=== PATIENT | female | born 1960 | race Hispanic/Latino ===

== ENCOUNTER 2017-01-14 05:55 | Inpatient (IN) | payer OTHER ==
[2017-01-14 06:51] LABS: Hematocrit 51.7 % (30.3-42.9); Hemoglobin 17.5 gm/dl (10.1-14.3); Mean Corpuscular HGB Conc 34 % (30-34); Mean Corpuscular Hemoglobin 32 pg (28-32); Mean Corpuscular Volume 96 fl (79-97); Platelet Count 172 K/mm3 (140-440); Red Blood Count 5.41 M/mm3 (3.65-5.03); White Blood Count 13.8 K/mm3 (4.5-11.0)
[2017-01-14] MEDS ORDERED: ZOFRAN IV ONE ×2 (06:54→08:40)
[2017-01-14] MEDS ORDERED: MORPHINE IV ONE ×2 (06:54→08:40)
[2017-01-14] MEDS ORDERED: PROTONIX IV ONE (06:54)
[2017-01-14] MEDS ORDERED: ZOSYN/NS 4.5GM/100ML 4.5 GM/100 ML VIAL IV ONE (06:55)
[2017-01-14] MEDS ORDERED: NACL 0.9% 1000 ML 1,000 ML IV ONE ×2 (06:57→07:46)
[2017-01-14 07:06] LABS: Alanine Aminotransferase 31 units/L (7-56); Albumin 3.8 g/dL (3.9-5); Albumin/Globulin Ratio 1.4 %; Alkaline Phosphatase 94 units/L (35-129); Anion Gap 28 mmol/L; Bilirubin,Direct 0.4 mg/dL (0-0.2); Blood Urea Nitrogen 6 mg/dL (7-17); Calcium 8.2 mg/dL (8.4-10.2); Carbon Dioxide 19 mmol/L (22-30); Chloride 91.2 mmol/L (98-107); Glucose 204 mg/dL (65-100); Sodium 136 mmol/L (137-145); Total Protein 6.6 g/dL (6.3-8.2)
--- NOTE | 2017-01-14 07:14 | XRay Report ---
AP CHEST: HISTORY: Hypertension AP view of the chest demonstrates a normal mediastinal and cardiac contour with clear lungs and normal bony and soft tissue structures. IMPRESSION: No acute cardiopulmonary process.
[2017-01-14 07:18] LABS: Lipase 1340 units/L (13-60)
[2017-01-14 07:24] LABS: Potassium 2.5 mmol/L (3.6-5.0)
[2017-01-14 07:30] LABS: Partial Thromboplastin Time 24.4 Sec. (24.2-36.6)
--- NOTE | 2017-01-14 07:45 | Cat Scan Report ---
CT OF THE ABDOMEN AND PELVIS WITHOUT CONTRAST HISTORY: Diffuse abdominal pain. TECHNIQUE: Helical CT without contrast. Sagittal and coronal reformatted images. FINDINGS: Correlation is made with a right upper quadrant ultrasound dated 12/20/15. Moderate inflammatory changes and fluid have developed surrounding the pancreas highly suggestive of acute pancreatitis. There is no obvious pancreatic mass or pseudocyst. Mild diffuse fatty infiltration of the liver is noted. No liver mass or surface nodularity is appreciated. The biliary system is unremarkable on noncontrast CT but recent right upper quadrant ultrasound demonstrated tiny gallstones. There is no evidence for biliary dilatation. The kidneys, adrenal glands, spleen and aorta are unremarkable. There are scattered diverticula in the sigmoid colon. Otherwise, the GI system is within normal limits. Normal appendix. The uterus, adnexa and bladder are unremarkable. Heart size is normal. The lung bases are clear. No pleural effusion. Normal bony structures. IMPRESSION: Acute pancreatitis. Fatty infiltration of the liver. Mild diverticulosis of the sigmoid colon.
[2017-01-14] MEDS ORDERED: K-DUR PO ONE (08:01)
--- NOTE | 2017-01-14 08:03 | Emergency Department Report ---
ED General Adult HPI - General Chief complaint: Abdominal Pain Stated complaint: ABD PAIN, ABRAM Source: EMS Mode of arrival: Stretcher Limitations: No Limitations - History of Present Illness Initial comments: Patient refers diffuse abdominal pain which seems to be worse in the upper quadrants but bilateral since at least 2 days. She states that she has not been able to tolerate oral feeding. Complains of nausea but not much denise emesis. Despite having an ultrasound that demonstrated gallstones in 2016, the patient has no knowledge of her history of gallstones. She is a poor historian in general. She does not report any fever or chills. She states that she's had no prior abdominal surgery and no pain like this before. -: days(s) Location: abdomen Radiation: non-radiation Severity scale (0 -10): 8 Quality: aching Consistency: constant Improves with: none Worsens with: none Associated Symptoms: nausea/vomiting. denies: shortness of breath, syncope - Related Data Allergies Allergy/AdvReac Type Severity Reaction Status Date / Time No Known Allergies Allergy Verified 01/14/17 07:50 ED Review of Systems ROS: Stated complaint: ABD PAIN, ABRAM Other details as noted in HPI Constitutional: denies: chills, fever Eyes: denies: eye pain, eye discharge, vision change ENT: denies: ear pain, throat pain Respiratory: shortness of breath. denies: cough, wheezing Cardiovascular: denies: chest pain, palpitations Endocrine: no symptoms reported Gastrointestinal: abdominal pain, nausea. denies: diarrhea Genitourinary: denies: urgency, dysuria, discharge Musculoskeletal: denies: back pain, joint swelling, arthralgia Skin: denies: rash, lesions Neurological: denies: headache, weakness, paresthesias Psychiatric: denies: anxiety, depression Hematological/Lymphatic: denies: easy bleeding, easy bruising ED Past Medical Hx - Past Medical History Previous Medical History?: Yes Hx Hypertension: Yes Hx COPD: Yes - Surgical History Past Surgical History?: Yes - Social History Smoking Status: Current Every Day Smoker Substance Use Type: None ED Physical Exam - General Limitations: No Limitations General appearance: alert, in no apparent distress - Head Head exam: Present: atraumatic, normocephalic - Eye Eye exam: Present: normal appearance. Absent: scleral icterus - ENT ENT exam: Present: mucous membranes moist - Neck Neck exam: Present: normal inspection. Absent: tenderness, meningismus - Respiratory Respiratory exam: Present: normal lung sounds bilaterally. Absent: respiratory distress - Cardiovascular Cardiovascular Exam: Present: regular rate, normal rhythm. Absent: systolic murmur, diastolic murmur, rubs, gallop - GI/Abdominal GI/Abdominal exam: Present: soft, distended (mildly distended), tenderness ( diffuse tenderness upper quadrants greater than lower), guarding (some voluntary guarding), normal bowel sounds. Absent: rebound (no denise rebound), rigid - Extremities Exam Extremities exam: Present: normal inspection - Back Exam Back exam: Present: normal inspection - Neurological Exam Neurological exam: Present: alert, oriented X3, CN II-XII intact. Absent: motor sensory deficit - Psychiatric Psychiatric exam: Present: normal affect, normal mood - Skin Skin exam: Present: warm, dry, intact, normal color. Absent: rash ED Course Vital Signs 01/14/17 01/14/17 01/14/17 06:05 06:09 06:30 Temperature 97.9 F Pulse Rate 118 H 111 H Respiratory 18 29 H 43 H Rate Blood Pressure 154/107 145/97 O2 Sat by Pulse 100 98 Oximetry 01/14/17 01/14/17 01/14/17 07:00 07:31 08:00 Temperature Pulse Rate 108 H 102 H 94 H Respiratory 33 H 22 21 Rate Blood Pressure 167/110 143/100 161/108 O2 Sat by Pulse 98 96 95 Oximetry 01/14/17 08:31 Temperature Pulse Rate 86 Respiratory 34 H Rate Blood Pressure 143/100 O2 Sat by Pulse 99 Oximetry - Reevaluation(s) Reevaluation #1: The patient was treated empirically with Zosyn. She was given IV fluids and Protonix and supplemental potassium both by mouth and K rider. She has a significant lactic acidosis. Her total body potassium deficit is quite large. She remains hemodynamically stable. However the nurse's note periodic tachypnea which I'm sure is respiratory compensation for lactic acidosis. Her common bile duct on CT was not found to be enlarged by the radiologist. I'm going to order a bedside ultrasound however to delineate the gallbladder anatomy further. She was not found to have cholecystitis by the radiologist. However I do see quite a bit of inflammation on the CT in general and associated with obvious pancreatitis. I discussed the lactic acidosis as an indicator of severe pancreatitis in this patient with Dr. Friend. He agreed it would be appropriate to place her in the ICU today. Dr. Giraldo will be admitting her further care and evaluation. 01/14/17 08:31 ED Medical Decision Making - Lab Data Result diagrams: 01/14/17 06:33 01/14/17 06:33 Laboratory Results - last 24 hr 01/14/17 01/14/17 01/14/17 06:33 06:33 06:33 WBC 13.8 H RBC 5.41 H Hgb 17.5 H Hct 51.7 H MCV 96 MCH 32 MCHC 34 RDW 16.0 H Plt Count 172 Seg Neutrophils % Manufacturing Team Member PT INR APTT Sodium 136 L Potassium 2.5 L* Chloride 91.2 L Carbon Dioxide 19 L Anion Gap 28 BUN 6 L Creatinine 0.5 L Estimated GFR > 60 BUN/Creatinine Ratio 12.00 Glucose 204 H Lactic Acid Calcium 8.2 L Total Bilirubin 1.40 H Direct Bilirubin 0.4 H Indirect Bilirubin 1.0 AST 56 H ALT 31 Alkaline Phosphatase 94 NT-Pro-B Natriuret Pep Total Protein 6.6 Albumin 3.8 L Albumin/Globulin Ratio 1.4 Amylase 1202 H Lipase 1340 H Blood Type Antibody Screen 01/14/17 01/14/17 01/14/17 07:02 07:02 07:02 WBC RBC Hgb Hct MCV MCH MCHC RDW Plt Count Seg Neutrophils % PT 13.1 INR 1.00 APTT 24.4 Sodium Potassium Chloride Carbon Dioxide Anion Gap BUN Creatinine Estimated GFR BUN/Creatinine Ratio Glucose Lactic Acid Calcium Total Bilirubin Direct Bilirubin Indirect Bilirubin AST ALT Alkaline Phosphatase NT-Pro-B Natriuret Pep 78.95 Total Protein Albumin Albumin/Globulin Ratio Amylase Lipase Blood Type O POSITIVE Antibody Screen TNR 01/14/17 07:02 WBC RBC Hgb Hct MCV MCH MCHC RDW Plt Count Seg Neutrophils % PT INR APTT Sodium Potassium Chloride Carbon Dioxide Anion Gap BUN Creatinine Estimated GFR BUN/Creatinine Ratio Glucose Lactic Acid 7.70 H* Calcium Total Bilirubin Direct Bilirubin Indirect Bilirubin AST ALT Alkaline Phosphatase NT-Pro-B Natriuret Pep Total Protein Albumin Albumin/Globulin Ratio Amylase Lipase Blood Type Antibody Screen - EKG Data -: EKG Interpreted by Mi EKG shows normal: sinus rhythm, axis, intervals, QRS complexes - EKG Data Interpretation: other (somewhat of a low voltage EKG with prolonged QT) - Radiology Data Radiology results: report reviewed interpreted by me: Chest x-ray no acute process. CT shows diffuse pancreatitis. Critical Care Time: Yes Critical care time in (mins) excluding proc time.: 60 Critical care attestation.: If time is entered above; I have spent that time in minutes in the direct care of this critically ill patient, excluding procedure time. ED Disposition Clinical Impression: Lactic acidosis Acute pancreatitis Qualifiers: Pancreatitis type: biliary Acute pancreatitis complication: unspecified Qualified Code(s): K85.10 - Biliary acute pancreatitis without necrosis or infection Cholelithiasis Qualifiers: Cholelithiasis location: bile duct Cholecystitis presence: without cholecystitis Biliary obstruction: with biliary obstruction Qualified Code(s): K80.51 - Calculus of bile duct without cholangitis or cholecystitis with obstruction Disposition: OP ADMITTED IP TO THIS HOSP Is pt being admited?: Yes Condition: Critical Instructions: Abdominal Pain (ED) Referrals: PRIMARY CARE, [Primary Care Provider] - 3-5 Days Time of Disposition: 09:14
[2017-01-14] MEDS: KCL 10MEQ/100ML 10 MEQ/100 ML BAG IV SCH ×4 (08:22→11:51)
[2017-01-14 08:24] LABS: Blastocytes % (Manual) 0 %
[2017-01-14 08:25] LABS: Basophils % (Manual) 0 % (0.0-1.8); Diff Status Complete; Eosinophils % (Manual) 0 % (0.0-4.3); RBC Morphology Normal
[2017-01-14 08:37] LABS: Urine Drugs of Abuse Note Disclamer
[2017-01-14 08:51] LABS: Bacteria,Urine 1+ /HPF (Negative); Bilirubin,Urine NEG (Negative); Blood,Urine SM (Negative); Ketones,Urine 20 mg/dL (Negative); Leukocyte Esterase,Urine NEG (Negative); Mucus,Urine 1+ /HPF; Nitrite,Urine NEG (Negative); Urobilinogen,Urine < 2.0 mg/dL (<2.0)
[2017-01-14] MEDS ORDERED: TYLENOL PO PRN ×2 (08:57→09:14)
[2017-01-14] MEDS ORDERED: MILK OF MAGNESIA PO PRN ×2 (08:57→09:14)
[2017-01-14] MEDS ORDERED: DULCOLAX PR PRN ×2 (08:57→09:14)
[2017-01-14] MEDS ORDERED: VANCOMYCIN VIAL 1,750 MG in NACL 0.9% 500 ML 500 ML IV ONE (08:57)
[2017-01-14] MEDS ORDERED: VANCOMYCIN PHARMACY TO DOSE IV SCH (09:00)
[2017-01-14] MEDS ORDERED: ZOFRAN IV PRN (09:14)
--- NOTE | 2017-01-14 09:23 | History and Physical Report ---
History of Present Illness Date of examination: 01/14/17 Date of admission: 01/14/2017 Chief complaint: Abdominal pain History of present illness: Patient is 56 years old female with 2 day of worsening abdominal pain. The patient states that for the past two days she has felt bloated and has a decrease in appetite. yesterday she began having intermittent abdominal pain, but it has now progressed to being constant. since yesterday (01/13/2017) she has had sever nausea and has multiple times of bilious vomiting despite not having taken anything by mouth in over 24 hours. Currently, the pain described as a constant dull. diffuse pain that intermittently becomes sharp and radiates to her back. The sharp pain tends to occur in different times. the intensity of the pain has been increasing since yesterday and pain scale she now rates the pain at 10/10. She does not identify exacerbating and relieving factor. She denies a recent history of fever, jaundice,pruritis,diarrhea,hemoptysis,melena. Also patient reported that she went to her primary care office yesterday and was told she has abnormal Pap smears and yeast infection. She was recommended to take Antifungal but did not take it because of the abdominal pain. Patient is a poor historian. Past History Past Medical History: hypertension, hyperlipidemia, liver disease Past Surgical History: No surgical history Social history: , smoking Family history: CAD Medications and Allergies Allergies Allergy/AdvReac Type Severity Reaction Status Date / Time No Known Allergies Allergy Verified 01/14/17 07:50 Home Medications Medication Instructions Recorded Confirmed Last Taken Type Hydrochlorothiazide [HCTZ] 25 mg PO QDAY 01/14/17 01/14/17 Unknown History Sertraline [Zoloft] 50 mg PO QDAY 01/14/17 01/14/17 Unknown History amLODIPine [Norvasc] 10 mg PO DAILY 01/14/17 01/14/17 Unknown History traZODone [Desyrel] 50 mg PO QHS 01/14/17 01/14/17 Unknown History Active Meds: Active Medications Acetaminophen (Tylenol) 650 mg PO Q4H PRN PRN Reason: Pain MILD(1-3)/Fever >100.5/ALEXANDER Aspirin (Baby Aspirin) 81 mg PO QDAY GRZEGORZ Bisacodyl (Dulcolax) 10 mg LA QDAY PRN PRN Reason: Constipation unrelieved by MOM Hydromorphone HCl (Dilaudid) 1 mg IV Q3H PRN PRN Reason: Pain , Severe (7-10) Sodium Chloride (Nacl 0.9% 1000 Ml) 1,000 mls @ 125 mls/hr IV ONCE ONE Stop: 01/14/17 14:56 Last Admin: 01/14/17 07:09 Dose: 125 mls/hr Potassium Chloride (Kcl 10meq/100ml) 10 meq in 100 mls @ 100 mls/hr IV Q1H GRZEGORZ Stop: 01/14/17 11:59 Last Admin: 01/14/17 09:15 Dose: 100 mls/hr Dextrose/Sodium Chloride (D5ns) 1,000 mls @ 75 mls/hr IV DIRECT GRZEGORZ Vancomycin HCl 1,750 mg/ (Sodium Chloride) 500 mls @ 334 mls/hr IV ONCE ONE PRN Reason: Protocol Stop: 01/14/17 10:26 Piperacillin Sod/Tazobactam Sod (Zosyn/Ns 4.5gm/100ml) 4.5 gm in 100 mls @ 200 mls/hr IV Q6HR GRZEGORZ PRN Reason: Protocol Magnesium Hydroxide (Milk Of Magnesia) 30 ml PO Q4H PRN PRN Reason: Constipation Ondansetron HCl (Zofran) 4 mg IV Q4H PRN PRN Reason: N/V unrelieved by Reglan Vancomycin HCl (Vancomycin Pharmacy To Dose) 1 each IV PKCONSULT GRZEGORZ PRN Reason: Protocol Exam - Constitutional Vitals: Temp Pulse Resp BP Pulse Ox 97.9 F 86 34 H 143/100 99 01/14/17 06:05 01/14/17 08:31 01/14/17 08:31 01/14/17 08:31 01/14/17 08:31 General appearance: Present: no acute distress - EENT Eyes: Present: PERRL, EOM intact ENT: hearing intact, clear oral mucosa, dentition normal - Neck Neck: Present: supple, normal ROM - Respiratory Respiratory effort: normal Respiratory: right: diminished Results - Labs CBC & Chem 7: 01/14/17 06:33 01/14/17 06:33 Labs: Laboratory Last Values WBC 13.8 K/mm3 (4.5-11.0) H 01/14/17 06:33 RBC 5.41 M/mm3 (3.65-5.03) H 01/14/17 06:33 Hgb 17.5 gm/dl (10.1-14.3) H 01/14/17 06:33 Hct 51.7 % (30.3-42.9) H 01/14/17 06:33 MCV 96 fl (79-97) 01/14/17 06:33 MCH 32 pg (28-32) 01/14/17 06:33 MCHC 34 % (30-34) 01/14/17 06:33 RDW 16.0 % (13.2-15.2) H 01/14/17 06:33 Plt Count 172 K/mm3 (140-440) 01/14/17 06:33 Add Manual Diff Complete 01/14/17 06:33 Total Counted 100 01/14/17 06:33 Seg Neutrophils % Process Helper 01/14/17 06:33 Band Neutrophils % 2.0 % 01/14/17 06:33 Reactive Lymphs % (Man) 0 % 01/14/17 06:33 Monocytes % (Manual) 2.0 % (0.0-7.3) 01/14/17 06:33 Eosinophils % (Manual) 0 % (0.0-4.3) 01/14/17 06:33 Basophils % (Manual) 0 % (0.0-1.8) 01/14/17 06:33 Metamyelocytes % 0 % 01/14/17 06:33 Myelocytes % 0 % 01/14/17 06:33 Promyelocytes % 0 % 01/14/17 06:33 Blast Cells % 0 % 01/14/17 06:33 Nucleated RBC % Not Reportable 01/14/17 06:33 Seg Neutrophils # Man 13.2 K/mm3 (1.8-7.7) H 01/14/17 06:33 Band Neutrophils # 0.3 K/mm3 01/14/17 06:33 Lymphocytes # (Manual) 0.0 K/mm3 (1.2-5.4) L 01/14/17 06:33 Abs React Lymphs (Man) 0.0 K/mm3 01/14/17 06:33 Monocytes # (Manual) 0.3 K/mm3 (0.0-0.8) 01/14/17 06:33 Eosinophils # (Manual) 0.0 K/mm3 (0.0-0.4) 01/14/17 06:33 Basophils # (Manual) 0.0 K/mm3 (0.0-0.1) 01/14/17 06:33 Metamyelocytes # 0.0 K/mm3 01/14/17 06:33 Myelocytes # 0.0 K/mm3 01/14/17 06:33 Promyelocytes # 0.0 K/mm3 01/14/17 06:33 Blast Cells # 0.0 K/mm3 01/14/17 06:33 WBC Morphology Not Reportable 01/14/17 06:33 Hypersegmented Neuts Not Reportable 01/14/17 06:33 Hyposegmented Neuts Not Reportable 01/14/17 06:33 Hypogranular Neuts Not Reportable 01/14/17 06:33 Smudge Cells Not Reportable 01/14/17 06:33 Toxic Granulation Not Reportable 01/14/17 06:33 Toxic Vacuolation Not Reportable 01/14/17 06:33 Dohle Bodies Not Reportable 01/14/17 06:33 Pelger-Huet Anomaly Not Reportable 01/14/17 06:33 Cesar Rods Not Reportable 01/14/17 06:33 Platelet Estimate Appears normal 01/14/17 06:33 Clumped Platelets Not Reportable 01/14/17 06:33 Plt Clumps, EDTA Not Reportable 01/14/17 06:33 Large Platelets Not Reportable 01/14/17 06:33 Giant Platelets Not Reportable 01/14/17 06:33 Platelet Satelliting Not Reportable 01/14/17 06:33 Plt Morphology Comment Not Reportable 01/14/17 06:33 RBC Morphology Normal 01/14/17 06:33 Dimorphic RBCs Not Reportable 01/14/17 06:33 Polychromasia Not Reportable 01/14/17 06:33 Hypochromasia Not Reportable 01/14/17 06:33 Poikilocytosis Not Reportable 01/14/17 06:33 Anisocytosis Not Reportable 01/14/17 06:33 Microcytosis Not Reportable 01/14/17 06:33 Macrocytosis Not Reportable 01/14/17 06:33 Spherocytes Not Reportable 01/14/17 06:33 Pappenheimer Bodies Not Reportable 01/14/17 06:33 Sickle Cells Not Reportable 01/14/17 06:33 Target Cells Not Reportable 01/14/17 06:33 Tear Drop Cells Not Reportable 01/14/17 06:33 Ovalocytes Not Reportable 01/14/17 06:33 Helmet Cells Not Reportable 01/14/17 06:33 [place] Bodies Not Reportable 01/14/17 06:33 [place] Rings Not Reportable 01/14/17 06:33 Danielle Cells Not Reportable 01/14/17 06:33 Bite Cells Not Reportable 01/14/17 06:33 Crenated Cell Not Reportable 01/14/17 06:33 Elliptocytes Not Reportable 01/14/17 06:33 Acanthocytes (Spur) Not Reportable 01/14/17 06:33 Rouleaux Not Reportable 01/14/17 06:33 Hemoglobin C Crystals Not Reportable 01/14/17 06:33 Schistocytes Not Reportable 01/14/17 06:33 Malaria parasites Not Reportable 01/14/17 06:33 Swapnil Bodies Not Reportable 01/14/17 06:33 Hem Pathologist Commnt No 01/14/17 06:33 PT 13.1 Sec. (12.2-14.9) 01/14/17 07:02 INR 1.00 (0.87-1.13) 01/14/17 07:02 APTT 24.4 Sec. (24.2-36.6) 01/14/17 07:02 Sodium 136 mmol/L (137-145) L 01/14/17 06:33 Potassium 2.5 mmol/L (3.6-5.0) L* 01/14/17 06:33 Chloride 91.2 mmol/L (98-107) L 01/14/17 06:33 Carbon Dioxide 19 mmol/L (22-30) L 01/14/17 06:33 Anion Gap 28 mmol/L 01/14/17 06:33 BUN 6 mg/dL (7-17) L 01/14/17 06:33 Creatinine 0.5 mg/dL (0.7-1.2) L 01/14/17 06:33 Estimated GFR > 60 ml/min 01/14/17 06:33 BUN/Creatinine Ratio 12.00 % 01/14/17 06:33 Glucose 204 mg/dL (65-100) H 01/14/17 06:33 Lactic Acid 7.70 mmol/L (0.7-2.0) H* 01/14/17 07:02 Calcium 8.2 mg/dL (8.4-10.2) L 01/14/17 06:33 Total Bilirubin 1.40 mg/dL (0.1-1.2) H 01/14/17 06:33 Direct Bilirubin 0.4 mg/dL (0-0.2) H 01/14/17 06:33 Indirect Bilirubin 1.0 mg/dL 01/14/17 06:33 AST 56 units/L (5-40) H 01/14/17 06:33 ALT 31 units/L (7-56) 01/14/17 06:33 Alkaline Phosphatase 94 units/L (35-129) 01/14/17 06:33 NT-Pro-B Natriuret Pep 78.95 pg/mL (0-900) 01/14/17 07:02 Total Protein 6.6 g/dL (6.3-8.2) 01/14/17 06:33 Albumin 3.8 g/dL (3.9-5) L 01/14/17 06:33 Albumin/Globulin Ratio 1.4 % 01/14/17 06:33 Amylase 1202 units/L (27-131) H 01/14/17 06:33 Lipase 1340 units/L (13-60) H 01/14/17 06:33 Urine Color Sarah (Yellow) 01/14/17 07:55 Urine Turbidity Clear (Clear) 01/14/17 07:55 Urine pH 6.0 (5.0-7.0) 01/14/17 07:55 Ur Specific [place] 1.028 (1.003-1.030) 01/14/17 07:55 Urine Protein 100 mg/dl mg/dL (Negative) 01/14/17 07:55 Urine Glucose (UA) 50 mg/dL (Negative) 01/14/17 07:55 Urine Ketones 20 mg/dL (Negative) 01/14/17 07:55 Urine Blood Sm (Negative) 01/14/17 07:55 Urine Nitrite Neg (Negative) 01/14/17 07:55 Urine Bilirubin Neg (Negative) 01/14/17 07:55 Urine Urobilinogen < 2.0 mg/dL (<2.0) 01/14/17 07:55 Ur Leukocyte Esterase Neg (Negative) 01/14/17 07:55 Urine WBC (Auto) 3.0 /HPF (0.0-6.0) 01/14/17 07:55 Urine RBC (Auto) 3.0 /HPF (0.0-6.0) 01/14/17 07:55 U Epithel Cells (Auto) 4.0 /HPF (0-13.0) 01/14/17 07:55 Urine Bacteria (Auto) 1+ /HPF (Negative) 01/14/17 07:55 Urine Mucus 1+ /HPF 01/14/17 07:55 Urine Opiates Screen Presumptive positive 01/14/17 07:55 Urine Methadone Screen Presumptive negative 01/14/17 07:55 Ur Barbiturates Screen Presumptive negative 01/14/17 07:55 Ur Phencyclidine Scrn Presumptive negative 01/14/17 07:55 Ur Amphetamines Screen Presumptive negative 01/14/17 07:55 U Benzodiazepines Scrn Presumptive negative 01/14/17 07:55 Urine Cocaine Screen Presumptive negative 01/14/17 07:55 U Marijuana (THC) Screen Presumptive negative 01/14/17 07:55 Drugs of Abuse Note Disclamer 01/14/17 07:55 Blood Type O POSITIVE 01/14/17 07:02 Antibody Screen TNR 01/14/17 07:02 OSCAR Antibody Screen Negative 01/14/17 07:02 - Imaging and Cardiology Chest x-ray: pending (No acute cardiopulmonary) CT scan - abdomen: pending (Acute Pancreatitis, Fatty infilitation of the liver , mild diverticulosis) CT scan - pelvis: pending (Acute Pancreatitis, Fatty infilitation of the liver, mild diverticulosis) Assessment and Plan Assessment and plan: ASSESSMENT/PLAN 1. Sepsis Serial of blood cultures and PT/INR done waiting for result. Lactic Acid 7.7 WBC 13.8 H&H 17.5 and 51.7 Appropriate antibiotics ordered ID consulted for further evaluation. on continues IVF EKG Normal X-ray unremarkable 2. Acute Pancreatitis CT Abdomen/Pelvis demonstrated that, Acute Pancreatitis, Fatty infiltration of the liver and mild diverticulosis. Pain controlled with Morphine and Dilaudid on continues IVF NPO GI and surgery consulted for further evaluation. 3. Hypokalemia Replete in the ED will recheck VTE Prophylaxis Lovenox and Protonix Patient Full Code - Patient Problems (1) Sepsis Current Visit: Yes Status: Acute Qualifiers: Sepsis type: S (2) Acute pancreatitis Current Visit: Yes Status: Acute Qualifiers: Pancreatitis type: P Acute pancreatitis complication: A (3) Hypokalemia Current Visit: Yes Status: Acute
[2017-01-14] MEDS: BABY ASPIRIN PO SCH ×2 (09:27→10:01)
[2017-01-14] MEDS: ZOSYN/NS 4.5GM/100ML 4.5 GM/100 ML VIAL IV SCH ×2 (09:27→12:41)
[2017-01-14] MEDS: DILAUDID IV PRN ×4 (09:28→23:23)
--- NOTE | 2017-01-14 09:39 | Admit Criteria Form ---
Admission Criteria Documentation: PANCREATITIS Clinical Indications for Admission to Inpatient Care (Place 'X' for any and all applicable criteria): Admission is indicated for 1 or more of the following (1)(2)(3)(4): [X]I. Acute pancreatitis[A] as indicated by 2 or MORE of the following: [ ]a) Abdominal pain (eg, epigastric, left upper quadrant) [X]b) Serum amylase or serum lipase greater than 3 times the upper limit of normal [X]c) Characteristic findings from abdominal imaging (eg, pancreatic inflammation, pancreatic necrosis, peripancreatic fluid collection)[B] [X]II. Pancreatitis (acute or chronic ) requiring inpatient care as indicated by 1 or more of the following [ ]a) Inability to maintain oral hydration Hypoxemia [ ]b) Evidence of infection (eg, fever, peripancreatic abscess) [ ]c) Severe pain requiring acute inpatient management [ ]d) Hemodynamic instability [ ]e) Hypoxemia [ ]f) Acute renal failure [X]g) Severe electrolyte abnormalities Extended stay beyond goal length of stay may be needed for (1)(11) [ ]a) Severe acute pancreatitis (10)(19) [ ]b) Persistent symptoms, ascites, or pleural effusion [ ]c) Abdominal compartment syndrome (10) [ ]d) Late complications [ ]e) Gallstones in gallbladder [ ]f) Acute renal failure (27) The original [employer] content created by [employer] has been revised. The portions of the content which have been revised are identified through the use of italic text or in bold,and [facility] has neither reviewed nor approved the modified material.All other unmodified content is copyright [employer]. Please see references footnoted in the original [employer] edition 2016 Admission Criteria Met: Yes
[2017-01-14] MEDS ORDERED: LOVENOX SUB-Q SCH (10:00)
[2017-01-14 10:37] LABS: INR 1.12 (0.87-1.13); Partial Thromboplastin Time 24.7 Sec. (24.2-36.6)
[2017-01-14] MEDS ORDERED: VANCOMYCIN 1,750 MG in NACL 0.9% 500 ML 500 ML IV SCH (12:00)
[2017-01-14] MEDS ORDERED: VANCOMYCIN 1,750 MG in NACL 0.9% 500 ML 500 ML IV ONE (13:00)
--- NOTE | 2017-01-14 14:22 | Gastroenterology Consultation ---
History of Present Illness - Reason for Consult Consult date: 01/14/17 Pancreatitis Requesting physician: CA GIRALDO - History of Present Illness We are consulted by Dr Giraldo for acute pancreatitis. The patient was admitted for a first flare of acute pancreatitis over the last 24 hours. She does admit that she has had lower-grade symptoms (epigastric pain, nausea) over the past several months. She has gallstones on US, but her CBD is normal, and her LFTs are not markedly elevated. She has a long hx of EtOH abuse, up to 1 pint of EtOH daily, but says she went in to [facility] in September and has not had any EtOH since. However, records from [facility] were obtained, and as recently as 11/27/2016 she was in the ER for N/V and blood EtOH level was 175. She has no fevers or chills and wants to try ice chips despite the nausea. She has no blood in the emesis or stools. She has had no abdominal surgery. She has no CP or SOB, just difficulty breathing deep due to the abdominal discomfort. Past History Past Medical History: hypertension, hyperlipidemia, liver disease Past Surgical History: No surgical history Social history: , smoking, alcohol abuse. denies: prescription drug abuse Family history: CAD Medications and Allergies Allergies Allergy/AdvReac Type Severity Reaction Status Date / Time No Known Allergies Allergy Verified 01/14/17 07:50 Home Medications Medication Instructions Recorded Confirmed Last Taken Type Hydrochlorothiazide [HCTZ] 25 mg PO QDAY 01/14/17 01/14/17 Unknown History Sertraline [Zoloft] 50 mg PO QDAY 01/14/17 01/14/17 Unknown History amLODIPine [Norvasc] 10 mg PO DAILY 01/14/17 01/14/17 Unknown History traZODone [Desyrel] 50 mg PO QHS 01/14/17 01/14/17 Unknown History Active Meds: Active Medications Acetaminophen (Tylenol) 650 mg PO Q4H PRN PRN Reason: Pain MILD(1-3)/Fever >100.5/ALEXANDER Aspirin (Baby Aspirin) 81 mg PO QDAY [facility] Last Admin: 01/14/17 10:01 Dose: Not Given Bisacodyl (Dulcolax) 10 mg TN QDAY PRN PRN Reason: Constipation unrelieved by MOM Enoxaparin Sodium (Lovenox) 40 mg SUB-Q QDAY GRZEGORZ Hydromorphone HCl (Dilaudid) 1 mg IV Q3H PRN PRN Reason: Pain , Severe (7-10) Last Admin: 01/14/17 09:28 Dose: 1 mg Sodium Chloride (Nacl 0.9% 1000 Ml) 1,000 mls @ 125 mls/hr IV ONCE ONE Stop: 01/14/17 14:56 Last Admin: 01/14/17 07:09 Dose: 125 mls/hr Dextrose/Sodium Chloride (D5ns) 1,000 mls @ 75 mls/hr IV DIRECT GRZEGORZ Piperacillin Sod/Tazobactam Sod (Zosyn/Ns 4.5gm/100ml) 4.5 gm in 100 mls @ 200 mls/hr IV Q6HR GRZEGORZ PRN Reason: Protocol Last Admin: 01/14/17 12:41 Dose: 200 mls/hr Vancomycin HCl 1,750 mg/ (Sodium Chloride) 535 mls @ 333.333 mls/hr IV ONCE ONE Stop: 01/14/17 14:36 Last Admin: 01/14/17 13:17 Dose: 333.333 mls/hr Vancomycin HCl 1,250 mg/ (Sodium Chloride) 275 mls @ 166.667 mls/hr IV Q12H GRZEGORZ Magnesium Hydroxide (Milk Of Magnesia) 30 ml PO Q4H PRN PRN Reason: Constipation Ondansetron HCl (Zofran) 4 mg IV Q4H PRN PRN Reason: N/V unrelieved by Reglan Vancomycin HCl (Vancomycin Pharmacy To Dose) 1 each IV PKCONSULT GRZEGORZ PRN Reason: Protocol Review of Systems - Review of Systems All systems: negative (as noted in the HPI.) Exam - Constitutional Vital Signs: Temp Pulse Resp BP Pulse Ox 97.9 F 82 17 150/98 97 01/14/17 06:05 01/14/17 13:31 01/14/17 13:31 01/14/17 13:31 01/14/17 13:31 General appearance: mild distress - EENT Eyes: PERRL, EOM intact ENT: hearing intact, clear oral mucosa, no thrush - Neck Neck: supple, normal ROM - Respiratory Respiratory effort: normal Respiratory: bilateral: CTA - Cardiovascular Rhythm: regular Heart Sounds: Present: S1 & S2 Extremities: no ischemia, No edema - Gastrointestinal General gastrointestinal: Present: soft, tender (Mild in epigastric area; no guarding), non-distended - Integumentary Integumentary: Present: clear, warm, dry - Neurologic Neurological: alert and oriented x3 - Labs CBC & Chem 7: 01/14/17 06:33 01/14/17 06:33 Lab Results: Laboratory Results - last 24 hr 01/14/17 01/14/17 01/14/17 09:52 09:52 09:52 PT 14.3 INR 1.12 APTT 24.7 Lactic Acid 5.80 H* Magnesium 1.00 L Assessment and Plan - Patient Problems (1) Acute pancreatitis Current Visit: Yes Status: Acute Qualifiers: Pancreatitis type: biliary Acute pancreatitis complication: unspecified Qualified Code(s): K85.10 - Biliary acute pancreatitis without necrosis or infection Plan to address problem: - Unclear if gallstones or severe EtOH abuse, but I suspect EtOH. - OK to get MRCP but with nml CBD and LFTs, I doubt will be (+). - Continue NPO except ice chips, and aggressive fluid resuscitation. - Since WBC <16K, afebrile, and no necrosis/abscess on CT scan, will d/c abx, and observe clinically. - CIWA for EtOH. - MVI daily therapy for malnutrition. (2) Alcohol abuse Current Visit: Yes Status: Acute Plan to address problem: - CIWA and MVI therapy.
[2017-01-14] MEDS: ZOFRAN IV PRN ×3 (15:29→23:15)
[2017-01-14] MEDS ORDERED: ATIVAN IV PRN ×3 (16:15)
--- NOTE | 2017-01-14 16:52 | Ultrasound Report ---
Ultrasound of the right upper quadrant. History: Abdominal pain. Findings: Abdominal aorta, liver, and gallbladder are normal. The wall of the gallbladder is not thickened. Common bile duct is normal in caliber at 4.6 mm. The right kidney is normal. The pancreas is not well identified. Please correlate with CT abdomen performed on the same date. Impression: No significant findings. Please refer to CT of the abdomen for better evaluation of the pancreas.
[2017-01-14] MEDS: ANCEF/NS 1 GM/50 ML 1 GM/50 ML BAG IV SCH (19:54)
[2017-01-14] MEDS: D5NS 1,000 ML IV SCH (19:56)
[2017-01-14] MEDS ORDERED: ANCEF 500 MG in NACL 0.9% 50 ML IV SCH (22:00)
[2017-01-15] MEDS ORDERED: VANCOMYCIN 1,250 MG in NACL 0.9% 250ML 250 ML IV SCH (01:00)
[2017-01-15] MEDS: ANCEF/NS 1 GM/50 ML 1 GM/50 ML BAG IV SCH ×3 (01:10→18:01)
[2017-01-15] MEDS: ZOFRAN IV PRN ×4 (04:01→20:45)
[2017-01-15] MEDS: DILAUDID IV PRN ×4 (04:01→20:45)
[2017-01-15 04:36] LABS: Alanine Aminotransferase 22 units/L (7-56); Albumin 3.3 g/dL (3.9-5); Albumin/Globulin Ratio 1.4 %; Alkaline Phosphatase 65 units/L (35-129); Anion Gap 20 mmol/L; Blood Urea Nitrogen 11 mg/dL (7-17); Carbon Dioxide 21 mmol/L (22-30); Chloride 100.1 mmol/L (98-107); Glucose 132 mg/dL (65-100); Hematocrit 48.7 % (30.3-42.9); Hemoglobin 16.3 gm/dl (10.1-14.3); INR 1.19 (0.87-1.13); Mean Corpuscular HGB Conc 33 % (30-34); Mean Corpuscular Hemoglobin 33 pg (28-32); Mean Corpuscular Volume 97 fl (79-97); Partial Thromboplastin Time 28.1 Sec. (24.2-36.6); Platelet Count 127 K/mm3 (140-440); Red Blood Count 5.02 M/mm3 (3.65-5.03); Red Cell Distribution Width 16.7 % (13.2-15.2); Sodium 138 mmol/L (137-145); Total Protein 5.6 g/dL (6.3-8.2); White Blood Count 14.2 K/mm3 (4.5-11.0)
[2017-01-15 04:53] LABS: Calcium 5.8 mg/dL (8.4-10.2)
[2017-01-15 04:56] LABS: Lipase 625 units/L (13-60)
[2017-01-15 05:03] LABS: Basophils % (Manual) 0 % (0.0-1.8); Blastocytes % (Manual) 0 %; Diff Status Complete; Eosinophils % (Manual) 0 % (0.0-4.3); Platelet Estimate Appears Decreased; RBC Morphology Normal
[2017-01-15] MEDS ORDERED: CALCIUM GLUCONATE 2,000 MG in NACL 0.9% 100 ML IV ONE (06:21)
--- NOTE | 2017-01-15 07:39 | Progress Note ---
Assessment and Plan - Patient Problems (1) Acute pancreatitis Current Visit: Yes Status: Acute Qualifiers: Pancreatitis type: biliary Acute pancreatitis complication: unspecified Qualified Code(s): K85.10 - Biliary acute pancreatitis without necrosis or infection Plan to address problem: Continue bowel rest continue IV fluid hydration and pain meds (2) Sepsis Current Visit: Yes Status: Acute Qualifiers: Sepsis type: S Plan to address problem: Continue IV antibiotics follow cultures (3) Cholelithiasis Current Visit: Yes Status: Acute Qualifiers: Cholelithiasis location: bile duct Cholecystitis presence: without cholecystitis Cholangitis presence: C Cholecystitis acuity: C Cholangitis acuity: C Biliary obstruction: with biliary obstruction Qualified Code(s): K80.51 - Calculus of bile duct without cholangitis or cholecystitis with obstruction Plan to address problem: Patient scheduled to have cholecystectomy per surgery History Interval history: Patient Awake alert Hospitalist Physical - Constitutional Vitals: Temp Pulse Resp BP Pulse Ox 98.3 F 80 20 141/93 100 01/15/17 02:25 01/15/17 02:25 01/15/17 02:25 01/15/17 02:25 01/15/17 02:25 General appearance: Present: no acute distress - EENT Eyes: Present: PERRL, EOM intact ENT: hearing intact, clear oral mucosa - Neck Neck: Present: supple, normal ROM - Respiratory Respiratory effort: normal Respiratory: bilateral: CTA - Cardiovascular Rhythm: regular Heart Sounds: Present: S1 & S2 - Abdominal General gastrointestinal: soft, tender, non-distended, normal bowel sounds Localized gastrointestinal: tender: epigastric periumbilical - Psychiatric Psychiatric: appropriate mood/affect - Neurologic Neurologic: CNII-XII intact Results - Labs CBC & Chem 7: 01/15/17 03:28 01/15/17 03:28 Labs: Laboratory Last Values WBC 14.2 K/mm3 (4.5-11.0) H 01/15/17 03:28 RBC 5.02 M/mm3 (3.65-5.03) 01/15/17 03:28 Hgb 16.3 gm/dl (10.1-14.3) H 01/15/17 03:28 Hct 48.7 % (30.3-42.9) H 01/15/17 03:28 MCV 97 fl (79-97) 01/15/17 03:28 MCH 33 pg (28-32) H 01/15/17 03:28 MCHC 33 % (30-34) 01/15/17 03:28 RDW 16.7 % (13.2-15.2) H 01/15/17 03:28 Plt Count 127 K/mm3 (140-440) L 01/15/17 03:28 Add Manual Diff Complete 01/15/17 03:28 Total Counted 100 01/15/17 03:28 Seg Neutrophils % User Experience Architect 01/14/17 06:33 Seg Neuts % (Manual) 97.0 % (40.0-70.0) H 01/15/17 03:28 Band Neutrophils % 1.0 % 01/15/17 03:28 Lymphocytes % (Manual) 1.0 % (13.4-35.0) L 01/15/17 03:28 Reactive Lymphs % (Man) 0 % 01/15/17 03:28 Monocytes % (Manual) 1.0 % (0.0-7.3) 01/15/17 03:28 Eosinophils % (Manual) 0 % (0.0-4.3) 01/15/17 03:28 Basophils % (Manual) 0 % (0.0-1.8) 01/15/17 03:28 Metamyelocytes % 0 % 01/15/17 03:28 Myelocytes % 0 % 01/15/17 03:28 Promyelocytes % 0 % 01/15/17 03:28 Blast Cells % 0 % 01/15/17 03:28 Nucleated RBC % Not Reportable 01/15/17 03:28 Seg Neutrophils # Man 13.8 K/mm3 (1.8-7.7) H 01/15/17 03:28 Band Neutrophils # 0.1 K/mm3 01/15/17 03:28 Lymphocytes # (Manual) 0.1 K/mm3 (1.2-5.4) L 01/15/17 03:28 Abs React Lymphs (Man) 0.0 K/mm3 01/15/17 03:28 Monocytes # (Manual) 0.1 K/mm3 (0.0-0.8) 01/15/17 03:28 Eosinophils # (Manual) 0.0 K/mm3 (0.0-0.4) 01/15/17 03:28 Basophils # (Manual) 0.0 K/mm3 (0.0-0.1) 01/15/17 03:28 Metamyelocytes # 0.0 K/mm3 01/15/17 03:28 Myelocytes # 0.0 K/mm3 01/15/17 03:28 Promyelocytes # 0.0 K/mm3 01/15/17 03:28 Blast Cells # 0.0 K/mm3 01/15/17 03:28 WBC Morphology Not Reportable 01/15/17 03:28 Hypersegmented Neuts Not Reportable 01/15/17 03:28 Hyposegmented Neuts Not Reportable 01/15/17 03:28 Hypogranular Neuts Not Reportable 01/15/17 03:28 Smudge Cells Not Reportable 01/15/17 03:28 Toxic Granulation Not Reportable 01/15/17 03:28 Toxic Vacuolation Not Reportable 01/15/17 03:28 Dohle Bodies Not Reportable 01/15/17 03:28 Pelger-Huet Anomaly Not Reportable 01/15/17 03:28 Cesar Rods Not Reportable 01/15/17 03:28 Platelet Estimate Appears decreased 01/15/17 03:28 Clumped Platelets Not Reportable 01/15/17 03:28 Plt Clumps, EDTA Not Reportable 01/15/17 03:28 Large Platelets Not Reportable 01/15/17 03:28 Giant Platelets Not Reportable 01/15/17 03:28 Platelet Satelliting Not Reportable 01/15/17 03:28 Plt Morphology Comment Not Reportable 01/15/17 03:28 RBC Morphology Normal 01/15/17 03:28 Dimorphic RBCs Not Reportable 01/15/17 03:28 Polychromasia Not Reportable 01/15/17 03:28 Hypochromasia Not Reportable 01/15/17 03:28 Poikilocytosis Not Reportable 01/15/17 03:28 Anisocytosis Not Reportable 01/15/17 03:28 Microcytosis Not Reportable 01/15/17 03:28 Macrocytosis Not Reportable 01/15/17 03:28 Spherocytes Not Reportable 01/15/17 03:28 Pappenheimer Bodies Not Reportable 01/15/17 03:28 Sickle Cells Not Reportable 01/15/17 03:28 Target Cells Not Reportable 01/15/17 03:28 Tear Drop Cells Not Reportable 01/15/17 03:28 Ovalocytes Not Reportable 01/15/17 03:28 Helmet Cells Not Reportable 01/15/17 03:28 [place] Bodies Not Reportable 01/15/17 03:28 [place] Rings Not Reportable 01/15/17 03:28 Guffey Cells Not Reportable 01/15/17 03:28 Bite Cells Not Reportable 01/15/17 03:28 Crenated Cell Not Reportable 01/15/17 03:28 Elliptocytes Not Reportable 01/15/17 03:28 Acanthocytes (Spur) Not Reportable 01/15/17 03:28 Rouleaux Not Reportable 01/15/17 03:28 Hemoglobin C Crystals Not Reportable 01/15/17 03:28 Schistocytes Not Reportable 01/15/17 03:28 Malaria parasites Not Reportable 01/15/17 03:28 Swapnil Bodies Not Reportable 01/15/17 03:28 Hem Pathologist Commnt No 01/15/17 03:28 PT 15.0 Sec. (12.2-14.9) H 01/15/17 03:28 INR 1.19 (0.87-1.13) H 01/15/17 03:28 APTT 28.1 Sec. (24.2-36.6) 01/15/17 03:28 Sodium 138 mmol/L (137-145) 01/15/17 03:28 Potassium 3.0 mmol/L (3.6-5.0) L 01/15/17 03:28 Chloride 100.1 mmol/L (98-107) 01/15/17 03:28 Carbon Dioxide 21 mmol/L (22-30) L 01/15/17 03:28 Anion Gap 20 mmol/L 01/15/17 03:28 BUN 11 mg/dL (7-17) 01/15/17 03:28 Creatinine 0.5 mg/dL (0.7-1.2) L 01/15/17 03:28 Estimated GFR > 60 ml/min 01/15/17 03:28 BUN/Creatinine Ratio 22.00 % 01/15/17 03:28 Glucose 132 mg/dL (65-100) H 01/15/17 03:28 Lactic Acid 4.40 mmol/L (0.7-2.0) H* 01/14/17 15:50 Calcium 5.8 mg/dL (8.4-10.2) L* D 01/15/17 03:28 Magnesium 1.00 mg/dL (1.7-2.3) L 01/14/17 09:52 Total Bilirubin 1.00 mg/dL (0.1-1.2) 01/15/17 03:28 Direct Bilirubin 0.4 mg/dL (0-0.2) H 01/14/17 06:33 Indirect Bilirubin 1.0 mg/dL 01/14/17 06:33 AST 40 units/L (5-40) 01/15/17 03:28 ALT 22 units/L (7-56) 01/15/17 03:28 Alkaline Phosphatase 65 units/L (35-129) 01/15/17 03:28 NT-Pro-B Natriuret Pep 78.95 pg/mL (0-900) 01/14/17 07:02 Total Protein 5.6 g/dL (6.3-8.2) L 01/15/17 03:28 Albumin 3.3 g/dL (3.9-5) L 01/15/17 03:28 Albumin/Globulin Ratio 1.4 % 01/15/17 03:28 Amylase 1202 units/L (27-131) H 01/14/17 06:33 Lipase 625 units/L (13-60) H 01/15/17 03:28 Urine Color Sarah (Yellow) 01/14/17 07:55 Urine Turbidity Clear (Clear) 01/14/17 07:55 Urine pH 6.0 (5.0-7.0) 01/14/17 07:55 Ur Specific [place] 1.028 (1.003-1.030) 01/14/17 07:55 Urine Protein 100 mg/dl mg/dL (Negative) 01/14/17 07:55 Urine Glucose (UA) 50 mg/dL (Negative) 01/14/17 07:55 Urine Ketones 20 mg/dL (Negative) 01/14/17 07:55 Urine Blood Sm (Negative) 01/14/17 07:55 Urine Nitrite Neg (Negative) 01/14/17 07:55 Urine Bilirubin Neg (Negative) 01/14/17 07:55 Urine Urobilinogen < 2.0 mg/dL (<2.0) 01/14/17 07:55 Ur Leukocyte Esterase Neg (Negative) 01/14/17 07:55 Urine WBC (Auto) 3.0 /HPF (0.0-6.0) 01/14/17 07:55 Urine RBC (Auto) 3.0 /HPF (0.0-6.0) 01/14/17 07:55 U Epithel Cells (Auto) 4.0 /HPF (0-13.0) 01/14/17 07:55 Urine Bacteria (Auto) 1+ /HPF (Negative) 01/14/17 07:55 Urine Mucus 1+ /HPF 01/14/17 07:55 Urine Opiates Screen Presumptive positive 01/14/17 07:55 Urine Methadone Screen Presumptive negative 01/14/17 07:55 Ur Barbiturates Screen Presumptive negative 01/14/17 07:55 Ur Phencyclidine Scrn Presumptive negative 01/14/17 07:55 Ur Amphetamines Screen Presumptive negative 01/14/17 07:55 U Benzodiazepines Scrn Presumptive negative 01/14/17 07:55 Urine Cocaine Screen Presumptive negative 01/14/17 07:55 U Marijuana (THC) Screen Presumptive negative 01/14/17 07:55 Drugs of Abuse Note Disclamer 01/14/17 07:55 Plasma/Serum Alcohol < 0.01 gm% (0-0.07) 01/14/17 16:28 Blood Type O POSITIVE 01/14/17 07:02 Antibody Screen TNR 01/14/17 07:02 OSCAR Antibody Screen Negative 01/14/17 07:02
[2017-01-15 08:05] LABS: Albumin 2.9 g/dL (3.9-5); Albumin/Globulin Ratio 1.1 %; Bilirubin,Direct 0.3 mg/dL (0-0.2); Bilirubin,Indirect 0.6 mg/dL; Bilirubin,Total 0.9 mg/dL (0.1-1.2); Total Protein 5.5 g/dL (6.3-8.2)
--- NOTE | 2017-01-15 08:10 | Consultation ---
History of Present Illness - Reason for Consult Consult date: 01/15/17 Sepsis - History of Present Illness Ms. Mendoza is a 56-year-old woman with a history of hypertension, admitted with abdominal pain due to acute pancreatitis. Abdominal ultrasound shows cholelithiasis without evidence of cholecystitis. She has been afebrile and hemodynamically stable. ID is consulted for management of possible sepsis. Past History Past Medical History: hypertension, hyperlipidemia, liver disease Past Surgical History: No surgical history Social history: , smoking, alcohol abuse. denies: prescription drug abuse Family history: CAD Medications and Allergies Allergies Allergy/AdvReac Type Severity Reaction Status Date / Time No Known Allergies Allergy Verified 01/14/17 07:50 Home Medications Medication Instructions Recorded Confirmed Last Taken Type Hydrochlorothiazide [HCTZ] 25 mg PO QDAY 01/14/17 01/14/17 Unknown History Sertraline [Zoloft] 50 mg PO QDAY 01/14/17 01/14/17 Unknown History amLODIPine [Norvasc] 10 mg PO DAILY 01/14/17 01/14/17 Unknown History traZODone [Desyrel] 50 mg PO QHS 01/14/17 01/14/17 Unknown History Active Meds: Active Medications Acetaminophen (Tylenol) 650 mg PO Q4H PRN PRN Reason: Pain MILD(1-3)/Fever >100.5/ALEXANDER Hydromorphone HCl (Dilaudid) 1 mg IV Q3H PRN PRN Reason: Pain , Severe (7-10) Last Admin: 01/15/17 04:01 Dose: 1 mg Dextrose/Sodium Chloride (D5ns) 1,000 mls @ 150 mls/hr IV DIRECT GRZEGORZ Last Admin: 01/14/17 19:56 Dose: 150 mls/hr Cefazolin Sodium (Ancef/Ns 1 Gm/50 Ml) 1 gm in 50 mls @ 100 mls/hr IV Q8H GRZEGORZ Last Admin: 01/15/17 01:10 Dose: 100 mls/hr Potassium Chloride (Kcl 10meq/100ml) 10 meq in 100 mls @ 100 mls/hr IV Q1H GRZEGORZ Stop: 01/15/17 11:59 Magnesium Hydroxide (Milk Of Magnesia) 30 ml PO Q4H PRN PRN Reason: Constipation Multivitamins (Theragran Tab) 1 each PO QDAY [facility] Ondansetron HCl (Zofran) 4 mg IV Q4H PRN PRN Reason: N/V unrelieved by Kriss Last Admin: 01/15/17 04:01 Dose: 4 mg Review of Systems All systems: negative Constitutional: no fever, no chills, no sweats Cardiovascular: no chest pain, no palpitations Respiratory: no cough, no shortness of breath Gastrointestinal: abdominal pain, nausea, no vomiting, no diarrhea, no jaundice Integumentary: no rash, no pruritis Physical Examination - Physical Exam Narrative exam: non-toxic appearance - Constitutional Vitals: Vital Signs Temp Pulse Resp BP Pulse Ox 98.3 F 80 20 141/93 100 01/15/17 02:25 01/15/17 02:25 01/15/17 02:25 01/15/17 02:25 01/15/17 02:25 Temperature -Last 24 Hours Temperature 98.3 F Temperature 97.6 F General appearance: Present: no acute distress - EENT Eyes: Absent: scleral icterus - Neck Neck: Present: supple - Respiratory Respiratory: bilateral: CTA - Cardiovascular Rhythm: regular Heart Sounds: Present: S1 & S2 - Extremities Extremities: No edema - Abdominal General gastrointestinal: Present: soft, tender (diffusely, but pronounced in epigstric area), normal bowel sounds - Integumentary Integumentary: Absent: jaundice, rash - Psychiatric Psychiatric: appropriate mood/affect Results - Labs CBC & Chem 7: 01/15/17 03:28 01/15/17 03:28 Labs: Abnormal lab results 01/14/17 01/14/17 01/14/17 Range/Units 09:52 09:52 13:38 WBC (4.5-11.0) K/mm3 Hgb (10.1-14.3) gm/dl Hct (30.3-42.9) % MCH (28-32) pg RDW (13.2-15.2) % Plt Count (140-440) K/mm3 Seg Neuts % (Manual) (40.0-70.0) % Lymphocytes % (Manual) (13.4-35.0) % Seg Neutrophils # Man (1.8-7.7) K/mm3 Lymphocytes # (Manual) (1.2-5.4) K/mm3 PT (12.2-14.9) Sec. INR (0.87-1.13) Potassium (3.6-5.0) mmol/L Carbon Dioxide (22-30) mmol/L Creatinine (0.7-1.2) mg/dL Glucose (65-100) mg/dL Lactic Acid 5.80 H* 5.60 H* (0.7-2.0) mmol/L Calcium (8.4-10.2) mg/dL Magnesium 1.00 L (1.7-2.3) mg/dL Direct Bilirubin (0-0.2) mg/dL AST (5-40) units/L Total Protein (6.3-8.2) g/dL Albumin (3.9-5) g/dL Lipase (13-60) units/L 01/14/17 01/15/17 01/15/17 Range/Units 15:50 03:28 03:28 WBC 14.2 H (4.5-11.0) K/mm3 Hgb 16.3 H (10.1-14.3) gm/dl Hct 48.7 H (30.3-42.9) % MCH 33 H (28-32) pg RDW 16.7 H (13.2-15.2) % Plt Count 127 L (140-440) K/mm3 Seg Neuts % (Manual) 97.0 H (40.0-70.0) % Lymphocytes % (Manual) 1.0 L (13.4-35.0) % Seg Neutrophils # Man 13.8 H (1.8-7.7) K/mm3 Lymphocytes # (Manual) 0.1 L (1.2-5.4) K/mm3 PT 15.0 H (12.2-14.9) Sec. INR 1.19 H (0.87-1.13) Potassium (3.6-5.0) mmol/L Carbon Dioxide (22-30) mmol/L Creatinine (0.7-1.2) mg/dL Glucose (65-100) mg/dL Lactic Acid 4.40 H* (0.7-2.0) mmol/L Calcium (8.4-10.2) mg/dL Magnesium (1.7-2.3) mg/dL Direct Bilirubin (0-0.2) mg/dL AST (5-40) units/L Total Protein (6.3-8.2) g/dL Albumin (3.9-5) g/dL Lipase (13-60) units/L 01/15/17 01/15/17 Range/Units 03:28 06:59 WBC (4.5-11.0) K/mm3 Hgb (10.1-14.3) gm/dl Hct (30.3-42.9) % MCH (28-32) pg RDW (13.2-15.2) % Plt Count (140-440) K/mm3 Seg Neuts % (Manual) (40.0-70.0) % Lymphocytes % (Manual) (13.4-35.0) % Seg Neutrophils # Man (1.8-7.7) K/mm3 Lymphocytes # (Manual) (1.2-5.4) K/mm3 PT (12.2-14.9) Sec. INR (0.87-1.13) Potassium 3.0 L (3.6-5.0) mmol/L Carbon Dioxide 21 L (22-30) mmol/L Creatinine 0.5 L (0.7-1.2) mg/dL Glucose 132 H (65-100) mg/dL Lactic Acid (0.7-2.0) mmol/L Calcium 5.8 L* D (8.4-10.2) mg/dL Magnesium (1.7-2.3) mg/dL Direct Bilirubin 0.3 H (0-0.2) mg/dL AST 42 H (5-40) units/L Total Protein 5.6 L 5.5 L (6.3-8.2) g/dL Albumin 3.3 L 2.9 L (3.9-5) g/dL Lipase 625 H (13-60) units/L - Imaging and Cardiology Chest x-ray: report reviewed (no acute process) CT scan - abdomen: report reviewed (acute pancreatitis) US - abdomen: report reviewed (no gallbladder wall thickening) Assessment and Plan - Patient Problems (1) Acute pancreatitis Current Visit: Yes Status: Acute Qualifiers: Pancreatitis type: P Acute pancreatitis complication: A Plan to address problem: Planned cholecystectomy today as well as supportive management. No indication for antibiotics at the present time. (2) Sepsis Current Visit: Yes Status: Acute Qualifiers: Sepsis type: S Plan to address problem: There are no infectious concerns at the present time. I will see the patient on an as-needed basis.
[2017-01-15] MEDS: KCL 10MEQ/100ML 10 MEQ/100 ML BAG IV SCH ×5 (09:04→23:15)
[2017-01-15] MEDS: THERAGRAN Tab PO SCH (09:07)
--- NOTE | 2017-01-15 09:25 | Consultation ---
HISTORY OF PRESENT ILLNESS: This patient was seen in the Emergency Room this morning. She is a 56-year-old white female. She ____ diabetes mellitus and severe chronic obstructive pulmonary disease. She was here about a year ago because of pain to the abdomen superior aspect with nausea and vomiting. She was found to have gallstones and she refused surgery at that point. She was brought today via an ambulance because of severe pain to the right upper quadrant in the mid epigastrium with nausea and vomiting. I talked to her daughter about her situation. The patient is a smoker. She smokes about 1 pack a day for many, many years now. She had evidence with symptoms of chronic obstructive pulmonary disease. She was tachypneic. She had tachycardia, but this went down. she has an IV given by our Emergency Room physician. The patient's CAT scan showed evidence of stones in the gallbladder with edema. There is no pericholecystic fluid. The bilirubin is 1.3 and the amylase was little bit elevated to 1200. The patient never had any abdominal operations. She had a tubal ligation in the past. PHYSICAL EXAMINATION: GENERAL: Showed obese, short statured white female. She has evidence of dyspnea. HEAD AND NECK: Essentially negative, some congestive neck veins. BREASTS: Symmetric. No evidence of specific masses. CHEST: Showed depressed sounds bilaterally, more on the left side with ? wheezing. HEART: Sounds normal to me. ABDOMEN: Protuberant, severe tenderness, however, in the mid right upper abdomen. EXTREMITIES: Showed minimal edema. IMPRESSION AND PLAN: Right upper quadrant pain, severe nausea and vomiting, recurrent twice in the last year with evidence of gallstones and cholecystitis seen on CAT scan. I believe this needs to be addressed surgically and I had a lengthy talk with the patient and her daughter as to the need for the above. She is to be admitted, going to have see her in an attempt to do a laparoscopic cholecystectomy on her tomorrow. I did discuss the case with her and her daughter that we will try to do with a scope, if not, we will need to do an open technique. JOB# [id number] NEYMAR/MAURI MARTINEZ
--- NOTE | 2017-01-15 11:49 | Magnetic Resonance Report ---
MRI ABDOMEN WITHOUT CONTRAST MRCP INDICATION: Pancreatitis. COMPARISON: Prior abdominal imaging from yesterday. FINDINGS: Noncontrast multiplanar and multisequence MRI of the abdomen again demonstrates diffuse fatty hepatic infiltration without definite focal suspicious hepatic or splenic lesions. No biliary dilatation. Small perihepatic and perisplenic ascites has since developed as also mild increased retroperitoneal edema/fluid stranding in this patient with known pancreatitis. Grossly preserved pancreatic contours. Pancreatic duct caliber 1-2 mm. Small, approximately 5 mm known gallstone may be noted dependently, axial image 24, series 4. Approximately 4.5 cm complex fluid/edema signal noted left suprarenal, axial image 22, possibly organized fluid collection/pseudocyst formation versus conceivably surrounding a gastric diverticulum. Mild bilateral perinephric stranding. Adrenals, kidneys, aorta, IVC, bowel, marrow and muscle signal otherwise appear within normal limits. Lung bases demonstrate new small bibasilar pleural effusions. Small hiatal hernia. MRCP images confirm the above findings. CBD caliber approximately 2-3 mm without suspicious intrinsic filling defect. CONCLUSION: 1. Mild interval worsening with development of small abdominal ascites and bibasilar pleural effusions in this patient with known pancreatitis, as described. 2. Small organized fluid collection/pseudocyst formation also not excluded left suprarenal, as detailed above. 3. Other findings, including fatty liver. I phoned the above results to Dr. Lombardi, 11 AM, 01/15/2017. Thank you for the opportunity to participate in this patient's care.
--- NOTE | 2017-01-15 12:24 | Gastroenterology Progress Note ---
Assessment and Plan - Patient Problems (1) Acute pancreatitis Current Visit: Yes Status: Acute Qualifiers: Pancreatitis type: biliary Acute pancreatitis complication: unspecified Qualified Code(s): K85.10 - Biliary acute pancreatitis without necrosis or infection Plan to address problem: Acute pancreatitis. Moderately severe. The etiology may be ETOH as the GB appeared normal on u/s with no thickening of the GB wall nor any stones. She appears to be evolving to a phlegmon. I believe surgery should be postponed in this setting. Will discuss with Dr. Lombardi. Needs IVF, NPO status. F/u labs, pain control. (2) Alcohol abuse Current Visit: Yes Status: Acute Subjective Date of service: 01/15/17 Principal diagnosis: acute pancreatitis Interval history: The patient reports fairly severe pain today which radiates to the back. No nausea or vomiting. Objective - Constitutional Vitals: Temp Pulse Resp BP Pulse Ox 98.4 F 89 20 126/86 94 01/15/17 08:00 01/15/17 08:00 01/15/17 08:00 01/15/17 08:00 01/15/17 10:00 General appearance: other (Moderate distress) - EENT ENT: hearing intact, clear oral mucosa - Respiratory Respiratory effort: normal Respiratory: bilateral: CTA - Cardiovascular Rhythm: regular - Gastrointestinal General gastrointestinal: Present: soft, tender (diffusely tender), distended, normal bowel sounds, other - Integumentary Integumentary: Present: clear, warm, dry - Neurologic Neurological: alert and oriented x3 - Labs CBC & Chem 7: 01/15/17 03:28 01/15/17 03:28 Labs: Laboratory Results - last 24 hr 01/14/17 01/14/17 01/14/17 13:38 15:50 16:28 WBC RBC Hgb Hct MCV MCH MCHC RDW Plt Count Add Manual Diff Total Counted Seg Neuts % (Manual) Band Neutrophils % Lymphocytes % (Manual) Reactive Lymphs % (Man) Monocytes % (Manual) Eosinophils % (Manual) Basophils % (Manual) Metamyelocytes % Myelocytes % Promyelocytes % Blast Cells % Nucleated RBC % Seg Neutrophils # Man Band Neutrophils # Lymphocytes # (Manual) Abs React Lymphs (Man) Monocytes # (Manual) Eosinophils # (Manual) Basophils # (Manual) Metamyelocytes # Myelocytes # Promyelocytes # Blast Cells # WBC Morphology Hypersegmented Neuts Hyposegmented Neuts Hypogranular Neuts Smudge Cells Toxic Granulation Toxic Vacuolation Dohle Bodies Pelger-Huet Anomaly Cesar Rods Platelet Estimate Clumped Platelets Plt Clumps, EDTA Large Platelets Giant Platelets Platelet Satelliting Plt Morphology Comment RBC Morphology Dimorphic RBCs Polychromasia Hypochromasia Poikilocytosis Anisocytosis Microcytosis Macrocytosis Spherocytes Pappenheimer Bodies Sickle Cells Target Cells Tear Drop Cells Ovalocytes Helmet Cells Watson-Greenock Bodies [place] Rings Danielle Cells Bite Cells Crenated Cell Elliptocytes Acanthocytes (Spur) Rouleaux Hemoglobin C Crystals Schistocytes Malaria parasites Swapnil Bodies Hem Pathologist Commnt PT INR APTT Sodium Potassium Chloride Carbon Dioxide Anion Gap BUN Creatinine Estimated GFR BUN/Creatinine Ratio Glucose Lactic Acid 5.60 H* 4.40 H* Calcium Total Bilirubin Direct Bilirubin Indirect Bilirubin AST ALT Alkaline Phosphatase Total Protein Albumin Albumin/Globulin Ratio Amylase Lipase Plasma/Serum Alcohol < 0.01 01/15/17 01/15/17 01/15/17 03:28 03:28 03:28 WBC 14.2 H RBC 5.02 Hgb 16.3 H Hct 48.7 H MCV 97 MCH 33 H MCHC 33 RDW 16.7 H Plt Count 127 L Add Manual Diff Complete Total Counted 100 Seg Neuts % (Manual) 97.0 H Band Neutrophils % 1.0 Lymphocytes % (Manual) 1.0 L Reactive Lymphs % (Man) 0 Monocytes % (Manual) 1.0 Eosinophils % (Manual) 0 Basophils % (Manual) 0 Metamyelocytes % 0 Myelocytes % 0 Promyelocytes % 0 Blast Cells % 0 Nucleated RBC % Not Reportable Seg Neutrophils # Man 13.8 H Band Neutrophils # 0.1 Lymphocytes # (Manual) 0.1 L Abs React Lymphs (Man) 0.0 Monocytes # (Manual) 0.1 Eosinophils # (Manual) 0.0 Basophils # (Manual) 0.0 Metamyelocytes # 0.0 Myelocytes # 0.0 Promyelocytes # 0.0 Blast Cells # 0.0 WBC Morphology Not Reportable Hypersegmented Neuts Not Reportable Hyposegmented Neuts Not Reportable Hypogranular Neuts Not Reportable Smudge Cells Not Reportable Toxic Granulation Not Reportable Toxic Vacuolation Not Reportable Dohle Bodies Not Reportable Pelger-Huet Anomaly Not Reportable Cesar Rods Not Reportable Platelet Estimate Appears decreased Clumped Platelets Not Reportable Plt Clumps, EDTA Not Reportable Large Platelets Not Reportable Giant Platelets Not Reportable Platelet Satelliting Not Reportable Plt Morphology Comment Not Reportable RBC Morphology Normal Dimorphic RBCs Not Reportable Polychromasia Not Reportable Hypochromasia Not Reportable Poikilocytosis Not Reportable Anisocytosis Not Reportable Microcytosis Not Reportable Macrocytosis Not Reportable Spherocytes Not Reportable Pappenheimer Bodies Not Reportable Sickle Cells Not Reportable Target Cells Not Reportable Tear Drop Cells Not Reportable Ovalocytes Not Reportable Helmet Cells Not Reportable Watson-Greenock Bodies Not Reportable [place] Rings Not Reportable [place] Cells Not Reportable Bite Cells Not Reportable Crenated Cell Not Reportable Elliptocytes Not Reportable Acanthocytes (Spur) Not Reportable Rouleaux Not Reportable Hemoglobin C Crystals Not Reportable Schistocytes Not Reportable Malaria parasites Not Reportable Swapnil Bodies Not Reportable Hem Pathologist Commnt No PT 15.0 H INR 1.19 H APTT 28.1 Sodium 138 Potassium 3.0 L Chloride 100.1 Carbon Dioxide 21 L Anion Gap 20 BUN 11 Creatinine 0.5 L Estimated GFR > 60 BUN/Creatinine Ratio 22.00 Glucose 132 H Lactic Acid Calcium 5.8 L* D Total Bilirubin 1.00 Direct Bilirubin Indirect Bilirubin AST 40 ALT 22 Alkaline Phosphatase 65 Total Protein 5.6 L Albumin 3.3 L Albumin/Globulin Ratio 1.4 Amylase Lipase 625 H Plasma/Serum Alcohol 01/15/17 01/15/17 06:59 06:59 WBC RBC Hgb Hct MCV MCH MCHC RDW Plt Count Add Manual Diff Total Counted Seg Neuts % (Manual) Band Neutrophils % Lymphocytes % (Manual) Reactive Lymphs % (Man) Monocytes % (Manual) Eosinophils % (Manual) Basophils % (Manual) Metamyelocytes % Myelocytes % Promyelocytes % Blast Cells % Nucleated RBC % Seg Neutrophils # Man Band Neutrophils # Lymphocytes # (Manual) Abs React Lymphs (Man) Monocytes # (Manual) Eosinophils # (Manual) Basophils # (Manual) Metamyelocytes # Myelocytes # Promyelocytes # Blast Cells # WBC Morphology Hypersegmented Neuts Hyposegmented Neuts Hypogranular Neuts Smudge Cells Toxic Granulation Toxic Vacuolation Dohle Bodies Pelger-Huet Anomaly Cesar Rods Platelet Estimate Clumped Platelets Plt Clumps, EDTA Large Platelets Giant Platelets Platelet Satelliting Plt Morphology Comment RBC Morphology Dimorphic RBCs Polychromasia Hypochromasia Poikilocytosis Anisocytosis Microcytosis Macrocytosis Spherocytes Pappenheimer Bodies Sickle Cells Target Cells Tear Drop Cells Ovalocytes Helmet Cells Watson-Greenock Bodies [place] Rings Danielle Cells Bite Cells Crenated Cell Elliptocytes Acanthocytes (Spur) Rouleaux Hemoglobin C Crystals Schistocytes Malaria parasites Swapnil Bodies Hem Pathologist Commnt PT INR APTT Sodium Potassium Chloride Carbon Dioxide Anion Gap BUN Creatinine Estimated GFR BUN/Creatinine Ratio Glucose Lactic Acid Calcium Total Bilirubin 0.90 Direct Bilirubin 0.3 H Indirect Bilirubin 0.6 AST 42 H ALT 22 Alkaline Phosphatase 61 Total Protein 5.5 L Albumin 2.9 L Albumin/Globulin Ratio 1.1 Amylase 865 H Lipase Plasma/Serum Alcohol
[2017-01-15] MEDS ORDERED: KINEVAC IV ONE ×2 (13:06→13:10)
[2017-01-15] MEDS ORDERED: WATER FOR INJ (PF) 10 ML ONE (13:10)
[2017-01-15] MEDS ORDERED: WATER FOR INJ (PF) IV ONE (14:00)
--- NOTE | 2017-01-15 14:40 | Progress Note ---
Subjective Narrative: agree with Dr Harvey . MRCP ? small stone? in the GB hida scan not out yet . will start PO Objective Vital Signs - 12hr 01/15/17 01/15/17 08:00 10:00 Temperature 98.4 F Pulse Rate [ 89 Right] Respiratory 20 Rate Blood Pressure 126/86 [Left Arm] O2 Sat by Pulse 95 94 Oximetry - Labs 01/15/17 03:28 01/15/17 03:28 Diabetes panel 01/15/17 01/15/17 Range/Units 03:28 06:59 Sodium 138 (137-145) mmol/L Potassium 3.0 L (3.6-5.0) mmol/L Chloride 100.1 (98-107) mmol/L Carbon Dioxide 21 L (22-30) mmol/L BUN 11 (7-17) mg/dL Creatinine 0.5 L (0.7-1.2) mg/dL Glucose 132 H (65-100) mg/dL Calcium 5.8 L* D (8.4-10.2) mg/dL AST 40 42 H (5-40) units/L ALT 22 22 (7-56) units/L Alkaline Phosphatase 65 61 (35-129) units/L Total Protein 5.6 L 5.5 L (6.3-8.2) g/dL Albumin 3.3 L 2.9 L (3.9-5) g/dL Calcium panel 01/15/17 01/15/17 Range/Units 03:28 06:59 Calcium 5.8 L* D (8.4-10.2) mg/dL Albumin 3.3 L 2.9 L (3.9-5) g/dL Pituitary panel 01/15/17 Range/Units 03:28 Sodium 138 (137-145) mmol/L Potassium 3.0 L (3.6-5.0) mmol/L Chloride 100.1 (98-107) mmol/L Carbon Dioxide 21 L (22-30) mmol/L BUN 11 (7-17) mg/dL Creatinine 0.5 L (0.7-1.2) mg/dL Glucose 132 H (65-100) mg/dL Calcium 5.8 L* D (8.4-10.2) mg/dL Adrenal panel 01/15/17 01/15/17 Range/Units 03:28 06:59 Sodium 138 (137-145) mmol/L Potassium 3.0 L (3.6-5.0) mmol/L Chloride 100.1 (98-107) mmol/L Carbon Dioxide 21 L (22-30) mmol/L BUN 11 (7-17) mg/dL Creatinine 0.5 L (0.7-1.2) mg/dL Glucose 132 H (65-100) mg/dL Calcium 5.8 L* D (8.4-10.2) mg/dL Total Bilirubin 1.00 0.90 (0.1-1.2) mg/dL AST 40 42 H (5-40) units/L ALT 22 22 (7-56) units/L Alkaline Phosphatase 65 61 (35-129) units/L Total Protein 5.6 L 5.5 L (6.3-8.2) g/dL Albumin 3.3 L 2.9 L (3.9-5) g/dL
[2017-01-15 15:17] LABS: Anion Gap 21 mmol/L; BUN/Creatinine Ratio 17.14; Blood Urea Nitrogen 12 mg/dL (7-17); Calcium 6.1 mg/dL (8.4-10.2); Carbon Dioxide 20 mmol/L (22-30); Chloride 96.1 mmol/L (98-107); Glucose 143 mg/dL (65-100); Potassium 3.7 mmol/L (3.6-5.0); Sodium 133 mmol/L (137-145)
--- NOTE | 2017-01-15 15:46 | Nuclear Medicine Report ---
Hepatobiliary imaging with CCK: Following injection of radionuclide imaging of the liver anteriorly is unremarkable. There is nonvisualization of the biliary ducts and gallbladder. Following injection of Kinevac according to protocol the patient experienced her usual nausea and cramping. A peak ejection fraction of 18% occurred at 26 minutes. Impressions: Normal biliary imaging with 18% gallbladder contraction.
[2017-01-16] MEDS: DILAUDID IV PRN ×6 (02:14→22:28)
[2017-01-16] MEDS: ANCEF/NS 1 GM/50 ML 1 GM/50 ML BAG IV SCH ×2 (02:14→10:48)
[2017-01-16 07:55] LABS: Basophils % (Auto) 0.3 % (0.0-1.8); Eosinophils % (Auto) 0.1 % (0.0-4.3); Hematocrit 46.3 % (30.3-42.9); Hemoglobin 15.3 gm/dl (10.1-14.3); Mean Corpuscular HGB Conc 33 % (30-34); Mean Corpuscular Hemoglobin 32 pg (28-32); Mean Corpuscular Volume 98 fl (79-97); Platelet Count 133 K/mm3 (140-440); Red Blood Count 4.73 M/mm3 (3.65-5.03); Red Cell Distribution Width 16.2 % (13.2-15.2); White Blood Count 15.4 K/mm3 (4.5-11.0)
[2017-01-16 08:02] LABS: INR 1.27 (0.87-1.13); Partial Thromboplastin Time 31.2 Sec. (24.2-36.6)
[2017-01-16 08:08] LABS: Alanine Aminotransferase 16 units/L (7-56); Albumin 2.7 g/dL (3.9-5); Alkaline Phosphatase 55 units/L (35-129); Anion Gap 20 mmol/L; BUN/Creatinine Ratio 17.14; Blood Urea Nitrogen 12 mg/dL (7-17); Carbon Dioxide 19 mmol/L (22-30); Chloride 98.3 mmol/L (98-107); Glucose 141 mg/dL (65-100); Lipase 147 units/L (13-60); Potassium 3.1 mmol/L (3.6-5.0); Sodium 134 mmol/L (137-145); Total Protein 5.5 g/dL (6.3-8.2)
--- NOTE | 2017-01-16 08:58 | Progress Note ---
Assessment and Plan - Patient Problems (1) Acute pancreatitis Current Visit: Yes Status: Acute Qualifiers: Pancreatitis type: biliary Acute pancreatitis complication: unspecified Qualified Code(s): K85.10 - Biliary acute pancreatitis without necrosis or infection Plan to address problem: Improving .Phlegmon is a possibility.May have to repeat CT abdomen .Clear liquids to continue. (2) Alcohol abuse Current Visit: Yes Status: Chronic Plan to address problem: Says her last drink was Sep 23. (3) Cholelithiasis Current Visit: Yes Status: Resolved Qualifiers: Cholelithiasis location: bile duct Cholecystitis presence: without cholecystitis Cholangitis presence: C Cholecystitis acuity: C Cholangitis acuity: C Biliary obstruction: with biliary obstruction Qualified Code(s): K80.51 - Calculus of bile duct without cholangitis or cholecystitis with obstruction Plan to address problem: Cholecystectomy after discharge as outpatient (4) Hypokalemia Current Visit: Yes Status: Acute Plan to address problem: supplemented (5) HTN (hypertension) Current Visit: Yes Status: Chronic Qualifiers: Hypertension type: essential hypertension Qualified Code(s): I10 - Essential (primary) hypertension Plan to address problem: Restart Amlodipine and Hctz (6) Depression Current Visit: Yes Status: Chronic Qualifiers: Depression Type: dysthymia Major depression recurrence: M Active/ Remission status: A Major depression episode severity: M Psychotic features : P Trimester: T Qualified Code(s): F34.1 - Dysthymic disorder Plan to address problem: Cont Setraline and Trazodone (7) DVT prophylaxis Current Visit: Yes Status: Acute Plan to address problem: Start Lovenox 40 mg sq qd Subjective Date of service: 01/16/17 Principal diagnosis: acute pancreatitis Interval history: Sx Better.Pain 5 on scale of 10.Able to tolerate clear liquids. Objective - Exam Narrative Exam: lying in bed comfortably.In no acute pain.Eating clear liquids - Constitutional Vitals: Vital Signs - 12hr 01/15/17 01/15/17 01/16/17 21:04 22:00 02:00 Temperature 98.8 F Pulse Rate [ 78 98 H Right] Respiratory 18 Rate Blood Pressure 125/83 [Left Arm] O2 Sat by Pulse 94 93 Oximetry 01/16/17 01/16/17 05:28 07:35 Temperature 98.8 F 98.4 F Pulse Rate [ 92 H 121 H Right] Respiratory 18 20 Rate Blood Pressure 107/71 116/83 [Left Arm] O2 Sat by Pulse 94 91 Oximetry General appearance: Present: no acute distress, well-nourished - EENT Eyes: PERRL, EOM intact ENT: hearing intact, clear oral mucosa Ears: bilateral: normal - Neck Neck: supple, normal ROM - Respiratory Respiratory effort: normal Respiratory: bilateral: CTA - Breasts Breasts: normal - Cardiovascular Rhythm: regular Heart Sounds: Present: S1 & S2. Absent: gallop, rub Extremities: pulses intact, No edema, normal color, Full ROM - Gastrointestinal General gastrointestinal: Present: soft, non-tender, non-distended, normal bowel sounds - Genitourinary Female genitourinary: normal - Integumentary Integumentary: clear, warm, dry - Musculoskeletal Musculoskeletal: 1, strength equal bilaterally - Neurologic Neurologic: moves all extremities - Psychiatric Psychiatric: memory intact, appropriate mood/affect, intact judgment & insight - Labs CBC & Chem 7: 01/17/17 04:25 01/16/17 07:22 Labs: Abnormal lab results 01/15/17 01/15/17 01/16/17 Range/Units 06:59 14:20 07:22 WBC 15.4 H (4.5-11.0) K/mm3 Hgb 15.3 H (10.1-14.3) gm/dl Hct 46.3 H (30.3-42.9) % MCV 98 H (79-97) fl RDW 16.2 H (13.2-15.2) % Plt Count 133 L (140-440) K/mm3 Lymph % (Auto) 6.5 L (13.4-35.0) % Lymph # 1.0 L (1.2-5.4) K/mm3 Seg Neutrophils % 89.1 H (40.0-70.0) % Seg Neutrophils # 13.7 H (1.8-7.7) K/mm3 PT (12.2-14.9) Sec. INR (0.87-1.13) Sodium 133 L (137-145) mmol/L Potassium (3.6-5.0) mmol/L Chloride 96.1 L (98-107) mmol/L Carbon Dioxide 20 L (22-30) mmol/L Glucose 143 H (65-100) mg/dL Calcium 6.1 L (8.4-10.2) mg/dL Total Protein (6.3-8.2) g/dL Albumin (3.9-5) g/dL Amylase 865 H (27-131) units/L Lipase (13-60) units/L 01/16/17 01/16/17 Range/Units 07:22 07:22 WBC (4.5-11.0) K/mm3 Hgb (10.1-14.3) gm/dl Hct (30.3-42.9) % MCV (79-97) fl RDW (13.2-15.2) % Plt Count (140-440) K/mm3 Lymph % (Auto) (13.4-35.0) % Lymph # (1.2-5.4) K/mm3 Seg Neutrophils % (40.0-70.0) % Seg Neutrophils # (1.8-7.7) K/mm3 PT 15.8 H (12.2-14.9) Sec. INR 1.27 H (0.87-1.13) Sodium 134 L (137-145) mmol/L Potassium 3.1 L (3.6-5.0) mmol/L Chloride (98-107) mmol/L Carbon Dioxide 19 L (22-30) mmol/L Glucose 141 H (65-100) mg/dL Calcium (8.4-10.2) mg/dL Total Protein 5.5 L (6.3-8.2) g/dL Albumin 2.7 L (3.9-5) g/dL Amylase (27-131) units/L Lipase 147 H (13-60) units/L
[2017-01-16 09:04] LABS: Calcium 5.6 mg/dL (8.4-10.2)
--- NOTE | 2017-01-16 09:42 | Gastroenterology Progress Note ---
Assessment and Plan 1. severe acute pancreatitis - likely 2/2 alcohol. labs suggestive of hemoconcentration (hct improved today however) - cont IVF's, consider increasing rate depending on repeat labs (goal of decreased BUN and hct levels) . -okay for clear liquid diet, advance slowly as tolerated -r/o c diff if she continues to have diarrhea -consider higher level of care if any change/worsening clinical status will cont to follow Subjective Date of service: 01/16/17 Principal diagnosis: acute pancreatitis Interval history: pt reports some improvement in abdominal pain/bloating symptoms. Tolerated clear this morning. multiple bm's this morning as well. denies fevers/chills, vomitting, sob. Objective - Exam Narrative Exam: Gen: NAD, obese female CV: tachycardic, s1 and s2 Lungs: decreased lower lobe bs, non labored Abd: soft, + mod dist, + diffuse ttp, no rebound/guarding neuro: oriented x 3 - Constitutional Vitals: Temp Pulse Resp BP Pulse Ox 98.4 F 121 H 20 116/83 91 01/16/17 07:35 01/16/17 07:35 01/16/17 07:35 01/16/17 07:35 01/16/17 07:35 - Labs CBC & Chem 7: 01/16/17 07:22 01/16/17 07:22 Labs: Laboratory Results - last 24 hr 01/15/17 01/15/17 01/16/17 06:59 14:20 07:22 WBC 15.4 H RBC 4.73 Hgb 15.3 H Hct 46.3 H MCV 98 H MCH 32 MCHC 33 RDW 16.2 H Plt Count 133 L Lymph % (Auto) 6.5 L [place] % (Auto) 4.0 Eos % (Auto) 0.1 Baso % (Auto) 0.3 Lymph # 1.0 L [place] # 0.6 Eos # 0.0 Baso # 0.1 Seg Neutrophils % 89.1 H Seg Neutrophils # 13.7 H PT INR APTT Sodium 133 L Potassium 3.7 D Chloride 96.1 L Carbon Dioxide 20 L Anion Gap 21 BUN 12 Creatinine 0.7 Estimated GFR > 60 BUN/Creatinine Ratio 17.14 Glucose 143 H Calcium 6.1 L Total Bilirubin AST ALT Alkaline Phosphatase Total Protein Albumin Albumin/Globulin Ratio Amylase 865 H Lipase 01/16/17 01/16/17 07:22 07:22 WBC RBC Hgb Hct MCV MCH MCHC RDW Plt Count Lymph % (Auto) [place] % (Auto) Eos % (Auto) Baso % (Auto) Lymph # [place] # Eos # Baso # Seg Neutrophils % Seg Neutrophils # PT 15.8 H INR 1.27 H APTT 31.2 Sodium 134 L Potassium 3.1 L Chloride 98.3 Carbon Dioxide 19 L Anion Gap 20 BUN 12 Creatinine 0.7 Estimated GFR > 60 BUN/Creatinine Ratio 17.14 Glucose 141 H Calcium 5.6 L* Total Bilirubin 0.90 AST 32 ALT 16 Alkaline Phosphatase 55 Total Protein 5.5 L Albumin 2.7 L Albumin/Globulin Ratio 1.0 Amylase Lipase 147 H - Imaging CT scan: report reviewed Ultrasound: report reviewed MRI: report reviewed HIDA Scan: report reviewed
[2017-01-16] MEDS: D5NS 1,000 ML IV SCH ×2 (09:44→18:59)
[2017-01-16] MEDS: THERAGRAN Tab PO SCH (09:45)
--- NOTE | 2017-01-16 12:15 | Progress Note ---
Assessment and Plan - Patient Problems (1) Acute pancreatitis Current Visit: Yes Status: Acute Qualifiers: Pancreatitis type: P Acute pancreatitis complication: A Plan to address problem: 1. Continue supportive management. 2. No active infection. No planned surgery. Will discontinue Ancef, especially with onset of new diarrhea. (2) Diarrhea Current Visit: Yes Status: Acute Qualifiers: Diarrhea type: D Plan to address problem: 1. Check for presence of Cdiff toxin. 2. Stop Ancef. 3. Start empiric Flagyl. Subjective Date of service: 01/16/17 Principal diagnosis: acute pancreatitis Interval history: Patient did not have cholecystectomy. Having multiple episodes of diarrhea today. Objective - Constitutional Vitals: Vital Signs Temp Pulse Resp BP Pulse Ox 98.4 F 121 H 20 116/83 94 01/16/17 07:35 01/16/17 07:35 01/16/17 07:35 01/16/17 07:35 01/16/17 10:00 Temperature -Last 24 Hours Temperature 98.4 F Temperature 98.8 F Temperature 98.8 F Temperature 99 F General appearance: Present: no acute distress, obese - EENT Eyes: no scleral icterus - Respiratory Respiratory effort: normal Respiratory: bilateral: CTA - Cardiovascular Rhythm: regular Heart Sounds: Present: S1 & S2 - Gastrointestinal General gastrointestinal: Present: soft, tender (tenderness in epigastric area) , distended, normal bowel sounds - Integumentary Integumentary: no rash - Labs CBC & Chem 7: 01/16/17 07:22 01/16/17 07:22 Labs: Abnormal lab results 01/15/17 01/16/17 01/16/17 Range/Units 14:20 07:22 07:22 WBC 15.4 H (4.5-11.0) K/mm3 Hgb 15.3 H (10.1-14.3) gm/dl Hct 46.3 H (30.3-42.9) % MCV 98 H (79-97) fl RDW 16.2 H (13.2-15.2) % Plt Count 133 L (140-440) K/mm3 Lymph % (Auto) 6.5 L (13.4-35.0) % Lymph # 1.0 L (1.2-5.4) K/mm3 Seg Neutrophils % 89.1 H (40.0-70.0) % Seg Neutrophils # 13.7 H (1.8-7.7) K/mm3 PT 15.8 H (12.2-14.9) Sec. INR 1.27 H (0.87-1.13) Sodium 133 L (137-145) mmol/L Potassium (3.6-5.0) mmol/L Chloride 96.1 L (98-107) mmol/L Carbon Dioxide 20 L (22-30) mmol/L Glucose 143 H (65-100) mg/dL Calcium 6.1 L (8.4-10.2) mg/dL Total Protein (6.3-8.2) g/dL Albumin (3.9-5) g/dL Lipase (13-60) units/L 01/16/17 Range/Units 07:22 WBC (4.5-11.0) K/mm3 Hgb (10.1-14.3) gm/dl Hct (30.3-42.9) % MCV (79-97) fl RDW (13.2-15.2) % Plt Count (140-440) K/mm3 Lymph % (Auto) (13.4-35.0) % Lymph # (1.2-5.4) K/mm3 Seg Neutrophils % (40.0-70.0) % Seg Neutrophils # (1.8-7.7) K/mm3 PT (12.2-14.9) Sec. INR (0.87-1.13) Sodium 134 L (137-145) mmol/L Potassium 3.1 L (3.6-5.0) mmol/L Chloride (98-107) mmol/L Carbon Dioxide 19 L (22-30) mmol/L Glucose 141 H (65-100) mg/dL Calcium 5.6 L* (8.4-10.2) mg/dL Total Protein 5.5 L (6.3-8.2) g/dL Albumin 2.7 L (3.9-5) g/dL Lipase 147 H (13-60) units/L Microbiology 01/14/17 09:52 Peripheral/Venous Blood Culture - Preliminary NO GROWTH AFTER 48 HOURS 01/14/17 10:41 Peripheral/Venous Blood Culture - Preliminary NO GROWTH AFTER 48 HOURS 01/14/17 07:53 Urine,Clean Catch Urine Culture - Preliminary Active Medications Acetaminophen (Tylenol) 650 mg PO Q4H PRN PRN Reason: Pain MILD(1-3)/Fever >100.5/ALEXANDER Hydromorphone HCl (Dilaudid) 1 mg IV Q3H PRN PRN Reason: Pain , Severe (7-10) Last Admin: 01/16/17 08:27 Dose: 1 mg Dextrose/Sodium Chloride (D5ns) 1,000 mls @ 150 mls/hr IV DIRECT [facility] Last Admin: 01/16/17 09:44 Dose: 150 mls/hr Cefazolin Sodium (Ancef/Ns 1 Gm/50 Ml) 1 gm in 50 mls @ 100 mls/hr IV Q8H [facility] Last Admin: 01/16/17 10:48 Dose: 100 mls/hr Magnesium Hydroxide (Milk Of Magnesia) 30 ml PO Q4H PRN PRN Reason: Constipation Multivitamins (Theragran Tab) 1 each PO QDAY [facility] Last Admin: 01/16/17 09:45 Dose: 1 each Ondansetron HCl (Zofran) 4 mg IV Q4H PRN PRN Reason: N/V unrelieved by Kriss Last Admin: 01/15/17 20:45 Dose: 4 mg - Imaging and cardiology Other: report reviewed (MRCP - no common bile duct filling defect; unable to rule out pseudocyst)
--- NOTE | 2017-01-16 13:22 | Progress Note ---
Subjective Narrative: much improved Lipase decreasing indicated to Pt need fo chlecystectomy eventaully , when abd Sx improve , will see PRN , told to Pt to see me in 2 wks ,agree with F/U ct .on full liquids Objective Vital Signs - 12hr 01/16/17 01/16/17 01/16/17 02:00 05:28 07:35 Temperature 98.8 F 98.8 F 98.4 F Pulse Rate [ 98 H 92 H 121 H Right] Respiratory 18 18 20 Rate Blood Pressure 125/83 107/71 116/83 [Left Arm] O2 Sat by Pulse 93 94 91 Oximetry 01/16/17 10:00 Temperature Pulse Rate [ Right] Respiratory Rate Blood Pressure [Left Arm] O2 Sat by Pulse 94 Oximetry - Labs 01/16/17 07:22 01/16/17 07:22 Diabetes panel 01/15/17 01/16/17 Range/Units 14:20 07:22 Sodium 133 L 134 L (137-145) mmol/L Potassium 3.7 D 3.1 L (3.6-5.0) mmol/L Chloride 96.1 L 98.3 (98-107) mmol/L Carbon Dioxide 20 L 19 L (22-30) mmol/L BUN 12 12 (7-17) mg/dL Creatinine 0.7 0.7 (0.7-1.2) mg/dL Glucose 143 H 141 H (65-100) mg/dL Calcium 6.1 L 5.6 L* (8.4-10.2) mg/dL AST 32 (5-40) units/L ALT 16 (7-56) units/L Alkaline Phosphatase 55 (35-129) units/L Total Protein 5.5 L (6.3-8.2) g/dL Albumin 2.7 L (3.9-5) g/dL Calcium panel 01/15/17 01/16/17 Range/Units 14:20 07:22 Calcium 6.1 L 5.6 L* (8.4-10.2) mg/dL Albumin 2.7 L (3.9-5) g/dL Pituitary panel 01/15/17 01/16/17 Range/Units 14:20 07:22 Sodium 133 L 134 L (137-145) mmol/L Potassium 3.7 D 3.1 L (3.6-5.0) mmol/L Chloride 96.1 L 98.3 (98-107) mmol/L Carbon Dioxide 20 L 19 L (22-30) mmol/L BUN 12 12 (7-17) mg/dL Creatinine 0.7 0.7 (0.7-1.2) mg/dL Glucose 143 H 141 H (65-100) mg/dL Calcium 6.1 L 5.6 L* (8.4-10.2) mg/dL Adrenal panel 01/15/17 01/16/17 Range/Units 14:20 07:22 Sodium 133 L 134 L (137-145) mmol/L Potassium 3.7 D 3.1 L (3.6-5.0) mmol/L Chloride 96.1 L 98.3 (98-107) mmol/L Carbon Dioxide 20 L 19 L (22-30) mmol/L BUN 12 12 (7-17) mg/dL Creatinine 0.7 0.7 (0.7-1.2) mg/dL Glucose 143 H 141 H (65-100) mg/dL Calcium 6.1 L 5.6 L* (8.4-10.2) mg/dL Total Bilirubin 0.90 (0.1-1.2) mg/dL AST 32 (5-40) units/L ALT 16 (7-56) units/L Alkaline Phosphatase 55 (35-129) units/L Total Protein 5.5 L (6.3-8.2) g/dL Albumin 2.7 L (3.9-5) g/dL
[2017-01-16] MEDS: FLAGYL PO SCH ×2 (15:08→21:22)
[2017-01-16] MEDS ORDERED: HABITROL TD SCH (18:00)
[2017-01-16] MEDS: ZOFRAN IV PRN ×2 (19:08→22:31)
[2017-01-17] MEDS: DILAUDID IV PRN ×7 (01:57→22:39)
[2017-01-17 05:01] LABS: Hematocrit 38.1 % (30.3-42.9); Hemoglobin 13.2 gm/dl (10.1-14.3); Mean Corpuscular HGB Conc 35 % (30-34); Mean Corpuscular Hemoglobin 33 pg (28-32); Mean Corpuscular Volume 97 fl (79-97); Platelet Count 123 K/mm3 (140-440); Red Blood Count 3.94 M/mm3 (3.65-5.03); White Blood Count 10.4 K/mm3 (4.5-11.0)
[2017-01-17] MEDS: FLAGYL PO SCH ×3 (06:23→21:32)
[2017-01-17] MEDS: ZOFRAN IV PRN ×4 (07:31→22:39)
[2017-01-17 09:01] LABS: Basophils % (Manual) 0 % (0.0-1.8); Blastocytes % (Manual) 0 %; Eosinophils % (Manual) 0 % (0.0-4.3)
[2017-01-17 09:02] LABS: Anisocytosis Few; Diff Status Complete
[2017-01-17] MEDS ORDERED: K-DUR PO ONE (10:14)
--- NOTE | 2017-01-17 10:14 | Progress Note ---
Assessment and Plan - Patient Problems (1) Acute pancreatitis Current Visit: Yes Status: Acute Qualifiers: Pancreatitis type: biliary Acute pancreatitis complication: unspecified Qualified Code(s): K85.10 - Biliary acute pancreatitis without necrosis or infection Plan to address problem: Improving .Phlegmon is a possibility.May have to repeat CT abdomen .Advance to regular diet.. (2) Alcohol abuse Current Visit: Yes Status: Chronic Plan to address problem: Says her last drink was Sep 23. (3) Cholelithiasis Current Visit: Yes Status: Resolved Qualifiers: Cholelithiasis location: bile duct Cholecystitis presence: without cholecystitis Cholangitis presence: C Cholecystitis acuity: C Cholangitis acuity: C Biliary obstruction: with biliary obstruction Qualified Code(s): K80.51 - Calculus of bile duct without cholangitis or cholecystitis with obstruction Plan to address problem: Cholecystectomy after discharge as outpatient (4) Hypokalemia Current Visit: Yes Status: Acute Plan to address problem: supplemented (5) HTN (hypertension) Current Visit: Yes Status: Chronic Qualifiers: Hypertension type: essential hypertension Qualified Code(s): I10 - Essential (primary) hypertension Plan to address problem: Restart Amlodipine and Hctz (6) Depression Current Visit: Yes Status: Chronic Qualifiers: Depression Type: dysthymia Major depression recurrence: M Active/ Remission status: A Major depression episode severity: M Psychotic features : P Trimester: T Qualified Code(s): F34.1 - Dysthymic disorder Plan to address problem: Cont Setraline and Trazodone (7) DVT prophylaxis Current Visit: Yes Status: Acute Plan to address problem: Start Lovenox 40 mg sq qd (8) Discharge planning issues Current Visit: Yes Status: Acute Plan to address problem: Patient stable.Not ready for discharge today.Had volume overload last night.IV fluids were stopped.Lasix IV 20 mg given.Maybe discharged tomorrow if labs are within normal range. Subjective Date of service: 01/17/17 Principal diagnosis: acute pancreatitis Interval history: Sx Better.Pain 5 on scale of 10.Able to tolerate clear liquids. Wants to eat solids.No diarrhea today. Objective - Exam Narrative Exam: lying in bed comfortably.In no acute pain.Eating clear liquids - Constitutional Vitals: Vital Signs - 12hr 01/17/17 01/17/17 00:00 08:15 Temperature 98.6 F 99.3 F Pulse Rate [ 92 H 119 H Right Radial] Respiratory 20 21 Rate Blood Pressure 130/88 [Left Arm] Blood Pressure 126/79 [Right Arm] O2 Sat by Pulse 97 96 Oximetry General appearance: Present: no acute distress, well-nourished - EENT Eyes: PERRL, EOM intact ENT: hearing intact, clear oral mucosa Ears: bilateral: normal - Neck Neck: supple, normal ROM - Respiratory Respiratory effort: normal Respiratory: bilateral: CTA - Breasts Breasts: normal - Cardiovascular Rhythm: regular Heart Sounds: Present: S1 & S2. Absent: gallop, rub Extremities: pulses intact, No edema, normal color, Full ROM - Gastrointestinal General gastrointestinal: Present: soft, non-tender, non-distended, normal bowel sounds - Genitourinary Female genitourinary: normal - Integumentary Integumentary: clear, warm, dry - Musculoskeletal Musculoskeletal: 1, strength equal bilaterally - Neurologic Neurologic: moves all extremities - Psychiatric Psychiatric: memory intact, appropriate mood/affect, intact judgment & insight - Labs CBC & Chem 7: 01/17/17 04:25 01/16/17 07:22 Labs: Abnormal lab results 01/17/17 01/17/17 Range/Units 04:25 04:25 MCH 33 H (28-32) pg MCHC 35 H (30-34) % RDW 16.0 H (13.2-15.2) % Plt Count 123 L (140-440) K/mm3 Seg Neuts % (Manual) 80.0 H (40.0-70.0) % Lymphocytes % (Manual) 3.0 L (13.4-35.0) % Seg Neutrophils # Man 8.3 H (1.8-7.7) K/mm3 Lymphocytes # (Manual) 0.3 L (1.2-5.4) K/mm3 Lipase 69 H (13-60) units/L
--- NOTE | 2017-01-17 10:20 | Gastroenterology Progress Note ---
Assessment and Plan acute pancreatitis - pt with symptoms/signs of volume overload overnight, which improved with lasix. She is tolerating po, and reports improvement in symptoms. Advance diet as tolerated (off IVF's due to above). Subjective Date of service: 01/17/17 Principal diagnosis: acute pancreatitis Interval history: pt reports having symptoms of sob and abdominal swelling last night. IVF's stopped, feeling better this morning. Diarrhea has improved. Denies n/v. Objective - Exam Narrative Exam: Gen: NAD, ambulating, overweight female CV: tachycardic, s1 and s2 Lungs: CTAB, non labored Abd: mod dist, + upper abdominal ttp, no r/g, +bs - Constitutional Vitals: Temp Pulse Resp BP Pulse Ox 99.3 F 119 H 21 130/88 96 01/17/17 08:15 01/17/17 08:15 01/17/17 08:15 01/17/17 08:15 01/17/17 08:15 - Labs CBC & Chem 7: 01/17/17 04:25 01/16/17 07:22 Labs: Laboratory Results - last 24 hr 01/17/17 01/17/17 04:25 04:25 WBC 10.4 RBC 3.94 Hgb 13.2 Hct 38.1 D MCV 97 MCH 33 H MCHC 35 H RDW 16.0 H Plt Count 123 L Add Manual Diff Complete Total Counted 100 Seg Neuts % (Manual) 80.0 H Band Neutrophils % 16.0 Lymphocytes % (Manual) 3.0 L Reactive Lymphs % (Man) 0 Monocytes % (Manual) 1.0 Eosinophils % (Manual) 0 Basophils % (Manual) 0 Metamyelocytes % 0 Myelocytes % 0 Promyelocytes % 0 Blast Cells % 0 Nucleated RBC % Not Reportable Seg Neutrophils # Man 8.3 H Band Neutrophils # 1.7 Lymphocytes # (Manual) 0.3 L Abs React Lymphs (Man) 0.0 Monocytes # (Manual) 0.1 Eosinophils # (Manual) 0.0 Basophils # (Manual) 0.0 Metamyelocytes # 0.0 Myelocytes # 0.0 Promyelocytes # 0.0 Blast Cells # 0.0 WBC Morphology Not Reportable Hypersegmented Neuts Not Reportable Hyposegmented Neuts Not Reportable Hypogranular Neuts Not Reportable Smudge Cells Not Reportable Toxic Granulation Not Reportable Toxic Vacuolation Not Reportable Dohle Bodies Not Reportable Pelger-Huet Anomaly Not Reportable Cesar Rods Not Reportable Platelet Estimate Not Reportable Clumped Platelets Not Reportable Plt Clumps, EDTA Not Reportable Large Platelets Not Reportable Giant Platelets Not Reportable Platelet Satelliting Not Reportable Plt Morphology Comment Not Reportable RBC Morphology Not Reportable Dimorphic RBCs Not Reportable Polychromasia Not Reportable Hypochromasia Not Reportable Poikilocytosis Not Reportable Anisocytosis Few Microcytosis Not Reportable Macrocytosis Not Reportable Spherocytes Not Reportable Pappenheimer Bodies Not Reportable Sickle Cells Not Reportable Target Cells Not Reportable Tear Drop Cells Not Reportable Ovalocytes Not Reportable Helmet Cells Not Reportable [place] Bodies Not Reportable [place] Rings Not Reportable [place] Cells Not Reportable Bite Cells Not Reportable Crenated Cell Not Reportable Elliptocytes Not Reportable Acanthocytes (Spur) Not Reportable Rouleaux Not Reportable Hemoglobin C Crystals Not Reportable Schistocytes Not Reportable Malaria parasites Not Reportable Swapnil Bodies Not Reportable Hem Pathologist Commnt No Lipase 69 H
[2017-01-17] MEDS: THERAGRAN Tab PO SCH (11:50)
[2017-01-17] MEDS: NORVASC PO SCH (11:50)
[2017-01-17] MEDS: HCTZ PO SCH (11:50)
[2017-01-17] MEDS: ZOLOFT PO SCH (11:50)
[2017-01-17] MEDS: DESYREL PO SCH (21:32)
[2017-01-18] MEDS: DILAUDID IV PRN ×6 (02:49→21:55)
[2017-01-18] MEDS: ZOFRAN IV PRN ×6 (02:49→21:55)
[2017-01-18] MEDS: FLAGYL PO SCH ×3 (05:38→21:54)
--- NOTE | 2017-01-18 07:48 | Progress Note ---
Assessment and Plan - Patient Problems (1) Acute pancreatitis Current Visit: Yes Status: Acute Qualifiers: Pancreatitis type: biliary Acute pancreatitis complication: unspecified Qualified Code(s): K85.10 - Biliary acute pancreatitis without necrosis or infection Plan to address problem: Patient still has some nausea and vomiting after advancing diet to a full solid diet. We will continue antiemetics and downgrade diet to clear liquid. Continue to follow patient clinically to see if she improves. We'll follow along with GI (2) Sepsis Current Visit: Yes Status: Acute Qualifiers: Sepsis type: S Plan to address problem: Patient is afebrile. White blood cell count is normal. Continue follow cultures (3) Cholelithiasis Current Visit: Yes Status: Resolved Qualifiers: Cholelithiasis location: bile duct Cholecystitis presence: without cholecystitis Cholangitis presence: C Cholecystitis acuity: C Cholangitis acuity: C Biliary obstruction: with biliary obstruction Qualified Code(s): K80.51 - Calculus of bile duct without cholangitis or cholecystitis with obstruction Plan to address problem: Patient scheduled to have cholecystectomy per surgery. Deciding whether it has to be done outpatient or inpatient (4) Nausea & vomiting Current Visit: Yes Status: Acute Qualifiers: Vomiting type: V Vomiting Intractability: V Plan to address problem: We'll continue antiemetics and downgrade diet. Follow CT scan History Interval history: Patient sitting up side of the bed stated that she had some nausea and vomiting this morning Hospitalist Physical - Constitutional Vitals: Temp Pulse Resp BP Pulse Ox 98.4 F 98 H 22 120/66 96 01/18/17 00:00 01/18/17 00:00 01/18/17 00:00 01/18/17 00:00 01/18/17 04:45 General appearance: Present: mild distress - EENT Eyes: Present: PERRL, EOM intact ENT: hearing intact, clear oral mucosa, dentition normal - Neck Neck: Present: supple, normal ROM - Respiratory Respiratory effort: normal Respiratory: bilateral: CTA - Cardiovascular Rhythm: regular Heart Sounds: Present: S1 & S2 - Abdominal General gastrointestinal: soft, tender, non-distended, normal bowel sounds Localized gastrointestinal: tender: epigastric periumbilical - Psychiatric Psychiatric: appropriate mood/affect, intact judgment & insight - Neurologic Neurologic: CNII-XII intact, moves all extremities Results - Labs CBC & Chem 7: 01/17/17 04:25 01/16/17 07:22 Labs: Laboratory Last Values WBC 10.4 K/mm3 (4.5-11.0) 01/17/17 04:25 RBC 3.94 M/mm3 (3.65-5.03) 01/17/17 04:25 Hgb 13.2 gm/dl (10.1-14.3) 01/17/17 04:25 Hct 38.1 % (30.3-42.9) D 01/17/17 04:25 MCV 97 fl (79-97) 01/17/17 04:25 MCH 33 pg (28-32) H 01/17/17 04:25 MCHC 35 % (30-34) H 01/17/17 04:25 RDW 16.0 % (13.2-15.2) H 01/17/17 04:25 Plt Count 123 K/mm3 (140-440) L 01/17/17 04:25 Lymph % (Auto) 6.5 % (13.4-35.0) L 01/16/17 07:22 [place] % (Auto) 4.0 % (0.0-7.3) 01/16/17 07:22 Eos % (Auto) 0.1 % (0.0-4.3) 01/16/17 07:22 Baso % (Auto) 0.3 % (0.0-1.8) 01/16/17 07:22 Lymph # 1.0 K/mm3 (1.2-5.4) L 01/16/17 07:22 Archer # 0.6 K/mm3 (0.0-0.8) 01/16/17 07:22 Eos # 0.0 K/mm3 (0.0-0.4) 01/16/17 07:22 Baso # 0.1 K/mm3 (0.0-0.1) 01/16/17 07:22 Add Manual Diff Complete 01/17/17 04:25 Total Counted 100 01/17/17 04:25 Seg Neutrophils % 89.1 % (40.0-70.0) H 01/16/17 07:22 Seg Neuts % (Manual) 80.0 % (40.0-70.0) H 01/17/17 04:25 Band Neutrophils % 16.0 % 01/17/17 04:25 Lymphocytes % (Manual) 3.0 % (13.4-35.0) L 01/17/17 04:25 Reactive Lymphs % (Man) 0 % 01/17/17 04:25 Monocytes % (Manual) 1.0 % (0.0-7.3) 01/17/17 04:25 Eosinophils % (Manual) 0 % (0.0-4.3) 01/17/17 04:25 Basophils % (Manual) 0 % (0.0-1.8) 01/17/17 04:25 Metamyelocytes % 0 % 01/17/17 04:25 Myelocytes % 0 % 01/17/17 04:25 Promyelocytes % 0 % 01/17/17 04:25 Blast Cells % 0 % 01/17/17 04:25 Nucleated RBC % Not Reportable 01/17/17 04:25 Seg Neutrophils # 13.7 K/mm3 (1.8-7.7) H 01/16/17 07:22 Seg Neutrophils # Man 8.3 K/mm3 (1.8-7.7) H 01/17/17 04:25 Band Neutrophils # 1.7 K/mm3 01/17/17 04:25 Lymphocytes # (Manual) 0.3 K/mm3 (1.2-5.4) L 01/17/17 04:25 Abs React Lymphs (Man) 0.0 K/mm3 01/17/17 04:25 Monocytes # (Manual) 0.1 K/mm3 (0.0-0.8) 01/17/17 04:25 Eosinophils # (Manual) 0.0 K/mm3 (0.0-0.4) 01/17/17 04:25 Basophils # (Manual) 0.0 K/mm3 (0.0-0.1) 01/17/17 04:25 Metamyelocytes # 0.0 K/mm3 01/17/17 04:25 Myelocytes # 0.0 K/mm3 01/17/17 04:25 Promyelocytes # 0.0 K/mm3 01/17/17 04:25 Blast Cells # 0.0 K/mm3 01/17/17 04:25 WBC Morphology Not Reportable 01/17/17 04:25 Hypersegmented Neuts Not Reportable 01/17/17 04:25 Hyposegmented Neuts Not Reportable 01/17/17 04:25 Hypogranular Neuts Not Reportable 01/17/17 04:25 Smudge Cells Not Reportable 01/17/17 04:25 Toxic Granulation Not Reportable 01/17/17 04:25 Toxic Vacuolation Not Reportable 01/17/17 04:25 Dohle Bodies Not Reportable 01/17/17 04:25 Pelger-Huet Anomaly Not Reportable 01/17/17 04:25 Cesar Rods Not Reportable 01/17/17 04:25 Platelet Estimate Not Reportable 01/17/17 04:25 Clumped Platelets Not Reportable 01/17/17 04:25 Plt Clumps, EDTA Not Reportable 01/17/17 04:25 Large Platelets Not Reportable 01/17/17 04:25 Giant Platelets Not Reportable 01/17/17 04:25 Platelet Satelliting Not Reportable 01/17/17 04:25 Plt Morphology Comment Not Reportable 01/17/17 04:25 RBC Morphology Not Reportable 01/17/17 04:25 Dimorphic RBCs Not Reportable 01/17/17 04:25 Polychromasia Not Reportable 01/17/17 04:25 Hypochromasia Not Reportable 01/17/17 04:25 Poikilocytosis Not Reportable 01/17/17 04:25 Anisocytosis Few 01/17/17 04:25 Microcytosis Not Reportable 01/17/17 04:25 Macrocytosis Not Reportable 01/17/17 04:25 Spherocytes Not Reportable 01/17/17 04:25 Pappenheimer Bodies Not Reportable 01/17/17 04:25 Sickle Cells Not Reportable 01/17/17 04:25 Target Cells Not Reportable 01/17/17 04:25 Tear Drop Cells Not Reportable 01/17/17 04:25 Ovalocytes Not Reportable 01/17/17 04:25 Helmet Cells Not Reportable 01/17/17 04:25 [place] Bodies Not Reportable 01/17/17 04:25 [place] Rings Not Reportable 01/17/17 04:25 Danielle Cells Not Reportable 01/17/17 04:25 Bite Cells Not Reportable 01/17/17 04:25 Crenated Cell Not Reportable 01/17/17 04:25 Elliptocytes Not Reportable 01/17/17 04:25 Acanthocytes (Spur) Not Reportable 01/17/17 04:25 Rouleaux Not Reportable 01/17/17 04:25 Hemoglobin C Crystals Not Reportable 01/17/17 04:25 Schistocytes Not Reportable 01/17/17 04:25 Malaria parasites Not Reportable 01/17/17 04:25 Swapnil Bodies Not Reportable 01/17/17 04:25 Hem Pathologist Commnt No 01/17/17 04:25 PT 15.8 Sec. (12.2-14.9) H 01/16/17 07:22 INR 1.27 (0.87-1.13) H 01/16/17 07:22 APTT 31.2 Sec. (24.2-36.6) 01/16/17 07:22 Sodium 134 mmol/L (137-145) L 01/16/17 07:22 Potassium 3.1 mmol/L (3.6-5.0) L 01/16/17 07:22 Chloride 98.3 mmol/L (98-107) 01/16/17 07:22 Carbon Dioxide 19 mmol/L (22-30) L 01/16/17 07:22 Anion Gap 20 mmol/L 01/16/17 07:22 BUN 12 mg/dL (7-17) 01/16/17 07:22 Creatinine 0.7 mg/dL (0.7-1.2) 01/16/17 07:22 Estimated GFR > 60 ml/min 01/16/17 07:22 BUN/Creatinine Ratio 17.14 % 01/16/17 07:22 Glucose 141 mg/dL (65-100) H 01/16/17 07:22 Lactic Acid 4.40 mmol/L (0.7-2.0) H* 01/14/17 15:50 Calcium 5.6 mg/dL (8.4-10.2) L* 01/16/17 07:22 Magnesium 1.00 mg/dL (1.7-2.3) L 01/14/17 09:52 Total Bilirubin 0.90 mg/dL (0.1-1.2) 01/16/17 07:22 Direct Bilirubin 0.3 mg/dL (0-0.2) H 01/15/17 06:59 Indirect Bilirubin 0.6 mg/dL 01/15/17 06:59 AST 32 units/L (5-40) 01/16/17 07:22 ALT 16 units/L (7-56) 01/16/17 07:22 Alkaline Phosphatase 55 units/L (35-129) 01/16/17 07:22 NT-Pro-B Natriuret Pep 78.95 pg/mL (0-900) 01/14/17 07:02 Total Protein 5.5 g/dL (6.3-8.2) L 01/16/17 07:22 Albumin 2.7 g/dL (3.9-5) L 01/16/17 07:22 Albumin/Globulin Ratio 1.0 % 01/16/17 07:22 Amylase 865 units/L (27-131) H 01/15/17 06:59 Lipase 66 units/L (13-60) H 01/18/17 04:13 Urine Color Sarah (Yellow) 01/14/17 07:55 Urine Turbidity Clear (Clear) 01/14/17 07:55 Urine pH 6.0 (5.0-7.0) 01/14/17 07:55 Ur Specific [place] 1.028 (1.003-1.030) 01/14/17 07:55 Urine Protein 100 mg/dl mg/dL (Negative) 01/14/17 07:55 Urine Glucose (UA) 50 mg/dL (Negative) 01/14/17 07:55 Urine Ketones 20 mg/dL (Negative) 01/14/17 07:55 Urine Blood Sm (Negative) 01/14/17 07:55 Urine Nitrite Neg (Negative) 01/14/17 07:55 Urine Bilirubin Neg (Negative) 01/14/17 07:55 Urine Urobilinogen < 2.0 mg/dL (<2.0) 01/14/17 07:55 Ur Leukocyte Esterase Neg (Negative) 01/14/17 07:55 Urine WBC (Auto) 3.0 /HPF (0.0-6.0) 01/14/17 07:55 Urine RBC (Auto) 3.0 /HPF (0.0-6.0) 01/14/17 07:55 U Epithel Cells (Auto) 4.0 /HPF (0-13.0) 01/14/17 07:55 Urine Bacteria (Auto) 1+ /HPF (Negative) 01/14/17 07:55 Urine Mucus 1+ /HPF 01/14/17 07:55 Urine Opiates Screen Presumptive positive 01/14/17 07:55 Urine Methadone Screen Presumptive negative 01/14/17 07:55 Ur Barbiturates Screen Presumptive negative 01/14/17 07:55 Ur Phencyclidine Scrn Presumptive negative 01/14/17 07:55 Ur Amphetamines Screen Presumptive negative 01/14/17 07:55 U Benzodiazepines Scrn Presumptive negative 01/14/17 07:55 Urine Cocaine Screen Presumptive negative 01/14/17 07:55 U Marijuana (THC) Screen Presumptive negative 01/14/17 07:55 Drugs of Abuse Note Disclamer 01/14/17 07:55 Plasma/Serum Alcohol < 0.01 gm% (0-0.07) 01/14/17 16:28 Blood Type O POSITIVE 01/14/17 07:02 Antibody Screen TNR 01/14/17 07:02 OSCAR Antibody Screen Negative 01/14/17 07:02
[2017-01-18] MEDS: NORVASC PO SCH (10:25)
[2017-01-18] MEDS: HCTZ PO SCH (10:30)
[2017-01-18] MEDS: ZOLOFT PO SCH (10:35)
--- NOTE | 2017-01-18 11:04 | Progress Note ---
Assessment and Plan - Patient Problems (1) Acute pancreatitis Current Visit: Yes Status: Acute Qualifiers: Pancreatitis type: P Acute pancreatitis complication: A Plan to address problem: 1. Supportive therapy. Diet as tolerated. 2. Repeat CT scan ordered. (2) Diarrhea Current Visit: Yes Status: Acute Qualifiers: Diarrhea type: unspecified type Qualified Code(s): R19.7 - Diarrhea, unspecified Plan to address problem: 1. Cdiff toxin assay is negative. 2. Continue Flagyl. Hold unnecessary antibiotics for now. Subjective Date of service: 01/18/17 Principal diagnosis: acute pancreatitis Interval history: Continued loose BMs, though frequency is decreased. Objective - Constitutional Vitals: Vital Signs Temp Pulse Resp BP Pulse Ox 98.3 F 101 H 22 122/81 95 01/18/17 08:00 01/18/17 08:00 01/18/17 08:00 01/18/17 08:00 01/18/17 08:00 Temperature -Last 24 Hours Temperature 98.3 F Temperature 98.4 F Temperature 99.1 F General appearance: Present: no acute distress (eating lunch) - EENT Eyes: no scleral icterus - Respiratory Respiratory: bilateral: CTA - Cardiovascular Rhythm: regular Heart Sounds: Present: S1 & S2 - Gastrointestinal General gastrointestinal: Present: soft, tender, distended, normal bowel sounds - Integumentary Integumentary: no jaundice, no rash - Neurologic Neurologic: no focal deficits - Labs CBC & Chem 7: 01/17/17 04:25 01/16/17 07:22 Labs: Abnormal lab results 01/18/17 Range/Units 04:13 Lipase 66 H (13-60) units/L Microbiology 01/17/17 20:15 Stool - Stool Aspirate C. difficile DNA Amplification - Final (NEGATIVE) 01/14/17 09:52 Peripheral/Venous Blood Culture - Preliminary NO GROWTH AFTER 72 HOURS 01/14/17 10:41 Peripheral/Venous Blood Culture - Preliminary NO GROWTH AFTER 72 HOURS 01/14/17 07:53 Urine,Clean Catch Urine Culture - Final
[2017-01-18] MEDS: THERAGRAN Tab PO SCH (11:26)
[2017-01-18] MEDS ORDERED: NACL ONE (11:33)
--- NOTE | 2017-01-18 12:43 | Cat Scan Report ---
CT ABDOMEN PELVIS WITH AND WITHOUT CONTRAST HISTORY: Abdominal pain, worsening pancreatitis. FINDINGS: Small bilateral pleural effusions and linear atelectasis in the lower lobes have developed since 01/14/17. There is increased inflammatory change and fluid in the abdomen surrounding the pancreatic bed. There is no evidence for pancreatic necrosis, pseudocyst or defined abscess. Fatty infiltration of the liver is unchanged. No focal liver mass. The biliary system, spleen, adrenal glands, kidneys and bowel loops are unchanged and unremarkable. Sigmoid diverticulosis is again noted. The uterus, adnexa and bladder are within normal limits. IMPRESSION: Increased inflammatory changes associated with pancreatitis. New small bilateral pleural effusions and bibasilar atelectasis.
--- NOTE | 2017-01-18 13:29 | Gastroenterology Progress Note ---
Assessment and Plan severe acute pancreatitis - suspected 2/2 alcohol, liver enzymes unremarkable, no stones on imaging. repeat CT of abdomen done this morning shows increased inflammation of pancreas compared to previous CT scan, w/o necrosis. New bilateral pleural effusions also seen. -cont supportive care (CLD, pain control) -f/u labs, if suggestive of hemoconcentration (BUN or hct elevation), would restart IVF's (consider transferring to higher level of care if this is the case given respiratory status) Subjective Date of service: 01/18/17 Principal diagnosis: acute pancreatitis Interval history: pt unable to tolerate solid meals yesterday due to abd pain and nausea. She is back on liquids, and tolerating well. Cont to have abd distention/pain, but improved from yesterday. Objective - Exam Narrative Exam: Gen: NAD, lying in bed, awake/alert CV: tachycardic, s1 and s2, no murmurs Lungs: decreased bilateral bs, non labored Abd: mod dist, soft, + upper abdominal ttp, no r/g, +bs - Constitutional Vitals: Temp Pulse Resp BP Pulse Ox 98.3 F 101 H 22 122/81 95 01/18/17 08:00 01/18/17 10:25 01/18/17 08:00 01/18/17 10:25 01/18/17 08:00 - Labs CBC & Chem 7: 01/17/17 04:25 01/16/17 07:22 Labs: Laboratory Results - last 24 hr 01/18/17 04:13 Lipase 66 H
[2017-01-18] MEDS: DESYREL PO SCH (21:54)
[2017-01-19] MEDS: ZOFRAN IV PRN ×4 (03:22→21:47)
[2017-01-19] MEDS: DILAUDID IV PRN ×5 (03:22→21:28)
[2017-01-19 05:54] LABS: Hematocrit 35.2 % (30.3-42.9); Hemoglobin 12.4 gm/dl (10.1-14.3); Mean Corpuscular HGB Conc 35 % (30-34); Mean Corpuscular Hemoglobin 34 pg (28-32); Mean Corpuscular Volume 95 fl (79-97); Platelet Count 156 K/mm3 (140-440); Red Blood Count 3.71 M/mm3 (3.65-5.03); Red Cell Distribution Width 15.6 % (13.2-15.2); White Blood Count 6.6 K/mm3 (4.5-11.0)
[2017-01-19 06:20] LABS: Alanine Aminotransferase 11 units/L (7-56); Albumin 2.5 g/dL (3.9-5); Albumin/Globulin Ratio 1.3 %; Alkaline Phosphatase 48 units/L (35-129); Blood Urea Nitrogen 4 mg/dL (7-17); Carbon Dioxide 26 mmol/L (22-30); Chloride 89.3 mmol/L (98-107); Glucose 149 mg/dL (65-100); Lipase 71 units/L (13-60); Sodium 131 mmol/L (137-145); Total Protein 4.4 g/dL (6.3-8.2)
[2017-01-19 06:27] LABS: Anion Gap 18 mmol/L; Potassium 2.1 mmol/L (3.6-5.0)
[2017-01-19] MEDS: FLAGYL PO SCH ×2 (06:40→13:47)
[2017-01-19 06:42] LABS: Basophils % (Manual) 0 % (0.0-1.8); Blastocytes % (Manual) 0 %; Eosinophils % (Manual) 0 % (0.0-4.3)
[2017-01-19 06:45] LABS: Diff Status Complete; Platelet Estimate Consistent w Auto
[2017-01-19] MEDS ORDERED: K-DUR PO ONE (09:00)
[2017-01-19] MEDS: ZOLOFT PO SCH (09:37)
[2017-01-19] MEDS: THERAGRAN Tab PO SCH (09:37)
[2017-01-19] MEDS: NORVASC PO SCH (09:38)
[2017-01-19] MEDS: HCTZ PO SCH (09:39)
--- NOTE | 2017-01-19 11:05 | Progress Note ---
Assessment and Plan Assessment and plan: Severe Pancreatitis. Etiology thought to be secondary to alcohol. Liver enzymes remain normal. CT scan done yesterday revealed increased inflammation of pancreas compared to previous CT scan, w/o necrosis. New bilateral pleural effusions also seen. Continue Pain controll with Morphine and Dilaudid Continue IVF NPO GI and surgery following. Severe Hypokalemia. Replete potassium and follow up. Cholelithiasis. Patient scheduled for cholecystectomy per surgery. Surgery is still deciding whether it should be done inpatient or outpatient. - Patient Problems (1) Sepsis Current Visit: Yes Status: Acute Qualifiers: Sepsis type: S (2) Acute pancreatitis Current Visit: Yes Status: Acute Qualifiers: Pancreatitis type: P Acute pancreatitis complication: A (3) Hypokalemia Current Visit: Yes Status: Acute History Interval history: No issues overnight. Hospitalist Physical - Constitutional Vitals: Temp Pulse Resp BP Pulse Ox 97.3 F L 87 24 121/73 96 01/19/17 08:00 01/19/17 09:38 01/19/17 08:00 01/19/17 09:38 01/19/17 08:00 General appearance: Present: no acute distress (eating lunch) - EENT Eyes: Present: PERRL, EOM intact ENT: hearing intact - Neck Neck: Present: supple, normal ROM - Respiratory Respiratory effort: normal Respiratory: bilateral: CTA - Cardiovascular Rhythm: regular Heart Sounds: Present: S1 & S2. Absent: gallop, rub - Extremities Extremities: no ischemia, No edema, Full ROM - Abdominal General gastrointestinal: soft, non-tender, non-distended, normal bowel sounds - Integumentary Integumentary: Present: clear, warm, dry - Neurologic Neurologic: CNII-XII intact, moves all extremities Results - Labs CBC & Chem 7: 01/19/17 05:15 01/19/17 05:10 Labs: Laboratory Last Values WBC 6.6 K/mm3 (4.5-11.0) 01/19/17 05:15 RBC 3.71 M/mm3 (3.65-5.03) 01/19/17 05:15 Hgb 12.4 gm/dl (10.1-14.3) 01/19/17 05:15 Hct 35.2 % (30.3-42.9) 01/19/17 05:15 MCV 95 fl (79-97) 01/19/17 05:15 MCH 34 pg (28-32) H 01/19/17 05:15 MCHC 35 % (30-34) H 01/19/17 05:15 RDW 15.6 % (13.2-15.2) H 01/19/17 05:15 Plt Count 156 K/mm3 (140-440) 01/19/17 05:15 Lymph % (Auto) 6.5 % (13.4-35.0) L 01/16/17 07:22 Cooper % (Auto) Power Line Installer And Repairer 01/19/17 05:15 Eos % (Auto) 0.1 % (0.0-4.3) 01/16/17 07:22 Baso % (Auto) 0.3 % (0.0-1.8) 01/16/17 07:22 Lymph # 1.0 K/mm3 (1.2-5.4) L 01/16/17 07:22 Cooper # 0.6 K/mm3 (0.0-0.8) 01/16/17 07:22 Eos # 0.0 K/mm3 (0.0-0.4) 01/16/17 07:22 Baso # 0.1 K/mm3 (0.0-0.1) 01/16/17 07:22 Add Manual Diff Complete 01/19/17 05:15 Total Counted 100 01/19/17 05:15 Seg Neutrophils % 89.1 % (40.0-70.0) H 01/16/17 07:22 Seg Neuts % (Manual) 46.0 % (40.0-70.0) 01/19/17 05:15 Band Neutrophils % 35.0 % 01/19/17 05:15 Lymphocytes % (Manual) 1.0 % (13.4-35.0) L 01/19/17 05:15 Reactive Lymphs % (Man) 0 % 01/19/17 05:15 Monocytes % (Manual) 17.0 % (0.0-7.3) H 01/19/17 05:15 Eosinophils % (Manual) 0 % (0.0-4.3) 01/19/17 05:15 Basophils % (Manual) 0 % (0.0-1.8) 01/19/17 05:15 Metamyelocytes % 1.0 % 01/19/17 05:15 Myelocytes % 0 % 01/19/17 05:15 Promyelocytes % 0 % 01/19/17 05:15 Blast Cells % 0 % 01/19/17 05:15 Nucleated RBC % Not Reportable 01/19/17 05:15 Seg Neutrophils # 13.7 K/mm3 (1.8-7.7) H 01/16/17 07:22 Seg Neutrophils # Man 3.0 K/mm3 (1.8-7.7) 01/19/17 05:15 Band Neutrophils # 2.3 K/mm3 01/19/17 05:15 Lymphocytes # (Manual) 0.1 K/mm3 (1.2-5.4) L 01/19/17 05:15 Abs React Lymphs (Man) 0.0 K/mm3 01/19/17 05:15 Monocytes # (Manual) 1.1 K/mm3 (0.0-0.8) H 01/19/17 05:15 Eosinophils # (Manual) 0.0 K/mm3 (0.0-0.4) 01/19/17 05:15 Basophils # (Manual) 0.0 K/mm3 (0.0-0.1) 01/19/17 05:15 Metamyelocytes # 0.1 K/mm3 01/19/17 05:15 Myelocytes # 0.0 K/mm3 01/19/17 05:15 Promyelocytes # 0.0 K/mm3 01/19/17 05:15 Blast Cells # 0.0 K/mm3 01/19/17 05:15 WBC Morphology Not Reportable 01/19/17 05:15 Hypersegmented Neuts Not Reportable 01/19/17 05:15 Hyposegmented Neuts Not Reportable 01/19/17 05:15 Hypogranular Neuts Not Reportable 01/19/17 05:15 Smudge Cells Not Reportable 01/19/17 05:15 Toxic Granulation Not Reportable 01/19/17 05:15 Toxic Vacuolation Not Reportable 01/19/17 05:15 Dohle Bodies Not Reportable 01/19/17 05:15 Pelger-Huet Anomaly Not Reportable 01/19/17 05:15 Cesar Rods Not Reportable 01/19/17 05:15 Platelet Estimate Consistent w auto 01/19/17 05:15 Clumped Platelets Not Reportable 01/19/17 05:15 Plt Clumps, EDTA Not Reportable 01/19/17 05:15 Large Platelets Not Reportable 01/19/17 05:15 Giant Platelets Not Reportable 01/19/17 05:15 Platelet Satelliting Not Reportable 01/19/17 05:15 Plt Morphology Comment Not Reportable 01/19/17 05:15 RBC Morphology Not Reportable 01/19/17 05:15 Dimorphic RBCs Not Reportable 01/19/17 05:15 Polychromasia Not Reportable 01/19/17 05:15 Hypochromasia Not Reportable 01/19/17 05:15 Poikilocytosis Not Reportable 01/19/17 05:15 Anisocytosis Not Reportable 01/19/17 05:15 Microcytosis Not Reportable 01/19/17 05:15 Macrocytosis Not Reportable 01/19/17 05:15 Spherocytes Not Reportable 01/19/17 05:15 Pappenheimer Bodies Not Reportable 01/19/17 05:15 Sickle Cells Not Reportable 01/19/17 05:15 Target Cells Not Reportable 01/19/17 05:15 Tear Drop Cells Not Reportable 01/19/17 05:15 Ovalocytes Not Reportable 01/19/17 05:15 Helmet Cells Not Reportable 01/19/17 05:15 [place] Bodies Not Reportable 01/19/17 05:15 [place] Rings Not Reportable 01/19/17 05:15 [place] Cells Not Reportable 01/19/17 05:15 Bite Cells Not Reportable 01/19/17 05:15 Crenated Cell Not Reportable 01/19/17 05:15 Elliptocytes Not Reportable 01/19/17 05:15 Acanthocytes (Spur) Not Reportable 01/19/17 05:15 Rouleaux Not Reportable 01/19/17 05:15 Hemoglobin C Crystals Not Reportable 01/19/17 05:15 Schistocytes Not Reportable 01/19/17 05:15 Malaria parasites Not Reportable 01/19/17 05:15 Swapnil Bodies Not Reportable 01/19/17 05:15 Hem Pathologist Commnt No 01/19/17 05:15 PT 15.8 Sec. (12.2-14.9) H 01/16/17 07:22 INR 1.27 (0.87-1.13) H 01/16/17 07:22 APTT 31.2 Sec. (24.2-36.6) 01/16/17 07:22 Sodium 131 mmol/L (137-145) L 01/19/17 05:10 Potassium 2.1 mmol/L (3.6-5.0) L* D 01/19/17 05:10 Chloride 89.3 mmol/L (98-107) L 01/19/17 05:10 Carbon Dioxide 26 mmol/L (22-30) D 01/19/17 05:10 Anion Gap 18 mmol/L 01/19/17 05:10 BUN 4 mg/dL (7-17) L 01/19/17 05:10 Creatinine 0.5 mg/dL (0.7-1.2) L 01/19/17 05:10 Estimated GFR > 60 ml/min 01/19/17 05:10 BUN/Creatinine Ratio 8.00 % 01/19/17 05:10 Glucose 149 mg/dL (65-100) H 01/19/17 05:10 Lactic Acid 4.40 mmol/L (0.7-2.0) H* 01/14/17 15:50 Calcium 6.0 mg/dL (8.4-10.2) L 01/19/17 05:10 Magnesium 1.00 mg/dL (1.7-2.3) L 01/14/17 09:52 Total Bilirubin 0.60 mg/dL (0.1-1.2) 01/19/17 05:10 Direct Bilirubin 0.3 mg/dL (0-0.2) H 01/15/17 06:59 Indirect Bilirubin 0.6 mg/dL 01/15/17 06:59 AST 19 units/L (5-40) 01/19/17 05:10 ALT 11 units/L (7-56) 01/19/17 05:10 Alkaline Phosphatase 48 units/L (35-129) 01/19/17 05:10 NT-Pro-B Natriuret Pep 78.95 pg/mL (0-900) 01/14/17 07:02 Total Protein 4.4 g/dL (6.3-8.2) L 01/19/17 05:10 Albumin 2.5 g/dL (3.9-5) L 01/19/17 05:10 Albumin/Globulin Ratio 1.3 % 01/19/17 05:10 Amylase 865 units/L (27-131) H 01/15/17 06:59 Lipase 71 units/L (13-60) H 01/19/17 05:10 Urine Color Sarah (Yellow) 01/14/17 07:55 Urine Turbidity Clear (Clear) 01/14/17 07:55 Urine pH 6.0 (5.0-7.0) 01/14/17 07:55 Ur Specific Samson 1.028 (1.003-1.030) 01/14/17 07:55 Urine Protein 100 mg/dl mg/dL (Negative) 01/14/17 07:55 Urine Glucose (UA) 50 mg/dL (Negative) 01/14/17 07:55 Urine Ketones 20 mg/dL (Negative) 01/14/17 07:55 Urine Blood Sm (Negative) 01/14/17 07:55 Urine Nitrite Neg (Negative) 01/14/17 07:55 Urine Bilirubin Neg (Negative) 01/14/17 07:55 Urine Urobilinogen < 2.0 mg/dL (<2.0) 01/14/17 07:55 Ur Leukocyte Esterase Neg (Negative) 01/14/17 07:55 Urine WBC (Auto) 3.0 /HPF (0.0-6.0) 01/14/17 07:55 Urine RBC (Auto) 3.0 /HPF (0.0-6.0) 01/14/17 07:55 U Epithel Cells (Auto) 4.0 /HPF (0-13.0) 01/14/17 07:55 Urine Bacteria (Auto) 1+ /HPF (Negative) 01/14/17 07:55 Urine Mucus 1+ /HPF 01/14/17 07:55 Urine Opiates Screen Presumptive positive 01/14/17 07:55 Urine Methadone Screen Presumptive negative 01/14/17 07:55 Ur Barbiturates Screen Presumptive negative 01/14/17 07:55 Ur Phencyclidine Scrn Presumptive negative 01/14/17 07:55 Ur Amphetamines Screen Presumptive negative 01/14/17 07:55 U Benzodiazepines Scrn Presumptive negative 01/14/17 07:55 Urine Cocaine Screen Presumptive negative 01/14/17 07:55 U Marijuana (THC) Screen Presumptive negative 01/14/17 07:55 Drugs of Abuse Note Disclamer 01/14/17 07:55 Plasma/Serum Alcohol < 0.01 gm% (0-0.07) 01/14/17 16:28 Blood Type O POSITIVE 01/14/17 07:02 Antibody Screen TNR 01/14/17 07:02 OSCAR Antibody Screen Negative 01/14/17 07:02
[2017-01-19] MEDS ORDERED: KCL 10MEQ/100ML 10 MEQ/100 ML BAG IV ONE ×4 (13:30→18:30)
--- NOTE | 2017-01-19 13:37 | Progress Note ---
Assessment and Plan - Patient Problems (1) Acute pancreatitis Current Visit: Yes Status: Acute Qualifiers: Pancreatitis type: P Acute pancreatitis complication: A Plan to address problem: CT scan shows changes expected with acute, uncomplicated pancreatitis. Patient remains stable, afebrile. Follow off enteric coverage for now. (2) Diarrhea Current Visit: Yes Status: Acute Qualifiers: Diarrhea type: unspecified type Qualified Code(s): R19.7 - Diarrhea, unspecified Plan to address problem: Resolved. Will discontinue Flagyl. Cdiff negative. Subjective Date of service: 01/19/17 Principal diagnosis: acute pancreatitis Interval history: Episodes of emesis. No diarrhea. Remains hemodynamically stable. Objective - Constitutional Vitals: Vital Signs Temp Pulse Resp BP Pulse Ox 97.3 F L 87 24 121/73 96 01/19/17 08:00 01/19/17 09:38 01/19/17 08:00 01/19/17 09:38 01/19/17 08:00 Temperature -Last 24 Hours Temperature 97.3 F Temperature 98 F Temperature 98.9 F General appearance: Present: no acute distress - EENT Eyes: no scleral icterus - Respiratory Respiratory: bilateral: CTA, negative: diminished, rhonchi - Cardiovascular Rhythm: regular Heart Sounds: Present: S1 & S2 Extremities: No edema - Gastrointestinal General gastrointestinal: Present: soft, tender, distended, normal bowel sounds - Integumentary Integumentary: no jaundice, no rash - Psychiatric Psychiatric: appropriate mood/affect - Labs CBC & Chem 7: 01/19/17 05:15 01/19/17 05:10 Labs: Abnormal lab results 01/19/17 01/19/17 Range/Units 05:10 05:15 MCH 34 H (28-32) pg MCHC 35 H (30-34) % RDW 15.6 H (13.2-15.2) % Lymphocytes % (Manual) 1.0 L (13.4-35.0) % Monocytes % (Manual) 17.0 H (0.0-7.3) % Lymphocytes # (Manual) 0.1 L (1.2-5.4) K/mm3 Monocytes # (Manual) 1.1 H (0.0-0.8) K/mm3 Sodium 131 L (137-145) mmol/L Potassium 2.1 L* D (3.6-5.0) mmol/L Chloride 89.3 L (98-107) mmol/L BUN 4 L (7-17) mg/dL Creatinine 0.5 L (0.7-1.2) mg/dL Glucose 149 H (65-100) mg/dL Calcium 6.0 L (8.4-10.2) mg/dL Total Protein 4.4 L (6.3-8.2) g/dL Albumin 2.5 L (3.9-5) g/dL Lipase 71 H (13-60) units/L Microbiology 01/14/17 09:52 Peripheral/Venous Blood Culture - Final NO GROWTH AFTER 5 DAYS 01/14/17 10:41 Peripheral/Venous Blood Culture - Final NO GROWTH AFTER 5 DAYS 01/17/17 20:15 Stool - Stool Aspirate C. difficile DNA Amplification - Final 01/14/17 07:53 Urine,Clean Catch Urine Culture - Final Active Medications Acetaminophen (Tylenol) 650 mg PO Q4H PRN PRN Reason: Pain MILD(1-3)/Fever >100.5/ALEXANDER Last Admin: 01/18/17 18:26 Dose: 650 mg Amlodipine Besylate (Norvasc) 10 mg PO DAILY [facility] Last Admin: 01/19/17 09:38 Dose: 10 mg Hydrochlorothiazide (Hctz) 25 mg PO QDAY [facility] Last Admin: 01/19/17 09:39 Dose: 25 mg Hydromorphone HCl (Dilaudid) 1 mg IV Q3H PRN PRN Reason: Pain , Severe (7-10) Last Admin: 01/19/17 09:40 Dose: 1 mg Potassium Chloride (Kcl 10meq/100ml) 10 meq in 100 mls @ 100 mls/hr IV ONCE ONE Stop: 01/19/17 14:29 Potassium Chloride (Kcl 10meq/100ml) 10 meq in 100 mls @ 100 mls/hr IV ONCE ONE Stop: 01/19/17 15:59 Potassium Chloride (Kcl 10meq/100ml) 10 meq in 100 mls @ 100 mls/hr IV ONCE ONE Stop: 01/19/17 17:29 Potassium Chloride (Kcl 10meq/100ml) 10 meq in 100 mls @ 100 mls/hr IV ONCE ONE Stop: 01/19/17 19:29 Magnesium Hydroxide (Milk Of Magnesia) 30 ml PO Q4H PRN PRN Reason: Constipation Metronidazole (Flagyl) 500 mg PO Q8HR [facility] Last Admin: 01/19/17 06:40 Dose: 500 mg Multivitamins (Theragran Tab) 1 each PO QDAY [facility] Last Admin: 01/19/17 09:37 Dose: 1 each Ondansetron HCl (Zofran) 4 mg IV Q4H PRN PRN Reason: N/V unrelieved by Kriss Last Admin: 01/19/17 07:53 Dose: 4 mg Sertraline HCl (Zoloft) 50 mg PO QDAY [facility] Last Admin: 01/19/17 09:37 Dose: 50 mg Trazodone HCl (Desyrel) 50 mg PO QHS [facility] Last Admin: 01/18/17 21:54 Dose: 50 mg - Imaging and cardiology CT scan - abdomen: report reviewed (peripancreatic inflammation without discrete pseudocyst or abscess; bilateral pleural effusions)
--- NOTE | 2017-01-19 16:24 | Gastroenterology Progress Note ---
Assessment and Plan GI: pt with slow resolving pancreatitis - if labs stable am start clear liquids diet -follow labs including CRP - lap avi per surgery team - will follow Subjective Date of service: 01/19/17 Principal diagnosis: acute pancreatitis Interval history: - pt reports slightly improved today. Feels can tolerate liquids Objective - Constitutional Vitals: Temp Pulse Resp BP Pulse Ox 97.3 F L 87 24 121/73 96 01/19/17 08:00 01/19/17 09:38 01/19/17 08:00 01/19/17 09:38 01/19/17 08:00 General appearance: no acute distress - Respiratory Respiratory: bilateral: CTA - Cardiovascular Rhythm: regular Heart Sounds: Present: S1 & S2 - Gastrointestinal General gastrointestinal: Present: soft, non-tender, non-distended - Labs CBC & Chem 7: 01/19/17 05:15 01/19/17 05:10 Labs: Laboratory Results - last 24 hr 01/19/17 01/19/17 01/19/17 05:10 05:15 13:02 WBC 6.6 RBC 3.71 Hgb 12.4 Hct 35.2 MCV 95 MCH 34 H MCHC 35 H RDW 15.6 H Plt Count 156 Bonner % (Auto) Engineering Illustrator Add Manual Diff Complete Total Counted 100 Seg Neuts % (Manual) 46.0 Band Neutrophils % 35.0 Lymphocytes % (Manual) 1.0 L Reactive Lymphs % (Man) 0 Monocytes % (Manual) 17.0 H Eosinophils % (Manual) 0 Basophils % (Manual) 0 Metamyelocytes % 1.0 Myelocytes % 0 Promyelocytes % 0 Blast Cells % 0 Nucleated RBC % Not Reportable Seg Neutrophils # Man 3.0 Band Neutrophils # 2.3 Lymphocytes # (Manual) 0.1 L Abs React Lymphs (Man) 0.0 Monocytes # (Manual) 1.1 H Eosinophils # (Manual) 0.0 Basophils # (Manual) 0.0 Metamyelocytes # 0.1 Myelocytes # 0.0 Promyelocytes # 0.0 Blast Cells # 0.0 WBC Morphology Not Reportable Hypersegmented Neuts Not Reportable Hyposegmented Neuts Not Reportable Hypogranular Neuts Not Reportable Smudge Cells Not Reportable Toxic Granulation Not Reportable Toxic Vacuolation Not Reportable Dohle Bodies Not Reportable Pelger-Huet Anomaly Not Reportable Cesar Rods Not Reportable Platelet Estimate Consistent w auto Clumped Platelets Not Reportable Plt Clumps, EDTA Not Reportable Large Platelets Not Reportable Giant Platelets Not Reportable Platelet Satelliting Not Reportable Plt Morphology Comment Not Reportable RBC Morphology Not Reportable Dimorphic RBCs Not Reportable Polychromasia Not Reportable Hypochromasia Not Reportable Poikilocytosis Not Reportable Anisocytosis Not Reportable Microcytosis Not Reportable Macrocytosis Not Reportable Spherocytes Not Reportable Pappenheimer Bodies Not Reportable Sickle Cells Not Reportable Target Cells Not Reportable Tear Drop Cells Not Reportable Ovalocytes Not Reportable Helmet Cells Not Reportable [place] Bodies Not Reportable Procious Rings Not Reportable [place] Cells Not Reportable Bite Cells Not Reportable Crenated Cell Not Reportable Elliptocytes Not Reportable Acanthocytes (Spur) Not Reportable Rouleaux Not Reportable Hemoglobin C Crystals Not Reportable Schistocytes Not Reportable Malaria parasites Not Reportable Swapnil Bodies Not Reportable Hem Pathologist Commnt No Sodium 131 L Potassium 2.1 L* D Chloride 89.3 L Carbon Dioxide 26 D Anion Gap 18 BUN 4 L Creatinine 0.5 L Estimated GFR > 60 BUN/Creatinine Ratio 8.00 Glucose 149 H Calcium 6.0 L Magnesium 1.40 L Total Bilirubin 0.60 AST 19 ALT 11 Alkaline Phosphatase 48 Total Protein 4.4 L Albumin 2.5 L Albumin/Globulin Ratio 1.3 Lipase 71 H
[2017-01-19] MEDS: DESYREL PO SCH (21:29)
[2017-01-20 05:28] LABS: Hematocrit 39.1 % (30.3-42.9); Hemoglobin 13.6 gm/dl (10.1-14.3); Mean Corpuscular HGB Conc 35 % (30-34); Mean Corpuscular Hemoglobin 33 pg (28-32); Mean Corpuscular Volume 96 fl (79-97); Platelet Count 215 K/mm3 (140-440); Red Blood Count 4.09 M/mm3 (3.65-5.03); Red Cell Distribution Width 15.5 % (13.2-15.2); White Blood Count 10.8 K/mm3 (4.5-11.0)
[2017-01-20 05:49] LABS: Anion Gap 21 mmol/L; BUN/Creatinine Ratio 8.33; Blood Urea Nitrogen 5 mg/dL (7-17); Calcium 7.4 mg/dL (8.4-10.2); Carbon Dioxide 31 mmol/L (22-30); Chloride 83.9 mmol/L (98-107); Glucose 143 mg/dL (65-100); Sodium 133 mmol/L (137-145)
[2017-01-20 05:52] LABS: Potassium 2.7 mmol/L (3.6-5.0)
[2017-01-20] MEDS ORDERED: POTASSIUM CHLORIDE FEEDTUBE ONE ×3 (06:10→10:00)
[2017-01-20 07:20] LABS: Basophils % (Manual) 0 % (0.0-1.8); Blastocytes % (Manual) 0 %; Diff Status Complete; Eosinophils % (Manual) 0 % (0.0-4.3); Platelet Estimate Consistent w Auto
[2017-01-20] MEDS: ZOFRAN IV PRN ×3 (07:34→14:13)
[2017-01-20] MEDS: DILAUDID IV PRN ×4 (07:34→18:00)
--- NOTE | 2017-01-20 10:06 | Progress Note ---
Assessment and Plan - Patient Problems (1) Acute pancreatitis Current Visit: Yes Status: Acute Qualifiers: Pancreatitis type: P Acute pancreatitis complication: A Plan to address problem: Supportive therapy. Limited diet. Follow for now off antibiotics. (2) Diarrhea Current Visit: Yes Status: Acute Qualifiers: Diarrhea type: unspecified type Qualified Code(s): R19.7 - Diarrhea, unspecified Plan to address problem: Resolved. Subjective Date of service: 01/20/17 Principal diagnosis: acute pancreatitis Interval history: Remains afebrile. No new issues. Objective - Constitutional Vitals: Vital Signs Temp Pulse Resp BP Pulse Ox 98.7 F 76 20 120/76 94 01/20/17 08:00 01/20/17 08:00 01/20/17 08:00 01/20/17 08:00 01/20/17 08:00 Temperature -Last 24 Hours Temperature 98.7 F Temperature 98.6 F Temperature 99.2 F Temperature 97.9 F General appearance: Present: no acute distress - EENT Eyes: no scleral icterus - Respiratory Respiratory: bilateral: CTA, negative: rales, rhonchi - Cardiovascular Rhythm: regular Heart Sounds: Present: S1 & S2 Extremities: No edema - Gastrointestinal General gastrointestinal: Present: soft, tender, distended, hypoactive bowel sounds - Integumentary Integumentary: no jaundice, no rash - Psychiatric Psychiatric: appropriate mood/affect - Labs CBC & Chem 7: 01/20/17 05:01 01/20/17 05:01 Labs: Abnormal lab results 01/19/17 01/20/17 01/20/17 Range/Units 13:02 05:01 05:01 MCH 33 H (28-32) pg MCHC 35 H (30-34) % RDW 15.5 H (13.2-15.2) % Seg Neuts % (Manual) 78.0 H (40.0-70.0) % Lymphocytes % (Manual) 3.0 L (13.4-35.0) % Seg Neutrophils # Man 8.4 H (1.8-7.7) K/mm3 Lymphocytes # (Manual) 0.3 L (1.2-5.4) K/mm3 Sodium 133 L (137-145) mmol/L Potassium 2.7 L* D (3.6-5.0) mmol/L Chloride 83.9 L (98-107) mmol/L Carbon Dioxide 31 H (22-30) mmol/L BUN 5 L (7-17) mg/dL Creatinine 0.6 L (0.7-1.2) mg/dL Glucose 143 H (65-100) mg/dL Calcium 7.4 L D (8.4-10.2) mg/dL Magnesium 1.40 L (1.7-2.3) mg/dL C-Reactive Protein (0.00-1.30) mg/dL 01/20/17 Range/Units 05:01 MCH (28-32) pg MCHC (30-34) % RDW (13.2-15.2) % Seg Neuts % (Manual) (40.0-70.0) % Lymphocytes % (Manual) (13.4-35.0) % Seg Neutrophils # Man (1.8-7.7) K/mm3 Lymphocytes # (Manual) (1.2-5.4) K/mm3 Sodium (137-145) mmol/L Potassium (3.6-5.0) mmol/L Chloride (98-107) mmol/L Carbon Dioxide (22-30) mmol/L BUN (7-17) mg/dL Creatinine (0.7-1.2) mg/dL Glucose (65-100) mg/dL Calcium (8.4-10.2) mg/dL Magnesium (1.7-2.3) mg/dL C-Reactive Protein 24.90 H (0.00-1.30) mg/dL Microbiology 01/14/17 09:52 Peripheral/Venous Blood Culture - Final NO GROWTH AFTER 5 DAYS 01/14/17 10:41 Peripheral/Venous Blood Culture - Final NO GROWTH AFTER 5 DAYS 01/17/17 20:15 Stool - Stool Aspirate C. difficile DNA Amplification - Final 01/14/17 07:53 Urine,Clean Catch Urine Culture - Final Active Medications Acetaminophen (Tylenol) 650 mg PO Q4H PRN PRN Reason: Pain MILD(1-3)/Fever >100.5/ALEXANDER Last Admin: 01/18/17 18:26 Dose: 650 mg Amlodipine Besylate (Norvasc) 10 mg PO DAILY [facility] Last Admin: 01/19/17 09:38 Dose: 10 mg Hydrochlorothiazide (Hctz) 25 mg PO QDAY [facility] Last Admin: 01/19/17 09:39 Dose: 25 mg Hydromorphone HCl (Dilaudid) 1 mg IV Q3H PRN PRN Reason: Pain , Severe (7-10) Last Admin: 01/20/17 07:34 Dose: 1 mg Magnesium Hydroxide (Milk Of Magnesia) 30 ml PO Q4H PRN PRN Reason: Constipation Multivitamins (Theragran Tab) 1 each PO QDAY [facility] Last Admin: 01/19/17 09:37 Dose: 1 each Ondansetron HCl (Zofran) 4 mg IV Q4H PRN PRN Reason: N/V unrelieved by Kriss Last Admin: 01/20/17 07:34 Dose: 4 mg Sertraline HCl (Zoloft) 50 mg PO QDAY [facility] Last Admin: 01/19/17 09:37 Dose: 50 mg Trazodone HCl (Desyrel) 50 mg PO QHS [facility] Last Admin: 01/19/17 21:29 Dose: 50 mg
--- NOTE | 2017-01-20 10:35 | Progress Note ---
Assessment and Plan Assessment and plan: 1. Severe Pancreatitis. Etiology thought to be secondary to alcohol. Liver enzymes remain normal. Repeat CT scan revealed increased inflammation of pancreas compared to previous CT scan, w/o necrosis. New bilateral pleural effusions also seen. Continue Pain controll with Morphine and Dilaudid Continue IVF Advance diet as tolerated. GI and surgery following. Follow-up CRP. 2. Bilateral pleural effusions. Etiology most likely reactive from pancreatitis. If effusions persist, consider echocardiogram. Follow-up serial chest x-ray. 3. Severe Hypokalemia. Replete potassium and follow up. 4. Cholelithiasis. Patient potentially for laparoscopic cholecystectomy per surgery. Surgery is still deciding whether it should be done inpatient or outpatient. - Patient Problems (1) Sepsis Current Visit: Yes Status: Acute Qualifiers: Sepsis type: S (2) Acute pancreatitis Current Visit: Yes Status: Acute Qualifiers: Pancreatitis type: P Acute pancreatitis complication: A (3) Hypokalemia Current Visit: Yes Status: Acute History Interval history: No issues overnight. Hospitalist Physical - Constitutional Vitals: Temp Pulse Resp BP Pulse Ox 98.7 F 76 20 120/76 94 01/20/17 08:00 01/20/17 08:00 01/20/17 08:00 01/20/17 08:00 01/20/17 08:00 General appearance: Present: no acute distress - EENT Eyes: Present: PERRL, EOM intact ENT: hearing intact, clear oral mucosa, dentition normal - Neck Neck: Present: supple, normal ROM - Respiratory Respiratory effort: normal Respiratory: bilateral: CTA - Cardiovascular Rhythm: regular Heart Sounds: Present: S1 & S2. Absent: gallop, rub - Extremities Extremities: no ischemia, No edema, Full ROM - Abdominal General gastrointestinal: soft, non-tender, non-distended, normal bowel sounds - Integumentary Integumentary: Present: clear, warm, dry - Neurologic Neurologic: CNII-XII intact, moves all extremities Results - Labs CBC & Chem 7: 01/20/17 05:01 01/20/17 05:01 Labs: Laboratory Last Values WBC 10.8 K/mm3 (4.5-11.0) 01/20/17 05:01 RBC 4.09 M/mm3 (3.65-5.03) 01/20/17 05:01 Hgb 13.6 gm/dl (10.1-14.3) 01/20/17 05:01 Hct 39.1 % (30.3-42.9) 01/20/17 05:01 MCV 96 fl (79-97) 01/20/17 05:01 MCH 33 pg (28-32) H 01/20/17 05:01 MCHC 35 % (30-34) H 01/20/17 05:01 RDW 15.5 % (13.2-15.2) H 01/20/17 05:01 Plt Count 215 K/mm3 (140-440) 01/20/17 05:01 Lymph % (Auto) 6.5 % (13.4-35.0) L 01/16/17 07:22 [place] % (Auto) Butter Fat Tester 01/19/17 05:15 Eos % (Auto) 0.1 % (0.0-4.3) 01/16/17 07:22 Baso % (Auto) 0.3 % (0.0-1.8) 01/16/17 07:22 Lymph # 1.0 K/mm3 (1.2-5.4) L 01/16/17 07:22 [place] # 0.6 K/mm3 (0.0-0.8) 01/16/17 07:22 Eos # 0.0 K/mm3 (0.0-0.4) 01/16/17 07:22 Baso # 0.1 K/mm3 (0.0-0.1) 01/16/17 07:22 Add Manual Diff Complete 01/20/17 05:01 Total Counted 100 01/20/17 05:01 Seg Neutrophils % 89.1 % (40.0-70.0) H 01/16/17 07:22 Seg Neuts % (Manual) 78.0 % (40.0-70.0) H 01/20/17 05:01 Band Neutrophils % 12.0 % 01/20/17 05:01 Lymphocytes % (Manual) 3.0 % (13.4-35.0) L 01/20/17 05:01 Reactive Lymphs % (Man) 0 % 01/20/17 05:01 Monocytes % (Manual) 7.0 % (0.0-7.3) 01/20/17 05:01 Eosinophils % (Manual) 0 % (0.0-4.3) 01/20/17 05:01 Basophils % (Manual) 0 % (0.0-1.8) 01/20/17 05:01 Metamyelocytes % 0 % 01/20/17 05:01 Myelocytes % 0 % 01/20/17 05:01 Promyelocytes % 0 % 01/20/17 05:01 Blast Cells % 0 % 01/20/17 05:01 Nucleated RBC % Not Reportable 01/20/17 05:01 Seg Neutrophils # 13.7 K/mm3 (1.8-7.7) H 01/16/17 07:22 Seg Neutrophils # Man 8.4 K/mm3 (1.8-7.7) H 01/20/17 05:01 Band Neutrophils # 1.3 K/mm3 01/20/17 05:01 Lymphocytes # (Manual) 0.3 K/mm3 (1.2-5.4) L 01/20/17 05:01 Abs React Lymphs (Man) 0.0 K/mm3 01/20/17 05:01 Monocytes # (Manual) 0.8 K/mm3 (0.0-0.8) 01/20/17 05:01 Eosinophils # (Manual) 0.0 K/mm3 (0.0-0.4) 01/20/17 05:01 Basophils # (Manual) 0.0 K/mm3 (0.0-0.1) 01/20/17 05:01 Metamyelocytes # 0.0 K/mm3 01/20/17 05:01 Myelocytes # 0.0 K/mm3 01/20/17 05:01 Promyelocytes # 0.0 K/mm3 01/20/17 05:01 Blast Cells # 0.0 K/mm3 01/20/17 05:01 WBC Morphology Not Reportable 01/20/17 05:01 Hypersegmented Neuts Not Reportable 01/20/17 05:01 Hyposegmented Neuts Not Reportable 01/20/17 05:01 Hypogranular Neuts Not Reportable 01/20/17 05:01 Smudge Cells Not Reportable 01/20/17 05:01 Toxic Granulation Not Reportable 01/20/17 05:01 Toxic Vacuolation Not Reportable 01/20/17 05:01 Dohle Bodies Not Reportable 01/20/17 05:01 Pelger-Huet Anomaly Not Reportable 01/20/17 05:01 Cesar Rods Not Reportable 01/20/17 05:01 Platelet Estimate Consistent w auto 01/20/17 05:01 Clumped Platelets Not Reportable 01/20/17 05:01 Plt Clumps, EDTA Not Reportable 01/20/17 05:01 Large Platelets Not Reportable 01/20/17 05:01 Giant Platelets Not Reportable 01/20/17 05:01 Platelet Satelliting Not Reportable 01/20/17 05:01 Plt Morphology Comment Not Reportable 01/20/17 05:01 RBC Morphology Not Reportable 01/20/17 05:01 Dimorphic RBCs Not Reportable 01/20/17 05:01 Polychromasia Not Reportable 01/20/17 05:01 Hypochromasia Not Reportable 01/20/17 05:01 Poikilocytosis Not Reportable 01/20/17 05:01 Anisocytosis Not Reportable 01/20/17 05:01 Microcytosis Not Reportable 01/20/17 05:01 Macrocytosis Not Reportable 01/20/17 05:01 Spherocytes Not Reportable 01/20/17 05:01 Pappenheimer Bodies Not Reportable 01/20/17 05:01 Sickle Cells Not Reportable 01/20/17 05:01 Target Cells Not Reportable 01/20/17 05:01 Tear Drop Cells Not Reportable 01/20/17 05:01 Ovalocytes Not Reportable 01/20/17 05:01 Helmet Cells Not Reportable 01/20/17 05:01 Watson-[place] Bodies Not Reportable 01/20/17 05:01 [place] Rings Not Reportable 01/20/17 05:01 Danielle Cells Not Reportable 01/20/17 05:01 Bite Cells Not Reportable 01/20/17 05:01 Crenated Cell Not Reportable 01/20/17 05:01 Elliptocytes Not Reportable 01/20/17 05:01 Acanthocytes (Spur) Not Reportable 01/20/17 05:01 Rouleaux Not Reportable 01/20/17 05:01 Hemoglobin C Crystals Not Reportable 01/20/17 05:01 Schistocytes Not Reportable 01/20/17 05:01 Malaria parasites Not Reportable 01/20/17 05:01 Swapnil Bodies Not Reportable 01/20/17 05:01 Hem Pathologist Commnt No 01/20/17 05:01 PT 15.8 Sec. (12.2-14.9) H 01/16/17 07:22 INR 1.27 (0.87-1.13) H 01/16/17 07:22 APTT 31.2 Sec. (24.2-36.6) 01/16/17 07:22 Sodium 133 mmol/L (137-145) L 01/20/17 05:01 Potassium 2.7 mmol/L (3.6-5.0) L* D 01/20/17 05:01 Chloride 83.9 mmol/L (98-107) L 01/20/17 05:01 Carbon Dioxide 31 mmol/L (22-30) H 01/20/17 05:01 Anion Gap 21 mmol/L 01/20/17 05:01 BUN 5 mg/dL (7-17) L 01/20/17 05:01 Creatinine 0.6 mg/dL (0.7-1.2) L 01/20/17 05:01 Estimated GFR > 60 ml/min 01/20/17 05:01 BUN/Creatinine Ratio 8.33 % 01/20/17 05:01 Glucose 143 mg/dL (65-100) H 01/20/17 05:01 Lactic Acid 4.40 mmol/L (0.7-2.0) H* 01/14/17 15:50 Calcium 7.4 mg/dL (8.4-10.2) L D 01/20/17 05:01 Magnesium 1.40 mg/dL (1.7-2.3) L 01/19/17 13:02 Total Bilirubin 0.60 mg/dL (0.1-1.2) 01/19/17 05:10 Direct Bilirubin 0.3 mg/dL (0-0.2) H 01/15/17 06:59 Indirect Bilirubin 0.6 mg/dL 01/15/17 06:59 AST 19 units/L (5-40) 01/19/17 05:10 ALT 11 units/L (7-56) 01/19/17 05:10 Alkaline Phosphatase 48 units/L (35-129) 01/19/17 05:10 C-Reactive Protein 24.90 mg/dL (0.00-1.30) H 01/20/17 05:01 NT-Pro-B Natriuret Pep 78.95 pg/mL (0-900) 01/14/17 07:02 Total Protein 4.4 g/dL (6.3-8.2) L 01/19/17 05:10 Albumin 2.5 g/dL (3.9-5) L 01/19/17 05:10 Albumin/Globulin Ratio 1.3 % 01/19/17 05:10 Amylase 865 units/L (27-131) H 01/15/17 06:59 Lipase 71 units/L (13-60) H 01/19/17 05:10 Urine Color Sarah (Yellow) 01/14/17 07:55 Urine Turbidity Clear (Clear) 01/14/17 07:55 Urine pH 6.0 (5.0-7.0) 01/14/17 07:55 Ur Specific [place] 1.028 (1.003-1.030) 01/14/17 07:55 Urine Protein 100 mg/dl mg/dL (Negative) 01/14/17 07:55 Urine Glucose (UA) 50 mg/dL (Negative) 01/14/17 07:55 Urine Ketones 20 mg/dL (Negative) 01/14/17 07:55 Urine Blood Sm (Negative) 01/14/17 07:55 Urine Nitrite Neg (Negative) 01/14/17 07:55 Urine Bilirubin Neg (Negative) 01/14/17 07:55 Urine Urobilinogen < 2.0 mg/dL (<2.0) 01/14/17 07:55 Ur Leukocyte Esterase Neg (Negative) 01/14/17 07:55 Urine WBC (Auto) 3.0 /HPF (0.0-6.0) 01/14/17 07:55 Urine RBC (Auto) 3.0 /HPF (0.0-6.0) 01/14/17 07:55 U Epithel Cells (Auto) 4.0 /HPF (0-13.0) 01/14/17 07:55 Urine Bacteria (Auto) 1+ /HPF (Negative) 01/14/17 07:55 Urine Mucus 1+ /HPF 01/14/17 07:55 Urine Opiates Screen Presumptive positive 01/14/17 07:55 Urine Methadone Screen Presumptive negative 01/14/17 07:55 Ur Barbiturates Screen Presumptive negative 01/14/17 07:55 Ur Phencyclidine Scrn Presumptive negative 01/14/17 07:55 Ur Amphetamines Screen Presumptive negative 01/14/17 07:55 U Benzodiazepines Scrn Presumptive negative 01/14/17 07:55 Urine Cocaine Screen Presumptive negative 01/14/17 07:55 U Marijuana (THC) Screen Presumptive negative 01/14/17 07:55 Drugs of Abuse Note Disclamer 01/14/17 07:55 Plasma/Serum Alcohol < 0.01 gm% (0-0.07) 01/14/17 16:28 Blood Type O POSITIVE 01/14/17 07:02 Antibody Screen TNR 01/14/17 07:02 OSCAR Antibody Screen Negative 01/14/17 07:02
[2017-01-20] MEDS: THERAGRAN Tab PO SCH (11:16)
[2017-01-20] MEDS: HCTZ PO SCH (11:16)
[2017-01-20] MEDS: ZOLOFT PO SCH (11:17)
[2017-01-20] MEDS: NORVASC PO SCH (11:17)
--- NOTE | 2017-01-20 13:42 | Gastroenterology Progress Note ---
Assessment and Plan 1. acute pancreatitis -slow resolving - CRP elevated, WBC WNL -follow up Lipase and CRP in am - pt not tolerating clear liquids with nausea/dry heaves and pain 7/10 - will place back on ice chips - lap avi per surgery team - will follow Subjective Date of service: 01/20/17 Principal diagnosis: acute pancreatitis Interval history: Pt laying in bed. C/o abd pain rating a 7/10 and nausea with dry heaves. Objective - Constitutional Vitals: Temp Pulse Resp BP Pulse Ox 98.7 F 76 20 120/76 94 01/20/17 08:00 01/20/17 08:00 01/20/17 08:00 01/20/17 08:00 01/20/17 08:00 General appearance: no acute distress - EENT Eyes: EOM intact ENT: hearing intact - Respiratory Respiratory: bilateral: CTA - Cardiovascular Rhythm: regular Heart Sounds: Present: S1 & S2 - Extremities Extremities: No edema - Gastrointestinal General gastrointestinal: Present: soft, tender, non-distended - Integumentary Integumentary: Present: warm, dry - Neurologic Neurological: alert and oriented x3 - Psychiatric Psychiatric: appropriate mood/affect, cooperative - Labs CBC & Chem 7: 01/20/17 05:01 01/20/17 05:01 Labs: Laboratory Results - last 24 hr 01/19/17 01/20/17 01/20/17 13:02 05:01 05:01 WBC 10.8 RBC 4.09 Hgb 13.6 Hct 39.1 MCV 96 MCH 33 H MCHC 35 H RDW 15.5 H Plt Count 215 Add Manual Diff Complete Total Counted 100 Seg Neuts % (Manual) 78.0 H Band Neutrophils % 12.0 Lymphocytes % (Manual) 3.0 L Reactive Lymphs % (Man) 0 Monocytes % (Manual) 7.0 Eosinophils % (Manual) 0 Basophils % (Manual) 0 Metamyelocytes % 0 Myelocytes % 0 Promyelocytes % 0 Blast Cells % 0 Nucleated RBC % Not Reportable Seg Neutrophils # Man 8.4 H Band Neutrophils # 1.3 Lymphocytes # (Manual) 0.3 L Abs React Lymphs (Man) 0.0 Monocytes # (Manual) 0.8 Eosinophils # (Manual) 0.0 Basophils # (Manual) 0.0 Metamyelocytes # 0.0 Myelocytes # 0.0 Promyelocytes # 0.0 Blast Cells # 0.0 WBC Morphology Not Reportable Hypersegmented Neuts Not Reportable Hyposegmented Neuts Not Reportable Hypogranular Neuts Not Reportable Smudge Cells Not Reportable Toxic Granulation Not Reportable Toxic Vacuolation Not Reportable Dohle Bodies Not Reportable Pelger-Huet Anomaly Not Reportable Cesar Rods Not Reportable Platelet Estimate Consistent w auto Clumped Platelets Not Reportable Plt Clumps, EDTA Not Reportable Large Platelets Not Reportable Giant Platelets Not Reportable Platelet Satelliting Not Reportable Plt Morphology Comment Not Reportable RBC Morphology Not Reportable Dimorphic RBCs Not Reportable Polychromasia Not Reportable Hypochromasia Not Reportable Poikilocytosis Not Reportable Anisocytosis Not Reportable Microcytosis Not Reportable Macrocytosis Not Reportable Spherocytes Not Reportable Pappenheimer Bodies Not Reportable Sickle Cells Not Reportable Target Cells Not Reportable Tear Drop Cells Not Reportable Ovalocytes Not Reportable Helmet Cells Not Reportable [place] Bodies Not Reportable [place] Rings Not Reportable [place] Cells Not Reportable Bite Cells Not Reportable Crenated Cell Not Reportable Elliptocytes Not Reportable Acanthocytes (Spur) Not Reportable Rouleaux Not Reportable Hemoglobin C Crystals Not Reportable Schistocytes Not Reportable Malaria parasites Not Reportable Swapnil Bodies Not Reportable Hem Pathologist Commnt No Sodium 133 L Potassium 2.7 L* D Chloride 83.9 L Carbon Dioxide 31 H Anion Gap 21 BUN 5 L Creatinine 0.6 L Estimated GFR > 60 BUN/Creatinine Ratio 8.33 Glucose 143 H Calcium 7.4 L D Magnesium 1.40 L C-Reactive Protein 01/20/17 05:01 WBC RBC Hgb Hct MCV MCH MCHC RDW Plt Count Add Manual Diff Total Counted Seg Neuts % (Manual) Band Neutrophils % Lymphocytes % (Manual) Reactive Lymphs % (Man) Monocytes % (Manual) Eosinophils % (Manual) Basophils % (Manual) Metamyelocytes % Myelocytes % Promyelocytes % Blast Cells % Nucleated RBC % Seg Neutrophils # Man Band Neutrophils # Lymphocytes # (Manual) Abs React Lymphs (Man) Monocytes # (Manual) Eosinophils # (Manual) Basophils # (Manual) Metamyelocytes # Myelocytes # Promyelocytes # Blast Cells # WBC Morphology Hypersegmented Neuts Hyposegmented Neuts Hypogranular Neuts Smudge Cells Toxic Granulation Toxic Vacuolation Dohle Bodies Pelger-Huet Anomaly Cesar Rods Platelet Estimate Clumped Platelets Plt Clumps, EDTA Large Platelets Giant Platelets Platelet Satelliting Plt Morphology Comment RBC Morphology Dimorphic RBCs Polychromasia Hypochromasia Poikilocytosis Anisocytosis Microcytosis Macrocytosis Spherocytes Pappenheimer Bodies Sickle Cells Target Cells Tear Drop Cells Ovalocytes Helmet Cells [place] Bodies [place] Rings Danielle Cells Bite Cells Crenated Cell Elliptocytes Acanthocytes (Spur) Rouleaux Hemoglobin C Crystals Schistocytes Malaria parasites Swapnil Bodies Hem Pathologist Commnt Sodium Potassium Chloride Carbon Dioxide Anion Gap BUN Creatinine Estimated GFR BUN/Creatinine Ratio Glucose Calcium Magnesium C-Reactive Protein 24.90 H
[2017-01-20] MEDS ORDERED: K-DUR PO ONE ×4 (14:05→22:00)
[2017-01-20] MEDS: DESYREL PO SCH (22:09)
[2017-01-21] MEDS: DILAUDID IV PRN ×5 (00:19→21:35)
[2017-01-21 06:28] LABS: Basophils % (Auto) 0.1 % (0.0-1.8); Eosinophils % (Auto) 0.2 % (0.0-4.3); Hematocrit 37.3 % (30.3-42.9); Hemoglobin 12.8 gm/dl (10.1-14.3); Mean Corpuscular HGB Conc 34 % (30-34); Mean Corpuscular Hemoglobin 33 pg (28-32); Mean Corpuscular Volume 95 fl (79-97); Platelet Count 255 K/mm3 (140-440); Red Blood Count 3.92 M/mm3 (3.65-5.03); Red Cell Distribution Width 15.8 % (13.2-15.2); White Blood Count 13.4 K/mm3 (4.5-11.0)
[2017-01-21 06:37] LABS: Anion Gap 16 mmol/L; Blood Urea Nitrogen 5 mg/dL (7-17); Calcium 7.8 mg/dL (8.4-10.2); Carbon Dioxide 34 mmol/L (22-30); Chloride 84.4 mmol/L (98-107); Glucose 141 mg/dL (65-100); Sodium 132 mmol/L (137-145)
[2017-01-21 06:39] LABS: C-Reactive Protein 19.6 mg/dL (0.00-1.30)
[2017-01-21 06:42] LABS: Potassium 2.7 mmol/L (3.6-5.0)
[2017-01-21] MEDS: ZOFRAN IV PRN ×2 (08:17→16:12)
--- NOTE | 2017-01-21 09:01 | Gastroenterology Progress Note ---
Addendum entered and electronically signed by LORAINE WOODS NP 01/21/17 09: 23: - pt has been essentially NPO x 7 days, may need to consider alternate means of nutrition if continues to tolerate po intake Original Note: Assessment and Plan 1. acute pancreatitis -slow resolving -CRP and Lipase trending down -follow up Lipase and CRP in am -WBC elevated this am, will continue to monitor - Pt with continued N/V and pain- will keep on ice chips only -Will consider repeat CT scan if pt continues with no improvement clinically - rojas cárdenas per surgery team - will follow Subjective Date of service: 01/21/17 Principal diagnosis: acute pancreatitis Interval history: Pt sitting on side of bed. No acute distress. Still c/o nausea and voices she has vomiting x3 with clear emesis this am. Pain remaining the same as yesterday 01/30. Objective - Constitutional Vitals: Temp Pulse Resp BP Pulse Ox 99.5 F 86 20 119/77 92 01/21/17 07:30 01/21/17 07:30 01/21/17 07:30 01/21/17 07:30 01/20/17 23:45 General appearance: no acute distress - EENT Eyes: PERRL, EOM intact ENT: hearing intact - Neck Neck: supple, normal ROM - Respiratory Respiratory: bilateral: CTA - Cardiovascular Rhythm: regular Heart Sounds: Present: S1 & S2 - Extremities Extremities: No edema, Full ROM - Gastrointestinal General gastrointestinal: Present: soft, tender, non-distended, normal bowel sounds - Integumentary Integumentary: Present: warm, dry - Neurologic Neurological: alert and oriented x3 - Psychiatric Psychiatric: appropriate mood/affect, cooperative - Labs CBC & Chem 7: 01/21/17 05:23 01/21/17 05:27 Labs: Laboratory Results - last 24 hr 01/21/17 01/21/17 01/21/17 05:23 05:27 05:27 WBC 13.4 H RBC 3.92 Hgb 12.8 Hct 37.3 MCV 95 MCH 33 H MCHC 34 RDW 15.8 H Plt Count 255 Lymph % (Auto) 4.7 L [place] % (Auto) 9.7 H Eos % (Auto) 0.2 Baso % (Auto) 0.1 Lymph # 0.6 L [place] # 1.3 H Eos # 0.0 Baso # 0.0 Seg Neutrophils % 85.3 H Seg Neutrophils # 11.5 H Sodium 132 L Potassium 2.7 L* Chloride 84.4 L Carbon Dioxide 34 H Anion Gap 16 BUN 5 L Creatinine 0.5 L Estimated GFR > 60 BUN/Creatinine Ratio 10.00 Glucose 141 H Calcium 7.8 L C-Reactive Protein 19.60 H Lipase 65 H
--- NOTE | 2017-01-21 09:26 | Progress Note ---
Assessment and Plan - Patient Problems (1) Acute pancreatitis Current Visit: Yes Status: Acute Qualifiers: Pancreatitis type: P Acute pancreatitis complication: A Plan to address problem: 1. Remains symptomatic. WBC increased today over previous value. 2. Continue to monitor clinically. 3. Repeat abdominal imaging intervally or as clinically indicated to rule out abscess, infected pseudocyst or necrosis. 4. I discussed findings to date with the patient's daughter over the telephone per the patient's request. Subjective Date of service: 01/21/17 Principal diagnosis: acute pancreatitis Interval history: No new issues. Occasional episodes of emesis, but improving abdominal pain. Objective - Constitutional Vitals: Vital Signs Temp Pulse Resp BP Pulse Ox 99.5 F 86 20 119/77 92 01/21/17 07:30 01/21/17 07:30 01/21/17 07:30 01/21/17 07:30 01/20/17 23:45 Temperature -Last 24 Hours Temperature 99.5 F Temperature 99.6 F Temperature 98.4 F General appearance: Present: no acute distress - EENT Eyes: no scleral icterus - Respiratory Respiratory: bilateral: CTA - Cardiovascular Rhythm: regular Heart Sounds: Present: S1 & S2 - Gastrointestinal General gastrointestinal: Present: soft, tender (less so than previous exams), distended Localized gastrointestinal: tender: epigastric periumbilical - Integumentary Integumentary: no jaundice - Labs CBC & Chem 7: 01/21/17 05:23 01/21/17 05:27 Labs: Abnormal lab results 01/21/17 01/21/17 01/21/17 Range/Units 05:23 05:27 05:27 WBC 13.4 H (4.5-11.0) K/mm3 MCH 33 H (28-32) pg RDW 15.8 H (13.2-15.2) % Lymph % (Auto) 4.7 L (13.4-35.0) % [place] % (Auto) 9.7 H (0.0-7.3) % Lymph # 0.6 L (1.2-5.4) K/mm3 [place] # 1.3 H (0.0-0.8) K/mm3 Seg Neutrophils % 85.3 H (40.0-70.0) % Seg Neutrophils # 11.5 H (1.8-7.7) K/mm3 Sodium 132 L (137-145) mmol/L Potassium 2.7 L* (3.6-5.0) mmol/L Chloride 84.4 L (98-107) mmol/L Carbon Dioxide 34 H (22-30) mmol/L BUN 5 L (7-17) mg/dL Creatinine 0.5 L (0.7-1.2) mg/dL Glucose 141 H (65-100) mg/dL Calcium 7.8 L (8.4-10.2) mg/dL C-Reactive Protein 19.60 H (0.00-1.30) mg/dL Lipase 65 H (13-60) units/L Microbiology 01/14/17 09:52 Peripheral/Venous Blood Culture - Final NO GROWTH AFTER 5 DAYS 01/14/17 10:41 Peripheral/Venous Blood Culture - Final NO GROWTH AFTER 5 DAYS 01/17/17 20:15 Stool - Stool Aspirate C. difficile DNA Amplification - Final 01/14/17 07:53 Urine,Clean Catch Urine Culture - Final Active Medications Acetaminophen (Tylenol) 650 mg PO Q4H PRN PRN Reason: Pain MILD(1-3)/Fever >100.5/ALEXANDER Last Admin: 01/18/17 18:26 Dose: 650 mg Amlodipine Besylate (Norvasc) 10 mg PO DAILY [facility] Last Admin: 01/20/17 11:17 Dose: 10 mg Hydrochlorothiazide (Hctz) 25 mg PO QDAY [facility] Last Admin: 01/20/17 11:16 Dose: 25 mg Hydromorphone HCl (Dilaudid) 1 mg IV Q3H PRN PRN Reason: Pain , Severe (7-10) Last Admin: 01/21/17 08:17 Dose: 1 mg Magnesium Hydroxide (Milk Of Magnesia) 30 ml PO Q4H PRN PRN Reason: Constipation Multivitamins (Theragran Tab) 1 each PO QDAY [facility] Last Admin: 01/20/17 11:16 Dose: 1 each Ondansetron HCl (Zofran) 4 mg IV Q4H PRN PRN Reason: N/V unrelieved by Kriss Last Admin: 01/21/17 08:17 Dose: 4 mg Sertraline HCl (Zoloft) 50 mg PO QDAY [facility] Last Admin: 01/20/17 11:17 Dose: 50 mg Trazodone HCl (Desyrel) 50 mg PO QHS [id number] Last Admin: 01/20/17 22:09 Dose: 50 mg
[2017-01-21] MEDS: HCTZ PO SCH (13:25)
[2017-01-21] MEDS: NORVASC PO SCH (13:25)
[2017-01-21] MEDS: ZOLOFT PO SCH (13:25)
[2017-01-21] MEDS: THERAGRAN Tab PO SCH (13:26)
--- NOTE | 2017-01-21 17:34 | Progress Note ---
Assessment and Plan - Patient Problems (1) Acute pancreatitis Current Visit: Yes Status: Acute Qualifiers: Pancreatitis type: biliary Acute pancreatitis complication: unspecified Qualified Code(s): K85.10 - Biliary acute pancreatitis without necrosis or infection Plan to address problem: patient with acute pancreatitis seems to be responding somewhat to bowel rest. Aggressive hydration. Patient will need more hydration IV fluids. We'll see if we can advance diet to clear liquid diet today. And advance as tolerated. (2) Diarrhea Current Visit: Yes Status: Acute Qualifiers: Diarrhea type: unspecified type Qualified Code(s): R19.7 - Diarrhea, unspecified Plan to address problem: Diarrhea has resolved now C. difficile negative. Was secondary to pancreatitis. (3) Nausea & vomiting Current Visit: Yes Status: Acute Qualifiers: Vomiting type: V Vomiting Intractability: non-intractable Plan to address problem: Still has nausea vomiting secondary to acute pancreatitis. (4) Alcohol abuse Current Visit: Yes Status: Chronic Plan to address problem: Patient without any evidence of withdrawal at this particular time. Continue to observe closely. (5) HTN (hypertension) Current Visit: Yes Status: Chronic Qualifiers: Hypertension type: essential hypertension Qualified Code(s): I10 - Essential (primary) hypertension Plan to address problem: Patient has fair control blood pressure at this particular time. (6) Cholelithiasis Current Visit: Yes Status: Resolved Qualifiers: Cholelithiasis location: bile duct Cholecystitis presence: without cholecystitis Cholangitis presence: C Cholecystitis acuity: C Cholangitis acuity: C Biliary obstruction: with biliary obstruction Qualified Code(s): K80.51 - Calculus of bile duct without cholangitis or cholecystitis with obstruction Plan to address problem: Patient has cholelithiasis. No blockages no obstruction at this time. No right upper quadrant pain. Most of the pain is coming from left lower quadrant not think this is pancreatitis. Quite possibly have gallstone pancreatitis. History Interval history: patient seen and examined. Spoke with daughter Cecilia about patient's condition. Patient's abdominal pain is better still have several episodes of nausea and vomiting. Patient's potassium 2.7 today. Refused IV potassium because it st stings. We'll like by mouth potassium. Comprehensive that one is more effective than the other. C. difficile negative. Hospitalist Physical - Constitutional Vitals: Temp Pulse Resp BP Pulse Ox 98.2 F 79 20 117/82 91 01/21/17 15:40 01/21/17 15:40 01/21/17 15:40 01/21/17 15:40 01/21/17 15:40 General appearance: Present: no acute distress - EENT Eyes: Present: PERRL, EOM intact ENT: hearing intact, clear oral mucosa, dentition normal - Neck Neck: Present: supple, normal ROM - Respiratory Respiratory effort: normal Respiratory: bilateral: CTA - Cardiovascular Heart Sounds: Present: S1 & S2 - Extremities Extremities: no ischemia, pulses intact, pulses symmetrical, No edema, normal temperature, normal color, Full ROM Peripheral Pulses: within normal limits - Abdominal General gastrointestinal: soft, tender, non-distended, hypoactive bowel sounds ( he also) - Integumentary Integumentary: Present: clear ( all), warm, dry - Psychiatric Psychiatric: appropriate mood/affect - Neurologic Neurologic: CNII-XII intact (() Results - Labs CBC & Chem 7: 01/21/17 05:23 01/21/17 05:27 Labs: Laboratory Last Values WBC 13.4 K/mm3 (4.5-11.0) H 01/21/17 05:23 RBC 3.92 M/mm3 (3.65-5.03) 01/21/17 05:23 Hgb 12.8 gm/dl (10.1-14.3) 01/21/17 05:23 Hct 37.3 % (30.3-42.9) 01/21/17 05:23 MCV 95 fl (79-97) 01/21/17 05:23 MCH 33 pg (28-32) H 01/21/17 05:23 MCHC 34 % (30-34) 01/21/17 05:23 RDW 15.8 % (13.2-15.2) H 01/21/17 05:23 Plt Count 255 K/mm3 (140-440) 01/21/17 05:23 Lymph % (Auto) 4.7 % (13.4-35.0) L 01/21/17 05:23 Mcpherson % (Auto) 9.7 % (0.0-7.3) H 01/21/17 05:23 Eos % (Auto) 0.2 % (0.0-4.3) 01/21/17 05:23 Baso % (Auto) 0.1 % (0.0-1.8) 01/21/17 05:23 Lymph # 0.6 K/mm3 (1.2-5.4) L 01/21/17 05:23 Mcpherson # 1.3 K/mm3 (0.0-0.8) H 01/21/17 05:23 Eos # 0.0 K/mm3 (0.0-0.4) 01/21/17 05:23 Baso # 0.0 K/mm3 (0.0-0.1) 01/21/17 05:23 Add Manual Diff Complete 01/20/17 05:01 Total Counted 100 01/20/17 05:01 Seg Neutrophils % 85.3 % (40.0-70.0) H 01/21/17 05:23 Seg Neuts % (Manual) 78.0 % (40.0-70.0) H 01/20/17 05:01 Band Neutrophils % 12.0 % 01/20/17 05:01 Lymphocytes % (Manual) 3.0 % (13.4-35.0) L 01/20/17 05:01 Reactive Lymphs % (Man) 0 % 01/20/17 05:01 Monocytes % (Manual) 7.0 % (0.0-7.3) 01/20/17 05:01 Eosinophils % (Manual) 0 % (0.0-4.3) 01/20/17 05:01 Basophils % (Manual) 0 % (0.0-1.8) 01/20/17 05:01 Metamyelocytes % 0 % 01/20/17 05:01 Myelocytes % 0 % 01/20/17 05:01 Promyelocytes % 0 % 01/20/17 05:01 Blast Cells % 0 % 01/20/17 05:01 Nucleated RBC % Not Reportable 01/20/17 05:01 Seg Neutrophils # 11.5 K/mm3 (1.8-7.7) H 01/21/17 05:23 Seg Neutrophils # Man 8.4 K/mm3 (1.8-7.7) H 01/20/17 05:01 Band Neutrophils # 1.3 K/mm3 01/20/17 05:01 Lymphocytes # (Manual) 0.3 K/mm3 (1.2-5.4) L 01/20/17 05:01 Abs React Lymphs (Man) 0.0 K/mm3 01/20/17 05:01 Monocytes # (Manual) 0.8 K/mm3 (0.0-0.8) 01/20/17 05:01 Eosinophils # (Manual) 0.0 K/mm3 (0.0-0.4) 01/20/17 05:01 Basophils # (Manual) 0.0 K/mm3 (0.0-0.1) 01/20/17 05:01 Metamyelocytes # 0.0 K/mm3 01/20/17 05:01 Myelocytes # 0.0 K/mm3 01/20/17 05:01 Promyelocytes # 0.0 K/mm3 01/20/17 05:01 Blast Cells # 0.0 K/mm3 01/20/17 05:01 WBC Morphology Not Reportable 01/20/17 05:01 Hypersegmented Neuts Not Reportable 01/20/17 05:01 Hyposegmented Neuts Not Reportable 01/20/17 05:01 Hypogranular Neuts Not Reportable 01/20/17 05:01 Smudge Cells Not Reportable 01/20/17 05:01 Toxic Granulation Not Reportable 01/20/17 05:01 Toxic Vacuolation Not Reportable 01/20/17 05:01 Dohle Bodies Not Reportable 01/20/17 05:01 Pelger-Huet Anomaly Not Reportable 01/20/17 05:01 Cesar Rods Not Reportable 01/20/17 05:01 Platelet Estimate Consistent w auto 01/20/17 05:01 Clumped Platelets Not Reportable 01/20/17 05:01 Plt Clumps, EDTA Not Reportable 01/20/17 05:01 Large Platelets Not Reportable 01/20/17 05:01 Giant Platelets Not Reportable 01/20/17 05:01 Platelet Satelliting Not Reportable 01/20/17 05:01 Plt Morphology Comment Not Reportable 01/20/17 05:01 RBC Morphology Not Reportable 01/20/17 05:01 Dimorphic RBCs Not Reportable 01/20/17 05:01 Polychromasia Not Reportable 01/20/17 05:01 Hypochromasia Not Reportable 01/20/17 05:01 Poikilocytosis Not Reportable 01/20/17 05:01 Anisocytosis Not Reportable 01/20/17 05:01 Microcytosis Not Reportable 01/20/17 05:01 Macrocytosis Not Reportable 01/20/17 05:01 Spherocytes Not Reportable 01/20/17 05:01 Pappenheimer Bodies Not Reportable 01/20/17 05:01 Sickle Cells Not Reportable 01/20/17 05:01 Target Cells Not Reportable 01/20/17 05:01 Tear Drop Cells Not Reportable 01/20/17 05:01 Ovalocytes Not Reportable 01/20/17 05:01 Helmet Cells Not Reportable 01/20/17 05:01 [place] Bodies Not Reportable 01/20/17 05:01 Paton Rings Not Reportable 01/20/17 05:01 [place] Cells Not Reportable 01/20/17 05:01 Bite Cells Not Reportable 01/20/17 05:01 Crenated Cell Not Reportable 01/20/17 05:01 Elliptocytes Not Reportable 01/20/17 05:01 Acanthocytes (Spur) Not Reportable 01/20/17 05:01 Rouleaux Not Reportable 01/20/17 05:01 Hemoglobin C Crystals Not Reportable 01/20/17 05:01 Schistocytes Not Reportable 01/20/17 05:01 Malaria parasites Not Reportable 01/20/17 05:01 Swapnil Bodies Not Reportable 01/20/17 05:01 Hem Pathologist Commnt No 01/20/17 05:01 PT 15.8 Sec. (12.2-14.9) H 01/16/17 07:22 INR 1.27 (0.87-1.13) H 01/16/17 07:22 APTT 31.2 Sec. (24.2-36.6) 01/16/17 07:22 Sodium 132 mmol/L (137-145) L 01/21/17 05:27 Potassium 2.7 mmol/L (3.6-5.0) L* 01/21/17 05:27 Chloride 84.4 mmol/L (98-107) L 01/21/17 05:27 Carbon Dioxide 34 mmol/L (22-30) H 01/21/17 05:27 Anion Gap 16 mmol/L 01/21/17 05:27 BUN 5 mg/dL (7-17) L 01/21/17 05:27 Creatinine 0.5 mg/dL (0.7-1.2) L 01/21/17 05:27 Estimated GFR > 60 ml/min 01/21/17 05:27 BUN/Creatinine Ratio 10.00 % 01/21/17 05:27 Glucose 141 mg/dL (65-100) H 01/21/17 05:27 Lactic Acid 4.40 mmol/L (0.7-2.0) H* 01/14/17 15:50 Calcium 7.8 mg/dL (8.4-10.2) L 01/21/17 05:27 Magnesium 1.40 mg/dL (1.7-2.3) L 01/19/17 13:02 Total Bilirubin 0.60 mg/dL (0.1-1.2) 01/19/17 05:10 Direct Bilirubin 0.3 mg/dL (0-0.2) H 01/15/17 06:59 Indirect Bilirubin 0.6 mg/dL 01/15/17 06:59 AST 19 units/L (5-40) 01/19/17 05:10 ALT 11 units/L (7-56) 01/19/17 05:10 Alkaline Phosphatase 48 units/L (35-129) 01/19/17 05:10 C-Reactive Protein 19.60 mg/dL (0.00-1.30) H 01/21/17 05:27 NT-Pro-B Natriuret Pep 78.95 pg/mL (0-900) 01/14/17 07:02 Total Protein 4.4 g/dL (6.3-8.2) L 01/19/17 05:10 Albumin 2.5 g/dL (3.9-5) L 01/19/17 05:10 Albumin/Globulin Ratio 1.3 % 01/19/17 05:10 Amylase 865 units/L (27-131) H 01/15/17 06:59 Lipase 65 units/L (13-60) H 01/21/17 05:27 Urine Color Sarah (Yellow) 01/14/17 07:55 Urine Turbidity Clear (Clear) 01/14/17 07:55 Urine pH 6.0 (5.0-7.0) 01/14/17 07:55 Ur Specific [place] 1.028 (1.003-1.030) 01/14/17 07:55 Urine Protein 100 mg/dl mg/dL (Negative) 01/14/17 07:55 Urine Glucose (UA) 50 mg/dL (Negative) 01/14/17 07:55 Urine Ketones 20 mg/dL (Negative) 01/14/17 07:55 Urine Blood Sm (Negative) 01/14/17 07:55 Urine Nitrite Neg (Negative) 01/14/17 07:55 Urine Bilirubin Neg (Negative) 01/14/17 07:55 Urine Urobilinogen < 2.0 mg/dL (<2.0) 01/14/17 07:55 Ur Leukocyte Esterase Neg (Negative) 01/14/17 07:55 Urine WBC (Auto) 3.0 /HPF (0.0-6.0) 01/14/17 07:55 Urine RBC (Auto) 3.0 /HPF (0.0-6.0) 01/14/17 07:55 U Epithel Cells (Auto) 4.0 /HPF (0-13.0) 01/14/17 07:55 Urine Bacteria (Auto) 1+ /HPF (Negative) 01/14/17 07:55 Urine Mucus 1+ /HPF 01/14/17 07:55 Urine Opiates Screen Presumptive positive 01/14/17 07:55 Urine Methadone Screen Presumptive negative 01/14/17 07:55 Ur Barbiturates Screen Presumptive negative 01/14/17 07:55 Ur Phencyclidine Scrn Presumptive negative 01/14/17 07:55 Ur Amphetamines Screen Presumptive negative 01/14/17 07:55 U Benzodiazepines Scrn Presumptive negative 01/14/17 07:55 Urine Cocaine Screen Presumptive negative 01/14/17 07:55 U Marijuana (THC) Screen Presumptive negative 01/14/17 07:55 Drugs of Abuse Note Disclamer 01/14/17 07:55 Plasma/Serum Alcohol < 0.01 gm% (0-0.07) 01/14/17 16:28 Blood Type O POSITIVE 01/14/17 07:02 Antibody Screen TNR 01/14/17 07:02 OSCAR Antibody Screen Negative 01/14/17 07:02
[2017-01-21] MEDS ORDERED: POTASSIUM CHLORIDE FEEDTUBE ONE (19:40)
[2017-01-21] MEDS: KCL 10MEQ/100ML 10 MEQ/100 ML BAG IV SCH ×2 (21:05→22:27)
[2017-01-21] MEDS: DESYREL PO SCH (21:35)
[2017-01-22] MEDS: KCL 10MEQ/100ML 10 MEQ/100 ML BAG IV SCH ×2 (00:03→01:09)
[2017-01-22] MEDS: ZOFRAN IV PRN ×4 (01:09→18:57)
[2017-01-22] MEDS: DILAUDID IV PRN ×6 (02:33→21:13)
[2017-01-22 06:15] LABS: C-Reactive Protein 21.9 mg/dL (0.00-1.30)
--- NOTE | 2017-01-22 09:36 | Gastroenterology Progress Note ---
Assessment and Plan 1. acute pancreatitis -slow resolving -CRP and Lipase slightly elevated from yesterday -follow up Lipase and CRP in am -WBC- pending - Pt improved clinically this am with no N/V-tolerating clear liquids - lap avi per surgery team - will follow Subjective Date of service: 01/22/17 Principal diagnosis: acute pancreatitis Interval history: Pt laying in bed watching tv. States she is feeling better today. Denies N/V over night or this am. Pain has improved to 5/10. Objective - Constitutional Vitals: Temp Pulse Resp BP Pulse Ox 98.0 F 83 18 116/73 91 01/22/17 08:37 01/22/17 08:37 01/22/17 08:37 01/22/17 08:37 01/21/17 15:40 General appearance: no acute distress - EENT Eyes: PERRL, EOM intact ENT: hearing intact - Neck Neck: supple, normal ROM - Respiratory Respiratory: bilateral: CTA (anterior) - Cardiovascular Rhythm: regular Heart Sounds: Present: S1 & S2 - Extremities Extremities: No edema - Gastrointestinal General gastrointestinal: Present: soft, tender, non-distended, normal bowel sounds - Integumentary Integumentary: Present: warm, dry - Neurologic Neurological: alert and oriented x3 - Psychiatric Psychiatric: appropriate mood/affect, cooperative - Labs CBC & Chem 7: 01/21/17 05:23 01/21/17 05:27 Labs: Laboratory Results - last 24 hr 01/22/17 04:55 C-Reactive Protein 21.90 H Lipase 71 H
[2017-01-22 09:45] LABS: Alanine Aminotransferase 8 units/L (7-56); Albumin 2.4 g/dL (3.9-5); Albumin/Globulin Ratio 0.8 %; Alkaline Phosphatase 59 units/L (35-129); Anion Gap 13 mmol/L; Blood Urea Nitrogen 5 mg/dL (7-17); Calcium 8.3 mg/dL (8.4-10.2); Carbon Dioxide 37 mmol/L (22-30); Chloride 83.7 mmol/L (98-107); Glucose 145 mg/dL (65-100); Sodium 131 mmol/L (137-145); Total Protein 5.5 g/dL (6.3-8.2)
--- NOTE | 2017-01-22 09:47 | Progress Note ---
Assessment and Plan - Patient Problems (1) Acute pancreatitis Current Visit: Yes Status: Acute Qualifiers: Pancreatitis type: unspecified pancreatitis type Acute pancreatitis complication: no infection or necrosis Qualified Code(s): K85.90 - Acute pancreatitis without necrosis or infection, unspecified Plan to address problem: No new recommendations. I will sign off. Please call again if there are additional questions or concerns. Subjective Date of service: 01/22/17 Principal diagnosis: acute pancreatitis Interval history: No new complaints. Emesis resolved last 24 hours. Improved abdominal pain. Objective - Constitutional Vitals: Vital Signs Temp Pulse Resp BP Pulse Ox 98.0 F 83 18 116/73 91 01/22/17 08:37 01/22/17 08:37 01/22/17 08:37 01/22/17 08:37 01/21/17 15:40 Temperature -Last 24 Hours Temperature 98.0 F Temperature 98.0 F Temperature 98.4 F Temperature 98.2 F General appearance: Present: no acute distress - EENT Eyes: no scleral icterus - Respiratory Respiratory effort: normal Respiratory: bilateral: CTA - Cardiovascular Rhythm: regular Extremities: No edema - Gastrointestinal General gastrointestinal: Present: soft, tender, distended - Psychiatric Psychiatric: appropriate mood/affect - Labs CBC & Chem 7: 01/21/17 05:23 01/22/17 09:00 Labs: Abnormal lab results 01/22/17 01/22/17 Range/Units 04:55 09:00 Sodium 131 L (137-145) mmol/L Chloride 83.7 L (98-107) mmol/L Carbon Dioxide 37 H (22-30) mmol/L BUN 5 L (7-17) mg/dL Creatinine 0.5 L (0.7-1.2) mg/dL Glucose 145 H (65-100) mg/dL Calcium 8.3 L (8.4-10.2) mg/dL C-Reactive Protein 21.90 H (0.00-1.30) mg/dL Albumin 2.4 L (3.9-5) g/dL Lipase 71 H (13-60) units/L Microbiology 01/14/17 09:52 Peripheral/Venous Blood Culture - Final NO GROWTH AFTER 5 DAYS 01/14/17 10:41 Peripheral/Venous Blood Culture - Final NO GROWTH AFTER 5 DAYS 01/17/17 20:15 Stool - Stool Aspirate C. difficile DNA Amplification - Final 01/14/17 07:53 Urine,Clean Catch Urine Culture - Final Active Medications Acetaminophen (Tylenol) 650 mg PO Q4H PRN PRN Reason: Pain MILD(1-3)/Fever >100.5/ALEXANDER Last Admin: 01/18/17 18:26 Dose: 650 mg Amlodipine Besylate (Norvasc) 10 mg PO DAILY [facility] Last Admin: 01/21/17 13:25 Dose: 10 mg Hydrochlorothiazide (Hctz) 25 mg PO QDAY [facility] Last Admin: 01/21/17 13:25 Dose: 25 mg Hydromorphone HCl (Dilaudid) 1 mg IV Q3H PRN PRN Reason: Pain , Severe (7-10) Last Admin: 01/22/17 06:52 Dose: 1 mg Magnesium Hydroxide (Milk Of Magnesia) 30 ml PO Q4H PRN PRN Reason: Constipation Multivitamins (Theragran Tab) 1 each PO QDAY [facility] Last Admin: 01/21/17 13:26 Dose: 1 each Ondansetron HCl (Zofran) 4 mg IV Q4H PRN PRN Reason: N/V unrelieved by Kriss Last Admin: 01/22/17 01:09 Dose: 4 mg Sertraline HCl (Zoloft) 50 mg PO QDAY [facility] Last Admin: 01/21/17 13:25 Dose: 50 mg Trazodone HCl (Desyrel) 50 mg PO QHS [facility] Last Admin: 01/21/17 21:35 Dose: 50 mg
[2017-01-22] MEDS: THERAGRAN Tab PO SCH (11:04)
[2017-01-22] MEDS: ZOLOFT PO SCH (11:06)
[2017-01-22] MEDS: HCTZ PO SCH (11:06)
[2017-01-22] MEDS: NORVASC PO SCH (11:06)
--- NOTE | 2017-01-22 18:59 | Progress Note ---
Assessment and Plan - Patient Problems (1) Acute pancreatitis Current Visit: Yes Status: Acute Qualifiers: Pancreatitis type: biliary Acute pancreatitis complication: unspecified Qualified Code(s): K85.10 - Biliary acute pancreatitis without necrosis or infection Plan to address problem: To pancreatitis appears to be improving. We'll advance diet today. (2) Diarrhea Current Visit: Yes Status: Acute Qualifiers: Diarrhea type: unspecified type Qualified Code(s): R19.7 - Diarrhea, unspecified Plan to address problem: C. DIFFICILE negative. (3) Nausea & vomiting Current Visit: Yes Status: Acute Qualifiers: Vomiting type: V Vomiting Intractability: non-intractable Plan to address problem: Still has nausea vomiting secondary to acute pancreatitis. (4) Alcohol abuse Current Visit: Yes Status: Chronic Plan to address problem: Patient educated to stop alcohol and drinking or she will get (5) HTN (hypertension) Current Visit: Yes Status: Chronic Qualifiers: Hypertension type: essential hypertension Qualified Code(s): I10 - Essential (primary) hypertension Plan to address problem: Patient has fair control blood pressure at this particular time. (6) Cholelithiasis Current Visit: Yes Status: Resolved Qualifiers: Cholelithiasis location: bile duct Cholecystitis presence: without cholecystitis Cholangitis presence: C Cholecystitis acuity: C Cholangitis acuity: C Biliary obstruction: with biliary obstruction Qualified Code(s): K80.51 - Calculus of bile duct without cholangitis or cholecystitis with obstruction Plan to address problem: Patient has cholelithiasis. No blockages no obstruction at this time. No right upper quadrant pain. Most of the pain is coming from left lower quadrant not think this is pancreatitis. Quite possibly have gallstone pancreatitis. History Interval history: She feels better today. Tolerated pudding well. No abdominal pain. Would like to try and advance her diet. Hospitalist Physical - Constitutional Vitals: Temp Pulse Resp BP Pulse Ox 98.0 F 83 18 116/73 91 01/22/17 08:37 01/22/17 08:37 01/22/17 08:37 01/22/17 08:37 01/21/17 15:40 General appearance: Present: no acute distress - EENT Eyes: Present: PERRL, EOM intact ENT: hearing intact, clear oral mucosa, dentition normal - Neck Neck: Present: supple, normal ROM - Respiratory Respiratory effort: normal Respiratory: bilateral: CTA - Cardiovascular Rhythm: regular Heart Sounds: Present: S1 & S2 - Extremities Extremities: no ischemia, pulses intact, pulses symmetrical, No edema Extremity abnormal: edema Peripheral Pulses: within normal limits - Abdominal General gastrointestinal: soft, distended, normal bowel sounds, hypoactive bowel sounds, no absent bowel sounds, no hepatomegaly, no splenomegaly, no mass , no hernia - Integumentary Integumentary: Present: clear, warm, dry - Psychiatric Psychiatric: appropriate mood/affect, cooperative - Neurologic Neurologic: CNII-XII intact, moves all extremities Results - Labs CBC & Chem 7: 01/21/17 05:23 01/22/17 09:00 Labs: Laboratory Last Values WBC 13.4 K/mm3 (4.5-11.0) H 01/21/17 05:23 RBC 3.92 M/mm3 (3.65-5.03) 01/21/17 05:23 Hgb 12.8 gm/dl (10.1-14.3) 01/21/17 05:23 Hct 37.3 % (30.3-42.9) 01/21/17 05:23 MCV 95 fl (79-97) 01/21/17 05:23 MCH 33 pg (28-32) H 01/21/17 05:23 MCHC 34 % (30-34) 01/21/17 05:23 RDW 15.8 % (13.2-15.2) H 01/21/17 05:23 Plt Count 255 K/mm3 (140-440) 01/21/17 05:23 Lymph % (Auto) 4.7 % (13.4-35.0) L 01/21/17 05:23 [place] % (Auto) 9.7 % (0.0-7.3) H 01/21/17 05:23 Eos % (Auto) 0.2 % (0.0-4.3) 01/21/17 05:23 Baso % (Auto) 0.1 % (0.0-1.8) 01/21/17 05:23 Lymph # 0.6 K/mm3 (1.2-5.4) L 01/21/17 05:23 [place] # 1.3 K/mm3 (0.0-0.8) H 01/21/17 05:23 Eos # 0.0 K/mm3 (0.0-0.4) 01/21/17 05:23 Baso # 0.0 K/mm3 (0.0-0.1) 01/21/17 05:23 Add Manual Diff Complete 01/20/17 05:01 Total Counted 100 01/20/17 05:01 Seg Neutrophils % 85.3 % (40.0-70.0) H 01/21/17 05:23 Seg Neuts % (Manual) 78.0 % (40.0-70.0) H 01/20/17 05:01 Band Neutrophils % 12.0 % 01/20/17 05:01 Lymphocytes % (Manual) 3.0 % (13.4-35.0) L 01/20/17 05:01 Reactive Lymphs % (Man) 0 % 01/20/17 05:01 Monocytes % (Manual) 7.0 % (0.0-7.3) 01/20/17 05:01 Eosinophils % (Manual) 0 % (0.0-4.3) 01/20/17 05:01 Basophils % (Manual) 0 % (0.0-1.8) 01/20/17 05:01 Metamyelocytes % 0 % 01/20/17 05:01 Myelocytes % 0 % 01/20/17 05:01 Promyelocytes % 0 % 01/20/17 05:01 Blast Cells % 0 % 01/20/17 05:01 Nucleated RBC % Not Reportable 01/20/17 05:01 Seg Neutrophils # 11.5 K/mm3 (1.8-7.7) H 01/21/17 05:23 Seg Neutrophils # Man 8.4 K/mm3 (1.8-7.7) H 01/20/17 05:01 Band Neutrophils # 1.3 K/mm3 01/20/17 05:01 Lymphocytes # (Manual) 0.3 K/mm3 (1.2-5.4) L 01/20/17 05:01 Abs React Lymphs (Man) 0.0 K/mm3 01/20/17 05:01 Monocytes # (Manual) 0.8 K/mm3 (0.0-0.8) 01/20/17 05:01 Eosinophils # (Manual) 0.0 K/mm3 (0.0-0.4) 01/20/17 05:01 Basophils # (Manual) 0.0 K/mm3 (0.0-0.1) 01/20/17 05:01 Metamyelocytes # 0.0 K/mm3 01/20/17 05:01 Myelocytes # 0.0 K/mm3 01/20/17 05:01 Promyelocytes # 0.0 K/mm3 01/20/17 05:01 Blast Cells # 0.0 K/mm3 01/20/17 05:01 WBC Morphology Not Reportable 01/20/17 05:01 Hypersegmented Neuts Not Reportable 01/20/17 05:01 Hyposegmented Neuts Not Reportable 01/20/17 05:01 Hypogranular Neuts Not Reportable 01/20/17 05:01 Smudge Cells Not Reportable 01/20/17 05:01 Toxic Granulation Not Reportable 01/20/17 05:01 Toxic Vacuolation Not Reportable 01/20/17 05:01 Dohle Bodies Not Reportable 01/20/17 05:01 Pelger-Huet Anomaly Not Reportable 01/20/17 05:01 Cesar Rods Not Reportable 01/20/17 05:01 Platelet Estimate Consistent w auto 01/20/17 05:01 Clumped Platelets Not Reportable 01/20/17 05:01 Plt Clumps, EDTA Not Reportable 01/20/17 05:01 Large Platelets Not Reportable 01/20/17 05:01 Giant Platelets Not Reportable 01/20/17 05:01 Platelet Satelliting Not Reportable 01/20/17 05:01 Plt Morphology Comment Not Reportable 01/20/17 05:01 RBC Morphology Not Reportable 01/20/17 05:01 Dimorphic RBCs Not Reportable 01/20/17 05:01 Polychromasia Not Reportable 01/20/17 05:01 Hypochromasia Not Reportable 01/20/17 05:01 Poikilocytosis Not Reportable 01/20/17 05:01 Anisocytosis Not Reportable 01/20/17 05:01 Microcytosis Not Reportable 01/20/17 05:01 Macrocytosis Not Reportable 01/20/17 05:01 Spherocytes Not Reportable 01/20/17 05:01 Pappenheimer Bodies Not Reportable 01/20/17 05:01 Sickle Cells Not Reportable 01/20/17 05:01 Target Cells Not Reportable 01/20/17 05:01 Tear Drop Cells Not Reportable 01/20/17 05:01 Ovalocytes Not Reportable 01/20/17 05:01 Helmet Cells Not Reportable 01/20/17 05:01 [place] Bodies Not Reportable 01/20/17 05:01 [place] Rings Not Reportable 01/20/17 05:01 [place] Cells Not Reportable 01/20/17 05:01 Bite Cells Not Reportable 01/20/17 05:01 Crenated Cell Not Reportable 01/20/17 05:01 Elliptocytes Not Reportable 01/20/17 05:01 Acanthocytes (Spur) Not Reportable 01/20/17 05:01 Rouleaux Not Reportable 01/20/17 05:01 Hemoglobin C Crystals Not Reportable 01/20/17 05:01 Schistocytes Not Reportable 01/20/17 05:01 Malaria parasites Not Reportable 01/20/17 05:01 Swapnil Bodies Not Reportable 01/20/17 05:01 Hem Pathologist Commnt No 01/20/17 05:01 PT 15.8 Sec. (12.2-14.9) H 01/16/17 07:22 INR 1.27 (0.87-1.13) H 01/16/17 07:22 APTT 31.2 Sec. (24.2-36.6) 01/16/17 07:22 Sodium 131 mmol/L (137-145) L 01/22/17 09:00 Potassium 3.0 mmol/L (3.6-5.0) L 01/22/17 09:00 Chloride 83.7 mmol/L (98-107) L 01/22/17 09:00 Carbon Dioxide 37 mmol/L (22-30) H 01/22/17 09:00 Anion Gap 13 mmol/L 01/22/17 09:00 BUN 5 mg/dL (7-17) L 01/22/17 09:00 Creatinine 0.5 mg/dL (0.7-1.2) L 01/22/17 09:00 Estimated GFR > 60 ml/min 01/22/17 09:00 BUN/Creatinine Ratio 10.00 % 01/22/17 09:00 Glucose 145 mg/dL (65-100) H 01/22/17 09:00 Lactic Acid 4.40 mmol/L (0.7-2.0) H* 01/14/17 15:50 Calcium 8.3 mg/dL (8.4-10.2) L 01/22/17 09:00 Magnesium 1.40 mg/dL (1.7-2.3) L 01/19/17 13:02 Total Bilirubin 0.40 mg/dL (0.1-1.2) 01/22/17 09:00 Direct Bilirubin 0.3 mg/dL (0-0.2) H 01/15/17 06:59 Indirect Bilirubin 0.6 mg/dL 01/15/17 06:59 AST 18 units/L (5-40) 01/22/17 09:00 ALT 8 units/L (7-56) 01/22/17 09:00 Alkaline Phosphatase 59 units/L (35-129) 01/22/17 09:00 C-Reactive Protein 21.90 mg/dL (0.00-1.30) H 01/22/17 04:55 NT-Pro-B Natriuret Pep 78.95 pg/mL (0-900) 01/14/17 07:02 Total Protein 5.5 g/dL (6.3-8.2) L D 01/22/17 09:00 Albumin 2.4 g/dL (3.9-5) L 01/22/17 09:00 Albumin/Globulin Ratio 0.8 % 01/22/17 09:00 Amylase 865 units/L (27-131) H 01/15/17 06:59 Lipase 71 units/L (13-60) H 01/22/17 04:55 Urine Color Sarah (Yellow) 01/14/17 07:55 Urine Turbidity Clear (Clear) 01/14/17 07:55 Urine pH 6.0 (5.0-7.0) 01/14/17 07:55 Ur Specific [place] 1.028 (1.003-1.030) 01/14/17 07:55 Urine Protein 100 mg/dl mg/dL (Negative) 01/14/17 07:55 Urine Glucose (UA) 50 mg/dL (Negative) 01/14/17 07:55 Urine Ketones 20 mg/dL (Negative) 01/14/17 07:55 Urine Blood Sm (Negative) 01/14/17 07:55 Urine Nitrite Neg (Negative) 01/14/17 07:55 Urine Bilirubin Neg (Negative) 01/14/17 07:55 Urine Urobilinogen < 2.0 mg/dL (<2.0) 01/14/17 07:55 Ur Leukocyte Esterase Neg (Negative) 01/14/17 07:55 Urine WBC (Auto) 3.0 /HPF (0.0-6.0) 01/14/17 07:55 Urine RBC (Auto) 3.0 /HPF (0.0-6.0) 01/14/17 07:55 U Epithel Cells (Auto) 4.0 /HPF (0-13.0) 01/14/17 07:55 Urine Bacteria (Auto) 1+ /HPF (Negative) 01/14/17 07:55 Urine Mucus 1+ /HPF 01/14/17 07:55 Urine Opiates Screen Presumptive positive 01/14/17 07:55 Urine Methadone Screen Presumptive negative 01/14/17 07:55 Ur Barbiturates Screen Presumptive negative 01/14/17 07:55 Ur Phencyclidine Scrn Presumptive negative 01/14/17 07:55 Ur Amphetamines Screen Presumptive negative 01/14/17 07:55 U Benzodiazepines Scrn Presumptive negative 01/14/17 07:55 Urine Cocaine Screen Presumptive negative 01/14/17 07:55 U Marijuana (THC) Screen Presumptive negative 01/14/17 07:55 Drugs of Abuse Note Disclamer 01/14/17 07:55 Plasma/Serum Alcohol < 0.01 gm% (0-0.07) 01/14/17 16:28 Blood Type O POSITIVE 01/14/17 07:02 Antibody Screen TNR 01/14/17 07:02 OSCAR Antibody Screen Negative 01/14/17 07:02
[2017-01-22] MEDS: DESYREL PO SCH (21:13)
[2017-01-23] MEDS: DILAUDID IV PRN ×8 (00:33→23:11)
[2017-01-23] MEDS: ZOFRAN IV PRN ×3 (03:26→17:27)
[2017-01-23 07:58] LABS: C-Reactive Protein 23.2 mg/dL (0.00-1.30)
[2017-01-23] MEDS: THERAGRAN Tab PO SCH (10:08)
[2017-01-23] MEDS: ZOLOFT PO SCH (10:08)
[2017-01-23] MEDS: NORVASC PO SCH (10:08)
[2017-01-23] MEDS: HCTZ PO SCH (10:08)
--- NOTE | 2017-01-23 14:34 | Progress Note ---
Assessment and Plan - Patient Problems (1) Acute pancreatitis Current Visit: Yes Status: Acute Qualifiers: Pancreatitis type: biliary Acute pancreatitis complication: unspecified Qualified Code(s): K85.10 - Biliary acute pancreatitis without necrosis or infection Plan to address problem: Patient would acute pancreatitis have titrated from clear liquid diet to mechanical soft seen of tolerated it today without any nausea vomiting abdominal pain. Patient abdomen remains tender with palpation. We'll see how patient does over the next 24 hours. Not advance any further this particular time. (2) Diarrhea Current Visit: Yes Status: Resolved Qualifiers: Diarrhea type: unspecified type Qualified Code(s): R19.7 - Diarrhea, unspecified (3) Nausea & vomiting Current Visit: Yes Status: Acute Qualifiers: Vomiting type: V Vomiting Intractability: non-intractable Plan to address problem: Nausea vomiting has resolved today has not had any episode of vomiting for close to 24 hours. (4) Alcohol abuse Current Visit: Yes Status: Chronic Plan to address problem: Patient educated to stop alcohol and drinking or she will get (5) HTN (hypertension) Current Visit: Yes Status: Chronic Qualifiers: Hypertension type: essential hypertension Qualified Code(s): I10 - Essential (primary) hypertension Plan to address problem: Patient has fair control blood pressure at this particular time. (6) Cholelithiasis Current Visit: Yes Status: Resolved Qualifiers: Cholelithiasis location: bile duct Cholecystitis presence: without cholecystitis Cholangitis presence: C Cholecystitis acuity: C Cholangitis acuity: C Biliary obstruction: with biliary obstruction Qualified Code(s): K80.51 - Calculus of bile duct without cholangitis or cholecystitis with obstruction Plan to address problem: And not sure of this playing any role at all. Unlikely at this particular time I think mostly alcohol. Patient is been educated about cessation of alcohol brother was at the bedside and confirms the fact patient is drinking habits. History Interval history: A should today 8 mechanical soft diet did not have any abdominal pain no nausea vomiting. Has been that way for 24 hours now. He shouldn't lipase actually went down to 59. Patient rates pain 0-1 out of 10. Hospitalist Physical - Constitutional Vitals: Temp Pulse Resp BP Pulse Ox 99.1 F 83 18 103/73 93 01/23/17 07:55 01/23/17 10:08 01/23/17 07:55 01/23/17 10:08 01/23/17 13:36 General appearance: Present: no acute distress - EENT Eyes: Present: PERRL, EOM intact ENT: hearing intact, clear oral mucosa, dentition normal - Neck Neck: Present: supple, normal ROM. Absent: enlarged thyroid, masses or JVD, carotid bruits - Respiratory Respiratory effort: normal Respiratory: bilateral: CTA - Cardiovascular Rhythm: regular Heart Sounds: Present: S1 & S2 - Extremities Extremities: no ischemia, pulses intact, No edema, normal temperature, normal color Peripheral Pulses: within normal limits - Abdominal General gastrointestinal: soft, tender, hypoactive bowel sounds (slightly distended), other - Integumentary Integumentary: Present: clear, warm, dry - Psychiatric Psychiatric: appropriate mood/affect, cooperative - Neurologic Neurologic: CNII-XII intact, moves all extremities Results - Labs CBC & Chem 7: 01/21/17 05:23 01/22/17 09:00 Labs: Laboratory Last Values WBC 13.4 K/mm3 (4.5-11.0) H 01/21/17 05:23 RBC 3.92 M/mm3 (3.65-5.03) 01/21/17 05:23 Hgb 12.8 gm/dl (10.1-14.3) 01/21/17 05:23 Hct 37.3 % (30.3-42.9) 01/21/17 05:23 MCV 95 fl (79-97) 01/21/17 05:23 MCH 33 pg (28-32) H 01/21/17 05:23 MCHC 34 % (30-34) 01/21/17 05:23 RDW 15.8 % (13.2-15.2) H 01/21/17 05:23 Plt Count 255 K/mm3 (140-440) 01/21/17 05:23 Lymph % (Auto) 4.7 % (13.4-35.0) L 01/21/17 05:23 [place] % (Auto) 9.7 % (0.0-7.3) H 01/21/17 05:23 Eos % (Auto) 0.2 % (0.0-4.3) 01/21/17 05:23 Baso % (Auto) 0.1 % (0.0-1.8) 01/21/17 05:23 Lymph # 0.6 K/mm3 (1.2-5.4) L 01/21/17 05:23 [place] # 1.3 K/mm3 (0.0-0.8) H 01/21/17 05:23 Eos # 0.0 K/mm3 (0.0-0.4) 01/21/17 05:23 Baso # 0.0 K/mm3 (0.0-0.1) 01/21/17 05:23 Add Manual Diff Complete 01/20/17 05:01 Total Counted 100 01/20/17 05:01 Seg Neutrophils % 85.3 % (40.0-70.0) H 01/21/17 05:23 Seg Neuts % (Manual) 78.0 % (40.0-70.0) H 01/20/17 05:01 Band Neutrophils % 12.0 % 01/20/17 05:01 Lymphocytes % (Manual) 3.0 % (13.4-35.0) L 01/20/17 05:01 Reactive Lymphs % (Man) 0 % 01/20/17 05:01 Monocytes % (Manual) 7.0 % (0.0-7.3) 01/20/17 05:01 Eosinophils % (Manual) 0 % (0.0-4.3) 01/20/17 05:01 Basophils % (Manual) 0 % (0.0-1.8) 01/20/17 05:01 Metamyelocytes % 0 % 01/20/17 05:01 Myelocytes % 0 % 01/20/17 05:01 Promyelocytes % 0 % 01/20/17 05:01 Blast Cells % 0 % 01/20/17 05:01 Nucleated RBC % Not Reportable 01/20/17 05:01 Seg Neutrophils # 11.5 K/mm3 (1.8-7.7) H 01/21/17 05:23 Seg Neutrophils # Man 8.4 K/mm3 (1.8-7.7) H 01/20/17 05:01 Band Neutrophils # 1.3 K/mm3 01/20/17 05:01 Lymphocytes # (Manual) 0.3 K/mm3 (1.2-5.4) L 01/20/17 05:01 Abs React Lymphs (Man) 0.0 K/mm3 01/20/17 05:01 Monocytes # (Manual) 0.8 K/mm3 (0.0-0.8) 01/20/17 05:01 Eosinophils # (Manual) 0.0 K/mm3 (0.0-0.4) 01/20/17 05:01 Basophils # (Manual) 0.0 K/mm3 (0.0-0.1) 01/20/17 05:01 Metamyelocytes # 0.0 K/mm3 01/20/17 05:01 Myelocytes # 0.0 K/mm3 01/20/17 05:01 Promyelocytes # 0.0 K/mm3 01/20/17 05:01 Blast Cells # 0.0 K/mm3 01/20/17 05:01 WBC Morphology Not Reportable 01/20/17 05:01 Hypersegmented Neuts Not Reportable 01/20/17 05:01 Hyposegmented Neuts Not Reportable 01/20/17 05:01 Hypogranular Neuts Not Reportable 01/20/17 05:01 Smudge Cells Not Reportable 01/20/17 05:01 Toxic Granulation Not Reportable 01/20/17 05:01 Toxic Vacuolation Not Reportable 01/20/17 05:01 Dohle Bodies Not Reportable 01/20/17 05:01 Pelger-Huet Anomaly Not Reportable 01/20/17 05:01 Cesar Rods Not Reportable 01/20/17 05:01 Platelet Estimate Consistent w auto 01/20/17 05:01 Clumped Platelets Not Reportable 01/20/17 05:01 Plt Clumps, EDTA Not Reportable 01/20/17 05:01 Large Platelets Not Reportable 01/20/17 05:01 Giant Platelets Not Reportable 01/20/17 05:01 Platelet Satelliting Not Reportable 01/20/17 05:01 Plt Morphology Comment Not Reportable 01/20/17 05:01 RBC Morphology Not Reportable 01/20/17 05:01 Dimorphic RBCs Not Reportable 01/20/17 05:01 Polychromasia Not Reportable 01/20/17 05:01 Hypochromasia Not Reportable 01/20/17 05:01 Poikilocytosis Not Reportable 01/20/17 05:01 Anisocytosis Not Reportable 01/20/17 05:01 Microcytosis Not Reportable 01/20/17 05:01 Macrocytosis Not Reportable 01/20/17 05:01 Spherocytes Not Reportable 01/20/17 05:01 Pappenheimer Bodies Not Reportable 01/20/17 05:01 Sickle Cells Not Reportable 01/20/17 05:01 Target Cells Not Reportable 01/20/17 05:01 Tear Drop Cells Not Reportable 01/20/17 05:01 Ovalocytes Not Reportable 01/20/17 05:01 Helmet Cells Not Reportable 01/20/17 05:01 [place] Bodies Not Reportable 01/20/17 05:01 [place] Rings Not Reportable 01/20/17 05:01 [place] Cells Not Reportable 01/20/17 05:01 Bite Cells Not Reportable 01/20/17 05:01 Crenated Cell Not Reportable 01/20/17 05:01 Elliptocytes Not Reportable 01/20/17 05:01 Acanthocytes (Spur) Not Reportable 01/20/17 05:01 Rouleaux Not Reportable 01/20/17 05:01 Hemoglobin C Crystals Not Reportable 01/20/17 05:01 Schistocytes Not Reportable 01/20/17 05:01 Malaria parasites Not Reportable 01/20/17 05:01 Swapnil Bodies Not Reportable 01/20/17 05:01 Hem Pathologist Commnt No 01/20/17 05:01 PT 15.8 Sec. (12.2-14.9) H 01/16/17 07:22 INR 1.27 (0.87-1.13) H 01/16/17 07:22 APTT 31.2 Sec. (24.2-36.6) 01/16/17 07:22 Sodium 131 mmol/L (137-145) L 01/22/17 09:00 Potassium 3.0 mmol/L (3.6-5.0) L 01/22/17 09:00 Chloride 83.7 mmol/L (98-107) L 01/22/17 09:00 Carbon Dioxide 37 mmol/L (22-30) H 01/22/17 09:00 Anion Gap 13 mmol/L 01/22/17 09:00 BUN 5 mg/dL (7-17) L 01/22/17 09:00 Creatinine 0.5 mg/dL (0.7-1.2) L 01/22/17 09:00 Estimated GFR > 60 ml/min 01/22/17 09:00 BUN/Creatinine Ratio 10.00 % 01/22/17 09:00 Glucose 145 mg/dL (65-100) H 01/22/17 09:00 Lactic Acid 4.40 mmol/L (0.7-2.0) H* 01/14/17 15:50 Calcium 8.3 mg/dL (8.4-10.2) L 01/22/17 09:00 Magnesium 1.40 mg/dL (1.7-2.3) L 01/19/17 13:02 Total Bilirubin 0.40 mg/dL (0.1-1.2) 01/22/17 09:00 Direct Bilirubin 0.3 mg/dL (0-0.2) H 01/15/17 06:59 Indirect Bilirubin 0.6 mg/dL 01/15/17 06:59 AST 18 units/L (5-40) 01/22/17 09:00 ALT 8 units/L (7-56) 01/22/17 09:00 Alkaline Phosphatase 59 units/L (35-129) 01/22/17 09:00 C-Reactive Protein 23.20 mg/dL (0.00-1.30) H 01/23/17 06:30 NT-Pro-B Natriuret Pep 78.95 pg/mL (0-900) 01/14/17 07:02 Total Protein 5.5 g/dL (6.3-8.2) L D 01/22/17 09:00 Albumin 2.4 g/dL (3.9-5) L 01/22/17 09:00 Albumin/Globulin Ratio 0.8 % 01/22/17 09:00 Amylase 865 units/L (27-131) H 01/15/17 06:59 Lipase 59 units/L (13-60) 01/23/17 06:30 Urine Color [place] (Yellow) 01/14/17 07:55 Urine Turbidity Clear (Clear) 01/14/17 07:55 Urine pH 6.0 (5.0-7.0) 01/14/17 07:55 Ur Specific [place] 1.028 (1.003-1.030) 01/14/17 07:55 Urine Protein 100 mg/dl mg/dL (Negative) 01/14/17 07:55 Urine Glucose (UA) 50 mg/dL (Negative) 01/14/17 07:55 Urine Ketones 20 mg/dL (Negative) 01/14/17 07:55 Urine Blood Sm (Negative) 01/14/17 07:55 Urine Nitrite Neg (Negative) 01/14/17 07:55 Urine Bilirubin Neg (Negative) 01/14/17 07:55 Urine Urobilinogen < 2.0 mg/dL (<2.0) 01/14/17 07:55 Ur Leukocyte Esterase Neg (Negative) 01/14/17 07:55 Urine WBC (Auto) 3.0 /HPF (0.0-6.0) 01/14/17 07:55 Urine RBC (Auto) 3.0 /HPF (0.0-6.0) 01/14/17 07:55 U Epithel Cells (Auto) 4.0 /HPF (0-13.0) 01/14/17 07:55 Urine Bacteria (Auto) 1+ /HPF (Negative) 01/14/17 07:55 Urine Mucus 1+ /HPF 01/14/17 07:55 Urine Opiates Screen Presumptive positive 01/14/17 07:55 Urine Methadone Screen Presumptive negative 01/14/17 07:55 Ur Barbiturates Screen Presumptive negative 01/14/17 07:55 Ur Phencyclidine Scrn Presumptive negative 01/14/17 07:55 Ur Amphetamines Screen Presumptive negative 01/14/17 07:55 U Benzodiazepines Scrn Presumptive negative 01/14/17 07:55 Urine Cocaine Screen Presumptive negative 01/14/17 07:55 U Marijuana (THC) Screen Presumptive negative 01/14/17 07:55 Drugs of Abuse Note Disclamer 01/14/17 07:55 Plasma/Serum Alcohol < 0.01 gm% (0-0.07) 01/14/17 16:28 Blood Type O POSITIVE 01/14/17 07:02 Antibody Screen TNR 01/14/17 07:02 OSCAR Antibody Screen Negative 01/14/17 07:02
--- NOTE | 2017-01-23 18:01 | Gastroenterology Progress Note ---
Assessment and Plan - Patient Problems (1) Acute pancreatitis Current Visit: Yes Status: Acute Qualifiers: Pancreatitis type: biliary Acute pancreatitis complication: unspecified Qualified Code(s): K85.10 - Biliary acute pancreatitis without necrosis or infection Plan to address problem: - Heavy and chronic EtOH. 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 - Continue supportive care. - Repeat imaging on Wednesday or Wednesday depending on clinical course. (2) Alcohol abuse Current Visit: Yes Status: Chronic Plan to address problem: - Patient has completed CIWA protocol. - Continue MVI therapy and nutrition. - Patient needs long-term addiction treatment program. (3) Choledocholithiasis Current Visit: Yes Status: Acute Plan to address problem: - Possible small GS on MRCP but not clear. - Too high risk for ERCP at present given active and smoldering pancreatitis. Subjective Date of service: 01/23/17 Principal diagnosis: Pancreatitis Interval history: The patient tolerated a regular diet without vomiting, but feels nauseous. However her pain medication requirements are still stable. She has no fevers or chills, and no blood in the stools. Objective - Constitutional Vitals: Temp Pulse Resp BP Pulse Ox 98.6 F 87 20 113/72 93 01/23/17 15:05 01/23/17 15:05 01/23/17 15:05 01/23/17 15:05 01/23/17 13:36 General appearance: no acute distress - EENT Eyes: PERRL, EOM intact ENT: hearing intact, clear oral mucosa - Respiratory Respiratory effort: normal Respiratory: bilateral: CTA - Cardiovascular Rhythm: regular Heart Sounds: Present: S1 & S2 - Gastrointestinal General gastrointestinal: Present: soft, tender (Mild epigastric), distended ( Mild to moderate with good bowel sounds) - Labs CBC & Chem 7: 01/21/17 05:23 01/22/17 09:00 Labs: Laboratory Results - last 24 hr 01/23/17 06:30 C-Reactive Protein 23.20 H Lipase 59
[2017-01-23] MEDS: DESYREL PO SCH (22:17)
[2017-01-24] MEDS: DILAUDID IV PRN ×3 (02:12→08:24)
[2017-01-24 07:50] VITALS: BP 113/74
[2017-01-24 08:56] LABS: Hematocrit 37.5 % (30.3-42.9); Hemoglobin 12.7 gm/dl (10.1-14.3); Mean Corpuscular HGB Conc 34 % (30-34); Mean Corpuscular Hemoglobin 32 pg (28-32); Mean Corpuscular Volume 96 fl (79-97); Platelet Count 264 K/mm3 (140-440); Red Blood Count 3.93 M/mm3 (3.65-5.03); Red Cell Distribution Width 15.8 % (13.2-15.2); White Blood Count 11.8 K/mm3 (4.5-11.0)
[2017-01-24 09:06] LABS: Alanine Aminotransferase 9 units/L (7-56); Albumin 2.5 g/dL (3.9-5); Alkaline Phosphatase 65 units/L (35-129); Anion Gap 13 mmol/L; Blood Urea Nitrogen 7 mg/dL (7-17); Carbon Dioxide 38 mmol/L (22-30); Chloride 76.7 mmol/L (98-107); Glucose 133 mg/dL (65-100); Lipase 51 units/L (13-60); Sodium 125 mmol/L (137-145); Total Protein 5.1 g/dL (6.3-8.2)
--- NOTE | 2017-01-24 09:23 | Gastroenterology Progress Note ---
Assessment and Plan - Patient Problems (1) Acute pancreatitis Current Visit: Yes Status: Acute Qualifiers: Pancreatitis type: biliary Acute pancreatitis complication: unspecified Qualified Code(s): K85.10 - Biliary acute pancreatitis without necrosis or infection Plan to address problem: - Heavy and chronic EtOH. 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 - Continue supportive care. CRP remains elevated but WBC is improving. - Repeat imaging on Wednesday depending on clinical course. (2) Alcohol abuse Current Visit: Yes Status: Chronic Plan to address problem: - Patient has completed CIWA protocol. - Continue MVI therapy and nutrition. - Patient needs long-term addiction treatment program. (3) Choledocholithiasis Current Visit: Yes Status: Acute Plan to address problem: - Possible small GS on MRCP but not clear. - Too high risk for ERCP at present given active and smoldering pancreatitis. Subjective Date of service: 01/24/17 Principal diagnosis: Pancreatitis Interval history: The patient ate all of her breakfast without vomiting. She has no F/C and no CP /SOB. She is still requiring IV dilaudid for pain but only 2 or 3 times in last 24 hours. Objective - Constitutional Vitals: Temp Pulse Resp BP Pulse Ox 98.8 F 74 16 113/74 96 01/24/17 07:50 01/24/17 07:50 01/24/17 07:50 01/24/17 07:50 01/24/17 07:50 General appearance: no acute distress - EENT Eyes: PERRL, EOM intact ENT: hearing intact - Respiratory Respiratory effort: normal Respiratory: bilateral: CTA - Cardiovascular Rhythm: regular Heart Sounds: Present: S1 & S2 - Extremities Extremities: no ischemia, No edema - Gastrointestinal General gastrointestinal: Present: soft, tender (Minimal), distended (Mild with normal BS) - Labs CBC & Chem 7: 01/24/17 08:28 01/24/17 08:28 Labs: Laboratory Results - last 24 hr 01/24/17 01/24/17 08:28 08:28 WBC 11.8 H RBC 3.93 Hgb 12.7 Hct 37.5 MCV 96 MCH 32 MCHC 34 RDW 15.8 H Plt Count 264 Sodium 125 L Potassium 3.0 L Chloride 76.7 L Carbon Dioxide 38 H Anion Gap 13 BUN 7 Creatinine 0.5 L Estimated GFR > 60 BUN/Creatinine Ratio 14.00 Glucose 133 H Calcium 8.0 L Total Bilirubin 0.40 AST 23 ALT 9 Alkaline Phosphatase 65 C-Reactive Protein 23.60 H Total Protein 5.1 L Albumin 2.5 L Albumin/Globulin Ratio 1.0 Lipase 51
[2017-01-24] MEDS ORDERED: DILAUDID IV PRN (09:38)
[2017-01-24] MEDS: NORVASC PO SCH (09:51)
[2017-01-24] MEDS: THERAGRAN Tab PO SCH (09:51)
[2017-01-24] MEDS: HCTZ PO SCH (09:51)
[2017-01-24] MEDS: ZOLOFT PO SCH (09:52)
[2017-01-24] MEDS ORDERED: PERCOCET 5/325 PO SCH (10:00)
[2017-01-24 11:59] LABS: Blastocytes % (Manual) 0 %
[2017-01-24 12:00] LABS: Anisocytosis 1+; Basophils % (Manual) 0 % (0.0-1.8); Diff Status Complete; Eosinophils % (Manual) 0 % (0.0-4.3); Platelet Estimate Consistent w Auto; Stomatocytes Few
--- NOTE | 2017-01-24 12:38 | Discharge Summary ---
Providers - Providers Date of Admission: 01/14/17 08:23 Date of discharge: 01/24/17 Attending physician: JEIMY BAXTER 01/14/17 08:57 Consult to Physician [CONS] Routine Consulting Provider: LINDA HARDING Reason For Exam: Sepsis Place consult to:: ID Notified:: Y Was contact made?: No Time called:: 10:00 Comment:: LEFT MESSAGE ON OFFICE PHONE 01/14/17 09:14 Consult to Physician [CONS] Routine Consulting Provider: IVAN SALTER Reason For Exam: pancreatitis Place consult to:: GI Notified:: Y If yes, spoke with:: BARB AT 1330 Time called:: 10:05 Comment:: OFFICE PHONE MESSAGE DUE TO HEAVY CALLS Consult to Physician [CONS] Routine Consulting Provider: EBENEZER MARSHALL Reason For Exam: pancreatitis Place consult to:: Dr Marshall Notified:: yes Comment:: [address] Smith ORTHOTICS TECHNICIAN OFFICE DAVID GIVEN MS 01/14/17 17:00 Consult to Physician [CONS] Stat Consulting Provider: NINA CARNEY Reason For Exam: Surgery consult Place consult to:: Harjit Notified:: yes Primary care physician: [facility] TECHNICIAN Hospitalization Condition: Good Pertinent studies: ct scan of abdom show acute pancreatitis with fatty liver. Patient MRCP mild abdominal ascites and acute pancreatitis, bile duct no suspicious filling defect. Nuclear medicine scan normal biliary imaging with 18% gallbladder contraction. Abdominal ultrasound negative for gallstones. Hospital course: Patient with prolonged hospital course secondary to acute alcoholic pancreatitis. Patient was brought in placed on bowel rest. Received CT scan abdomen which showed acute pancreatitis. Patient also had MRCP which showed acute pancreatitis mild ascites, bowel duct no suspicious filling defect. Hospital course complicated by acute pain inability to tolerate by mouth. The past 3 days patient is been able to tolerate meals from clears to full meal without having episodes of nausea vomiting or diarrhea. Patient had minimal pain. Today she did not have any pain at all after eating. We discussed in detail about patient's use of alcohol. I spoke with the family brother and stated that they feel comfortable in keep patient from drinking. Patient also states she will not drink anymore she learned her lesson. We told about seeking Alcoholics Anonymous. I gave the option of going to [facility] for further alcoholic testing inpatient. Patient thought she did not need to this time. Clinically patient stable to go home to follow-up with GI as outpatient for possible ERCP if necessary patient continues to have pain. No clear evidence of stones at this particular time. Disposition: DISCHARGED TO HOME OR SELFCARE - Discharge Diagnoses (1) Acute pancreatitis Status: Acute Qualifiers: Pancreatitis type: biliary Acute pancreatitis complication: unspecified Qualified Code(s): K85.10 - Biliary acute pancreatitis without necrosis or infection Comment: Acute pancreatitis secondary to alcohol abuse. Patient should abstain from alcohol. She tolerated meals well without any fever without any nausea vomiting. Lipase also returned to normal. Patient's abdomen on discharge was benign. Patient would discharge and follow-up with her primary care physician in 3-5 days and with supervisor transferring and boxing in 5-7 days. (2) Diarrhea Status: Resolved Qualifiers: Diarrhea type: unspecified type Qualified Code(s): R19.7 - Diarrhea, unspecified Comment: Diarrhea resolved (3) Nausea & vomiting Status: Resolved Qualifiers: Vomiting type: V Vomiting Intractability: non-intractable (4) Alcohol abuse Status: Chronic Comment: A she has been educated on the importance of avoiding alcohol. Been advised to join AA. Family aware of patient's condition and will help to maintain alcohol free status. Patient has been informed if she continues to drink she will (5) HTN (hypertension) Status: Chronic Qualifiers: Hypertension type: essential hypertension Qualified Code(s): I10 - Essential (primary) hypertension Comment: Fairly well-controlled we'll continue present antihypertensives. (6) Cholelithiasis Status: Resolved Qualifiers: Cholelithiasis location: bile duct Cholecystitis presence: without cholecystitis Cholangitis presence: C Cholecystitis acuity: C Cholangitis acuity: C Biliary obstruction: with biliary obstruction Qualified Code(s): K80.51 - Calculus of bile duct without cholangitis or cholecystitis with obstruction Comment: Unlikely stones patient may require ERCP at some time. But risk high now in the setting of acute pancreatitis. We'll follow with GI in 7 days. Core Measure Documentation - Palliative Care Palliative Care/ Comfort Measures: Not Applicable - Core Measures Any of the following diagnoses?: none Exam - Constitutional Vitals: Temp Pulse Resp BP Pulse Ox 98.8 F 74 16 113/74 96 01/24/17 07:50 01/24/17 07:50 01/24/17 07:50 01/24/17 09:51 01/24/17 07:50 General appearance: Present: no acute distress, well-nourished - EENT Eyes: Present: PERRL ENT: hearing intact, clear oral mucosa - Neck Neck: Present: supple, normal ROM - Respiratory Respiratory effort: normal - Cardiovascular Heart Sounds: Present: S1 & S2. Absent: rub, click - Extremities Extremities: pulses symmetrical, No edema - Abdominal General gastrointestinal: Present: soft, non-tender, non-distended, normal bowel sounds - Musculoskeletal Musculoskeletal: gait normal, strength equal bilaterally - Psychiatric Psychiatric: appropriate mood/affect, intact judgment & insight - Neurologic Neurologic: CNII-XII intact, moves all extremities Plan Activity: no restrictions Weight Bearing Status: Full Weight Bearing Diet: low fat, low carbohydrate Special Instructions: other (no fatty meals no etoh) Follow up with: PRIMARY CARE,MD [Primary Care Provider] - 3-5 Days Prescriptions: amLODIPine [Norvasc] 10 mg PO DAILY #30 tablet Hydrochlorothiazide [HCTZ] 25 mg PO QDAY #30 tablet Multivitamin Tab [Multiple Vitamin TAB (Theragran)] 1 each PO QDAY #30 tablet Ondansetron [Zofran INJ] 4 mg PO Q4H PRN #30 vial PRN Reason: N/V Unrelieved By Kriss oxyCODONE /ACETAMINOPHEN [Percocet 5/325 mg] 1 tab PO Q6HR PRN #60 tablet PRN Reason: Pain Sertraline [Zoloft] 50 mg PO QDAY #30 tablet traZODone [Desyrel] 50 mg PO QHS #30 tablet
== END 2017-01-24 16:00 | disposition home or self-care (01) | DRG 871 ==
LOC: ED 05:55 → CC1 08:23 → 2B-SURG 17:14
PROVIDERS: ADMIT Hospitalist; ATTEND Internal Medicine
DX: A41.9 Sepsis, unspecified organism (principal); K85.90 Acute pancreatitis without necrosis or infection, unspecified; E87.6 Hypokalemia; E78.5 Hyperlipidemia, unspecified; F17.200 Nicotine dependence, unspecified, uncomplicated; I10 Essential (primary) hypertension; F10.10 Alcohol abuse, uncomplicated; K76.9 Liver disease, unspecified; F32.9 Major depressive disorder, single episode, unspecified; K80.70 Calculus of gallbladder and bile duct without cholecystitis without obstruction; Z82.49 Family history of ischemic heart disease and other diseases of the circulatory system; Z79.899 Other long term (current) drug therapy
CPT/HCPCS: 36415; 71010; 74176; 74178; 74181; 76705; 78227; 80048; 80053; 80074; 80307; 80320; 81001; 82140; 82150; 83690; 83735; 83880; 85007; 85025; 85610; 85730; 86140; 86850; 86900; 86901; 87040; 87086; 87493; 93005; 93010; 94760; 96372; 96374; 99291; A9537; C9113; G0480; J0610; J0690; J1170; J2270; J2405; J2543; J2805; J3370; J3480; J7030; J7040; J7042; J7050; Q9967

== ENCOUNTER 2017-02-17 08:14 | Inpatient (IN) | payer BC, OTHER ==
[2017-02-17 08:55] LABS: Basophils % (Auto) 0.4 % (0.0-1.8); Eosinophils % (Auto) 0.1 % (0.0-4.3); Hematocrit 41.3 % (30.3-42.9); Hemoglobin 14.2 gm/dl (10.1-14.3); Mean Corpuscular HGB Conc 34 % (30-34); Mean Corpuscular Hemoglobin 33 pg (28-32); Mean Corpuscular Volume 95 fl (79-97); Platelet Count 191 K/mm3 (140-440); Red Blood Count 4.36 M/mm3 (3.65-5.03); Red Cell Distribution Width 15.3 % (13.2-15.2); White Blood Count 10.1 K/mm3 (4.5-11.0)
[2017-02-17 09:07] LABS: Alanine Aminotransferase 21 units/L (7-56); Albumin 3.3 g/dL (3.9-5); Alkaline Phosphatase 118 units/L (35-129); Anion Gap 25 mmol/L; Blood Urea Nitrogen 4 mg/dL (7-17); Calcium 8.6 mg/dL (8.4-10.2); Carbon Dioxide 23 mmol/L (22-30); Chloride 87.3 mmol/L (98-107); Glucose 175 mg/dL (65-100); Potassium 3.6 mmol/L (3.6-5.0); Sodium 132 mmol/L (137-145); Total Protein 6.7 g/dL (6.3-8.2)
[2017-02-17] MEDS ORDERED: NACL 0.9% 1000 ML 1,000 ML IV ONE (09:14)
[2017-02-17] MEDS ORDERED: ZOFRAN IV ONE (09:14)
[2017-02-17] MEDS ORDERED: VALIUM IV ONE (09:15)
[2017-02-17] MEDS ORDERED: SUBLIMAZE IV ONE ×2 (09:15→11:00)
[2017-02-17 09:16] LABS: Lipase 582 units/L (13-60)
[2017-02-17 09:25] LABS: Bilirubin,Urine NEG (Negative); Blood,Urine NEG (Negative); Ketones,Urine 20 mg/dL (Negative); Leukocyte Esterase,Urine NEG (Negative); Mucus,Urine FEW /HPF; Nitrite,Urine NEG (Negative); Urobilinogen,Urine < 2.0 mg/dL (<2.0)
[2017-02-17] MEDS ORDERED: BABY ASPIRIN PO ONE (11:02)
--- NOTE | 2017-02-17 11:02 | Emergency Department Report ---
HPI - General Chief Complaint: Abdominal Pain Time Seen by Provider: 02/17/17 08:53 - HPI HPI: The patient is a 56-year-old female presents for evaluation of abdominal pain. The patient reports epigastric abdominal pain for the past 2 days, constant for the past one day, 10/10 in severity, sharp and burning in quality, and is exacerbated with eating. She also reports associated nausea and vomiting. The patient denies fever, chills, night sweats, diarrhea, blood in the stool, dark tarry stool, dysuria, hematuria, flank pain, genital discharge ED Past Medical Hx - Past Medical History Hx Hypertension: Yes Hx Liver Disease: Yes Hx Psychiatric Treatment: Yes (depression / insomnia) Hx COPD: Yes Additional medical history: pancreatitis. gallstones - Surgical History Additional Surgical History: tubal ligation - Social History Smoking Status: Current Every Day Smoker Substance Use Type: Alcohol - Medications Home Medications: Home Medications Medication Instructions Recorded Confirmed Last Taken Type Hydrochlorothiazide [HCTZ] 25 mg PO QDAY #30 tablet 01/24/17 02/17/17 Unknown Rx Multivitamin Tab [Multiple Vitamin 1 each PO QDAY #30 tablet 01/24/17 02/17/17 Unknown Rx TAB (Theragran)] Ondansetron [Zofran INJ] 4 mg PO Q4H PRN #30 vial 01/24/17 02/17/17 Unknown Rx Sertraline [Zoloft] 50 mg PO QDAY #30 tablet 01/24/17 02/17/17 Unknown Rx amLODIPine [Norvasc] 10 mg PO DAILY #30 tablet 01/24/17 02/17/17 Unknown Rx oxyCODONE /ACETAMINOPHEN [Percocet 1 tab PO Q6HR PRN #60 tablet 01/24/17 Unknown Rx 5/325 mg] traZODone [Desyrel] 50 mg PO QHS #30 tablet 01/24/17 02/17/17 Unknown Rx ED Review of Systems ROS: Stated complaint: ABD PAIN Other details as noted in HPI Constitutional: denies: fever ENT: denies: throat or neck pain Respiratory: denies: cough, shortness of breath Cardiovascular: denies: chest pain Endocrine: denies unexplained weight loss or gain Gastrointestinal: reports abdominal pain, nausea Genitourinary: denies: dysuria Musculoskeletal: denies: leg swelling Skin: denies: rash Neurological: denies: headache Hematological/Lymphatic: denies: easy bleeding or easy bruising Psych: denies sadness or hopelessness Physical Exam - Physical Exam Vital Signs: Vital Signs 02/17/17 02/17/17 02/17/17 08:18 08:52 09:35 Temperature 97.4 F L 98.1 F Pulse Rate 112 H 99 H Respiratory 25 H 24 26 H Rate Blood Pressure 148/107 Blood Pressure 140/96 [Right] O2 Sat by Pulse 99 98 Oximetry 02/17/17 10:05 Temperature Pulse Rate Respiratory 28 H Rate Blood Pressure Blood Pressure [Right] O2 Sat by Pulse Oximetry Physical Exam: General: well-nourished, well-developed, no acute distress Head: Normocephalic, atraumatic Eyes: normal sclera ENT: Mucous membranes are pale and dry Neck: No neck stiffness, no cervical adenopathy Respiratory: Breath sounds equal bilaterally, no wheezing, rales, or rhonchi Cardio: S1 and S2 present, no murmurs, rubs, gallops, capillary refill is delayed Abdomen: Normoactive bowel sounds, soft abdomen, epigastric tenderness, no rigidity, no guarding or rebound tenderness Musc: No pitting edema Skin: No rash Neuro: no facial drooping, normal speech Psych: Normal affect ED Course Vital Signs 02/17/17 02/17/17 02/17/17 08:18 08:52 09:35 Temperature 97.4 F L 98.1 F Pulse Rate 112 H 99 H Respiratory 25 H 24 26 H Rate Blood Pressure 148/107 Blood Pressure 140/96 [Right] O2 Sat by Pulse 99 98 Oximetry 02/17/17 10:05 Temperature Pulse Rate Respiratory 28 H Rate Blood Pressure Blood Pressure [Right] O2 Sat by Pulse Oximetry ED Medical Decision Making - Lab Data Result diagrams: 02/17/17 08:34 02/17/17 08:34 - Medical Decision Making The patient was seen and examined by myself. The patient is placed on a hall monitor and continuous pulse ox. On initial evaluation, the patient was found to be in no distress. Evaluation orders are placed. IV access is established and the patient is given 1 L normal saline fluid bolus for treatment of dehydration, Zofran for nausea, and IV fentanyl for pain. Lab results revealed elevated lipase of 580, significantly increased from most recent previous lipase level obtain during hospital stay here [address] scan abdomen and pelvis reveals gerald-pancreatic fluid collections consistent with likely developing pseudocyst. The patient is reevaluated and reports that pain persisted despite multiple doses of IV analgesia. The patient will be admitted for continued pain control. The on-call hospitalist service was contacted. They agreed to admit the patient for further treatment and close monitoring. The ED admit order was placed. The patient was admitted in guarded condition. Critical care attestation.: If time is entered above; I have spent that time in minutes in the direct care of this critically ill patient, excluding procedure time. ED Disposition Clinical Impression: Dehydration, Abdominal pain, acute, epigastric Acute pancreatitis Qualifiers: Pancreatitis type: biliary Acute pancreatitis complication: no infection or necrosis Qualified Code(s): K85.10 - Biliary acute pancreatitis without necrosis or infection Disposition: 09 OP ADMIT IP TO THIS HOSP Is pt being admited?: Yes Does the pt Need Aspirin: Yes Condition: Fair Time of Disposition: 11:01
--- NOTE | 2017-02-17 11:04 | Admit Criteria Form ---
Admission Criteria Documentation: PANCREATITIS Clinical Indications for Admission to Inpatient Care (Place 'X' for any and all applicable criteria): Admission is indicated for 1 or more of the following (1)(2)(3)(4): [X ]I. Acute pancreatitis[A] as indicated by 2 or MORE of the following: [X ]a) Abdominal pain (eg, epigastric, left upper quadrant) [X ]b) Serum amylase or serum lipase greater than 3 times the upper limit of normal [ ]c) Characteristic findings from abdominal imaging (eg, pancreatic inflammation, pancreatic necrosis, peripancreatic fluid collection)[B] [ ]II. Pancreatitis (acute or chronic ) requiring inpatient care as indicated by 1 or more of the following [ ]a) Inability to maintain oral hydration Hypoxemia [ ]b) Evidence of infection (eg, fever, peripancreatic abscess) [ ]c) Severe pain requiring acute inpatient management [ ]d) Hemodynamic instability [ ]e) Hypoxemia [ ]f) Acute renal failure [ ]g) Severe electrolyte abnormalities Extended stay beyond goal length of stay may be needed for (1)(11) [ ]a) Severe acute pancreatitis (10)(19) [ ]b) Persistent symptoms, ascites, or pleural effusion [ ]c) Abdominal compartment syndrome (10) [ ]d) Late complications [ ]e) Gallstones in gallbladder [ ]f) Acute renal failure (27) The original [employer] content created by [employer] has been revised. The portions of the content which have been revised are identified through the use of italic text or in bold,and [facility] has neither reviewed nor approved the modified material.All other unmodified content is copyright [employer]. Please see references footnoted in the original [employer] edition 2016 Admission Criteria Met: Yes
--- NOTE | 2017-02-17 12:03 | Cat Scan Report ---
CT of the abdomen and pelvis with IV contrast. History: Abdominal pain, followup pancreatitis. Findings: Comparison is made to previous study on January 18, 2017. There is mild bibasilar discoid atelectasis. Fatty infiltration of the liver is again noted. There are multiple new fluid collections consistent with developing pseudocyst formation, the largest of which is at the left lateral margin of the pancreatic tail. 2 additional pseudocysts or developing anterior to the body and in the right paracolic gutter a smaller pseudocyst is seen posteriorly on the left. The kidneys are unremarkable except for small left renal cyst. There no significant pelvic findings or other interval changes. Impression: 1. Increasing large peripancreatic fluid collections several of which appear to be more circumscribed consistent with developing pseudocysts. 2. Hepatic steatosis. 3. Small left renal cyst.
[2017-02-17] MEDS ORDERED: MILK OF MAGNESIA PO PRN (12:05)
[2017-02-17] MEDS ORDERED: DULCOLAX PR PRN (12:05)
[2017-02-17] MEDS ORDERED: TYLENOL PO PRN (12:05)
[2017-02-17] MEDS ORDERED: DILAUDID ONE (13:04)
[2017-02-17] MEDS: ZOFRAN IV PRN ×3 (13:05→21:15)
[2017-02-17] MEDS: DILAUDID IV PRN ×3 (13:05→21:15)
[2017-02-17] MEDS ORDERED: ZOFRAN ONE (13:06)
--- NOTE | 2017-02-17 14:00 | History and Physical Report ---
History of Present Illness Date of examination: 02/17/17 Date of admission: 02/17/17 12:05 Chief complaint: Abdominal pain for 2 days Nausea vomiting since last night History of present illness: 56-year-old female came presented to the ED from home with complaint of abdominal pain. Patient reported having similar symptoms and she was admitted back on January 14, 2017 for acute pancreatitis and apparently was told that she has gallstones. However no surgery was done at that time. She also reported having nausea and vomiting but no blood noted. Patient described her pain as sharp, stabbing, aching and stated only Dilaudid medication works for her to relieve her pain. Pt denies fever, chills, Diarrhea, constipation. Denies any melena. Denies taking NSAIDs Past History Past Medical History: COPD, hypertension, other (gallstones, pancreatitis, Depression) Past Surgical History: Other (tubal ligation) Social history: smoking, alcohol abuse, full code. denies: prescription drug abuse, IV drug use Family history: cancer (Breast) Medications and Allergies Allergies Allergy/AdvReac Type Severity Reaction Status Date / Time No Known Allergies Allergy Verified 02/17/17 08:18 Home Medications Medication Instructions Recorded Confirmed Last Taken Type Hydrochlorothiazide [HCTZ] 25 mg PO QDAY #30 tablet 01/24/17 02/17/17 Unknown Rx Multivitamin Tab [Multiple Vitamin 1 each PO QDAY #30 tablet 01/24/17 02/17/17 Unknown Rx TAB (Theragran)] Ondansetron [Zofran INJ] 4 mg PO Q4H PRN #30 vial 01/24/17 02/17/17 Unknown Rx Sertraline [Zoloft] 50 mg PO QDAY #30 tablet 01/24/17 02/17/17 Unknown Rx amLODIPine [Norvasc] 10 mg PO DAILY #30 tablet 01/24/17 02/17/17 Unknown Rx oxyCODONE /ACETAMINOPHEN [Percocet 1 tab PO Q6HR PRN #60 tablet 01/24/17 Unknown Rx 5/325 mg] traZODone [Desyrel] 50 mg PO QHS #30 tablet 01/24/17 02/17/17 Unknown Rx Active Meds: Active Medications Acetaminophen (Tylenol) 650 mg PO Q4H PRN PRN Reason: Pain MILD(1-3)/Fever >100.5/ALEXANDER Bisacodyl (Dulcolax) 10 mg OR QDAY PRN PRN Reason: Constipation unrelieved by MOM Heparin Sodium (Porcine) (Heparin) 5,000 unit SUB-Q Q12HR GRZEGORZ Hydromorphone HCl (Dilaudid) 1 mg IV Q4H PRN PRN Reason: Pain , Severe (7-10) Last Admin: 02/17/17 13:05 Dose: 1 mg Sodium Chloride (Nacl 0.9% 1000 Ml) 1,000 mls @ 50 mls/hr IV DIRECT GRZEGORZ Magnesium Hydroxide (Milk Of Magnesia) 30 ml PO Q4H PRN PRN Reason: Constipation Ondansetron HCl (Zofran) 4 mg IV Q4H PRN PRN Reason: Nausea And Vomiting Last Admin: 02/17/17 13:05 Dose: 4 mg Review of Systems Constitutional: no fever, no chills, no sweats Ears, nose, mouth and throat: no nasal congestion, no nasal discharge Cardiovascular: no chest pain, no shortness of breath Gastrointestinal: abdominal pain, nausea, vomiting, no diarrhea, no constipation , no hematemesis, no melena Rectal: no incontinence Musculoskeletal: no arm numbness/tingling, no low back pain Integumentary: no rash, no sores, no wounds Neurological: no head injury, no seizures, no syncope Psychiatric: anxiety, depression, no suicidal ideation Endocrine: no fatigue Exam - Constitutional Vitals: Temp Pulse Resp BP Pulse Ox 98.1 F 84 26 H 152/98 98 02/17/17 13:02 02/17/17 13:02 02/17/17 13:05 02/17/17 13:02 02/17/17 13:02 General appearance: Present: mild distress - EENT Eyes: Present: PERRL ENT: hearing intact, clear oral mucosa - Neck Neck: Present: supple, normal ROM - Respiratory Respiratory effort: labored Respiratory: bilateral: CTA - Cardiovascular Rhythm: regular Heart Sounds: Present: S1 & S2. Absent: rub, click - Extremities Extremities: pulses symmetrical, No edema Peripheral Pulses: within normal limits - Abdominal General gastrointestinal: Present: soft, tender (diffusely tender), non- distended, hypoactive bowel sounds. Absent: hepatomegaly, splenomegaly Female genitourinary: Present: normal - Integumentary Integumentary: Present: warm, dry - Musculoskeletal Musculoskeletal: gait normal, strength equal bilaterally - Psychiatric Psychiatric: appropriate mood/affect, intact judgment & insight - Neurologic Neurologic: CNII-XII intact, moves all extremities - Allied Health Allied health notes reviewed: nursing Results - Labs CBC & Chem 7: 02/17/17 08:34 02/17/17 08:34 - Imaging and Cardiology CT scan - abdomen: image reviewed (showed fatty infiltration of the liver, increasing large peripancreatic fluid collection and small left renal cysts) Assessment and Plan 56-year-old female came presented to the ED from home with complaint of abdominal pain. Patient reported having similar symptoms and she was admitted back on January 14, 2017 for acute pancreatitis. She also reported having nausea and vomiting but no blood noted. Patient described her pain as sharp, stabbing, aching and stated only Dilaudid medication it works for her to relieve her pain. Pt denies fever, chills, Diarrhea, constipation. -Acute pancreatitis-possibly developing and creatinine pseudocysts : CT Abdomen/ Pelvis obtained from the ED, NPO, Dilaudid for pain control, GI Consulted for futher evaluation, IV Fluids for hydration -Hyponatremia- normal saline IV fluids ordered and will follow up with repeat labs -DM 2-A1c ordered, monitor Accu-Cheks, insulin sliding scale ordered -Malnutrition-consulted dietitian -DVT prophylaxis-heparin SQ ordered Hypertension: Monitor blood pressure and will give when necessary medication COPD: Start the patient on DuoNeb solution via nebulizer as needed
[2017-02-17] MEDS: NACL 0.9% 1000 ML 1,000 ML IV SCH (15:18)
[2017-02-17] MEDS ORDERED: APRESOLINE IV PRN (20:13)
[2017-02-17] MEDS ORDERED: DUONEB 0.5 MG-3 MG/3 ML SOLN IH PRN (20:14)
[2017-02-17] MEDS ORDERED: PROVENTIL IH PRN (20:17)
[2017-02-17] MEDS: HEPARIN SUB-Q SCH (21:16)
[2017-02-18] MEDS: DILAUDID IV PRN ×5 (01:31→20:15)
[2017-02-18] MEDS: ZOFRAN IV PRN ×5 (01:31→20:15)
[2017-02-18 08:24] LABS: Basophils % (Auto) 0.2 % (0.0-1.8); Eosinophils % (Auto) 0.1 % (0.0-4.3); Hematocrit 36.4 % (30.3-42.9); Hemoglobin 12.7 gm/dl (10.1-14.3); Mean Corpuscular HGB Conc 35 % (30-34); Mean Corpuscular Hemoglobin 33 pg (28-32); Mean Corpuscular Volume 94 fl (79-97); Platelet Count 144 K/mm3 (140-440); Red Blood Count 3.86 M/mm3 (3.65-5.03); Red Cell Distribution Width 15.6 % (13.2-15.2); White Blood Count 10.3 K/mm3 (4.5-11.0)
[2017-02-18 08:35] LABS: Anion Gap 18 mmol/L; Blood Urea Nitrogen 5 mg/dL (7-17); Calcium 7.9 mg/dL (8.4-10.2); Carbon Dioxide 26 mmol/L (22-30); Chloride 93.1 mmol/L (98-107); Glucose 133 mg/dL (65-100); Potassium 3.3 mmol/L (3.6-5.0); Sodium 134 mmol/L (137-145)
[2017-02-18] MEDS ORDERED: KCL 10MEQ/100ML 10 MEQ/100 ML BAG IV ONE (09:22)
--- NOTE | 2017-02-18 09:24 | Progress Note ---
Assessment and Plan Assessment and plan: --Acute pancreatitis with possible pseudocyst Continue nothing by mouth status, IV fluids, pain medications, supportive care Follow GI evaluation --Hypokalemia; replace per protocol and monitor levels --Hyponatremia; mild improvement Continue current management --Type 2 diabetes mellitus; moderate control Accu-Chek sliding scale coverage and ADA diet and insulin --Obesity; counseling done patient advised that she modification exercise as tolerated and weight reduction when medically stable --Hypertension moderate control; continue current antihypertensives and when necessary medications --History of COPD; oxygen titrated O2 sats more than 90%, nebulizers as needed --DVT prophylaxis with subcutaneous heparin follow GI evaluation and recommendations Patient's condition treatment plan discussed in detail with the patient her nurse as well as a case management Possible discharge in 1-2 days if stable History Interval history: Patient seen and evaluated medical records reviewed No new events reported by nursing staff Patient feels better, admitted with acute pancreatitis, nothing by mouth status and supportive care Hospitalist Physical - Constitutional Vitals: Temp Pulse Resp BP Pulse Ox 98.3 F 91 H 18 119/86 99 02/18/17 00:12 02/18/17 00:12 02/18/17 00:12 02/18/17 00:12 02/18/17 00:12 General appearance: Present: no acute distress, obese - EENT Eyes: Present: PERRL, EOM intact - Neck Neck: Present: supple, normal ROM - Respiratory Respiratory effort: normal Respiratory: bilateral: diminished, negative: rhonchi, wheezing - Cardiovascular Rhythm: regular Heart Sounds: Present: S1 & S2 - Extremities Extremities: no ischemia, pulses intact, pulses symmetrical Peripheral Pulses: within normal limits - Abdominal General gastrointestinal: soft, tender (no guarding no rigidity), normal bowel sounds - Integumentary Integumentary: Present: clear, warm - Psychiatric Psychiatric: appropriate mood/affect, cooperative - Neurologic Neurologic: CNII-XII intact, moves all extremities Results - Labs CBC & Chem 7: 02/18/17 07:40 02/18/17 07:40 Labs: Laboratory Last Values WBC 10.3 K/mm3 (4.5-11.0) 02/18/17 07:40 RBC 3.86 M/mm3 (3.65-5.03) 02/18/17 07:40 Hgb 12.7 gm/dl (10.1-14.3) 02/18/17 07:40 Hct 36.4 % (30.3-42.9) 02/18/17 07:40 MCV 94 fl (79-97) 02/18/17 07:40 MCH 33 pg (28-32) H 02/18/17 07:40 MCHC 35 % (30-34) H 02/18/17 07:40 RDW 15.6 % (13.2-15.2) H 02/18/17 07:40 Plt Count 144 K/mm3 (140-440) 02/18/17 07:40 Lymph % (Auto) 6.3 % (13.4-35.0) L 02/18/17 07:40 [place] % (Auto) 8.5 % (0.0-7.3) H 02/18/17 07:40 Eos % (Auto) 0.1 % (0.0-4.3) 02/18/17 07:40 Baso % (Auto) 0.2 % (0.0-1.8) 02/18/17 07:40 Lymph # 0.7 K/mm3 (1.2-5.4) L 02/18/17 07:40 [place] # 0.9 K/mm3 (0.0-0.8) H 02/18/17 07:40 Eos # 0.0 K/mm3 (0.0-0.4) 02/18/17 07:40 Baso # 0.0 K/mm3 (0.0-0.1) 02/18/17 07:40 Seg Neutrophils % 84.9 % (40.0-70.0) H 02/18/17 07:40 Seg Neutrophils # 8.8 K/mm3 (1.8-7.7) H 02/18/17 07:40 Sodium 134 mmol/L (137-145) L 02/18/17 07:40 Potassium 3.3 mmol/L (3.6-5.0) L 02/18/17 07:40 Chloride 93.1 mmol/L (98-107) L 02/18/17 07:40 Carbon Dioxide 26 mmol/L (22-30) 02/18/17 07:40 Anion Gap 18 mmol/L 02/18/17 07:40 BUN 5 mg/dL (7-17) L 02/18/17 07:40 Creatinine 0.4 mg/dL (0.7-1.2) L 02/18/17 07:40 Estimated GFR > 60 ml/min 02/18/17 07:40 BUN/Creatinine Ratio 12.50 % 02/18/17 07:40 Glucose 133 mg/dL (65-100) H 02/18/17 07:40 Calcium 7.9 mg/dL (8.4-10.2) L 02/18/17 07:40 Total Bilirubin 0.90 mg/dL (0.1-1.2) 02/17/17 08:34 AST 31 units/L (5-40) 02/17/17 08:34 ALT 21 units/L (7-56) 02/17/17 08:34 Alkaline Phosphatase 118 units/L (35-129) 02/17/17 08:34 Total Protein 6.7 g/dL (6.3-8.2) 02/17/17 08:34 Albumin 3.3 g/dL (3.9-5) L 02/17/17 08:34 Albumin/Globulin Ratio 1.0 % 02/17/17 08:34 Lipase 582 units/L (13-60) H 02/17/17 08:34 Urine Color Yellow (Yellow) 02/17/17 09:07 Urine Turbidity Clear (Clear) 02/17/17 09:07 Urine pH 9.0 (5.0-7.0) H 02/17/17 09:07 Ur Specific [place] 1.014 (1.003-1.030) 02/17/17 09:07 Urine Protein 30 mg/dl mg/dL (Negative) 02/17/17 09:07 Urine Glucose (UA) Neg mg/dL (Negative) 02/17/17 09:07 Urine Ketones 20 mg/dL (Negative) 02/17/17 09:07 Urine Blood Neg (Negative) 02/17/17 09:07 Urine Nitrite Neg (Negative) 02/17/17 09:07 Urine Bilirubin Neg (Negative) 02/17/17 09:07 Urine Urobilinogen < 2.0 mg/dL (<2.0) 02/17/17 09:07 Ur Leukocyte Esterase Neg (Negative) 02/17/17 09:07 Urine WBC (Auto) 1.0 /HPF (0.0-6.0) 02/17/17 09:07 Urine RBC (Auto) 2.0 /HPF (0.0-6.0) 02/17/17 09:07 U Epithel Cells (Auto) 2.0 /HPF (0-13.0) 02/17/17 09:07 Hyaline Casts 1 /LPF 02/17/17 09:07 Urine Mucus Few /HPF 02/17/17 09:07
[2017-02-18] MEDS: HEPARIN SUB-Q SCH ×2 (09:54→22:36)
[2017-02-18] MEDS: NACL 0.9% 1000 ML 1,000 ML IV SCH (16:50)
[2017-02-19] MEDS: ZOFRAN IV PRN ×5 (00:12→22:04)
[2017-02-19] MEDS: DILAUDID IV PRN ×6 (00:12→21:43)
[2017-02-19 09:05] LABS: Alanine Aminotransferase 12 units/L (7-56); Albumin 2.4 g/dL (3.9-5); Albumin/Globulin Ratio 0.8 %; Alkaline Phosphatase 82 units/L (35-129); Anion Gap 16 mmol/L; Blood Urea Nitrogen 10 mg/dL (7-17); Calcium 7.8 mg/dL (8.4-10.2); Carbon Dioxide 25 mmol/L (22-30); Glucose 109 mg/dL (65-100); Lipase 41 units/L (13-60); Potassium 3.1 mmol/L (3.6-5.0); Sodium 134 mmol/L (137-145); Total Protein 5.4 g/dL (6.3-8.2)
[2017-02-19] MEDS: HEPARIN SUB-Q SCH ×2 (09:11→21:44)
--- NOTE | 2017-02-19 11:06 | Gastroenterology Consultation ---
<LORAINE WOODS - Last Filed: 02/19/17 11:17> History of Present Illness - Reason for Consult Consult date: 02/19/17 acute pancreatitis Requesting physician: SAVAGE RHODES - History of Present Illness Patient is a 56 y/o female admitted for abd pain with N/V due to pancreatitis. She is known to our group from last admission 12/2016 for pancreatitis. Patient has a long hx of ETOH abuse. This morning patient was sitting on the side of the bed, without acute distress. Reports her abd pain is improving rating it a 5 /10 and denies any N/V today. Patient states she had 1 shot of liquor 3 days ago and began having abd pain similar to the pain she felt last month due to pancreatitis, pain continued to progress until she came to ER for evaluation. Denies SOB,fever, wt loss, diarrhea, or signs of bleeding. PMH significant for HTN, COPD, hyperlipidemia, depression, and liver disease. Past History Past Medical History: COPD, hypertension, hyperlipidemia, other (gallstones, pancreatitis, Depression, liver disease) Past Surgical History: Other (tubal ligation) Social history: smoking, alcohol abuse, full code. denies: prescription drug abuse, IV drug use Family history: CAD, cancer (Breast) Medications and Allergies Allergies Allergy/AdvReac Type Severity Reaction Status Date / Time No Known Allergies Allergy Verified 02/17/17 08:18 Home Medications Medication Instructions Recorded Confirmed Last Taken Type Hydrochlorothiazide [HCTZ] 25 mg PO QDAY #30 tablet 01/24/17 02/17/17 Unknown Rx Multivitamin Tab [Multiple Vitamin 1 each PO QDAY #30 tablet 01/24/17 02/17/17 Unknown Rx TAB (Theragran)] Ondansetron [Zofran INJ] 4 mg PO Q4H PRN #30 vial 01/24/17 02/17/17 Unknown Rx Sertraline [Zoloft] 50 mg PO QDAY #30 tablet 01/24/17 02/17/17 Unknown Rx amLODIPine [Norvasc] 10 mg PO DAILY #30 tablet 01/24/17 02/17/17 Unknown Rx oxyCODONE /ACETAMINOPHEN [Percocet 1 tab PO Q6HR PRN #60 tablet 01/24/17 Unknown Rx 5/325 mg] traZODone [Desyrel] 50 mg PO QHS #30 tablet 01/24/17 02/17/17 Unknown Rx Active Meds: Active Medications Acetaminophen (Tylenol) 650 mg PO Q4H PRN PRN Reason: Pain MILD(1-3)/Fever >100.5/[place]AND[place] Albuterol (Proventil) 2.5 mg IH Q4HRT PRN PRN Reason: Shortness Of Breath Bisacodyl (Dulcolax) 10 mg GA QDAY PRN PRN Reason: Constipation unrelieved by MOM Heparin Sodium (Porcine) (Heparin) 5,000 unit SUB-Q Q12HR GRZEGORZ Last Admin: 02/19/17 09:11 Dose: 5,000 unit Hydralazine HCl (Apresoline) 10 mg IV Q4HR PRN PRN Reason: Hypertension Hydromorphone HCl (Dilaudid) 1 mg IV Q4H PRN PRN Reason: Pain , Severe (7-10) Last Admin: 02/19/17 09:08 Dose: 1 mg Sodium Chloride (Nacl 0.9% 1000 Ml) 1,000 mls @ 50 mls/hr IV DIRECT GRZEGORZ Last Admin: 02/18/17 16:50 Dose: 50 mls/hr Magnesium Hydroxide (Milk Of Magnesia) 30 ml PO Q4H PRN PRN Reason: Constipation Ondansetron HCl (Zofran) 4 mg IV Q4H PRN PRN Reason: Nausea And Vomiting Last Admin: 02/19/17 04:54 Dose: 4 mg Review of Systems - Review of Systems All systems: negative Gastrointestinal: abdominal pain, nausea, vomiting Exam - Constitutional Vital Signs: Temp Pulse Resp BP Pulse Ox 97.9 F 83 19 92/62 93 02/19/17 07:00 02/19/17 07:00 02/19/17 07:00 02/19/17 07:00 02/19/17 07:00 General appearance: no acute distress, well-nourished - EENT Eyes: PERRL, EOM intact ENT: hearing intact - Neck Neck: supple, normal ROM - Respiratory Respiratory: bilateral: CTA - Cardiovascular Rhythm: regular Heart Sounds: Present: S1 & S2 Extremities: No edema - Gastrointestinal General gastrointestinal: Present: tender, distended, normal bowel sounds - Integumentary Integumentary: Present: warm, dry - Neurologic Neurological: alert and oriented x3 - Psychiatric Psychiatric: appropriate mood/affect, cooperative - Labs CBC & Chem 7: 02/18/17 07:40 02/19/17 08:25 Lab Results: Laboratory Results - last 24 hr 02/19/17 08:25 Sodium 134 L Potassium 3.1 L Chloride 96.0 L Carbon Dioxide 25 Anion Gap 16 BUN 10 Creatinine 0.4 L Estimated GFR > 60 BUN/Creatinine Ratio 25.00 Glucose 109 H Calcium 7.8 L Total Bilirubin 0.50 AST 18 ALT 12 Alkaline Phosphatase 82 Total Protein 5.4 L Albumin 2.4 L Albumin/Globulin Ratio 0.8 Lipase 41 Assessment and Plan 1. acute pancreatitis -abd CT-revealed acute pancreatitis with possible pseudocyst and hepatic steatosis -acute pancreatitis-likely 2/2 alcohol -afebrile -WBC-WNL -Lipase-trending down -LFTs-WNL -will order CRP and lipase for am -patient reports abd pain improving and denies N/V today -continue supportive care with IVFs, pain control, and f/u labs -hx of ETOH, discussed with pt need for alcohol cessation -WA protocol -will follow <PETER PINZON - Last Filed: 02/19/17 16:58> Medications and Allergies Active Meds: Active Medications Acetaminophen (Tylenol) 650 mg PO Q4H PRN PRN Reason: Pain MILD(1-3)/Fever >100.5/[place] Albuterol (Proventil) 2.5 mg IH Q4HRT PRN PRN Reason: Shortness Of Breath Bisacodyl (Dulcolax) 10 mg GA QDAY PRN PRN Reason: Constipation unrelieved by MOM Heparin Sodium (Porcine) (Heparin) 5,000 unit SUB-Q Q12HR GRZEGORZ Last Admin: 02/19/17 09:11 Dose: 5,000 unit Hydralazine HCl (Apresoline) 10 mg IV Q4HR PRN PRN Reason: Hypertension Hydromorphone HCl (Dilaudid) 1 mg IV Q4H PRN PRN Reason: Pain , Severe (7-10) Last Admin: 02/19/17 13:24 Dose: 1 mg Sodium Chloride (Nacl 0.9% 1000 Ml) 1,000 mls @ 50 mls/hr IV DIRECT GRZEGORZ Last Admin: 02/19/17 11:18 Dose: 50 mls/hr Potassium Chloride (Kcl 10meq/100ml) 10 meq in 100 mls @ 100 mls/hr IV Q1H GRZEGORZ Stop: 02/19/17 18:59 Magnesium Hydroxide (Milk Of Magnesia) 30 ml PO Q4H PRN PRN Reason: Constipation Ondansetron HCl (Zofran) 4 mg IV Q4H PRN PRN Reason: Nausea And Vomiting Last Admin: 02/19/17 13:24 Dose: 4 mg Exam - Constitutional Vital Signs: Temp Pulse Resp BP Pulse Ox 97.4 F L 85 20 116/73 93 02/19/17 16:00 02/19/17 16:00 02/19/17 16:00 02/19/17 16:00 02/19/17 07:00 - Labs CBC & Chem 7: 02/18/17 07:40 02/19/17 08:25 Lab Results: Laboratory Results - last 24 hr 02/19/17 08:25 Sodium 134 L Potassium 3.1 L Chloride 96.0 L Carbon Dioxide 25 Anion Gap 16 BUN 10 Creatinine 0.4 L Estimated GFR > 60 BUN/Creatinine Ratio 25.00 Glucose 109 H Calcium 7.8 L Total Bilirubin 0.50 AST 18 ALT 12 Alkaline Phosphatase 82 Total Protein 5.4 L Albumin 2.4 L Albumin/Globulin Ratio 0.8 Lipase 41 Assessment and Plan Patient seen and examined. Agree with note above. Patient with recent admission for severe pancreatitis (likely 2/2 alcohol) presents with recurrent sx's of abd pain and n/v. Admits to alcohol use after discharge. Cont IVF's and supportive care. Start trial of CLD. Recommended AA to pt for h/o alcohol abuse.
[2017-02-19] MEDS: NACL 0.9% 1000 ML 1,000 ML IV SCH (11:18)
--- NOTE | 2017-02-19 14:48 | Progress Note ---
Assessment and Plan Assessment and plan: Acute on chronic pancreatitis with possible pseudocyst - Pain control, IV fluids, patient started on full liquid diet, if tolerated will advance -GI consult appreciated Hypokalemia - Repleted Type 2 diabetes mellitus - On sliding scale insulin - ADA date Hypertension - Continue her current medications COPD - Oxygen support -Nebulizers as needed DVT Prophylaxis -Heparin Disposition - We will follow GI recommendations - Once she tolerated diet and pain is controlled I will consider discharge. History Interval history: Patient was seen and evaluated this morning, she is complaining abdominal pain 5 out of 10. She denied nausea vomiting or diarrhea. She just started on full liquid diet. Hospitalist Physical - Physical exam Narrative exam: Not in cardiopulmonary distress. The patient appeared well nourished and normally developed. Vital signs as documented. Head exam is unremarkable. No scleral icterus . Neck is without jugular venous distension, thyromegaly, or carotid bruits. Lungs are clear to auscultation. Cardiac exam reveals regular rate and Rhythm. Abdominal exam reveals mild right upper quadrant tenderness. Extremities are nonedematous and both femoral and pedal pulses are normal. [employer]PER[employer]OR: Alert and oriented 3. No focal weakness. - Constitutional Vitals: Temp Pulse Resp BP Pulse Ox 97.9 F 83 19 92/62 93 02/19/17 07:00 02/19/17 07:00 02/19/17 07:00 02/19/17 07:00 02/19/17 07:00 General appearance: Present: no acute distress, obese Results - Labs CBC & Chem 7: 02/18/17 07:40 02/19/17 08:25 Labs: Laboratory Last Values WBC 10.3 K/mm3 (4.5-11.0) 02/18/17 07:40 RBC 3.86 M/mm3 (3.65-5.03) 02/18/17 07:40 Hgb 12.7 gm/dl (10.1-14.3) 02/18/17 07:40 Hct 36.4 % (30.3-42.9) 02/18/17 07:40 MCV 94 fl (79-97) 02/18/17 07:40 MCH 33 pg (28-32) H 02/18/17 07:40 MCHC 35 % (30-34) H 02/18/17 07:40 RDW 15.6 % (13.2-15.2) H 02/18/17 07:40 Plt Count 144 K/mm3 (140-440) 02/18/17 07:40 Lymph % (Auto) 6.3 % (13.4-35.0) L 02/18/17 07:40 [place] % (Auto) 8.5 % (0.0-7.3) H 02/18/17 07:40 Eos % (Auto) 0.1 % (0.0-4.3) 02/18/17 07:40 Baso % (Auto) 0.2 % (0.0-1.8) 02/18/17 07:40 Lymph # 0.7 K/mm3 (1.2-5.4) L 02/18/17 07:40 [place] # 0.9 K/mm3 (0.0-0.8) H 02/18/17 07:40 Eos # 0.0 K/mm3 (0.0-0.4) 02/18/17 07:40 Baso # 0.0 K/mm3 (0.0-0.1) 02/18/17 07:40 Seg Neutrophils % 84.9 % (40.0-70.0) H 02/18/17 07:40 Seg Neutrophils # 8.8 K/mm3 (1.8-7.7) H 02/18/17 07:40 Sodium 134 mmol/L (137-145) L 02/19/17 08:25 Potassium 3.1 mmol/L (3.6-5.0) L 02/19/17 08:25 Chloride 96.0 mmol/L (98-107) L 02/19/17 08:25 Carbon Dioxide 25 mmol/L (22-30) 02/19/17 08:25 Anion Gap 16 mmol/L 02/19/17 08:25 BUN 10 mg/dL (7-17) 02/19/17 08:25 Creatinine 0.4 mg/dL (0.7-1.2) L 02/19/17 08:25 Estimated GFR > 60 ml/min 02/19/17 08:25 BUN/Creatinine Ratio 25.00 % 02/19/17 08:25 Glucose 109 mg/dL (65-100) H 02/19/17 08:25 Calcium 7.8 mg/dL (8.4-10.2) L 02/19/17 08:25 Total Bilirubin 0.50 mg/dL (0.1-1.2) 02/19/17 08:25 AST 18 units/L (5-40) 02/19/17 08:25 ALT 12 units/L (7-56) 02/19/17 08:25 Alkaline Phosphatase 82 units/L (35-129) 02/19/17 08:25 Total Protein 5.4 g/dL (6.3-8.2) L 02/19/17 08:25 Albumin 2.4 g/dL (3.9-5) L 02/19/17 08:25 Albumin/Globulin Ratio 0.8 % 02/19/17 08:25 Lipase 41 units/L (13-60) 02/19/17 08:25 Urine Color Yellow (Yellow) 02/17/17 09:07 Urine Turbidity Clear (Clear) 02/17/17 09:07 Urine pH 9.0 (5.0-7.0) H 02/17/17 09:07 Ur Specific [place] 1.014 (1.003-1.030) 02/17/17 09:07 Urine Protein 30 mg/dl mg/dL (Negative) 02/17/17 09:07 Urine Glucose (UA) Neg mg/dL (Negative) 02/17/17 09:07 Urine Ketones 20 mg/dL (Negative) 02/17/17 09:07 Urine Blood Neg (Negative) 02/17/17 09:07 Urine Nitrite Neg (Negative) 02/17/17 09:07 Urine Bilirubin Neg (Negative) 02/17/17 09:07 Urine Urobilinogen < 2.0 mg/dL (<2.0) 02/17/17 09:07 Ur Leukocyte Esterase Neg (Negative) 02/17/17 09:07 Urine WBC (Auto) 1.0 /HPF (0.0-6.0) 02/17/17 09:07 Urine RBC (Auto) 2.0 /HPF (0.0-6.0) 02/17/17 09:07 U Epithel Cells (Auto) 2.0 /HPF (0-13.0) 02/17/17 09:07 Hyaline Casts 1 /LPF 02/17/17 09:07 Urine Mucus Few /HPF 02/17/17 09:07
[2017-02-19] MEDS: KCL 10MEQ/100ML 10 MEQ/100 ML BAG IV SCH ×4 (17:13→21:45)
[2017-02-20] MEDS: DILAUDID IV PRN ×5 (03:15→20:54)
[2017-02-20] MEDS: ZOFRAN IV PRN ×5 (03:16→20:55)
[2017-02-20 06:08] LABS: Basophils % (Auto) 0.3 % (0.0-1.8); Eosinophils % (Auto) 0.9 % (0.0-4.3); Hematocrit 33.3 % (30.3-42.9); Hemoglobin 11.2 gm/dl (10.1-14.3); Mean Corpuscular HGB Conc 34 % (30-34); Mean Corpuscular Hemoglobin 33 pg (28-32); Platelet Count 155 K/mm3 (140-440); Red Blood Count 3.43 M/mm3 (3.65-5.03); Red Cell Distribution Width 15.5 % (13.2-15.2); White Blood Count 5.4 K/mm3 (4.5-11.0)
[2017-02-20 06:21] LABS: Alanine Aminotransferase 12 units/L (7-56); Albumin 2.4 g/dL (3.9-5); Albumin/Globulin Ratio 0.8 %; Alkaline Phosphatase 86 units/L (35-129); Anion Gap 18 mmol/L; Blood Urea Nitrogen 9 mg/dL (7-17); Calcium 8.4 mg/dL (8.4-10.2); Carbon Dioxide 23 mmol/L (22-30); Chloride 102.8 mmol/L (98-107); Glucose 139 mg/dL (65-100); Lipase 36 units/L (13-60); Potassium 3.6 mmol/L (3.6-5.0); Sodium 140 mmol/L (137-145); Total Protein 5.4 g/dL (6.3-8.2)
[2017-02-20 06:25] LABS: Mean Corpuscular Volume 96 fl (79-97)
[2017-02-20] MEDS: NACL 0.9% 1000 ML 1,000 ML IV SCH (07:44)
[2017-02-20] MEDS: HEPARIN SUB-Q SCH ×2 (10:32→21:04)
--- NOTE | 2017-02-20 12:31 | Progress Note ---
Assessment and Plan Assessment and plan: Acute on chronic pancreatitis with possible pseudocyst - Pain control, IV fluids - Patient tolerated liquid diet and now i am going to advance her to cardiac diet -GI consult appreciated Hypokalemia - Repleted Type 2 diabetes mellitus - On sliding scale insulin - ADA date Hypertension - Controlled without medications COPD - Oxygen support -Nebulizers as needed DVT Prophylaxis -Heparin Disposition - Once she tolerated diet and pain is controlled I will consider discharge. History Interval history: Patient was seen and evaluated this morning, she is complaining abdominal pain 5 out of 10. She denied nausea vomiting or diarrhea. She tolerated liquid diet and now I'm going to advance her to cardiac diet. Hospitalist Physical - Physical exam Narrative exam: Not in cardiopulmonary distress. The patient appeared well nourished and normally developed. Vital signs as documented. Head exam is unremarkable. No scleral icterus . Neck is without jugular venous distension, thyromegaly, or carotid bruits. Lungs are clear to auscultation. Cardiac exam reveals regular rate and Rhythm. Abdominal exam reveals mild right upper quadrant tenderness. Extremities are nonedematous and both femoral and pedal pulses are normal. GRAIN SHOVELER: Alert and oriented 3. No focal weakness. - Constitutional Vitals: Temp Pulse Resp BP Pulse Ox 98.5 F 81 16 109/78 98 02/20/17 07:30 02/20/17 07:30 02/20/17 07:30 02/20/17 07:30 02/20/17 07:30 General appearance: Present: no acute distress, obese Results - Labs CBC & Chem 7: 02/20/17 05:42 02/20/17 05:42 Labs: Laboratory Last Values WBC 5.4 K/mm3 (4.5-11.0) 02/20/17 05:42 RBC 3.43 M/mm3 (3.65-5.03) L 02/20/17 05:42 Hgb 11.2 gm/dl (10.1-14.3) 02/20/17 05:42 Hct 33.3 % (30.3-42.9) 02/20/17 05:42 MCV 96 fl (79-97) 02/20/17 05:42 MCH 33 pg (28-32) H 02/20/17 05:42 MCHC 34 % (30-34) 02/20/17 05:42 RDW 15.5 % (13.2-15.2) H 02/20/17 05:42 Plt Count 155 K/mm3 (140-440) 02/20/17 05:42 Lymph % (Auto) 15.2 % (13.4-35.0) 02/20/17 05:42 [place] % (Auto) 9.4 % (0.0-7.3) H 02/20/17 05:42 Eos % (Auto) 0.9 % (0.0-4.3) 02/20/17 05:42 Baso % (Auto) 0.3 % (0.0-1.8) 02/20/17 05:42 Lymph # 0.8 K/mm3 (1.2-5.4) L 02/20/17 05:42 [place] # 0.5 K/mm3 (0.0-0.8) 02/20/17 05:42 Eos # 0.0 K/mm3 (0.0-0.4) 02/20/17 05:42 Baso # 0.0 K/mm3 (0.0-0.1) 02/20/17 05:42 Seg Neutrophils % 74.2 % (40.0-70.0) H 02/20/17 05:42 Seg Neutrophils # 4.0 K/mm3 (1.8-7.7) 02/20/17 05:42 Sodium 140 mmol/L (137-145) 02/20/17 05:42 Potassium 3.6 mmol/L (3.6-5.0) 02/20/17 05:42 Chloride 102.8 mmol/L (98-107) 02/20/17 05:42 Carbon Dioxide 23 mmol/L (22-30) 02/20/17 05:42 Anion Gap 18 mmol/L 02/20/17 05:42 BUN 9 mg/dL (7-17) 02/20/17 05:42 Creatinine 0.4 mg/dL (0.7-1.2) L 02/20/17 05:42 Estimated GFR > 60 ml/min 02/20/17 05:42 BUN/Creatinine Ratio 22.50 % 02/20/17 05:42 Glucose 139 mg/dL (65-100) H 02/20/17 05:42 Calcium 8.4 mg/dL (8.4-10.2) 02/20/17 05:42 Total Bilirubin 0.30 mg/dL (0.1-1.2) 02/20/17 05:42 AST 16 units/L (5-40) 02/20/17 05:42 ALT 12 units/L (7-56) 02/20/17 05:42 Alkaline Phosphatase 86 units/L (35-129) 02/20/17 05:42 C-Reactive Protein 18.40 mg/dL (0.00-1.30) H 02/20/17 05:42 Total Protein 5.4 g/dL (6.3-8.2) L 02/20/17 05:42 Albumin 2.4 g/dL (3.9-5) L 02/20/17 05:42 Albumin/Globulin Ratio 0.8 % 02/20/17 05:42 Lipase 36 units/L (13-60) 02/20/17 05:42 Urine Color Yellow (Yellow) 02/17/17 09:07 Urine Turbidity Clear (Clear) 02/17/17 09:07 Urine pH 9.0 (5.0-7.0) H 02/17/17 09:07 Ur Specific [place] 1.014 (1.003-1.030) 02/17/17 09:07 Urine Protein 30 mg/dl mg/dL (Negative) 02/17/17 09:07 Urine Glucose (UA) Neg mg/dL (Negative) 02/17/17 09:07 Urine Ketones 20 mg/dL (Negative) 02/17/17 09:07 Urine Blood Neg (Negative) 02/17/17 09:07 Urine Nitrite Neg (Negative) 02/17/17 09:07 Urine Bilirubin Neg (Negative) 02/17/17 09:07 Urine Urobilinogen < 2.0 mg/dL (<2.0) 02/17/17 09:07 Ur Leukocyte Esterase Neg (Negative) 02/17/17 09:07 Urine WBC (Auto) 1.0 /HPF (0.0-6.0) 02/17/17 09:07 Urine RBC (Auto) 2.0 /HPF (0.0-6.0) 02/17/17 09:07 U Epithel Cells (Auto) 2.0 /HPF (0-13.0) 02/17/17 09:07 Hyaline Casts 1 /LPF 02/17/17 09:07 Urine Mucus Few /HPF 02/17/17 09:07
--- NOTE | 2017-02-20 15:17 | Progress Note ---
Assessment and Plan 1. Pancreatitis - acute, and due to EtOH. Clinically improving. - continue to monitor and adv diet as tolerated. - will need f/u CT to ensure resolution of pancreatitis, jm in light of 97# weight loss over the last 2 yrs, though likely due to depression after of her . Subjective Date of service: 02/20/17 Interval history: Pt states she feels better. Tolerating clears. Objective - Constitutional Vitals: Vital Signs - 12hr 02/20/17 07:30 Temperature 98.5 F Pulse Rate [ 81 Right Radial] Respiratory 16 Rate Blood Pressure 109/78 [Left Arm] Blood Pressure 109/78 [Right Arm] O2 Sat by Pulse 98 Oximetry General appearance: Present: no acute distress - EENT Eyes: PERRL, EOM intact ENT: hearing intact - Respiratory Respiratory effort: normal - Gastrointestinal General gastrointestinal: Present: tender (Mild, jm in upper abdomen), distended (Mildly), normal bowel sounds - Labs CBC & Chem 7: 02/20/17 05:42 02/20/17 05:42 Labs: Abnormal lab results 02/20/17 02/20/17 Range/Units 05:42 05:42 RBC 3.43 L (3.65-5.03) M/mm3 MCH 33 H (28-32) pg RDW 15.5 H (13.2-15.2) % [place] % (Auto) 9.4 H (0.0-7.3) % Lymph # 0.8 L (1.2-5.4) K/mm3 Seg Neutrophils % 74.2 H (40.0-70.0) % Creatinine 0.4 L (0.7-1.2) mg/dL Glucose 139 H (65-100) mg/dL C-Reactive Protein 18.40 H (0.00-1.30) mg/dL Total Protein 5.4 L (6.3-8.2) g/dL Albumin 2.4 L (3.9-5) g/dL
[2017-02-21] MEDS: ZOFRAN IV PRN ×5 (02:35→20:37)
[2017-02-21] MEDS: DILAUDID IV PRN ×5 (02:36→20:36)
[2017-02-21] MEDS: NACL 0.9% 1000 ML 1,000 ML IV SCH (04:00)
--- NOTE | 2017-02-21 09:08 | Cat Scan Report ---
FINAL REPORT EXAM: CT ABDOMEN WO CON HISTORY: abdominal pain, pseudocyst TECHNIQUE: CT of the abdomen without IV contrast. Coronal and sagittal reconstructed imaging provided. PRIORS: CT abdomen pelvis February 18, 2016. FINDINGS: ABDOMEN: Scarring or discoid subsegmental atelectasis in both lung bases. Stable or slightly decreased compared to prior. Multiple irregular low-attenuation thin Garcia lesions around the pancreas and in the region of Morison's pouch probably represent pseudocysts. Largest fluid collection on the left on series 3:70 measures 14.1 by 5.7 cm. Largest collection in the right abdomen on series 3:80 measures 6.2 x 18.6 cm. Both appear relatively stable compared to the prior. Noncontrast images of the pancreas show irregular margins but overall general appearance is similar. Stranding and trace fluid around the pancreas and in both colonic gutters appear relatively similar or slightly decreased compared to the prior. Fatty liver again noted. A distinct lesions not evident. 13.4 cm spleen is stable in size. No distinct lesions. Gallbladder is unremarkable. Small hiatal hernia. Similar to prior. Stomach is otherwise unremarkable. Adrenal glands are stable. Series 31 demonstrates a hyperdense lesion in the mid to inferior left renal cortex measuring 7.7 mm which is stable in size compared to prior. Low-density lesions in the left kidney probably represent cysts which also appear similar in size. Right kidney remains unchanged and within normal limits. No hydronephrosis. No stones. Images of the IVC are intact. Moderate aortic atherosclerotic disease. No aneurysm. No periaortic or retroperitoneal mass. No significant adenopathy. Few notable periportal lymph nodes are unchanged compared to prior. Partially imaged large and small bowel loops are unremarkable. No obstructive pattern. No free air. Bones: No suspicious osseous lesions on this limited examination of the skeleton. Metastatic disease better evaluated with bone scan. Degenerative changes are in the spine. IMPRESSION: Comparison with prior will be made as an addendum once prior images and report are available. Stable or slightly decreased stranding and fluid around the pancreas and upper abdomen. 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 Fatty liver. No distinct lesions. Left renal cysts are stable in size. Stable splenomegaly. Stable small hiatal hernia.
[2017-02-21] MEDS: HEPARIN SUB-Q SCH ×2 (10:58→22:37)
--- NOTE | 2017-02-21 11:18 | Progress Note ---
Assessment and Plan Assessment and plan: Acute on chronic pancreatitis with pseudocyst - Pain control - Patient tolerated her diet but she feels still nauseated - GI consult appreciated - Repeat abdominal CAT scan shows mild improvement in the stranding, pseudocyst is the same as previous imaging Hypokalemia - Repleted Type 2 diabetes mellitus - On sliding scale insulin - ADA date Hypertension - Controlled without medications COPD - Oxygen support -Nebulizers as needed DVT Prophylaxis -Heparin Disposition - Patient states she is feeling nauseated and didn't feel well so we will discharge her tomorrow morning. History Interval history: Patient was seen and evaluated this morning, she is complaining abdominal pain is getting better, but she feels weak and tired. She denied vomiting or diarrhea but admitted for nausea. She tolerated her cardiac diet. Patient states she is not feeling well to go home. Hospitalist Physical - Physical exam Narrative exam: Not in cardiopulmonary distress. The patient appeared well nourished and normally developed. Vital signs as documented. Head exam is unremarkable. No scleral icterus . Neck is without jugular venous distension, thyromegaly, or carotid bruits. Lungs are clear to auscultation. Cardiac exam reveals regular rate and Rhythm. Abdominal exam reveals mild right upper quadrant tenderness. Extremities are nonedematous and both femoral and pedal pulses are normal. COAT CUTTER: Alert and oriented 3. No focal weakness. - Constitutional Vitals: Temp Pulse Resp BP Pulse Ox 82 F L 82 22 130/90 99 02/21/17 07:45 02/21/17 07:45 02/21/17 07:45 02/21/17 07:45 02/21/17 07:45 General appearance: Present: no acute distress Results - Labs CBC & Chem 7: 02/20/17 05:42 02/20/17 05:42 Labs: Laboratory Last Values WBC 5.4 K/mm3 (4.5-11.0) 02/20/17 05:42 RBC 3.43 M/mm3 (3.65-5.03) L 02/20/17 05:42 Hgb 11.2 gm/dl (10.1-14.3) 02/20/17 05:42 Hct 33.3 % (30.3-42.9) 02/20/17 05:42 MCV 96 fl (79-97) 02/20/17 05:42 MCH 33 pg (28-32) H 02/20/17 05:42 MCHC 34 % (30-34) 02/20/17 05:42 RDW 15.5 % (13.2-15.2) H 02/20/17 05:42 Plt Count 155 K/mm3 (140-440) 02/20/17 05:42 Lymph % (Auto) 15.2 % (13.4-35.0) 02/20/17 05:42 [place] % (Auto) 9.4 % (0.0-7.3) H 02/20/17 05:42 Eos % (Auto) 0.9 % (0.0-4.3) 02/20/17 05:42 Baso % (Auto) 0.3 % (0.0-1.8) 02/20/17 05:42 Lymph # 0.8 K/mm3 (1.2-5.4) L 02/20/17 05:42 [place] # 0.5 K/mm3 (0.0-0.8) 02/20/17 05:42 Eos # 0.0 K/mm3 (0.0-0.4) 02/20/17 05:42 Baso # 0.0 K/mm3 (0.0-0.1) 02/20/17 05:42 Seg Neutrophils % 74.2 % (40.0-70.0) H 02/20/17 05:42 Seg Neutrophils # 4.0 K/mm3 (1.8-7.7) 02/20/17 05:42 Sodium 140 mmol/L (137-145) 02/20/17 05:42 Potassium 3.6 mmol/L (3.6-5.0) 02/20/17 05:42 Chloride 102.8 mmol/L (98-107) 02/20/17 05:42 Carbon Dioxide 23 mmol/L (22-30) 02/20/17 05:42 Anion Gap 18 mmol/L 02/20/17 05:42 BUN 9 mg/dL (7-17) 02/20/17 05:42 Creatinine 0.4 mg/dL (0.7-1.2) L 02/20/17 05:42 Estimated GFR > 60 ml/min 02/20/17 05:42 BUN/Creatinine Ratio 22.50 % 02/20/17 05:42 Glucose 139 mg/dL (65-100) H 02/20/17 05:42 Calcium 8.4 mg/dL (8.4-10.2) 02/20/17 05:42 Total Bilirubin 0.30 mg/dL (0.1-1.2) 02/20/17 05:42 AST 16 units/L (5-40) 02/20/17 05:42 ALT 12 units/L (7-56) 02/20/17 05:42 Alkaline Phosphatase 86 units/L (35-129) 02/20/17 05:42 C-Reactive Protein 18.40 mg/dL (0.00-1.30) H 02/20/17 05:42 Total Protein 5.4 g/dL (6.3-8.2) L 02/20/17 05:42 Albumin 2.4 g/dL (3.9-5) L 02/20/17 05:42 Albumin/Globulin Ratio 0.8 % 02/20/17 05:42 Lipase 36 units/L (13-60) 02/20/17 05:42 Urine Color Yellow (Yellow) 02/17/17 09:07 Urine Turbidity Clear (Clear) 02/17/17 09:07 Urine pH 9.0 (5.0-7.0) H 02/17/17 09:07 Ur Specific [place] 1.014 (1.003-1.030) 02/17/17 09:07 Urine Protein 30 mg/dl mg/dL (Negative) 02/17/17 09:07 Urine Glucose (UA) Neg mg/dL (Negative) 02/17/17 09:07 Urine Ketones 20 mg/dL (Negative) 02/17/17 09:07 Urine Blood Neg (Negative) 02/17/17 09:07 Urine Nitrite Neg (Negative) 02/17/17 09:07 Urine Bilirubin Neg (Negative) 02/17/17 09:07 Urine Urobilinogen < 2.0 mg/dL (<2.0) 02/17/17 09:07 Ur Leukocyte Esterase Neg (Negative) 02/17/17 09:07 Urine WBC (Auto) 1.0 /HPF (0.0-6.0) 02/17/17 09:07 Urine RBC (Auto) 2.0 /HPF (0.0-6.0) 02/17/17 09:07 U Epithel Cells (Auto) 2.0 /HPF (0-13.0) 02/17/17 09:07 Hyaline Casts 1 /LPF 02/17/17 09:07 Urine Mucus Few /HPF 02/17/17 09:07
--- NOTE | 2017-02-21 12:51 | Progress Note ---
Assessment and Plan 1. Pancreatitis - acute, and due to EtOH. More symptomatic. Repeat CT noted. 2 large, but stable pseudocysts, 14 and 18 cm each. - check labs - NPO for now - eventually, once discharged, will need outpatient f/u CT to ensure resolution of pancreatitis, jm in light of 97# weight loss over the last 2 yrs, though likely due to depression after of her . - will also need to monitor pseudocysts in case intervention is warranted. Subjective Date of service: 02/21/17 Interval history: Pt states abd pain is worse. She has also had 4-5 soft small BMs today. No N/ V. Objective - Constitutional Vitals: Vital Signs - 12hr 02/21/17 07:45 Temperature 82 F L Pulse Rate [ 82 Right Radial] Respiratory 22 Rate Blood Pressure 130/90 [Right Arm] O2 Sat by Pulse 99 Oximetry General appearance: Present: mild distress - EENT Eyes: PERRL, EOM intact ENT: hearing intact - Respiratory Respiratory effort: normal - Gastrointestinal General gastrointestinal: Present: soft, tender (Moderate, in upper abdomen), distended - Labs CBC & Chem 7: 02/20/17 05:42 02/20/17 05:42
[2017-02-22] MEDS: DILAUDID IV PRN ×6 (00:36→22:04)
[2017-02-22] MEDS: ZOFRAN IV PRN ×6 (00:38→22:04)
[2017-02-22] MEDS: NACL 0.9% 1000 ML 1,000 ML IV SCH (00:41)
[2017-02-22 08:28] LABS: Basophils % (Auto) 0.5 % (0.0-1.8); Eosinophils % (Auto) 1.4 % (0.0-4.3); Hematocrit 32.9 % (30.3-42.9); Hemoglobin 11.2 gm/dl (10.1-14.3); Mean Corpuscular HGB Conc 34 % (30-34); Mean Corpuscular Hemoglobin 33 pg (28-32); Mean Corpuscular Volume 97 fl (79-97); Platelet Count 167 K/mm3 (140-440); Red Blood Count 3.41 M/mm3 (3.65-5.03); Red Cell Distribution Width 15.4 % (13.2-15.2); White Blood Count 3.5 K/mm3 (4.5-11.0)
[2017-02-22 08:46] LABS: Anion Gap 17 mmol/L; Blood Urea Nitrogen 6 mg/dL (7-17); Calcium 8.4 mg/dL (8.4-10.2); Carbon Dioxide 23 mmol/L (22-30); Chloride 103.2 mmol/L (98-107); Glucose 116 mg/dL (65-100); Potassium 3.1 mmol/L (3.6-5.0); Sodium 140 mmol/L (137-145)
[2017-02-22 09:00] LABS: Alanine Aminotransferase 14 units/L (7-56); Albumin 2.4 g/dL (3.9-5); Albumin/Globulin Ratio 0.8 %; Alkaline Phosphatase 75 units/L (35-129); Lipase 53 units/L (13-60); Total Protein 5.4 g/dL (6.3-8.2)
[2017-02-22 09:03] LABS: Bilirubin,Direct < 0.2 mg/dL (0-0.2)
[2017-02-22] MEDS: HEPARIN SUB-Q SCH ×2 (09:36→22:06)
[2017-02-22] MEDS ORDERED: MAGNESIUM SULFATE 3 GM in NACL 0.9% 100 ML IV ONE (11:50)
--- NOTE | 2017-02-22 11:52 | Progress Note ---
Assessment and Plan Assessment and plan: Acute on chronic pancreatitis with pseudocyst - Pain control - Patient has nausea and vomiting - patient is NPO - GI consult appreciated - Repeat abdominal CAT scan shows mild improvement in the stranding, pseudocyst is the same as previous imaging Hypokalemia/ hypomagnesemia - Repleted Type 2 diabetes mellitus - On sliding scale insulin - ADA date Hypertension - Controlled without medications COPD - Oxygen support -Nebulizers as needed DVT Prophylaxis -Heparin Disposition - Continue inpatient care. History Interval history: Patient was seen and evaluated this morning, she is complaining abdominal pain, nausea and vomiting. Hospitalist Physical - Physical exam Narrative exam: Not in cardiopulmonary distress. The patient appeared well nourished and normally developed. Vital signs as documented. Head exam is unremarkable. No scleral icterus . Neck is without jugular venous distension, thyromegaly, or carotid bruits. Lungs are clear to auscultation. Cardiac exam reveals regular rate and Rhythm. Abdominal exam reveals abdominal tenderness. Extremities are nonedematous and both femoral and pedal pulses are normal. FLOOR PLAN ADJUSTER: Alert and oriented 3. No focal weakness. - Constitutional Vitals: Temp Pulse Resp BP Pulse Ox 99 F 82 18 110/78 96 02/22/17 08:00 02/22/17 08:00 02/22/17 08:00 02/22/17 08:00 02/22/17 08:00 General appearance: Present: mild distress Results - Labs CBC & Chem 7: 02/22/17 07:39 02/22/17 07:39 Labs: Laboratory Last Values WBC 3.5 K/mm3 (4.5-11.0) L 02/22/17 07:39 RBC 3.41 M/mm3 (3.65-5.03) L 02/22/17 07:39 Hgb 11.2 gm/dl (10.1-14.3) 02/22/17 07:39 Hct 32.9 % (30.3-42.9) 02/22/17 07:39 MCV 97 fl (79-97) 02/22/17 07:39 MCH 33 pg (28-32) H 02/22/17 07:39 MCHC 34 % (30-34) 02/22/17 07:39 RDW 15.4 % (13.2-15.2) H 02/22/17 07:39 Plt Count 167 K/mm3 (140-440) 02/22/17 07:39 Lymph % (Auto) 26.0 % (13.4-35.0) 02/22/17 07:39 [place] % (Auto) 10.6 % (0.0-7.3) H 02/22/17 07:39 Eos % (Auto) 1.4 % (0.0-4.3) 02/22/17 07:39 Baso % (Auto) 0.5 % (0.0-1.8) 02/22/17 07:39 Lymph # 0.9 K/mm3 (1.2-5.4) L 02/22/17 07:39 [place] # 0.4 K/mm3 (0.0-0.8) 02/22/17 07:39 Eos # 0.0 K/mm3 (0.0-0.4) 02/22/17 07:39 Baso # 0.0 K/mm3 (0.0-0.1) 02/22/17 07:39 Seg Neutrophils % 61.5 % (40.0-70.0) 02/22/17 07:39 Seg Neutrophils # 2.1 K/mm3 (1.8-7.7) 02/22/17 07:39 Sodium 140 mmol/L (137-145) 02/22/17 07:39 Potassium 3.1 mmol/L (3.6-5.0) L 02/22/17 07:39 Chloride 103.2 mmol/L (98-107) 02/22/17 07:39 Carbon Dioxide 23 mmol/L (22-30) 02/22/17 07:39 Anion Gap 17 mmol/L 02/22/17 07:39 BUN 6 mg/dL (7-17) L 02/22/17 07:39 Creatinine 0.3 mg/dL (0.7-1.2) L 02/22/17 07:39 Estimated GFR > 60 ml/min 02/22/17 07:39 BUN/Creatinine Ratio 20.00 % 02/22/17 07:39 Glucose 116 mg/dL (65-100) H 02/22/17 07:39 Calcium 8.4 mg/dL (8.4-10.2) 02/22/17 07:39 Total Bilirubin 0.20 mg/dL (0.1-1.2) 02/22/17 08:08 Direct Bilirubin < 0.2 mg/dL (0-0.2) 02/22/17 08:08 AST 29 units/L (5-40) 02/22/17 08:08 ALT 14 units/L (7-56) 02/22/17 08:08 Alkaline Phosphatase 75 units/L (35-129) 02/22/17 08:08 C-Reactive Protein 18.40 mg/dL (0.00-1.30) H 02/20/17 05:42 Total Protein 5.4 g/dL (6.3-8.2) L 02/22/17 08:08 Albumin 2.4 g/dL (3.9-5) L 02/22/17 08:08 Albumin/Globulin Ratio 0.8 % 02/22/17 08:08 Lipase 53 units/L (13-60) 02/22/17 08:08 Urine Color Yellow (Yellow) 02/17/17 09:07 Urine Turbidity Clear (Clear) 02/17/17 09:07 Urine pH 9.0 (5.0-7.0) H 02/17/17 09:07 Ur Specific [place] 1.014 (1.003-1.030) 02/17/17 09:07 Urine Protein 30 mg/dl mg/dL (Negative) 02/17/17 09:07 Urine Glucose (UA) Neg mg/dL (Negative) 02/17/17 09:07 Urine Ketones 20 mg/dL (Negative) 02/17/17 09:07 Urine Blood Neg (Negative) 02/17/17 09:07 Urine Nitrite Neg (Negative) 02/17/17 09:07 Urine Bilirubin Neg (Negative) 02/17/17 09:07 Urine Urobilinogen < 2.0 mg/dL (<2.0) 02/17/17 09:07 Ur Leukocyte Esterase Neg (Negative) 02/17/17 09:07 Urine WBC (Auto) 1.0 /HPF (0.0-6.0) 02/17/17 09:07 Urine RBC (Auto) 2.0 /HPF (0.0-6.0) 02/17/17 09:07 U Epithel Cells (Auto) 2.0 /HPF (0-13.0) 02/17/17 09:07 Hyaline Casts 1 /LPF 02/17/17 09:07 Urine Mucus Few /HPF 02/17/17 09:07
--- NOTE | 2017-02-22 12:25 | Progress Note ---
Assessment and Plan 1. Pancreatitis - acute, and due to EtOH. More symptomatic. Labs normal however, and CT was no different. Uncertain if related to the large pseudocysts she has present. - would mobilize pt, and advance diet to low fat as tolerated and monitor labs if symptoms worsen - eventually, once discharged, will need outpatient f/u CT to ensure resolution of pancreatitis, jm in light of 97# weight loss over the last 2 yrs, though likely due to depression after of her . - will also need to monitor pseudocysts in case intervention is warranted, though would want pseudocyst lopez to mature prior to enterocystomy, with either surgery, IR, or via EUS. Subjective Date of service: 02/22/17 Interval history: Pt states abd pain is stable, no worse. No N/V. Only 1 small formed BM today. Objective - Constitutional Vitals: Vital Signs - 12hr 02/22/17 08:00 Temperature 99 F Pulse Rate [ 82 Right Radial] Respiratory 18 Rate Blood Pressure 110/78 [Right Arm] O2 Sat by Pulse 96 Oximetry General appearance: Present: no acute distress - EENT Eyes: PERRL, EOM intact ENT: hearing intact - Respiratory Respiratory effort: normal - Gastrointestinal General gastrointestinal: Present: soft, tender (Diffuse, upper more than lower , mild to moderate), distended (Moderately) - Labs CBC & Chem 7: 02/22/17 07:39 02/22/17 07:39 Labs: Abnormal lab results 02/22/17 02/22/17 02/22/17 Range/Units 07:39 07:39 08:08 WBC 3.5 L (4.5-11.0) K/mm3 RBC 3.41 L (3.65-5.03) M/mm3 MCH 33 H (28-32) pg RDW 15.4 H (13.2-15.2) % [place] % (Auto) 10.6 H (0.0-7.3) % Lymph # 0.9 L (1.2-5.4) K/mm3 Potassium 3.1 L (3.6-5.0) mmol/L BUN 6 L (7-17) mg/dL Creatinine 0.3 L (0.7-1.2) mg/dL Glucose 116 H (65-100) mg/dL Total Protein 5.4 L (6.3-8.2) g/dL Albumin 2.4 L (3.9-5) g/dL
[2017-02-22] MEDS: K-DUR PO SCH (13:06)
[2017-02-23] MEDS: NACL 0.9% 1000 ML 1,000 ML IV SCH (01:04)
[2017-02-23] MEDS: DILAUDID IV PRN ×5 (02:20→21:27)
[2017-02-23] MEDS: ZOFRAN IV PRN ×4 (02:20→17:07)
[2017-02-23 04:43] LABS: Basophils % (Auto) 0.7 % (0.0-1.8); Eosinophils % (Auto) 1.2 % (0.0-4.3); Hematocrit 48.5 % (30.3-42.9); Hemoglobin 15.9 gm/dl (10.1-14.3); Mean Corpuscular HGB Conc 33 % (30-34); Mean Corpuscular Hemoglobin 32 pg (28-32); Mean Corpuscular Volume 97 fl (79-97); Platelet Count 136 K/mm3 (140-440); Red Blood Count 5.01 M/mm3 (3.65-5.03); Red Cell Distribution Width 15.4 % (13.2-15.2); White Blood Count 3.7 K/mm3 (4.5-11.0)
[2017-02-23 05:15] LABS: Alanine Aminotransferase 21 units/L (7-56); Albumin 2.3 g/dL (3.9-5); Albumin/Globulin Ratio 0.7 %; Alkaline Phosphatase 72 units/L (35-129); Anion Gap 19 mmol/L; Blood Urea Nitrogen 5 mg/dL (7-17); Calcium 8.1 mg/dL (8.4-10.2); Carbon Dioxide 20 mmol/L (22-30); Chloride 103.7 mmol/L (98-107); Glucose 108 mg/dL (65-100); Potassium 3.6 mmol/L (3.6-5.0); Sodium 139 mmol/L (137-145); Total Protein 5.4 g/dL (6.3-8.2)
--- NOTE | 2017-02-23 08:52 | Progress Note ---
Assessment and Plan 1. Pancreatitis - acute, and due to EtOH. Improved. Labs normal however, and CT was no different. Uncertain if related to the large pseudocysts she has present. - would mobilize pt, and advance diet to low fat as tolerated and monitor labs if symptoms worsen - eventually, once discharged, will need outpatient f/u CT to ensure resolution of pancreatitis, jm in light of 97# weight loss over the last 2 yrs, though likely due to depression after of her . - will also need to monitor pseudocysts in case intervention is warranted, though would want pseudocyst lopez to mature prior to enterocystomy, with either surgery, IR, or via EUS. Subjective Date of service: 02/23/17 Interval history: Pt states she feels better. Would like liquids. Is walking about room. Had 2 BMs yesterday. Objective - Constitutional Vitals: Vital Signs - 12hr 02/23/17 08:00 Temperature 98 F Pulse Rate [ 78 Left Brachial] Pulse Rate [ 78 Right Radial] Respiratory 20 Rate Blood Pressure 116/80 [Left Arm] Blood Pressure 116/80 [Right Arm] O2 Sat by Pulse 97 Oximetry General appearance: Present: no acute distress - EENT Eyes: PERRL, EOM intact ENT: hearing intact - Respiratory Respiratory effort: normal - Gastrointestinal General gastrointestinal: Present: soft, tender (Milder, primarily upper abd, though diffuse), normal bowel sounds - Labs CBC & Chem 7: 02/23/17 02:42 02/23/17 02:42 Labs: Abnormal lab results 02/22/17 02/23/17 02/23/17 Range/Units 08:08 02:42 02:42 WBC 3.7 L (4.5-11.0) K/mm3 Hgb 15.9 H D (10.1-14.3) gm/dl Hct 48.5 H D (30.3-42.9) % RDW 15.4 H (13.2-15.2) % Plt Count 136 L (140-440) K/mm3 [place] % (Auto) 8.3 H (0.0-7.3) % Lymph # 0.6 L (1.2-5.4) K/mm3 Seg Neutrophils % 73.5 H (40.0-70.0) % Carbon Dioxide 20 L (22-30) mmol/L BUN 5 L (7-17) mg/dL Creatinine 0.4 L (0.7-1.2) mg/dL Glucose 108 H (65-100) mg/dL Calcium 8.1 L (8.4-10.2) mg/dL AST 42 H (5-40) units/L Total Protein 5.4 L 5.4 L (6.3-8.2) g/dL Albumin 2.4 L 2.3 L (3.9-5) g/dL
[2017-02-23] MEDS: K-DUR PO SCH (10:35)
[2017-02-23] MEDS: HEPARIN SUB-Q SCH ×2 (10:35→21:28)
--- NOTE | 2017-02-23 13:46 | Progress Note ---
Assessment and Plan Assessment and plan: Acute on chronic pancreatitis with pseudocyst - Pain control - Patient's nausea and vomiting getting better - patient is on full liquid diet - GI consult appreciated - Repeat abdominal CAT scan shows mild improvement in the stranding, pseudocyst is the same as previous imaging Hypokalemia/ hypomagnesemia - Repleted Elevated hemoglobin and hematocrit - We will check tomorrow morning - Patient didn't have any signs of dehydration, could be lab error Type 2 diabetes mellitus - On sliding scale insulin - ADA date Hypertension - Controlled without medications COPD - Oxygen support -Nebulizers as needed DVT Prophylaxis -Heparin Disposition - Continue inpatient care. - Likely discharge her tomorrow if she tolerated diet. History Interval history: Patient was seen and evaluated this morning, abdominal pain, nausea, and vomiting is getting better. Hospitalist Physical - Physical exam Narrative exam: Not in cardiopulmonary distress. The patient appeared well nourished and normally developed. Vital signs as documented. Head exam is unremarkable. No scleral icterus . Neck is without jugular venous distension, thyromegaly, or carotid bruits. Lungs are clear to auscultation. Cardiac exam reveals regular rate and Rhythm. Abdominal exam reveals abdominal tenderness. Extremities are nonedematous and both femoral and pedal pulses are normal. FACSIMILE OPERATOR: Alert and oriented 3. No focal weakness. - Constitutional Vitals: Temp Pulse Resp BP Pulse Ox 98 F 78 20 116/80 97 02/23/17 08:00 02/23/17 08:00 02/23/17 08:00 02/23/17 08:00 02/23/17 08:00 General appearance: Present: no acute distress Results - Labs CBC & Chem 7: 02/23/17 02:42 02/23/17 02:42 Labs: Laboratory Last Values WBC 3.7 K/mm3 (4.5-11.0) L 02/23/17 02:42 RBC 5.01 M/mm3 (3.65-5.03) 02/23/17 02:42 Hgb 15.9 gm/dl (10.1-14.3) H D 02/23/17 02:42 Hct 48.5 % (30.3-42.9) H D 02/23/17 02:42 MCV 97 fl (79-97) 02/23/17 02:42 MCH 32 pg (28-32) 02/23/17 02:42 MCHC 33 % (30-34) 02/23/17 02:42 RDW 15.4 % (13.2-15.2) H 02/23/17 02:42 Plt Count 136 K/mm3 (140-440) L 02/23/17 02:42 Lymph % (Auto) 16.3 % (13.4-35.0) 02/23/17 02:42 [place] % (Auto) 8.3 % (0.0-7.3) H 02/23/17 02:42 Eos % (Auto) 1.2 % (0.0-4.3) 02/23/17 02:42 Baso % (Auto) 0.7 % (0.0-1.8) 02/23/17 02:42 Lymph # 0.6 K/mm3 (1.2-5.4) L 02/23/17 02:42 [place] # 0.3 K/mm3 (0.0-0.8) 02/23/17 02:42 Eos # 0.0 K/mm3 (0.0-0.4) 02/23/17 02:42 Baso # 0.0 K/mm3 (0.0-0.1) 02/23/17 02:42 Seg Neutrophils % 73.5 % (40.0-70.0) H 02/23/17 02:42 Seg Neutrophils # 2.7 K/mm3 (1.8-7.7) 02/23/17 02:42 Sodium 139 mmol/L (137-145) 02/23/17 02:42 Potassium 3.6 mmol/L (3.6-5.0) 02/23/17 02:42 Chloride 103.7 mmol/L (98-107) 02/23/17 02:42 Carbon Dioxide 20 mmol/L (22-30) L 02/23/17 02:42 Anion Gap 19 mmol/L 02/23/17 02:42 BUN 5 mg/dL (7-17) L 02/23/17 02:42 Creatinine 0.4 mg/dL (0.7-1.2) L 02/23/17 02:42 Estimated GFR > 60 ml/min 02/23/17 02:42 BUN/Creatinine Ratio 12.50 % 02/23/17 02:42 Glucose 108 mg/dL (65-100) H 02/23/17 02:42 Calcium 8.1 mg/dL (8.4-10.2) L 02/23/17 02:42 Total Bilirubin 0.20 mg/dL (0.1-1.2) 02/23/17 02:42 Direct Bilirubin < 0.2 mg/dL (0-0.2) 02/22/17 08:08 AST 42 units/L (5-40) H 02/23/17 02:42 ALT 21 units/L (7-56) 02/23/17 02:42 Alkaline Phosphatase 72 units/L (35-129) 02/23/17 02:42 C-Reactive Protein 18.40 mg/dL (0.00-1.30) H 02/20/17 05:42 Total Protein 5.4 g/dL (6.3-8.2) L 02/23/17 02:42 Albumin 2.3 g/dL (3.9-5) L 02/23/17 02:42 Albumin/Globulin Ratio 0.7 % 02/23/17 02:42 Lipase 53 units/L (13-60) 02/22/17 08:08 Urine Color Yellow (Yellow) 02/17/17 09:07 Urine Turbidity Clear (Clear) 02/17/17 09:07 Urine pH 9.0 (5.0-7.0) H 02/17/17 09:07 Ur Specific [place] 1.014 (1.003-1.030) 02/17/17 09:07 Urine Protein 30 mg/dl mg/dL (Negative) 02/17/17 09:07 Urine Glucose (UA) Neg mg/dL (Negative) 02/17/17 09:07 Urine Ketones 20 mg/dL (Negative) 02/17/17 09:07 Urine Blood Neg (Negative) 02/17/17 09:07 Urine Nitrite Neg (Negative) 02/17/17 09:07 Urine Bilirubin Neg (Negative) 02/17/17 09:07 Urine Urobilinogen < 2.0 mg/dL (<2.0) 02/17/17 09:07 Ur Leukocyte Esterase Neg (Negative) 02/17/17 09:07 Urine WBC (Auto) 1.0 /HPF (0.0-6.0) 02/17/17 09:07 Urine RBC (Auto) 2.0 /HPF (0.0-6.0) 02/17/17 09:07 U Epithel Cells (Auto) 2.0 /HPF (0-13.0) 02/17/17 09:07 Hyaline Casts 1 /LPF 02/17/17 09:07 Urine Mucus Few /HPF 02/17/17 09:07 Elevated hemoglobin and hematocrit
[2017-02-24] MEDS: DILAUDID IV PRN ×4 (03:06→21:34)
[2017-02-24] MEDS: ZOFRAN IV PRN ×4 (03:06→21:35)
[2017-02-24] MEDS: NACL 0.9% 1000 ML 1,000 ML IV SCH ×2 (03:09→10:33)
[2017-02-24 06:25] LABS: Basophils % (Auto) 0.5 % (0.0-1.8); Eosinophils % (Auto) 0.9 % (0.0-4.3); Hematocrit 36.2 % (30.3-42.9); Hemoglobin 12.1 gm/dl (10.1-14.3); Mean Corpuscular HGB Conc 33 % (30-34); Mean Corpuscular Hemoglobin 32 pg (28-32); Mean Corpuscular Volume 97 fl (79-97); Platelet Count 214 K/mm3 (140-440); Red Blood Count 3.74 M/mm3 (3.65-5.03); Red Cell Distribution Width 14.7 % (13.2-15.2)
[2017-02-24 06:43] LABS: Alanine Aminotransferase 19 units/L (7-56); Albumin 2.9 g/dL (3.9-5); Albumin/Globulin Ratio 0.9 %; Alkaline Phosphatase 69 units/L (35-129); Anion Gap 17 mmol/L; Blood Urea Nitrogen 3 mg/dL (7-17); Calcium 8.4 mg/dL (8.4-10.2); Carbon Dioxide 26 mmol/L (22-30); Chloride 101.6 mmol/L (98-107); Glucose 111 mg/dL (65-100); Lipase 40 units/L (13-60); Sodium 141 mmol/L (137-145)
--- NOTE | 2017-02-24 09:30 | Gastroenterology Progress Note ---
<CHUCKLORAINENANCY Fritz - Last Filed: 02/24/17 09:36> Assessment and Plan 1. acute pancreatitis -acute pancreatitis-l2/2 alcohol, slowly resolving -afebrile -Lipase-WNL -patient reports abd pain 8/10 today with nausea w/o vomiting -continue clear liquids, advance as tolerated -continue supportive care with IVFs, pain control, and f/u labs -discussed with pt the need for f/u appt when d/c to monitor pseudocyst in case intervention is warranted (surgery, IR, or EUS) -patient also reports new onset of diarrhea since yesterday with watery stools -c-diff pending -will follow Subjective Date of service: 02/24/17 Principal diagnosis: acute pancreatitis Interval history: Patient resting in bed. No acute distress. Reports abd pain 8/10 with c/o nausea with liquids but denies vomiting. Also reports diarrhea since yesterday with BMs x 3 this am with scant amount of watery stool. Objective - Constitutional Vitals: Temp Pulse Resp BP Pulse Ox 98.6 F 69 18 133/83 95 02/24/17 08:00 02/24/17 08:00 02/24/17 08:00 02/24/17 08:00 02/24/17 08:00 General appearance: no acute distress - EENT Eyes: PERRL, EOM intact ENT: hearing intact - Neck Neck: supple, normal ROM - Respiratory Respiratory: bilateral: CTA (anterior) - Cardiovascular Rhythm: regular Heart Sounds: Present: S1 & S2 - Extremities Extremities: No edema - Gastrointestinal General gastrointestinal: Present: soft, tender, distended, normal bowel sounds - Integumentary Integumentary: Present: warm, dry - Neurologic Neurological: alert and oriented x3 - Psychiatric Psychiatric: appropriate mood/affect, cooperative - Labs CBC & Chem 7: 02/24/17 05:17 02/24/17 05:17 Labs: Laboratory Results - last 24 hr 02/24/17 02/24/17 05:17 05:17 WBC 4.0 L RBC 3.74 Hgb 12.1 D Hct 36.2 D MCV 97 MCH 32 MCHC 33 RDW 14.7 Plt Count 214 Lymph % (Auto) 20.8 [place] % (Auto) 10.6 H Eos % (Auto) 0.9 Baso % (Auto) 0.5 Lymph # 0.8 L [place] # 0.4 Eos # 0.0 Baso # 0.0 Seg Neutrophils % 67.2 Seg Neutrophils # 2.7 Sodium 141 Potassium 4.0 Chloride 101.6 Carbon Dioxide 26 Anion Gap 17 BUN 3 L Creatinine 0.4 L Estimated GFR > 60 BUN/Creatinine Ratio 7.50 Glucose 111 H Calcium 8.4 Total Bilirubin 0.20 AST 29 ALT 19 Alkaline Phosphatase 69 Total Protein 6.0 L Albumin 2.9 L Albumin/Globulin Ratio 0.9 Lipase 40 <DENNY ESTEVES R - Last Filed: 02/24/17 15:38> Assessment and Plan Pt states pain actually better, but she had 3 squirts of liquid type stool this AM. No blood. Lauryn clears. Discussed options with pt. Will give low fat diet and see how see does. If she fails, may need G-J tube for nutrtion. Eventually, pseudocysts may need to be drained. Objective - Constitutional Vitals: Temp Pulse Resp BP Pulse Ox 98.6 F 69 18 133/83 95 02/24/17 08:00 02/24/17 08:00 02/24/17 08:00 02/24/17 08:00 02/24/17 08:00 - Labs CBC & Chem 7: 02/24/17 05:17 02/24/17 05:17 Labs: Laboratory Results - last 24 hr 02/24/17 02/24/17 05:17 05:17 WBC 4.0 L RBC 3.74 Hgb 12.1 D Hct 36.2 D MCV 97 MCH 32 MCHC 33 RDW 14.7 Plt Count 214 Lymph % (Auto) 20.8 [place] % (Auto) 10.6 H Eos % (Auto) 0.9 Baso % (Auto) 0.5 Lymph # 0.8 L [place] # 0.4 Eos # 0.0 Baso # 0.0 Seg Neutrophils % 67.2 Seg Neutrophils # 2.7 Sodium 141 Potassium 4.0 Chloride 101.6 Carbon Dioxide 26 Anion Gap 17 BUN 3 L Creatinine 0.4 L Estimated GFR > 60 BUN/Creatinine Ratio 7.50 Glucose 111 H Calcium 8.4 Total Bilirubin 0.20 AST 29 ALT 19 Alkaline Phosphatase 69 Total Protein 6.0 L Albumin 2.9 L Albumin/Globulin Ratio 0.9 Lipase 40
[2017-02-24] MEDS: HEPARIN SUB-Q SCH ×2 (10:32→21:34)
[2017-02-24] MEDS: K-DUR PO SCH (10:32)
--- NOTE | 2017-02-24 11:14 | Progress Note ---
Assessment and Plan Assessment and plan: Acute on chronic pancreatitis with pseudocyst, patient still complaining severe abdominal pain. - Pain control - Patient's nausea and abdominal pain getting worse - patient is on clear liquid diet but she is not tolerating it because of the nausea - GI consult appreciated, need GI recommendations if there is any interventions needed for the pseudocyst, the size is big and pain and nausea persisted. - Repeat abdominal CAT scan shows mild improvement in the stranding, pseudocyst is the same as previous imaging Type 2 diabetes mellitus - On sliding scale insulin - ADA diet Hypertension - Controlled without medications COPD - Oxygen support -Nebulizers as needed DVT Prophylaxis -Heparin Disposition - Continue inpatient care. History Interval history: Patient was seen and evaluated this morning, she said the the abdominal pain and nausea is getting better. Patient developed diarrhea overnight and had 2 episodes this morning, massive. Hospitalist Physical - Physical exam Narrative exam: Not in cardiopulmonary distress. The patient appeared well nourished and normally developed. Vital signs as documented. Head exam is unremarkable. No scleral icterus . Neck is without jugular venous distension, thyromegaly, or carotid bruits. Lungs are clear to auscultation. Cardiac exam reveals regular rate and Rhythm. Abdominal exam reveals abdominal tenderness generalized tenderness but no guarding or rigidity. Extremities are nonedematous and both femoral and pedal pulses are normal. 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 No focal weakness. - Constitutional Vitals: Temp Pulse Resp BP Pulse Ox 98.6 F 69 18 133/83 95 02/24/17 08:00 02/24/17 08:00 02/24/17 08:00 02/24/17 08:00 02/24/17 08:00 General appearance: Present: no acute distress Results - Labs CBC & Chem 7: 02/24/17 05:17 02/24/17 05:17 Labs: Laboratory Last Values WBC 4.0 K/mm3 (4.5-11.0) L 02/24/17 05:17 RBC 3.74 M/mm3 (3.65-5.03) 02/24/17 05:17 Hgb 12.1 gm/dl (10.1-14.3) D 02/24/17 05:17 Hct 36.2 % (30.3-42.9) D 02/24/17 05:17 MCV 97 fl (79-97) 02/24/17 05:17 MCH 32 pg (28-32) 02/24/17 05:17 MCHC 33 % (30-34) 02/24/17 05:17 RDW 14.7 % (13.2-15.2) 02/24/17 05:17 Plt Count 214 K/mm3 (140-440) 02/24/17 05:17 Lymph % (Auto) 20.8 % (13.4-35.0) 02/24/17 05:17 [place] % (Auto) 10.6 % (0.0-7.3) H 02/24/17 05:17 Eos % (Auto) 0.9 % (0.0-4.3) 02/24/17 05:17 Baso % (Auto) 0.5 % (0.0-1.8) 02/24/17 05:17 Lymph # 0.8 K/mm3 (1.2-5.4) L 02/24/17 05:17 [place] # 0.4 K/mm3 (0.0-0.8) 02/24/17 05:17 Eos # 0.0 K/mm3 (0.0-0.4) 02/24/17 05:17 Baso # 0.0 K/mm3 (0.0-0.1) 02/24/17 05:17 Seg Neutrophils % 67.2 % (40.0-70.0) 02/24/17 05:17 Seg Neutrophils # 2.7 K/mm3 (1.8-7.7) 02/24/17 05:17 Sodium 141 mmol/L (137-145) 02/24/17 05:17 Potassium 4.0 mmol/L (3.6-5.0) 02/24/17 05:17 Chloride 101.6 mmol/L (98-107) 02/24/17 05:17 Carbon Dioxide 26 mmol/L (22-30) 02/24/17 05:17 Anion Gap 17 mmol/L 02/24/17 05:17 BUN 3 mg/dL (7-17) L 02/24/17 05:17 Creatinine 0.4 mg/dL (0.7-1.2) L 02/24/17 05:17 Estimated GFR > 60 ml/min 02/24/17 05:17 BUN/Creatinine Ratio 7.50 % 02/24/17 05:17 Glucose 111 mg/dL (65-100) H 02/24/17 05:17 Calcium 8.4 mg/dL (8.4-10.2) 02/24/17 05:17 Total Bilirubin 0.20 mg/dL (0.1-1.2) 02/24/17 05:17 Direct Bilirubin < 0.2 mg/dL (0-0.2) 02/22/17 08:08 AST 29 units/L (5-40) 02/24/17 05:17 ALT 19 units/L (7-56) 02/24/17 05:17 Alkaline Phosphatase 69 units/L (35-129) 02/24/17 05:17 C-Reactive Protein 18.40 mg/dL (0.00-1.30) H 02/20/17 05:42 Total Protein 6.0 g/dL (6.3-8.2) L 02/24/17 05:17 Albumin 2.9 g/dL (3.9-5) L 02/24/17 05:17 Albumin/Globulin Ratio 0.9 % 02/24/17 05:17 Lipase 40 units/L (13-60) 02/24/17 05:17 Urine Color Yellow (Yellow) 02/17/17 09:07 Urine Turbidity Clear (Clear) 02/17/17 09:07 Urine pH 9.0 (5.0-7.0) H 02/17/17 09:07 Ur Specific [place] 1.014 (1.003-1.030) 02/17/17 09:07 Urine Protein 30 mg/dl mg/dL (Negative) 02/17/17 09:07 Urine Glucose (UA) Neg mg/dL (Negative) 02/17/17 09:07 Urine Ketones 20 mg/dL (Negative) 02/17/17 09:07 Urine Blood Neg (Negative) 02/17/17 09:07 Urine Nitrite Neg (Negative) 02/17/17 09:07 Urine Bilirubin Neg (Negative) 02/17/17 09:07 Urine Urobilinogen < 2.0 mg/dL (<2.0) 02/17/17 09:07 Ur Leukocyte Esterase Neg (Negative) 02/17/17 09:07 Urine WBC (Auto) 1.0 /HPF (0.0-6.0) 02/17/17 09:07 Urine RBC (Auto) 2.0 /HPF (0.0-6.0) 02/17/17 09:07 U Epithel Cells (Auto) 2.0 /HPF (0-13.0) 02/17/17 09:07 Hyaline Casts 1 /LPF 02/17/17 09:07 Urine Mucus Few /HPF 02/17/17 09:07
[2017-02-25] MEDS: NACL 0.9% 1000 ML 1,000 ML IV SCH (00:35)
[2017-02-25] MEDS: ZOFRAN IV PRN ×3 (01:49→10:07)
[2017-02-25] MEDS: DILAUDID IV PRN ×3 (01:49→10:07)
[2017-02-25 05:31] LABS: Anion Gap 13 mmol/L; Blood Urea Nitrogen 3 mg/dL (7-17); Calcium 8.4 mg/dL (8.4-10.2); Carbon Dioxide 26 mmol/L (22-30); Glucose 117 mg/dL (65-100); Potassium 3.5 mmol/L (3.6-5.0); Sodium 137 mmol/L (137-145)
[2017-02-25 09:11] VITALS: BP 139/73
--- NOTE | 2017-02-25 09:59 | Discharge Summary ---
Providers - Providers Date of Admission: 02/17/17 12:05 Date of discharge: 02/25/17 Attending physician: SWATI SERVIN MD 02/17/17 12:12 Consult to Dietitian/Nutrition [CONS] Routine Physician Instructions: Reason For Exam: Reason for Consult: Malnutrition 02/17/17 20:14 Consult to Physician [CONS] Routine Consulting Provider: KOFI SALOMON Reason For Exam: acute pancreatitis Notified:: please call 02/25/17 09:19 Consult to Wound/ET Nurse [CONS] Routine Reason For Exam: wound eval Primary care physician: ELECTRONIC SALES AND SERVICE TECHNICIAN Hospitalization Reason for admission: Pancratitis Condition: Stable Pertinent studies: The abdomen and pelvis suggestive of pancreatitis Hospital course: 56-year-old female presented to the ED from home with complaint of abdominal pain. Patient reported having similar symptoms and she was admitted back on January 14, 2017 for acute pancreatitis and apparently was told that she has gallstones. However no surgery was done at that time. She also reported having nausea and vomiting but no blood noted. Patient described her pain as sharp, stabbing, aching and stated only Dilaudid medication works for her to relieve her pain. Pt denies fever, chills, Diarrhea, constipation. Denies any melena. Denies taking NSAIDs. Patient is alcohol abuser and administers on acute pancreatitis with pseudocyst formation. Patient was treated for acute pancreatitis to this with bowel rest, pain control, and dramatic treatment for nausea and vomiting. GI was consulted and recommended outpatient follow-up for pseudocyst. Patient extensively advised about quitting alcohol and given resources to help with that. Patient said she is not going to drink anymore. Patient was discharge home in a stable condition. GI will follow her within 2 weeks as an outpatient and we'll do imaging to evaluate the pseudocyst. Patient's questions and concerns were answered at the bedside. Patient has foliculitis in the lower abdomen and was given topical antibiotics and advice to have clean hygiene and make the area dry. Disposition: [id number] TO HOME OR SELFCARE Time spent for discharge: 31 minutes - Discharge Diagnoses (1) Abdominal pain, acute, epigastric Status: Acute (2) Acute pancreatitis Status: Acute Qualifiers: Pancreatitis type: biliary Acute pancreatitis complication: no infection or necrosis Qualified Code(s): K85.10 - Biliary acute pancreatitis without necrosis or infection (3) Alcohol abuse Status: Chronic Comment: A she has been educated on the importance of avoiding alcohol. Been advised to join AA. Family aware of patient's condition and will help to maintain alcohol free status. Patient has been informed if she continues to drink she will (4) HTN (hypertension) Status: Chronic Qualifiers: Hypertension type: essential hypertension Qualified Code(s): I10 - Essential (primary) hypertension Comment: Fairly well-controlled we'll continue present antihypertensives. (5) Nausea & vomiting Status: Resolved Qualifiers: Vomiting type: V Vomiting Intractability: non-intractable Core Measure Documentation - Palliative Care Palliative Care/ Comfort Measures: Not Applicable - Core Measures Any of the following diagnoses?: none Exam - Physical Exam Narrative exam: Not in cardiopulmonary distress. The patient appeared well nourished and normally developed. Vital signs as documented. Head exam is unremarkable. No scleral icterus . Neck is without jugular venous distension, thyromegaly, or carotid bruits. Lungs are clear to auscultation. Cardiac exam reveals regular rate and Rhythm. Abdominal exam reveals abdominal tenderness generalized tenderness but no guarding or rigidity. Extremities are nonedematous and both femoral and pedal pulses are normal. Skin mild erythema from folliculitis. 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 No focal weakness. - Constitutional Vitals: Temp Pulse Resp BP Pulse Ox 99.6 F 69 20 139/73 98 02/25/17 07:00 02/25/17 07:00 02/25/17 07:00 02/25/17 07:00 02/25/17 07:00 Plan Activity: no restrictions Weight Bearing Status: Full Weight Bearing Diet: low fat, advance as tolerated Follow up with: BAL CORBIN MD [Primary Care Provider] - 3-5 Days DENNY ESTEVES MD [Staff Physician] - 14 Days Prescriptions: Mupirocin [Bactroban 2% OINT] 1 applic TP TID #1 tube Ondansetron [Zofran INJ] 4 mg PO Q4H PRN #30 vial PRN Reason: N/V Unrelieved By Reglan oxyCODONE /ACETAMINOPHEN [Percocet 5/325 mg] 1 tab PO Q6HR PRN #20 tablet PRN Reason: Pain
[2017-02-25] MEDS: K-DUR PO SCH (11:48)
[2017-02-25] MEDS: HEPARIN SUB-Q SCH (11:49)
== END 2017-02-25 14:09 | disposition home or self-care (01) | DRG 439 ==
LOC: ED 08:14 → 3A 12:05
PROVIDERS: ADMIT Internal Medicine; ATTEND Internal Medicine
DX: K85.10 Biliary acute pancreatitis without necrosis or infection (principal); K86.3 Pseudocyst of pancreas; E87.1 Hypo-osmolality and hyponatremia; E46 Unspecified protein-calorie malnutrition; K85.20 Alcohol induced acute pancreatitis without necrosis or infection; I10 Essential (primary) hypertension; F32.9 Major depressive disorder, single episode, unspecified; J44.9 Chronic obstructive pulmonary disease, unspecified; F17.210 Nicotine dependence, cigarettes, uncomplicated; F10.10 Alcohol abuse, uncomplicated; E78.5 Hyperlipidemia, unspecified; E66.9 Obesity, unspecified; E87.6 Hypokalemia; K86.1 Other chronic pancreatitis; E11.9 Type 2 diabetes mellitus without complications; E83.42 Hypomagnesemia; Z68.33 Body mass index [BMI] 33.0-33.9, adult; Z87.19 Personal history of other diseases of the digestive system; Z98.51 Tubal ligation status; Z71.3 Dietary counseling and surveillance; Z80.3 Family history of malignant neoplasm of breast; Z82.49 Family history of ischemic heart disease and other diseases of the circulatory system
CPT/HCPCS: 36415; 74150; 74177; 80048; 80053; 80074; 81001; 83690; 85025; 86140; 87493; 96361; 96374; 96375; 96376; J1170; J1644; J2405; J3010; J3360; J3475; J3480; J7030; Q9967

== ENCOUNTER 2017-11-28 07:44 | Inpatient (IN) | payer OTHER ==
[2017-11-28] MEDS ORDERED: ASPIRIN PO ONE (07:59)
[2017-11-28 08:36] LABS: Basophils % (Auto) 0.2 % (0.0-1.8); Hematocrit 46.8 % (30.3-42.9); Hemoglobin 15.1 gm/dl (10.1-14.3); Lymphocytes % (Auto) 6.5 % (13.4-35.0); Mean Corpuscular HGB Conc 32 % (30-34); Mean Corpuscular Hemoglobin 30 pg (28-32); Mean Corpuscular Volume 93 fl (79-97); Monocytes # (Auto) 0.9 K/mm3 (0.0-0.8); Monocytes % (Auto) 5.5 % (0.0-7.3); Platelet Count 325 K/mm3 (140-440); Red Blood Count 5.06 M/mm3 (3.65-5.03); Red Cell Distribution Width 14.4 % (13.2-15.2)
[2017-11-28 08:42] LABS: BUN/Creatinine Ratio 23; Blood Urea Nitrogen 25 mg/dL (7-17); Calcium 9.4 mg/dL (8.4-10.2); Hemolysis Index 42
--- NOTE | 2017-11-28 08:42 | Emergency Department Report ---
ED Chest Pain HPI - General Chief Complaint: Dyspnea/Respdistress Stated Complaint: irsael Time Seen by Provider: 11/28/17 08:40 Source: patient Mode of arrival: Ambulatory Limitations: Physical Limitation - History of Present Illness Initial Comments: This is a patient is a very poor historian. She is 57 years old. Review of her previous medical records indicate that she has had recurrent pancreatitis. It is said to be that she is an alcohol abuser. It does appear that she also may be abusing pain medicine. She is requesting pain medicine immediately upon my encounter. However he states that she has some chest pressure but not abdominal pain. The patient's reason for her proximate visit to the emergency department is that she "vomited up black material". She states that she has never had a GI bleed before. She did not admit to a history of pancreatitis or any problems with her abdomen when I asked. Apparently she does have a history of gallstones as well. She was admitted here in February 2017. She was found to have a pseudocyst, alcoholic pancreatitis and gallstones. She also states that she has been treated for COPD in the past. Her secondary complaint is difficulty in breathing. She is an exceptionally poor historian at this juncture. I believe the symptoms have been going on for some time. She has some persistent nausea. As far as I can determine at this point the patient has no known history of diabetes. She denies ever eating on associated medication. She states that she saw a doctor about 3 months ago "here", that is, I think referring to her February admission and that her sugar was not elevated. I do not think she has a primary care provider. MD Complaint: chest pain -: Gradual, days(s) Onset: during rest Pain Location: substernal Pain Radiation: none Severity: moderate Quality: other (couldn't describe) Consistency: intermittent Improves With: nothing Worsens With: nothing re: nausea, vomting, dyspnea. denies: diaphoresis Other Symptoms: denies: cough, fever, syncope Treatments Prior to Arrival: none - Related Data Previous Rx's Medication Instructions Recorded Last Taken Type Hydrochlorothiazide [HCTZ] 25 mg PO QDAY #30 tablet 01/24/17 Unknown Rx Multivitamin Tab [Multiple Vitamin 1 each PO QDAY #30 tablet 01/24/17 Unknown Rx TAB (Theragran)] Sertraline [Zoloft] 50 mg PO QDAY #30 tablet 01/24/17 Unknown Rx amLODIPine [Norvasc] 10 mg PO DAILY #30 tablet 01/24/17 Unknown Rx traZODone [Desyrel] 50 mg PO QHS #30 tablet 01/24/17 Unknown Rx Mupirocin [Bactroban 2% OINT] 1 applic TP TID #1 tube 02/25/17 Unknown Rx Ondansetron [Zofran INJ] 4 mg PO Q4H PRN #30 vial 02/25/17 Unknown Rx oxyCODONE /ACETAMINOPHEN [Percocet 1 tab PO Q6HR PRN #20 tablet 02/25/17 Unknown Rx 5/325 mg] Allergies Allergy/AdvReac Type Severity Reaction Status Date / Time No Known Allergies Allergy Verified 02/17/17 08:18 Heart Score - HEART Score History: Moderately suspicious EKG: Non-specific Age: 45-65 Risk factors: > 3 risk factors or hx of atherosclerotic disease Troponin: 1-3x normal limit HEART Score: 6 - Critical Actions Critical Actions: 4-6 pts:12-16.6% risk of adverse cardiac event. Should be admitted ED Review of Systems ROS: Stated complaint: [place] Other details as noted in HPI Comment: Unobtainable due to pts medical conditions (poor historian, metabolic encephalopathy) ED Past Medical Hx - Past Medical History Previous Medical History?: Yes Hx Hypertension: Yes Hx Liver Disease: Yes Hx Psychiatric Treatment: Yes (depression / insomnia) Hx COPD: Yes Additional medical history: pancreatitis. gallstones - Surgical History Past Surgical History?: Yes Additional Surgical History: tubal ligation - Social History Smoking Status: Current Every Day Smoker Substance Use Type: Alcohol - Medications Home Medications: Home Medications Medication Instructions Recorded Confirmed Last Taken Type Hydrochlorothiazide [HCTZ] 25 mg PO QDAY #30 tablet 01/24/17 02/17/17 Unknown Rx Multivitamin Tab [Multiple Vitamin 1 each PO QDAY #30 tablet 01/24/17 02/17/17 Unknown Rx TAB (Theragran)] Sertraline [Zoloft] 50 mg PO QDAY #30 tablet 01/24/17 02/17/17 Unknown Rx amLODIPine [Norvasc] 10 mg PO DAILY #30 tablet 01/24/17 02/17/17 Unknown Rx traZODone [Desyrel] 50 mg PO QHS #30 tablet 01/24/17 02/17/17 Unknown Rx Mupirocin [Bactroban 2% OINT] 1 applic TP TID #1 tube 02/25/17 Unknown Rx Ondansetron [Zofran INJ] 4 mg PO Q4H PRN #30 vial 02/25/17 Unknown Rx oxyCODONE /ACETAMINOPHEN [Percocet 1 tab PO Q6HR PRN #20 tablet 02/25/17 Unknown Rx 5/325 mg] ED Physical Exam - General Limitations: Physical Limitation General appearance: alert, other (Kussmaul respirations) - Head Head exam: Present: atraumatic, normocephalic - Eye Eye exam: Present: normal appearance. Absent: scleral icterus - ENT ENT exam: Present: mucous membranes dry - Neck Neck exam: Present: normal inspection. Absent: tenderness, meningismus - Respiratory Respiratory exam: Present: normal lung sounds bilaterally. Absent: respiratory distress - Cardiovascular Cardiovascular Exam: Present: normal rhythm, tachycardia. Absent: systolic murmur, diastolic murmur, rubs, gallop - GI/Abdominal GI/Abdominal exam: Present: soft, normal bowel sounds. Absent: distended, tenderness, guarding, rebound, rigid - Extremities Exam Extremities exam: Present: normal inspection, normal capillary refill. Absent: tenderness, pedal edema, joint swelling, calf tenderness - Back Exam Back exam: Present: normal inspection. Absent: CVA tenderness (R), CVA tenderness (L) - Neurological Exam Neurological exam: Present: alert, oriented X3, CN II-XII intact. Absent: motor sensory deficit - Psychiatric Psychiatric exam: Present: anxious, flat affect - Skin Skin exam: Present: warm, dry, intact, normal color. Absent: rash ED Course Vital Signs 11/28/17 11/28/17 07:50 09:43 Temperature 97.4 F L Pulse Rate 111 H Respiratory 32 H 18 Rate Blood Pressure 130/93 O2 Sat by Pulse 100 96 Oximetry - Reevaluation(s) Reevaluation #1: 2 L of IV fluid. DKA protocol. Analgesia. I'll give the patient an aspirin. Given her Protonix and consideration of her dark emesis. Her lactic acid is normal. However her New-onset diabetes is unusual at this age. She may certainly have chronic pancreatitis and that may be her risk factor. However Due to the concern of underlying sepsis I have given her Zosyn and vancomycin. Further diagnostic workup and stabilization per hospitalist staff and intensive care physician Dr. Valadez 11/28/17 10:37 Reevaluation #2: A lipase is yet pending. 11/28/17 10:40 RIKY score - Riky Score Age > 65: (0) No Aspirin use within the Past 7 Days: (0) No 3 or more CAD Risk Factors: (1) Yes 2 or more Angina events in past 24 hrs: (0) No Known CAD with more than 50% Stenosis: (0) No Elevated Cardiac Markers: (0) No ST Deviation Greater than 0.5mm: (0) No RIKY Score: 1 ED Medical Decision Making - Lab Data Result diagrams: 11/28/17 08:09 11/28/17 09:30 Laboratory Results - last 24 hr 11/28/17 08:09 WBC 15.9 H RBC 5.06 H Hgb 15.1 H Hct 46.8 H MCV 93 MCH 30 MCHC 32 RDW 14.4 Plt Count 325 Lymph % (Auto) 6.5 L [place] % (Auto) 5.5 Eos % (Auto) 0.0 Baso % (Auto) 0.2 Lymph # 1.0 L [place] # 0.9 H Eos # 0.0 Baso # 0.0 Seg Neutrophils % 87.8 H Seg Neutrophils # 14.0 H Laboratory Results - last 24 hr 11/28/17 11/28/17 08:09 08:09 WBC 15.9 H RBC 5.06 H Hgb 15.1 H Hct 46.8 H MCV 93 MCH 30 MCHC 32 RDW 14.4 Plt Count 325 Lymph % (Auto) 6.5 L [place] % (Auto) 5.5 Eos % (Auto) 0.0 Baso % (Auto) 0.2 Lymph # 1.0 L [place] # 0.9 H Eos # 0.0 Baso # 0.0 Seg Neutrophils % 87.8 H Seg Neutrophils # 14.0 H Sodium 124 L Potassium 5.0 Chloride 75.8 L Carbon Dioxide 7 L* Anion Gap 46 BUN 25 H Creatinine 1.1 Estimated GFR 51 BUN/Creatinine Ratio 23 Glucose 642 H* Calcium 9.4 Troponin T < 0.010 - EKG Data -: EKG Interpreted by Me EKG shows normal: sinus rhythm, axis, intervals, QRS complexes, ST-T waves Rate: tachycardia - EKG Data Interpretation: nonspecific ST-T wave heather - Radiology Data interpreted by me: Chest x-ray no acute process Critical Care Time: Yes Critical care time in (mins) excluding proc time.: 75 Critical care attestation.: If time is entered above; I have spent that time in minutes in the direct care of this critically ill patient, excluding procedure time. ED Disposition Clinical Impression: Gallstones DKA (diabetic ketoacidoses) Qualifiers: Diabetes mellitus type: due to underlying condition Diabetes mellitus complication detail: without coma Qualified Code(s): E08.10 - Diabetes mellitus due to underlying condition with ketoacidosis without coma Chest pain Qualifiers: Chest pain type: unspecified Qualified Code(s): R07.9 - Chest pain, unspecified Disposition: -09 OP ADMIT IP TO THIS HOSP Is pt being admited?: Yes Does the pt Need Aspirin: Yes Condition: Stable Instructions: Diabetic Ketoacidosis (ED), Chest Pain (ED) Referrals: LUIS SANCHEZ MD [Primary Care Provider] - 3-5 Days Time of Disposition: 10:41
[2017-11-28] MEDS ORDERED: PROTONIX IV ONE (08:43)
[2017-11-28] MEDS ORDERED: ZOFRAN IV ONE (08:43)
[2017-11-28] MEDS ORDERED: MORPHINE IV ONE (08:43)
[2017-11-28] MEDS ORDERED: NACL 0.9% 1000 ML 1,000 ML IV ONE ×4 (09:12→19:00)
[2017-11-28] MEDS ORDERED: D50W (25GM) Syringe IV PRN (09:12)
[2017-11-28 09:14] LABS: Creatine Kinase MB 1.6 ng/mL (0.0-4.0); INR 1.22 (0.87-1.13)
[2017-11-28 09:15] LABS: Albumin 4.3 g/dL (3.9-5); Bilirubin,Direct 0.3 mg/dL (0-0.2); Partial Thromboplastin Time 31.2 Sec. (24.2-36.6)
--- NOTE | 2017-11-28 09:29 | XRay Report ---
AP CHEST: HISTORY: Hypertension AP view of the chest demonstrates a normal mediastinal and cardiac contour with clear lungs and normal bony and soft tissue structures. IMPRESSION: Unremarkable AP chest. No change since 01/14/17.
[2017-11-28] MEDS ORDERED: ZOSYN/NS 4.5GM/100ML 4.5 GM/100 ML VIAL IV ONE (09:36)
[2017-11-28 09:56] LABS: Calcium 9.5 mg/dL (8.4-10.2)
[2017-11-28] MEDS ORDERED: VANCOMYCIN PHARMACY TO DOSE IV SCH (10:00)
--- NOTE | 2017-11-28 11:03 | History and Physical Report ---
History of Present Illness Date of examination: 11/28/17 Date of admission: 11/28/17 09:38 Chief complaint: Worsening shortness of breath, coffee-ground emesis, not feeling well History of present illness: Very pleasant 57-year-old female patient with significant past medical history of recurrent pancreatitis alcohol abuse presented to the emergency room with the worsening shortness of breath and not feeling well as well as vomiting brown to black colored material. Patient was admitted in the past with pancreatitis evaluated by GI Patient also noted to have uncontrolled blood sugars more than 600 with a severe acidosis and elevated anion gap of 47 patient also noted to have multiple electrolyte abnormalities. Patient was started on insulin drip per DKA protocol Denies chest pain or palpitations, mild shortness of breath Also complains of nausea and vomiting coffee-ground material Past History Past Medical History: COPD, hypertension, liver disease, other (recurrent pancreatitis, depression). denies: diabetes Past Surgical History: Other (tubal ligation) Social history: lives with family, smoking, alcohol abuse, full code. denies: IV drug use Family history: hypertension Medications and Allergies Allergies Allergy/AdvReac Type Severity Reaction Status Date / Time No Known Allergies Allergy Verified 02/17/17 08:18 Home Medications Medication Instructions Recorded Confirmed Last Taken Type Hydrochlorothiazide [HCTZ] 25 mg PO QDAY #30 tablet 01/24/17 02/17/17 Unknown Rx Multivitamin Tab [Multiple Vitamin 1 each PO QDAY #30 tablet 01/24/17 02/17/17 Unknown Rx TAB (Theragran)] Sertraline [Zoloft] 50 mg PO QDAY #30 tablet 01/24/17 02/17/17 Unknown Rx amLODIPine [Norvasc] 10 mg PO DAILY #30 tablet 01/24/17 02/17/17 Unknown Rx traZODone [Desyrel] 50 mg PO QHS #30 tablet 01/24/17 02/17/17 Unknown Rx Mupirocin [Bactroban 2% OINT] 1 applic TP TID #1 tube 02/25/17 Unknown Rx Ondansetron [Zofran INJ] 4 mg PO Q4H PRN #30 vial 02/25/17 Unknown Rx oxyCODONE /ACETAMINOPHEN [Percocet 1 tab PO Q6HR PRN #20 tablet 02/25/17 Unknown Rx 5/325 mg] Active Meds: Active Medications Dextrose (D50w (25gm) Syringe) 0 ml IV ONCE PRN PRN Reason: Hypoglycemia Insulin Human Regular 100 (units/ Sodium Chloride) 100 mls @ 1 mls/hr IV TITR GRZEGORZ; Protocol Vancomycin HCl 1,500 mg/ (Sodium Chloride) 515 mls @ 333.333 mls/hr IV Q12H GRZEGORZ Vancomycin HCl (Vancomycin Pharmacy To Dose) 1 each IV PKCONSULT GRZEGORZ; Protocol Review of Systems Constitutional: no weight loss, no weight gain, no anorexia Ears, nose, mouth and throat: no nasal congestion, no nasal discharge Cardiovascular: shortness of breath, no chest pain, no orthopnea, no palpitations Respiratory: shortness of breath, no cough with sputum Gastrointestinal: abdominal pain, nausea, vomiting, coffee ground emesis Genitourinary Female: no pelvic pain, no urinary frequency Musculoskeletal: no myalgias, no arthritis Integumentary: no rash, no lesions Neurological: weakness, no head injury, no seizures, no syncope Psychiatric: no anxiety, no paranoia Endocrine: no cold intolerance, no heat intolerance, no polydipsia, no polyuria Hematologic/Lymphatic: no easy bruising, no easy bleeding Allergic/Immunologic: no urticaria, no allergic rhinitis Exam - Constitutional Vitals: Temp Pulse Resp BP Pulse Ox 97.4 F L 101 H 29 H 137/94 100 11/28/17 07:50 11/28/17 10:42 11/28/17 10:31 11/28/17 10:42 11/28/17 10:31 General appearance: Present: mild distress, obese, other (dehydration) - EENT Eyes: Present: PERRL, EOM intact - Neck Neck: Present: supple, normal ROM - Cardiovascular Rhythm: regular Heart Sounds: Present: S1 & S2 - Extremities Extremities: no ischemia, pulses intact - Abdominal General gastrointestinal: Present: soft, non-tender, non-distended, normal bowel sounds - Integumentary Integumentary: Present: clear, warm - Musculoskeletal Musculoskeletal: strength equal bilaterally - Psychiatric Psychiatric: appropriate mood/affect, cooperative - Neurologic Neurologic: CNII-XII intact, moves all extremities Results - Labs CBC & Chem 7: 11/28/17 08:09 11/28/17 11:05 Labs: Abnormal lab results 11/28/17 11/28/17 11/28/17 Range/Units 08:09 08:09 08:09 WBC 15.9 H (4.5-11.0) K/mm3 RBC 5.06 H (3.65-5.03) M/mm3 Hgb 15.1 H (10.1-14.3) gm/dl Hct 46.8 H (30.3-42.9) % Lymph % (Auto) 6.5 L (13.4-35.0) % Lymph # 1.0 L (1.2-5.4) K/mm3 [place] # 0.9 H (0.0-0.8) K/mm3 Seg Neutrophils % 87.8 H (40.0-70.0) % Seg Neutrophils # 14.0 H (1.8-7.7) K/mm3 PT 16.1 H (12.2-14.9) Sec. INR 1.22 H (0.87-1.13) Sodium 124 L (137-145) mmol/L Potassium (3.6-5.0) mmol/L Chloride 75.8 L (98-107) mmol/L Carbon Dioxide 7 L* (22-30) mmol/L BUN 25 H (7-17) mg/dL Glucose 642 H* (65-100) mg/dL Phosphorus (2.5-4.5) mg/dL Magnesium (1.7-2.3) mg/dL Direct Bilirubin (0-0.2) mg/dL Total Creatine Kinase (30-135) units/L CK-MB (CK-2) Rel Index (0-4) Total Protein (6.3-8.2) g/dL Lipase (13-60) units/L 11/28/17 11/28/17 11/28/17 Range/Units 08:09 09:30 09:30 WBC (4.5-11.0) K/mm3 RBC (3.65-5.03) M/mm3 Hgb (10.1-14.3) gm/dl Hct (30.3-42.9) % Lymph % (Auto) (13.4-35.0) % Lymph # (1.2-5.4) K/mm3 [place] # (0.0-0.8) K/mm3 Seg Neutrophils % (40.0-70.0) % Seg Neutrophils # (1.8-7.7) K/mm3 PT (12.2-14.9) Sec. INR (0.87-1.13) Sodium 122 L (137-145) mmol/L Potassium 5.3 H (3.6-5.0) mmol/L Chloride 74.8 L (98-107) mmol/L Carbon Dioxide 6 L* (22-30) mmol/L BUN 26 H (7-17) mg/dL Glucose 629 H* (65-100) mg/dL Phosphorus 4.70 H (2.5-4.5) mg/dL Magnesium 2.40 H (1.7-2.3) mg/dL Direct Bilirubin 0.3 H (0-0.2) mg/dL Total Creatine Kinase 24 L (30-135) units/L CK-MB (CK-2) Rel Index 6.6 H (0-4) Total Protein 9.1 H (6.3-8.2) g/dL Lipase (13-60) units/L 11/28/17 Range/Units 09:30 WBC (4.5-11.0) K/mm3 RBC (3.65-5.03) M/mm3 Hgb (10.1-14.3) gm/dl Hct (30.3-42.9) % Lymph % (Auto) (13.4-35.0) % Lymph # (1.2-5.4) K/mm3 [place] # (0.0-0.8) K/mm3 Seg Neutrophils % (40.0-70.0) % Seg Neutrophils # (1.8-7.7) K/mm3 PT (12.2-14.9) Sec. INR (0.87-1.13) Sodium (137-145) mmol/L Potassium (3.6-5.0) mmol/L Chloride (98-107) mmol/L Carbon Dioxide (22-30) mmol/L BUN (7-17) mg/dL Glucose (65-100) mg/dL Phosphorus (2.5-4.5) mg/dL Magnesium (1.7-2.3) mg/dL Direct Bilirubin (0-0.2) mg/dL Total Creatine Kinase (30-135) units/L CK-MB (CK-2) Rel Index (0-4) Total Protein (6.3-8.2) g/dL Lipase 182 H (13-60) units/L Assessment and Plan --Diabetic ketoacidosis; new onset Initiate DKA protocol, insulin drip, vigorous IV hydration Close monitoring of electrolytes, hemoglobin A1c Admit to ICU, critical care consult discussed with Dr. Mathur --Pseudohyponatremia; due to hyperglycemia, closely monitor --Hyperkalemia; replenished per protocol and monitor levels --Leukocytosis; probably secondary to severe dehydration IV fluids and supportive care, closely monitor --Coffee-ground emesis/upper GI bleeding; hemodynamically stable H&H stable, closely monitor and transfuse as needed GI consult for possible endoscopy --Acute pancreatitis; patient has history of recurrent pancreatitis, nothing by mouth IV fluids supportive care GI consult --Morbid obesity; BMI 39.5, counseling done and advised diet modification and exercise as tolerated and weight reduction when medically stable --Ongoing tobacco use; smoking cessation counseling done that in patch as needed --History of alcohol use ; strongly advised to quit alcohol intake ----DVT prophylaxis; Lovenox Closely monitor for any alcohol withdrawal symptoms and manage accordingly . Follow consults and recommendations Plan of care is reviewed with the patient her nurse
[2017-11-28] MEDS: VANCOMYCIN 1,500 MG in NACL 0.9% 500 ML 500 ML IV SCH (11:07)
[2017-11-28] MEDS: HumuLIN R 100 UNITS in NACL 0.9% 99 ML IV SCH (12:08)
[2017-11-28] MEDS ORDERED: NACL 0.9% 1000 ML 1,000 ML IV SCH (13:00)
[2017-11-28] MEDS: PERCOCET 5/325 PO PRN ×2 (17:06→22:45)
[2017-11-28] MEDS: ZOFRAN IV PRN ×2 (17:07→21:20)
[2017-11-28 17:13] LABS: BUN/Creatinine Ratio 27; Blood Urea Nitrogen 24 mg/dL (7-17); Calcium 8.6 mg/dL (8.4-10.2); Hemolysis Index 76
[2017-11-28] MEDS ORDERED: NACL 0.9% 1000 ML 1,000 ML with SODIUM BICARBONATE 50 MEQ IV SCH (18:21)
[2017-11-28] MEDS ORDERED: SODIUM BICARBONATE IV SCH (19:00)
[2017-11-28] MEDS ORDERED: KCL IV SCH (19:00)
[2017-11-28] MEDS ORDERED: KPHOS 45 MMOL in NACL 0.9% 500 ML 500 ML IV ONE (19:00)
[2017-11-28] MEDS ORDERED: NACL 0.9% IV SCH (19:00)
[2017-11-28] MEDS ORDERED: D5W/0.45% NACL/KCL 20 MEQ 20 MEQ/1,000 ML BAG IV ONE (19:20)
[2017-11-28] MEDS ORDERED: D5W/0.45% NACL/KCL 20 MEQ 20 MEQ/1,000 ML BAG IV SCH (20:00)
[2017-11-28] MEDS: D5NS 1,000 ML IV SCH (20:30)
[2017-11-28] MEDS ORDERED: D5NS 1,000 ML IV ONE (20:37)
[2017-11-28 21:27] LABS: BUN/Creatinine Ratio 28; Blood Urea Nitrogen 22 mg/dL (7-17); Calcium 7.9 mg/dL (8.4-10.2); Hemolysis Index 10
[2017-11-28 21:47] LABS: Bacteria,Urine 1+ /HPF (Negative); Bilirubin,Urine NEG (Negative); Blood,Urine SM (Negative); Color,Urine Yellow (Yellow); Mucus,Urine FEW /HPF; Urobilinogen,Urine < 2.0 mg/dL (<2.0)
[2017-11-28] MEDS: DESYREL PO SCH (23:40)
[2017-11-29 02:13] LABS: BUN/Creatinine Ratio 30; Blood Urea Nitrogen 18 mg/dL (7-17); Calcium 7.2 mg/dL (8.4-10.2); Hemolysis Index 5
[2017-11-29] MEDS: VANCOMYCIN 1,500 MG in NACL 0.9% 500 ML 500 ML IV SCH (02:24)
[2017-11-29] MEDS: ZOFRAN IV PRN ×3 (03:58→21:51)
[2017-11-29 04:23] LABS: Basophils % (Auto) 0.2 % (0.0-1.8); Eosinophils % (Auto) 0.3 % (0.0-4.3); Hemoglobin 12.7 gm/dl (10.1-14.3); Lymphocytes # (Auto) 0.8 K/mm3 (1.2-5.4); Lymphocytes % (Auto) 8.6 % (13.4-35.0); Mean Corpuscular HGB Conc 34 % (30-34); Mean Corpuscular Hemoglobin 30 pg (28-32); Mean Corpuscular Volume 90 fl (79-97); Monocytes # (Auto) 0.5 K/mm3 (0.0-0.8); Monocytes % (Auto) 6.2 % (0.0-7.3); Platelet Count 195 K/mm3 (140-440); Red Blood Count 4.21 M/mm3 (3.65-5.03); Red Cell Distribution Width 14.2 % (13.2-15.2)
[2017-11-29 04:34] LABS: BUN/Creatinine Ratio 27; Blood Urea Nitrogen 16 mg/dL (7-17); Calcium 7.2 mg/dL (8.4-10.2); Hemolysis Index 3
[2017-11-29] MEDS: HumuLIN R 100 UNITS in NACL 0.9% 99 ML IV SCH (07:14)
[2017-11-29] MEDS ORDERED: K-DUR PO NR (07:17)
--- NOTE | 2017-11-29 07:30 | Progress Note ---
Assessment and Plan Assessment and plan: --Diabetic ketoacidosis; new onset; improved Acidosis improved, anion gap closing blood sugars reasonable level Start ADA diet as tolerated, bridge subcutaneous insulin NovoLog per sliding scale And Novolin 70/30, stop insulin drip, continue vigorous IV hydration, HbA1c 10.7 Patient is stable and downgraded to medical floor --Pseudohyponatremia; significantly improved continue to monitor --Hypokalemia; replenished per protocol --Hypomagnesemia/hypophosphatemia; replenished per protocol and monitor levels --Leukocytosis; probably secondary to severe dehydration; Resolved --Coffee-ground emesis/upper GI bleeding; hemodynamically stable H&H stable, pending GI evaluation --Acute pancreatitis; patient has history of recurrent pancreatitis, IV fluids supportive care, resolved,Amylase lipase within normal limits --Morbid obesity; BMI 39.5, counseling done and advised diet modification and exercise as tolerated and weight reduction when medically stable --Ongoing tobacco use; smoking cessation counseling done that in patch as needed --History of alcohol use ; strongly advised to quit alcohol intake ----DVT prophylaxis; Lovenox Closely monitor for any alcohol withdrawal symptoms and manage accordingly . Follow consults and recommendations Plan of care is reviewed with the patient and her nurse Total critical care time 35 minutes History Interval history: Patient seen and examined in the ER awaiting bed assignment Admitted with DKA, blood sugars are reasonable, anion gap Closing, metabolic acidosis significantly improved Patient feels better asked for food Alert awake oriented 3 Vital signs reviewed Hospitalist Physical - Constitutional Vitals: Temp Pulse Resp BP Pulse Ox 97.7 F 87 14 120/70 94 11/29/17 00:00 11/29/17 07:00 11/29/17 07:00 11/29/17 07:00 11/29/17 07:00 General appearance: Present: no acute distress, obese - EENT Eyes: Present: PERRL, EOM intact ENT: hearing intact, clear oral mucosa - Neck Neck: Present: supple, normal ROM - Respiratory Respiratory effort: normal Respiratory: negative: rales, rhonchi, wheezing - Cardiovascular Rhythm: regular Heart Sounds: Present: S1 & S2 - Extremities Extremities: no ischemia, No edema - Abdominal General gastrointestinal: soft, non-tender, non-distended, normal bowel sounds - Integumentary Integumentary: Present: clear, warm - Psychiatric Psychiatric: appropriate mood/affect, cooperative - Neurologic Neurologic: CNII-XII intact, moves all extremities Results - Labs CBC & Chem 7: 11/29/17 04:01 11/29/17 08:13 Labs: Laboratory Last Values WBC 8.7 K/mm3 (4.5-11.0) 11/29/17 04:01 RBC 4.21 M/mm3 (3.65-5.03) 11/29/17 04:01 Hgb 12.7 gm/dl (10.1-14.3) 11/29/17 04:01 Hct 38.0 % (30.3-42.9) D 11/29/17 04:01 MCV 90 fl (79-97) 11/29/17 04:01 MCH 30 pg (28-32) 11/29/17 04:01 MCHC 34 % (30-34) 11/29/17 04:01 RDW 14.2 % (13.2-15.2) 11/29/17 04:01 Plt Count 195 K/mm3 (140-440) 11/29/17 04:01 Lymph % (Auto) 8.6 % (13.4-35.0) L 11/29/17 04:01 [place] % (Auto) 6.2 % (0.0-7.3) 11/29/17 04:01 Eos % (Auto) 0.3 % (0.0-4.3) 11/29/17 04:01 Baso % (Auto) 0.2 % (0.0-1.8) 11/29/17 04:01 Lymph # 0.8 K/mm3 (1.2-5.4) L 11/29/17 04:01 [place] # 0.5 K/mm3 (0.0-0.8) 11/29/17 04:01 Eos # 0.0 K/mm3 (0.0-0.4) 11/29/17 04:01 Baso # 0.0 K/mm3 (0.0-0.1) 11/29/17 04:01 Seg Neutrophils % 84.7 % (40.0-70.0) H 11/29/17 04:01 Seg Neutrophils # 7.4 K/mm3 (1.8-7.7) 11/29/17 04:01 PT 16.1 Sec. (12.2-14.9) H 11/28/17 08:09 INR 1.22 (0.87-1.13) H 11/28/17 08:09 APTT 31.2 Sec. (24.2-36.6) 11/28/17 08:09 Sodium 134 mmol/L (137-145) L 11/29/17 04:01 Potassium 3.4 mmol/L (3.6-5.0) L 11/29/17 04:01 Chloride 99.3 mmol/L (98-107) 11/29/17 04:01 Carbon Dioxide 13 mmol/L (22-30) L 11/29/17 04:01 Anion Gap 25 mmol/L 11/29/17 04:01 BUN 16 mg/dL (7-17) 11/29/17 04:01 Creatinine 0.6 mg/dL (0.7-1.2) L 11/29/17 04:01 Estimated GFR > 60 ml/min 11/29/17 04:01 BUN/Creatinine Ratio 27 % 11/29/17 04:01 Glucose 175 mg/dL (65-100) H 11/29/17 04:01 POC Glucose 180 (70-105) H 11/28/17 18:55 Hemoglobin A1c 10.7 % (4-6) H 11/28/17 16:27 Lactic Acid 1.40 mmol/L (0.7-2.0) 11/28/17 09:00 Calcium 7.2 mg/dL (8.4-10.2) L 11/29/17 04:01 Phosphorus 2.40 mg/dL (2.5-4.5) L D 11/29/17 04:01 Magnesium 1.60 mg/dL (1.7-2.3) L 11/29/17 04:01 Total Bilirubin 0.80 mg/dL (0.1-1.2) 11/28/17 08:09 Direct Bilirubin 0.3 mg/dL (0-0.2) H 11/28/17 08:09 Indirect Bilirubin 0.5 mg/dL 11/28/17 08:09 AST 27 units/L (5-40) 11/28/17 08:09 ALT 26 units/L (7-56) 11/28/17 08:09 Alkaline Phosphatase 111 units/L (35-129) 11/28/17 08:09 Total Creatine Kinase 24 units/L (30-135) L 11/28/17 08:09 CK-MB (CK-2) 1.6 ng/mL (0.0-4.0) 11/28/17 08:09 CK-MB (CK-2) Rel Index 6.6 (0-4) H 11/28/17 08:09 Troponin T < 0.010 ng/mL (0.00-0.029) 11/28/17 16:27 NT-Pro-B Natriuret Pep 186.7 pg/mL (0-900) 11/28/17 08:09 Total Protein 9.1 g/dL (6.3-8.2) H 11/28/17 08:09 Albumin 4.3 g/dL (3.9-5) 11/28/17 08:09 Albumin/Globulin Ratio 0.9 % 11/28/17 08:09 Lipase 182 units/L (13-60) H 11/28/17 09:30 Urine Color Yellow (Yellow) 11/28/17 21:36 Urine Turbidity Clear (Clear) 11/28/17 21:36 Urine pH 5.0 (5.0-7.0) 11/28/17 21:36 Ur Specific [place] 1.023 (1.003-1.030) 11/28/17 21:36 Urine Protein 100 mg/dl mg/dL (Negative) 11/28/17 21:36 Urine Glucose (UA) 150 mg/dL (Negative) 11/28/17 21:36 Urine Ketones 80 mg/dL (Negative) 11/28/17 21:36 Urine Blood Sm (Negative) 11/28/17 21:36 Urine Nitrite Neg (Negative) 11/28/17 21:36 Urine Bilirubin Neg (Negative) 11/28/17 21:36 Urine Urobilinogen < 2.0 mg/dL (<2.0) 11/28/17 21:36 Ur Leukocyte Esterase Neg (Negative) 11/28/17 21:36 Urine WBC (Auto) 3.0 /HPF (0.0-6.0) 11/28/17 21:36 Urine RBC (Auto) 6.0 /HPF (0.0-6.0) 04/08/18 21:36 U Epithel Cells (Auto) 7.0 /HPF (0-13.0) 11/28/17 21:36 Urine Bacteria (Auto) 1+ /HPF (Negative) 11/28/17 21:36 Urine Mucus Few /HPF 11/28/17 21:36 Blood Type O POSITIVE 11/28/17 08:48 Antibody Screen Negative 11/28/17 08:48
[2017-11-29] MEDS ORDERED: MAGNESIUM SULFATE 2GM/50ML 2 GM/50 ML BAG IV NR (08:00)
[2017-11-29 08:56] LABS: BUN/Creatinine Ratio 23; Blood Urea Nitrogen 14 mg/dL (7-17); Calcium 7.3 mg/dL (8.4-10.2); Hemolysis Index 36; Lipase 52 units/L (13-60)
[2017-11-29] MEDS: HumaLOG SUB-Q SCH ×4 (09:15→22:42)
--- NOTE | 2017-11-29 10:56 | Consultation ---
History of Present Illness Consult date: 11/29/17 Requesting physician: BHARAT FREEMAN Reason for consult: other (DKA) History of present illness: PULMONARY/CCM CONSULT NOTE (Full dictation # ) Please see dictated notes for full details Past History Past Medical History: COPD, hypertension, liver disease, other (recurrent pancreatitis, depression). denies: diabetes Past Surgical History: Other (tubal ligation) Social history: lives with family, smoking, alcohol abuse, full code. denies: IV drug use Family history: hypertension Medications and Allergies Allergies Allergy/AdvReac Type Severity Reaction Status Date / Time No Known Allergies Allergy Verified 02/17/17 08:18 Home Medications Medication Instructions Recorded Confirmed Last Taken Type Hydrochlorothiazide [HCTZ] 25 mg PO QDAY #30 tablet 01/24/17 11/28/17 Unknown Rx Multivitamin Tab [Multiple Vitamin 1 each PO QDAY #30 tablet 01/24/17 11/28/17 Unknown Rx TAB (Theragran)] Sertraline [Zoloft] 50 mg PO QDAY #30 tablet 01/24/17 11/28/17 Unknown Rx amLODIPine [Norvasc] 10 mg PO DAILY #30 tablet 01/24/17 11/28/17 Unknown Rx traZODone [Desyrel] 50 mg PO QHS #30 tablet 01/24/17 11/28/17 Unknown Rx Ondansetron [Zofran INJ] 4 mg PO Q4H PRN #30 vial 02/25/17 11/28/17 Unknown Rx oxyCODONE /ACETAMINOPHEN [Percocet 1 tab PO Q6HR PRN #20 tablet 02/25/17 Unknown Rx 5/325 mg] Active Meds: Active Medications Amlodipine Besylate (Norvasc) 10 mg PO DAILY GRZEGORZ Dextrose (D50w (25gm) Syringe) 0 ml IV ONCE PRN PRN Reason: Hypoglycemia Sodium Bicarbonate 50 meq/Potassium Chloride 10 meq/Sodium Chloride 1,055 mls @ 125 mls/hr IV DIRECT GRZEGORZ Dextrose/Sodium Chloride (D5ns) 1,000 mls @ 100 mls/hr IV DIRECT GRZEGORZ Last Admin: 11/28/17 20:30 Dose: 100 mls/hr Insulin Human Isoph/Insulin Regular (Humulin 70/30) 10 unit SUB-Q BIDDIAB GRZEGORZ Last Admin: 11/29/17 09:15 Dose: 10 unit Insulin Human Lispro (Humalog) 0 unit SUB-Q ACHS GRZEGORZ; Protocol Last Admin: 11/29/17 09:15 Dose: Not Given Ondansetron HCl (Zofran) 4 mg IV Q4H PRN PRN Reason: Nausea And Vomiting Last Admin: 11/29/17 03:58 Dose: 4 mg Oxycodone/Acetaminophen (Percocet 5/325) 1 tab PO Q6H PRN PRN Reason: Pain, Moderate (4-6) Last Admin: 11/28/17 22:45 Dose: 1 tab Sertraline HCl (Zoloft) 50 mg PO QDAY GRZEGORZ Trazodone HCl (Desyrel) 50 mg PO QHS GRZEGORZ Last Admin: 11/28/17 23:40 Dose: Not Given Physical Examination Vital signs: Vital Signs Temp Pulse Resp BP Pulse Ox 97.4 F L 111 H 32 H 130/93 100 11/28/17 07:50 11/28/17 07:50 11/28/17 07:50 11/28/17 07:50 11/28/17 07:50 Results - Laboratory Findings CBC and BMP: 11/29/17 04:01 11/29/17 08:13 PT/INR, D-dimer PT 16.1 Sec. (12.2-14.9) H 11/28/17 08:09 INR 1.22 (0.87-1.13) H 11/28/17 08:09 Abnormal lab findings: Abnormal Labs 11/28/17 11/28/17 11/28/17 08:09 08:09 08:09 WBC 15.9 H RBC 5.06 H Hgb 15.1 H Hct 46.8 H Lymph % (Auto) 6.5 L Lymph # 1.0 L Gage # 0.9 H Seg Neutrophils % 87.8 H Seg Neutrophils # 14.0 H PT 16.1 H INR 1.22 H Sodium 124 L Potassium Chloride 75.8 L Carbon Dioxide 7 L* BUN 25 H Creatinine Glucose 642 H* POC Glucose Hemoglobin A1c Calcium Phosphorus Magnesium Direct Bilirubin Total Creatine Kinase CK-MB (CK-2) Rel Index Total Protein Lipase 11/28/17 11/28/17 11/28/17 08:09 09:30 09:30 WBC RBC Hgb Hct Lymph % (Auto) Lymph # Gage # Seg Neutrophils % Seg Neutrophils # PT INR Sodium 122 L Potassium 5.3 H Chloride 74.8 L Carbon Dioxide 6 L* BUN 26 H Creatinine Glucose 629 H* POC Glucose Hemoglobin A1c Calcium Phosphorus 4.70 H Magnesium 2.40 H Direct Bilirubin 0.3 H Total Creatine Kinase 24 L CK-MB (CK-2) Rel Index 6.6 H Total Protein 9.1 H Lipase 11/28/17 11/28/17 11/28/17 09:30 11:05 13:03 WBC RBC Hgb Hct Lymph % (Auto) Lymph # Gage # Seg Neutrophils % Seg Neutrophils # PT INR Sodium 123 L Potassium 5.5 H Chloride 77.9 L Carbon Dioxide 6 L* BUN 28 H Creatinine Glucose 595 H* POC Glucose 307 H Hemoglobin A1c Calcium Phosphorus Magnesium Direct Bilirubin Total Creatine Kinase CK-MB (CK-2) Rel Index Total Protein Lipase 182 H 11/28/17 11/28/17 11/28/17 14:04 15:03 16:09 WBC RBC Hgb Hct Lymph % (Auto) Lymph # Gage # Seg Neutrophils % Seg Neutrophils # PT INR Sodium Potassium Chloride Carbon Dioxide BUN Creatinine Glucose POC Glucose 290 H 247 H 234 H Hemoglobin A1c Calcium Phosphorus Magnesium Direct Bilirubin Total Creatine Kinase CK-MB (CK-2) Rel Index Total Protein Lipase 11/28/17 11/28/17 11/28/17 16:27 16:27 17:08 WBC RBC Hgb Hct Lymph % (Auto) Lymph # Gage # Seg Neutrophils % Seg Neutrophils # PT INR Sodium 127 L Potassium Chloride 88.1 L Carbon Dioxide 8 L* BUN 24 H Creatinine Glucose 253 H POC Glucose 220 H Hemoglobin A1c 10.7 H Calcium Phosphorus 1.80 L D Magnesium Direct Bilirubin Total Creatine Kinase CK-MB (CK-2) Rel Index Total Protein Lipase 11/28/17 11/28/17 11/28/17 18:25 18:55 20:36 WBC RBC Hgb Hct Lymph % (Auto) Lymph # Gage # Seg Neutrophils % Seg Neutrophils # PT INR Sodium Potassium Chloride Carbon Dioxide BUN Creatinine Glucose POC Glucose 181 H 180 H 185 H Hemoglobin A1c Calcium Phosphorus Magnesium Direct Bilirubin Total Creatine Kinase CK-MB (CK-2) Rel Index Total Protein Lipase 11/28/17 11/28/17 11/28/17 20:56 22:21 23:38 WBC RBC Hgb Hct Lymph % (Auto) Lymph # Gage # Seg Neutrophils % Seg Neutrophils # PT INR Sodium 132 L Potassium Chloride 93.4 L Carbon Dioxide 12 L BUN 22 H Creatinine Glucose 213 H POC Glucose 220 H 186 H Hemoglobin A1c Calcium 7.9 L Phosphorus Magnesium Direct Bilirubin Total Creatine Kinase CK-MB (CK-2) Rel Index Total Protein Lipase 11/29/17 11/29/17 11/29/17 00:54 01:32 02:33 WBC RBC Hgb Hct Lymph % (Auto) Lymph # Gage # Seg Neutrophils % Seg Neutrophils # PT INR Sodium 132 L Potassium Chloride Carbon Dioxide 13 L BUN 18 H Creatinine 0.6 L Glucose 156 H POC Glucose 172 H 162 H Hemoglobin A1c Calcium 7.2 L Phosphorus Magnesium Direct Bilirubin Total Creatine Kinase CK-MB (CK-2) Rel Index Total Protein Lipase 11/29/17 11/29/17 11/29/17 04:01 04:01 04:24 WBC RBC Hgb Hct Lymph % (Auto) 8.6 L Lymph # 0.8 L Gage # Seg Neutrophils % 84.7 H Seg Neutrophils # PT INR Sodium 134 L Potassium 3.4 L Chloride Carbon Dioxide 13 L BUN Creatinine 0.6 L Glucose 175 H POC Glucose 196 H Hemoglobin A1c Calcium 7.2 L Phosphorus 2.40 L D Magnesium 1.60 L Direct Bilirubin Total Creatine Kinase CK-MB (CK-2) Rel Index Total Protein Lipase 11/29/17 11/29/17 11/29/17 05:46 07:15 08:13 WBC RBC Hgb Hct Lymph % (Auto) Lymph # Gage # Seg Neutrophils % Seg Neutrophils # PT INR Sodium 131 L Potassium 3.5 L Chloride Carbon Dioxide 14 L BUN Creatinine 0.6 L Glucose 143 H POC Glucose 135 H 164 H Hemoglobin A1c Calcium 7.3 L Phosphorus Magnesium Direct Bilirubin Total Creatine Kinase CK-MB (CK-2) Rel Index Total Protein Lipase 11/29/17 09:12 WBC RBC Hgb Hct Lymph % (Auto) Lymph # Gage # Seg Neutrophils % Seg Neutrophils # PT INR Sodium Potassium Chloride Carbon Dioxide BUN Creatinine Glucose POC Glucose 160 H Hemoglobin A1c Calcium Phosphorus Magnesium Direct Bilirubin Total Creatine Kinase CK-MB (CK-2) Rel Index Total Protein Lipase
[2017-11-29] MEDS: NORVASC PO SCH (14:27)
[2017-11-29] MEDS: PERCOCET 5/325 PO PRN (14:28)
[2017-11-29] MEDS: ZOLOFT PO SCH (14:29)
[2017-11-29] MEDS: DESYREL PO SCH (21:50)
--- NOTE | 2017-11-29 22:02 | Consultation ---
REFERRING PHYSICIAN: Jyoti Medina MD. Referring physician: Jyoti Medina. INDICATION: 1. Abdominal pain. 2. Coffee ground emesis. HISTORY OF PRESENT ILLNESS: The patient is a 57-year-old white female with history of reported pancreatitis due to alcohol abuse, COPD, hypertension, who presents for upper GI symptoms. The patient reports no history of known diabetes. The patient reports over the last couple of days, she has been having recurrent nausea, vomiting with weakness. She reported she started noting some coffee material. She reports also some mid abdominal pain. She denies any rectal bleeding or melena. The patient subsequently came to the Emergency Room where she was noted to have a blood glucose of over 600 and noted to be in diabetic ketoacidosis. She subsequently admitted and put on insulin drip. GI is consulted to aid in management. The patient does have a history of alcohol abuse. Denies any other specific complaints. It is hard to get a full history as to when patient was last drinking. PAST MEDICAL HISTORY: 1. COPD. 2. Hypertension. 3. Pancreatitis. 4. Depression. PAST SURGICAL HISTORY: Status post tubal ligation. MEDICATIONS: See chart. ALLERGIES: No known drug allergies. SOCIAL HISTORY: Positive alcohol abuse. Positive smoker. FAMILY HISTORY: Negative for colon cancer, IBD, or liver disease. REVIEW OF SYSTEMS: GENERAL: Reports mild weakness. HEENT: No visual complaints or tinnitus. PULMONARY: Denies shortness of breath. CARDIOVASCULAR: Denies chest pain. GASTROINTESTINAL: Reports abdominal pain and nausea. All points of 13-point review of systems otherwise negative. PHYSICAL EXAMINATION: VITAL SIGNS: Temperature of 98.8, pulse 80, respirations 17, blood pressure 132/70. GENERAL: Fairly nourished white female in mild distress. HEENT: Pupils equal, round and reactive to light and accommodation. Extraocular muscles intact. PULMONARY: Clear to auscultation bilaterally. CARDIOVASCULAR: Regular rhythm. Normal S1, S2. ABDOMEN: Positive bowel sounds, soft. SKIN: No obvious rashes. LABORATORY DATA: Pertinent for white count of 8.7, hematocrit 12.7 and 38.0, and platelet count of 195. Chem-7 pertinent for sodium of 131, potassium 3.5, chloride 100, CO2 14, BUN and creatinine of 14 and 0.6. LFTs within normal limits. Lipase of 182. ASSESSMENT AND PLAN: A 57-year-old female with past medical history as noted above with recurrent pancreatitis secondary to alcohol abuse, now presents with nausea, vomiting, abdominal pain and noted to be in diabetic ketoacidosis with reported complaints of coffee emesis. The patient reports that she has had no more signs of bleeding. She reports she is now feeling better with hydration. I suspect that her coffee ground emesis may be related to Aissatou-Johnson tear given no nausea, vomiting. Management is noted below. PLAN: 1. Diabetic and DKA. Management per primary team. 2. Hydrate. 3. Follow H and H and transfuse if necessary. 4. PPI IV b.i.d. 5. No plans for EGD at this time. 6. We will start p.o. based on progress. 7. We will follow. JOB# [id number] GERALDO/MAURI MARTINEZ
[2017-11-30] MEDS: D5NS 1,000 ML IV SCH ×2 (01:15→23:12)
[2017-11-30 06:54] LABS: Basophils % (Auto) 0.3 % (0.0-1.8); Eosinophils % (Auto) 0.5 % (0.0-4.3); Hematocrit 37.6 % (30.3-42.9); Hemoglobin 12.7 gm/dl (10.1-14.3); Lymphocytes # (Auto) 0.5 K/mm3 (1.2-5.4); Lymphocytes % (Auto) 11.1 % (13.4-35.0); Mean Corpuscular HGB Conc 34 % (30-34); Mean Corpuscular Hemoglobin 31 pg (28-32); Mean Corpuscular Volume 91 fl (79-97); Monocytes # (Auto) 0.3 K/mm3 (0.0-0.8); Platelet Count 176 K/mm3 (140-440); Red Blood Count 4.14 M/mm3 (3.65-5.03); Red Cell Distribution Width 14.5 % (13.2-15.2)
--- NOTE | 2017-11-30 07:05 | Progress Note ---
Assessment and Plan Assessment and plan: --Diabetic ketoacidosis; resolved Continue subcutaneous insulin, IV hydration, closely monitor electrolytes --Type 2 diabetes mellitus; new onset, sugars are uncontrolled, increase Novolin 70/30 dose Accu-Chek sliding scale coverage, A1c 10.7, diabetic education, nutritional education, home health nurse at [facility] --Pseudohyponatremia; significantly improved continue to monitor --Hypokalemia; replenished per protocol --Hypomagnesemia/hypophosphatemia; replenished per protocol and monitor levels --Leukocytosis; probably secondary to severe dehydration; Resolved --Coffee-ground emesis/upper GI bleeding; hemodynamically stable H&H stable, pending GI evaluation --Acute pancreatitis; patient has history of recurrent pancreatitis, IV fluids supportive care, resolved,Amylase lipase within normal limits --Morbid obesity; BMI 39.5, counseling done and advised diet modification and exercise as tolerated and weight reduction when medically stable --Ongoing tobacco use; smoking cessation counseling done that in patch as needed --History of alcohol use ; strongly advised to quit alcohol intake ----DVT prophylaxis; Lovenox Closely monitor for any alcohol withdrawal symptoms and manage accordingly . Follow consults and recommendations Plan of care is reviewed with the patient and her nurse Total critical care time 35 minutes Disposition; may discharge home tomorrow with home health is stable History Interval history: 57-year-old female patient was admitted with diabetic ketoacidosis managed per DKA protocol Today's comfortable that she was reasonable control, off insulin drip, On examination patient is comfortable no new complaints Vital signs reviewed Denies nausea vomiting or abdominal pain Blood sugars are reasonable level Hospitalist Physical - Constitutional Vitals: Temp Pulse Resp BP Pulse Ox 98.6 F 77 18 97/50 97 11/29/17 23:01 11/29/17 23:01 11/29/17 23:01 11/29/17 23:01 11/29/17 23:01 General appearance: Present: no acute distress, well-nourished, obese - EENT Eyes: Present: PERRL, EOM intact - Neck Neck: Present: supple, normal ROM - Respiratory Respiratory effort: normal Respiratory: negative: rales, rhonchi, wheezing - Cardiovascular Rhythm: regular Heart Sounds: Present: S1 & S2 - Extremities Extremities: no ischemia, No edema Peripheral Pulses: within normal limits - Abdominal General gastrointestinal: soft, non-tender, non-distended, normal bowel sounds - Integumentary Integumentary: Present: clear, warm - Psychiatric Psychiatric: appropriate mood/affect, cooperative - Neurologic Neurologic: CNII-XII intact, moves all extremities Results - Labs CBC & Chem 7: 11/30/17 06:13 11/30/17 06:13 Labs: Laboratory Last Values WBC 4.8 K/mm3 (4.5-11.0) 11/30/17 06:13 RBC 4.14 M/mm3 (3.65-5.03) 11/30/17 06:13 Hgb 12.7 gm/dl (10.1-14.3) 11/30/17 06:13 Hct 37.6 % (30.3-42.9) 11/30/17 06:13 MCV 91 fl (79-97) 11/30/17 06:13 MCH 31 pg (28-32) 11/30/17 06:13 MCHC 34 % (30-34) 11/30/17 06:13 RDW 14.5 % (13.2-15.2) 11/30/17 06:13 Plt Count 176 K/mm3 (140-440) 11/30/17 06:13 Lymph % (Auto) 11.1 % (13.4-35.0) L 11/30/17 06:13 [place] % (Auto) 7.0 % (0.0-7.3) 11/30/17 06:13 Eos % (Auto) 0.5 % (0.0-4.3) 11/30/17 06:13 Baso % (Auto) 0.3 % (0.0-1.8) 11/30/17 06:13 Lymph # 0.5 K/mm3 (1.2-5.4) L 11/30/17 06:13 [place] # 0.3 K/mm3 (0.0-0.8) 11/30/17 06:13 Eos # 0.0 K/mm3 (0.0-0.4) 11/30/17 06:13 Baso # 0.0 K/mm3 (0.0-0.1) 11/30/17 06:13 Seg Neutrophils % 81.1 % (40.0-70.0) H 11/30/17 06:13 Seg Neutrophils # 3.9 K/mm3 (1.8-7.7) 11/30/17 06:13 PT 16.1 Sec. (12.2-14.9) H 11/28/17 08:09 INR 1.22 (0.87-1.13) H 11/28/17 08:09 APTT 31.2 Sec. (24.2-36.6) 11/28/17 08:09 Sodium 131 mmol/L (137-145) L 11/29/17 08:13 Potassium 3.5 mmol/L (3.6-5.0) L 11/29/17 08:13 Chloride 100.5 mmol/L (98-107) 11/29/17 08:13 Carbon Dioxide 14 mmol/L (22-30) L 11/29/17 08:13 Anion Gap 20 mmol/L 11/29/17 08:13 BUN 14 mg/dL (7-17) 11/29/17 08:13 Creatinine 0.6 mg/dL (0.7-1.2) L 11/29/17 08:13 Estimated GFR > 60 ml/min 11/29/17 08:13 BUN/Creatinine Ratio 23 % 11/29/17 08:13 Glucose 143 mg/dL (65-100) H 11/29/17 08:13 POC Glucose 241 (70-105) H 11/30/17 06:00 Hemoglobin A1c 10.7 % (4-6) H 11/28/17 16:27 Lactic Acid 1.40 mmol/L (0.7-2.0) 11/28/17 09:00 Calcium 7.3 mg/dL (8.4-10.2) L 11/29/17 08:13 Phosphorus 2.40 mg/dL (2.5-4.5) L D 11/29/17 04:01 Magnesium 1.60 mg/dL (1.7-2.3) L 11/29/17 04:01 Total Bilirubin 0.80 mg/dL (0.1-1.2) 11/28/17 08:09 Direct Bilirubin 0.3 mg/dL (0-0.2) H 11/28/17 08:09 Indirect Bilirubin 0.5 mg/dL 11/28/17 08:09 AST 27 units/L (5-40) 11/28/17 08:09 ALT 26 units/L (7-56) 11/28/17 08:09 Alkaline Phosphatase 111 units/L (35-129) 11/28/17 08:09 Total Creatine Kinase 24 units/L (30-135) L 11/28/17 08:09 CK-MB (CK-2) 1.6 ng/mL (0.0-4.0) 11/28/17 08:09 CK-MB (CK-2) Rel Index 6.6 (0-4) H 11/28/17 08:09 Troponin T < 0.010 ng/mL (0.00-0.029) 11/28/17 16:27 NT-Pro-B Natriuret Pep 186.7 pg/mL (0-900) 11/28/17 08:09 Total Protein 9.1 g/dL (6.3-8.2) H 11/28/17 08:09 Albumin 4.3 g/dL (3.9-5) 11/28/17 08:09 Albumin/Globulin Ratio 0.9 % 11/28/17 08:09 Amylase 59 units/L (27-131) 11/29/17 08:13 Lipase 52 units/L (13-60) 11/29/17 08:13 Urine Color Yellow (Yellow) 11/28/17 21:36 Urine Turbidity Clear (Clear) 11/28/17 21:36 Urine pH 5.0 (5.0-7.0) 11/28/17 21:36 Ur Specific [place] 1.023 (1.003-1.030) 11/28/17 21:36 Urine Protein 100 mg/dl mg/dL (Negative) 11/28/17 21:36 Urine Glucose (UA) 150 mg/dL (Negative) 11/28/17 21:36 Urine Ketones 80 mg/dL (Negative) 11/28/17 21:36 Urine Blood Sm (Negative) 11/28/17 21:36 Urine Nitrite Neg (Negative) 11/28/17 21:36 Urine Bilirubin Neg (Negative) 11/28/17 21:36 Urine Urobilinogen < 2.0 mg/dL (<2.0) 11/28/17 21:36 Ur Leukocyte Esterase Neg (Negative) 11/28/17 21:36 Urine WBC (Auto) 3.0 /HPF (0.0-6.0) 11/28/17 21:36 Urine RBC (Auto) 6.0 /HPF (0.0-6.0) 11/28/17 21:36 U Epithel Cells (Auto) 7.0 /HPF (0-13.0) 11/28/17 21:36 Urine Bacteria (Auto) 1+ /HPF (Negative) 11/28/17 21:36 Urine Mucus Few /HPF 11/28/17 21:36 Blood Type O POSITIVE 11/28/17 08:48 Antibody Screen Negative 11/28/17 08:48
[2017-11-30 07:10] LABS: BUN/Creatinine Ratio 15; Blood Urea Nitrogen 6 mg/dL (7-17); Calcium 7.4 mg/dL (8.4-10.2); Hemolysis Index 5
[2017-11-30] MEDS: NORVASC PO SCH (09:14)
[2017-11-30] MEDS: ZOLOFT PO SCH (09:18)
[2017-11-30] MEDS: PHOS-NAK PO SCH ×2 (09:19→22:40)
[2017-11-30] MEDS: HumaLOG SUB-Q SCH ×4 (09:23→23:11)
[2017-11-30] MEDS ORDERED: KPHOS 40 MMOL in NACL 0.9% 500 ML 500 ML IV ONE (10:00)
[2017-11-30] MEDS: ALUM-MAG HYDROX-SIMETH 200-200-20MG/5ML PO PRN (14:11)
[2017-11-30] MEDS: PROTONIX PO SCH (14:12)
[2017-11-30] MEDS: ZOFRAN IV PRN (14:13)
[2017-11-30] MEDS: PERCOCET 5/325 PO PRN (16:00)
--- NOTE | 2017-11-30 19:29 | Gastroenterology Progress Note ---
Assessment and Plan GI: no further signs bleeding - h/h stable - no plans to scope at this time - DM management per primary team - ok to d/c from GI standpoint - will sign off, call if needed Subjective Date of service: 11/30/17 Interval history: - reports no signs bleeding overnight Objective - Constitutional Vitals: Temp Pulse Resp BP Pulse Ox 98.0 F 73 20 126/70 96 11/30/17 15:52 11/30/17 15:52 11/30/17 15:52 11/30/17 15:52 11/30/17 15:52 General appearance: no acute distress - EENT Eyes: PERRL - Respiratory Respiratory: bilateral: CTA - Cardiovascular Rhythm: regular Heart Sounds: Present: S1 & S2 - Gastrointestinal General gastrointestinal: Present: soft, non-tender, non-distended - Labs CBC & Chem 7: 11/30/17 06:13 11/30/17 06:13 Labs: Laboratory Results - last 24 hr 11/29/17 11/30/17 11/30/17 21:53 06:00 06:13 WBC 4.8 RBC 4.14 Hgb 12.7 Hct 37.6 MCV 91 MCH 31 MCHC 34 RDW 14.5 Plt Count 176 Lymph % (Auto) 11.1 L [place] % (Auto) 7.0 Eos % (Auto) 0.5 Baso % (Auto) 0.3 Lymph # 0.5 L [place] # 0.3 Eos # 0.0 Baso # 0.0 Seg Neutrophils % 81.1 H Seg Neutrophils # 3.9 Sodium Potassium Chloride Carbon Dioxide Anion Gap BUN Creatinine Estimated GFR BUN/Creatinine Ratio Glucose POC Glucose 210 H 241 H Calcium Phosphorus Magnesium 11/30/17 11/30/17 11/30/17 06:13 12:03 16:02 WBC RBC Hgb Hct MCV MCH MCHC RDW Plt Count Lymph % (Auto) [place] % (Auto) Eos % (Auto) Baso % (Auto) Lymph # [place] # Eos # Baso # Seg Neutrophils % Seg Neutrophils # Sodium 136 L Potassium 3.4 L Chloride 101.7 Carbon Dioxide 16 L Anion Gap 22 BUN 6 L Creatinine 0.4 L Estimated GFR > 60 BUN/Creatinine Ratio 15 Glucose 275 H POC Glucose 211 H 231 H Calcium 7.4 L Phosphorus 1.10 L D Magnesium 1.80
--- NOTE | 2017-11-30 19:35 | Progress Note ---
Assessment and Plan --Diabetic ketoacidosis; --Pseudohyponatremia; --Coffee-ground emesis/upper GI bleeding --Acute pancreatitis; --Morbid obesity; --Ongoing tobacco use/Nicotine dependence --History of alcohol use disorder -Continue with glycemic control, steady carb diet -Nicotine withdrawal precautions -VTE prophylaxis -replete electrolytes per protocol -Alcohol abuse counselling -Tobacco abuse counselling Subjective Date of service: 11/30/17 Principal diagnosis: Diabetic ketoacidosis Objective - Exam Narrative Exam: General appearance: Present: no acute distress, obese - EENT Eyes: Present: PERRL, EOM intact ENT: hearing intact, clear oral mucosa - Neck Neck: Present: supple, normal ROM - Respiratory Respiratory effort: normal Respiratory: negative: rales, rhonchi, wheezing - Cardiovascular Rhythm: regular Heart Sounds: Present: S1 & S2 - Extremities Extremities: no ischemia, No edema - Abdominal General gastrointestinal: soft, non-tender, non-distended, normal bowel sounds - Integumentary Integumentary: Present: clear, warm - Psychiatric Psychiatric: appropriate mood/affect, cooperative - Neurologic Neurologic: CNII-XII intact, moves all extremities Vital Signs - 12hr 11/30/17 11/30/17 11/30/17 08:31 09:14 15:52 Temperature 98.3 F 98.0 F Pulse Rate 77 73 Respiratory 20 20 Rate Blood Pressure 115/58 115/58 126/70 O2 Sat by Pulse 94 96 Oximetry CBC and BMP: 11/30/17 06:13 11/30/17 06:13 ABG, PT/INR, D-dimer: PT/INR, D-dimer PT 16.1 Sec. (12.2-14.9) H 11/28/17 08:09 INR 1.22 (0.87-1.13) H 11/28/17 08:09 Abnormal lab findings: Abnormal Labs 11/28/17 11/28/17 11/28/17 08:09 08:09 08:09 WBC 15.9 H RBC 5.06 H Hgb 15.1 H Hct 46.8 H Lymph % (Auto) 6.5 L Lymph # 1.0 L [place] # 0.9 H Seg Neutrophils % 87.8 H Seg Neutrophils # 14.0 H PT 16.1 H INR 1.22 H Sodium 124 L Potassium Chloride 75.8 L Carbon Dioxide 7 L* BUN 25 H Creatinine Glucose 642 H* POC Glucose Hemoglobin A1c Calcium Phosphorus Magnesium Direct Bilirubin Total Creatine Kinase CK-MB (CK-2) Rel Index Total Protein Lipase 11/28/17 11/28/17 11/28/17 08:09 09:30 09:30 WBC RBC Hgb Hct Lymph % (Auto) Lymph # [place] # Seg Neutrophils % Seg Neutrophils # PT INR Sodium 122 L Potassium 5.3 H Chloride 74.8 L Carbon Dioxide 6 L* BUN 26 H Creatinine Glucose 629 H* POC Glucose Hemoglobin A1c Calcium Phosphorus 4.70 H Magnesium 2.40 H Direct Bilirubin 0.3 H Total Creatine Kinase 24 L CK-MB (CK-2) Rel Index 6.6 H Total Protein 9.1 H Lipase 11/28/17 11/28/17 11/28/17 09:30 11:05 13:03 WBC RBC Hgb Hct Lymph % (Auto) Lymph # [place] # Seg Neutrophils % Seg Neutrophils # PT INR Sodium 123 L Potassium 5.5 H Chloride 77.9 L Carbon Dioxide 6 L* BUN 28 H Creatinine Glucose 595 H* POC Glucose 307 H Hemoglobin A1c Calcium Phosphorus Magnesium Direct Bilirubin Total Creatine Kinase CK-MB (CK-2) Rel Index Total Protein Lipase 182 H 11/28/17 11/28/17 11/28/17 14:04 15:03 16:09 WBC RBC Hgb Hct Lymph % (Auto) Lymph # [place] # Seg Neutrophils % Seg Neutrophils # PT INR Sodium Potassium Chloride Carbon Dioxide BUN Creatinine Glucose POC Glucose 290 H 247 H 234 H Hemoglobin A1c Calcium Phosphorus Magnesium Direct Bilirubin Total Creatine Kinase CK-MB (CK-2) Rel Index Total Protein Lipase 11/28/17 11/28/17 11/28/17 16:27 16:27 17:08 WBC RBC Hgb Hct Lymph % (Auto) Lymph # [place] # Seg Neutrophils % Seg Neutrophils # PT INR Sodium 127 L Potassium Chloride 88.1 L Carbon Dioxide 8 L* BUN 24 H Creatinine Glucose 253 H POC Glucose 220 H Hemoglobin A1c 10.7 H Calcium Phosphorus 1.80 L D Magnesium Direct Bilirubin Total Creatine Kinase CK-MB (CK-2) Rel Index Total Protein Lipase 11/28/17 11/28/17 11/28/17 18:25 18:55 20:36 WBC RBC Hgb Hct Lymph % (Auto) Lymph # [place] # Seg Neutrophils % Seg Neutrophils # PT INR Sodium Potassium Chloride Carbon Dioxide BUN Creatinine Glucose POC Glucose 181 H 180 H 185 H Hemoglobin A1c Calcium Phosphorus Magnesium Direct Bilirubin Total Creatine Kinase CK-MB (CK-2) Rel Index Total Protein Lipase 11/28/17 11/28/17 11/28/17 20:56 22:21 23:38 WBC RBC Hgb Hct Lymph % (Auto) Lymph # [place] # Seg Neutrophils % Seg Neutrophils # PT INR Sodium 132 L Potassium Chloride 93.4 L Carbon Dioxide 12 L BUN 22 H Creatinine Glucose 213 H POC Glucose 220 H 186 H Hemoglobin A1c Calcium 7.9 L Phosphorus Magnesium Direct Bilirubin Total Creatine Kinase CK-MB (CK-2) Rel Index Total Protein Lipase 11/29/17 11/29/17 11/29/17 00:54 01:32 02:33 WBC RBC Hgb Hct Lymph % (Auto) Lymph # [place] # Seg Neutrophils % Seg Neutrophils # PT INR Sodium 132 L Potassium Chloride Carbon Dioxide 13 L BUN 18 H Creatinine 0.6 L Glucose 156 H POC Glucose 172 H 162 H Hemoglobin A1c Calcium 7.2 L Phosphorus Magnesium Direct Bilirubin Total Creatine Kinase CK-MB (CK-2) Rel Index Total Protein Lipase 11/29/17 11/29/17 11/29/17 04:01 04:01 04:24 WBC RBC Hgb Hct Lymph % (Auto) 8.6 L Lymph # 0.8 L [place] # Seg Neutrophils % 84.7 H Seg Neutrophils # PT INR Sodium 134 L Potassium 3.4 L Chloride Carbon Dioxide 13 L BUN Creatinine 0.6 L Glucose 175 H POC Glucose 196 H Hemoglobin A1c Calcium 7.2 L Phosphorus 2.40 L D Magnesium 1.60 L Direct Bilirubin Total Creatine Kinase CK-MB (CK-2) Rel Index Total Protein Lipase 11/29/17 11/29/17 11/29/17 05:46 07:15 08:13 WBC RBC Hgb Hct Lymph % (Auto) Lymph # [place] # Seg Neutrophils % Seg Neutrophils # PT INR Sodium 131 L Potassium 3.5 L Chloride Carbon Dioxide 14 L BUN Creatinine 0.6 L Glucose 143 H POC Glucose 135 H 164 H Hemoglobin A1c Calcium 7.3 L Phosphorus Magnesium Direct Bilirubin Total Creatine Kinase CK-MB (CK-2) Rel Index Total Protein Lipase 11/29/17 11/29/17 11/29/17 09:12 11:25 12:26 WBC RBC Hgb Hct Lymph % (Auto) Lymph # [place] # Seg Neutrophils % Seg Neutrophils # PT INR Sodium Potassium Chloride Carbon Dioxide BUN Creatinine Glucose POC Glucose 160 H 110 H 127 H Hemoglobin A1c Calcium Phosphorus Magnesium Direct Bilirubin Total Creatine Kinase CK-MB (CK-2) Rel Index Total Protein Lipase 11/29/17 11/29/17 11/30/17 16:05 21:53 06:00 WBC RBC Hgb Hct Lymph % (Auto) Lymph # [place] # Seg Neutrophils % Seg Neutrophils # PT INR Sodium Potassium Chloride Carbon Dioxide BUN Creatinine Glucose POC Glucose 227 H 210 H 241 H Hemoglobin A1c Calcium Phosphorus Magnesium Direct Bilirubin Total Creatine Kinase CK-MB (CK-2) Rel Index Total Protein Lipase 11/30/17 11/30/17 11/30/17 06:13 06:13 12:03 WBC RBC Hgb Hct Lymph % (Auto) 11.1 L Lymph # 0.5 L [place] # Seg Neutrophils % 81.1 H Seg Neutrophils # PT INR Sodium 136 L Potassium 3.4 L Chloride Carbon Dioxide 16 L BUN 6 L Creatinine 0.4 L Glucose 275 H POC Glucose 211 H Hemoglobin A1c Calcium 7.4 L Phosphorus 1.10 L D Magnesium Direct Bilirubin Total Creatine Kinase CK-MB (CK-2) Rel Index Total Protein Lipase 11/30/17 16:02 WBC RBC Hgb Hct Lymph % (Auto) Lymph # [place] # Seg Neutrophils % Seg Neutrophils # PT INR Sodium Potassium Chloride Carbon Dioxide BUN Creatinine Glucose POC Glucose 231 H Hemoglobin A1c Calcium Phosphorus Magnesium Direct Bilirubin Total Creatine Kinase CK-MB (CK-2) Rel Index Total Protein Lipase
[2017-11-30] MEDS: DESYREL PO SCH (22:40)
[2017-12-01 09:12] LABS: Basophils % (Auto) 0.7 % (0.0-1.8); Eosinophils % (Auto) 0.5 % (0.0-4.3); Lymphocytes # (Auto) 0.8 K/mm3 (1.2-5.4); Mean Corpuscular HGB Conc 34 % (30-34); Mean Corpuscular Hemoglobin 30 pg (28-32); Mean Corpuscular Volume 89 fl (79-97); Monocytes # (Auto) 0.4 K/mm3 (0.0-0.8); Monocytes % (Auto) 8.6 % (0.0-7.3); Platelet Count 186 K/mm3 (140-440); Red Blood Count 4.28 M/mm3 (3.65-5.03); Red Cell Distribution Width 14.6 % (13.2-15.2)
[2017-12-01] MEDS: HumaLOG SUB-Q SCH ×4 (09:14→19:48)
[2017-12-01 09:18] VITALS: BP 134/85
[2017-12-01] MEDS: PROTONIX PO SCH (09:18)
[2017-12-01] MEDS: ZOLOFT PO SCH (09:18)
[2017-12-01] MEDS: PHOS-NAK PO SCH (09:20)
[2017-12-01] MEDS: NORVASC PO SCH (09:21)
[2017-12-01] MEDS: ALUM-MAG HYDROX-SIMETH 200-200-20MG/5ML PO PRN (09:29)
[2017-12-01] MEDS: ZOFRAN IV PRN ×2 (09:31→15:01)
[2017-12-01 09:40] LABS: BUN/Creatinine Ratio 17; Blood Urea Nitrogen 5 mg/dL (7-17); Calcium 7.8 mg/dL (8.4-10.2); Hemolysis Index 6
--- NOTE | 2017-12-01 09:45 | Progress Note ---
Hospitalist Physical - Constitutional Vitals: Temp Pulse Resp BP Pulse Ox 98.2 F 74 19 134/85 95 12/01/17 09:21 12/01/17 09:21 12/01/17 09:21 12/01/17 09:21 12/01/17 09:21 General appearance: Present: no acute distress, well-nourished, obese Results - Labs CBC & Chem 7: 12/01/17 08:21 12/01/17 08:21 Labs: Laboratory Last Values WBC 4.7 K/mm3 (4.5-11.0) 12/01/17 08:21 RBC 4.28 M/mm3 (3.65-5.03) 12/01/17 08:21 Hgb 13.0 gm/dl (10.1-14.3) 12/01/17 08:21 Hct 38.0 % (30.3-42.9) 12/01/17 08:21 MCV 89 fl (79-97) 12/01/17 08:21 MCH 30 pg (28-32) 12/01/17 08:21 MCHC 34 % (30-34) 12/01/17 08:21 RDW 14.6 % (13.2-15.2) 12/01/17 08:21 Plt Count 186 K/mm3 (140-440) 12/01/17 08:21 Lymph % (Auto) 18.0 % (13.4-35.0) 12/01/17 08:21 [place] % (Auto) 8.6 % (0.0-7.3) H 12/01/17 08:21 Eos % (Auto) 0.5 % (0.0-4.3) 12/01/17 08:21 Baso % (Auto) 0.7 % (0.0-1.8) 12/01/17 08:21 Lymph # 0.8 K/mm3 (1.2-5.4) L 12/01/17 08:21 [place] # 0.4 K/mm3 (0.0-0.8) 12/01/17 08:21 Eos # 0.0 K/mm3 (0.0-0.4) 12/01/17 08:21 Baso # 0.0 K/mm3 (0.0-0.1) 12/01/17 08:21 Seg Neutrophils % 72.2 % (40.0-70.0) H 12/01/17 08:21 Seg Neutrophils # 3.4 K/mm3 (1.8-7.7) 12/01/17 08:21 PT 16.1 Sec. (12.2-14.9) H 11/28/17 08:09 INR 1.22 (0.87-1.13) H 11/28/17 08:09 APTT 31.2 Sec. (24.2-36.6) 11/28/17 08:09 Sodium 140 mmol/L (137-145) 12/01/17 08:21 Potassium 3.4 mmol/L (3.6-5.0) L 12/01/17 08:21 Chloride 102.7 mmol/L (98-107) 12/01/17 08:21 Carbon Dioxide 21 mmol/L (22-30) L 12/01/17 08:21 Anion Gap 20 mmol/L 12/01/17 08:21 BUN 5 mg/dL (7-17) L 12/01/17 08:21 Creatinine 0.3 mg/dL (0.7-1.2) L 12/01/17 08:21 Estimated GFR > 60 ml/min 12/01/17 08:21 BUN/Creatinine Ratio 17 % 12/01/17 08:21 Glucose 227 mg/dL (65-100) H 12/01/17 08:21 POC Glucose 188 (70-105) H 12/01/17 06:02 Hemoglobin A1c 10.7 % (4-6) H 11/28/17 16:27 Lactic Acid 1.40 mmol/L (0.7-2.0) 11/28/17 09:00 Calcium 7.8 mg/dL (8.4-10.2) L 12/01/17 08:21 Phosphorus 1.60 mg/dL (2.5-4.5) L D 12/01/17 08:21 Magnesium 1.70 mg/dL (1.7-2.3) 12/01/17 08:21 Total Bilirubin 0.80 mg/dL (0.1-1.2) 11/28/17 08:09 Direct Bilirubin 0.3 mg/dL (0-0.2) H 11/28/17 08:09 Indirect Bilirubin 0.5 mg/dL 11/28/17 08:09 AST 27 units/L (5-40) 11/28/17 08:09 ALT 26 units/L (7-56) 11/28/17 08:09 Alkaline Phosphatase 111 units/L (35-129) 11/28/17 08:09 Total Creatine Kinase 24 units/L (30-135) L 11/28/17 08:09 CK-MB (CK-2) 1.6 ng/mL (0.0-4.0) 11/28/17 08:09 CK-MB (CK-2) Rel Index 6.6 (0-4) H 11/28/17 08:09 Troponin T < 0.010 ng/mL (0.00-0.029) 11/28/17 16:27 NT-Pro-B Natriuret Pep 186.7 pg/mL (0-900) 11/28/17 08:09 Total Protein 9.1 g/dL (6.3-8.2) H 11/28/17 08:09 Albumin 4.3 g/dL (3.9-5) 11/28/17 08:09 Albumin/Globulin Ratio 0.9 % 11/28/17 08:09 Amylase 59 units/L (27-131) 11/29/17 08:13 Lipase 52 units/L (13-60) 11/29/17 08:13 Urine Color Yellow (Yellow) 11/28/17 21:36 Urine Turbidity Clear (Clear) 11/28/17 21:36 Urine pH 5.0 (5.0-7.0) 11/28/17 21:36 Ur Specific [place] 1.023 (1.003-1.030) 11/28/17 21:36 Urine Protein 100 mg/dl mg/dL (Negative) 11/28/17 21:36 Urine Glucose (UA) 150 mg/dL (Negative) 11/28/17 21:36 Urine Ketones 80 mg/dL (Negative) 11/28/17 21:36 Urine Blood Sm (Negative) 11/28/17 21:36 Urine Nitrite Neg (Negative) 11/28/17 21:36 Urine Bilirubin Neg (Negative) 11/28/17 21:36 Urine Urobilinogen < 2.0 mg/dL (<2.0) 11/28/17 21:36 Ur Leukocyte Esterase Neg (Negative) 11/28/17 21:36 Urine WBC (Auto) 3.0 /HPF (0.0-6.0) 11/28/17 21:36 Urine RBC (Auto) 6.0 /HPF (0.0-6.0) 11/28/17 21:36 U Epithel Cells (Auto) 7.0 /HPF (0-13.0) 11/28/17 21:36 Urine Bacteria (Auto) 1+ /HPF (Negative) 11/28/17 21:36 Urine Mucus Few /HPF 11/28/17 21:36 Blood Type O POSITIVE 11/28/17 08:48 Antibody Screen Negative 11/28/17 08:48
[2017-12-01] MEDS: PERCOCET 5/325 PO PRN (09:54)
[2017-12-01] MEDS ORDERED: SODIUM PHOSPHATE 45 MMOL in NACL 0.9% 500 ML 500 ML IV ONE (11:00)
--- NOTE | 2017-12-01 15:11 | Discharge Summary ---
Providers - Providers Date of Admission: 11/28/17 09:38 Date of discharge: 12/01/17 Attending physician: LUIS BAILEY 11/28/17 09:12 Consult to Case Management [CONS] Routine Services Needed at Discharge: Other Notified:: betty 11/28/17 11:52 Consult to Physician [CONS] Routine Comment: DR Kareen SCHAEFFER 11/28/17 Consulting Provider: DANICA CALHOUN Physician Instructions: Reason For Exam: DKA/Critical care consult 11/28/17 11:53 Consult to Physician [CONS] Routine Comment: BLANCA Rolon/Mable NOTIFIED 1350 Consulting Provider: IVAN SALTER Physician Instructions: Reason For Exam: coffee ground emesis Primary care physician: LUIS SANCHEZ Hospitalization Condition: Fair Disposition: DC-01 TO HOME OR SELFCARE Core Measure Documentation - Palliative Care Palliative Care/ Comfort Measures: Not Applicable - Core Measures Any of the following diagnoses?: none Exam - Constitutional Vitals: Temp Pulse Resp BP Pulse Ox 98.2 F 74 19 134/85 95 12/01/17 09:21 12/01/17 09:21 12/01/17 09:21 12/01/17 09:21 12/01/17 09:21 Plan Activity: advance as tolerated Diet: low fat, low cholesterol, low salt, diabetic Additional Instructions: 1.Follow up with PCP or [facility] in 1 week. 2.Follow up with Dr. [facility] in 1 week Forms: Work/School Release Form Prescriptions: Insulin NPH/Regular [NovoLIN 70/30] 14 unit SUB-Q BIDDIAB #1 vial Pantoprazole [Protonix TAB] 40 mg PO QDAY #30 tablet Pot Phosphate/Na Phosphate [Phos-Nak] 1 each PO TID 3 Days powd.pack
== END 2017-12-01 18:30 | disposition home or self-care (01) | DRG 377 ==
LOC: ED 07:44 → CC1 09:38 → 3A 11-29 11:46
PROVIDERS: ADMIT Hospitalist; ATTEND Internal Medicine
DX: K92.2 Gastrointestinal hemorrhage, unspecified (principal); K85.90 Acute pancreatitis without necrosis or infection, unspecified; E11.10 Type 2 diabetes mellitus with ketoacidosis without coma; E87.1 Hypo-osmolality and hyponatremia; E66.01 Morbid (severe) obesity due to excess calories; I10 Essential (primary) hypertension; F32.9 Major depressive disorder, single episode, unspecified; J44.9 Chronic obstructive pulmonary disease, unspecified; K80.20 Calculus of gallbladder without cholecystitis without obstruction; F10.10 Alcohol abuse, uncomplicated; E87.6 Hypokalemia; F17.200 Nicotine dependence, unspecified, uncomplicated; Y90.9 Presence of alcohol in blood, level not specified; Z82.49 Family history of ischemic heart disease and other diseases of the circulatory system; Z98.51 Tubal ligation status; Z79.899 Other long term (current) drug therapy; Z68.31 Body mass index [BMI] 31.0-31.9, adult; Z71.3 Dietary counseling and surveillance; Z71.6 Tobacco abuse counseling
CPT/HCPCS: 36415; 71045; 80048; 80074; 81001; 82140; 82150; 82550; 82553; 82962; 83036; 83690; 83735; 83880; 84100; 84484; 85025; 85610; 85730; 86850; 86900; 86901; 87040; 87086; 93005; 93010; C9113; J1815; J2270; J2405; J2543; J3370; J3475; J3480; J7030; J7040; J7042

== ENCOUNTER 2018-09-16 08:50 | Emergency (ER) | payer OTHER ==
[2018-09-16 09:43] LABS: Basophils % (Auto) 1.2 % (0.0-1.8); Eosinophils % (Auto) 0.5 % (0.0-4.3); Hematocrit 37.9 % (30.3-42.9); Hemoglobin 12.3 gm/dl (10.1-14.3); Lymphocytes # (Auto) 0.6 K/mm3 (1.2-5.4); Lymphocytes % (Auto) 13.4 % (13.4-35.0); Mean Corpuscular HGB Conc 32 % (30-34); Mean Corpuscular Volume 84 fl (79-97); Monocytes # (Auto) 0.3 K/mm3 (0.0-0.8); Monocytes % (Auto) 6.2 % (0.0-7.3); Platelet Count 124 K/mm3 (140-440); Red Blood Count 4.51 M/mm3 (3.65-5.03); Red Cell Distribution Width 14.8 % (13.2-15.2)
[2018-09-16 10:03] LABS: Alanine Aminotransferase 13 units/L (7-56); Albumin 3.3 g/dL (3.9-5); BUN/Creatinine Ratio 10; Blood Urea Nitrogen 4 mg/dL (7-17); Hemolysis Index 89
[2018-09-16] MEDS ORDERED: ZOFRAN IV ONE ×2 (10:21→12:59)
[2018-09-16] MEDS ORDERED: PEPCID IV ONE (10:21)
[2018-09-16] MEDS ORDERED: NACL 0.9% 1000 ML 1,000 ML IV ONE (10:21)
[2018-09-16] MEDS ORDERED: DILAUDID IV ONE ×2 (10:21→12:59)
[2018-09-16] MEDS ORDERED: HumuLIN R IV ONE (10:23)
[2018-09-16] MEDS ORDERED: VITAMIN B-1 100 MG, FOLVITE 1 MG, INFUVITE 10 ML in NACL 0.9% 1000 ML 1,000 ML IV ONE (11:00)
--- NOTE | 2018-09-16 11:53 | Emergency Department Report ---
ED Abdominal Pain HPI - General Chief Complaint: Abdominal Pain Stated Complaint: DIABETIC/VOMITING Time Seen by Provider: 09/16/18 10:13 Source: patient, old records reviewed Mode of arrival: Ambulatory Limitations: No Limitations - History of Present Illness Initial Comments: 58-year-old female with a past medical history of recurrent pancreatitis, al cohol abuse, gallstones, pancreatic pseudocyst, diabetes, COPD, hypertension, depression, anxiety, ascites, a previous tubal ligation presents to the hospital complains of abdominal pain, nausea, vomiting, and by mouth intolerance to 3 days. She complains of constant epigastric abdominal pain that that is rated 10/10 and intensity and worse with palpation. Similar pain in the past with pancreatitis episodes. Patient admits to continued daily alcohol use of with last intake yesterday. She denies history of alcohol withdrawal seizures or tremors. Patient denies melena, hematochezia, hematemesis, fever, or dysuria. She complains of chronic diarrhea that is unchanged. Patient also ran out of her insulin 2 days ago and has been noncompliant. Severity scale (0 -10): 9 - Related Data Previous Rx's Medication Instructions Recorded Last Taken Type Insulin NPH/Regular [NovoLIN 70/30] 12 unit SUB-Q BIDDIAB #1 vial 05/07/18 09/13/18 Rx Allergies Allergy/AdvReac Type Severity Reaction Status Date / Time No Known Allergies Allergy Verified 09/16/18 09:12 ED Review of Systems ROS: Stated complaint: DIABETIC/VOMITING Other details as noted in HPI Comment: All other systems reviewed and negative ED Past Medical Hx - Past Medical History Hx Hypertension: Yes Hx Congestive Heart Failure: No Hx Diabetes: Yes Hx Liver Disease: Yes Hx Psychiatric Treatment: Yes (depression / insomnia) Hx Asthma: No Hx COPD: Yes Hx HIV: No Additional medical history: pancreatitis. gallstones. Ascites. Alcohol abuse - Surgical History Past Surgical History?: Yes Additional Surgical History: tubal ligation - Social History Smoking Status: Current Every Day Smoker Substance Use Type: Alcohol - Medications Home Medications: Home Medications Medication Instructions Recorded Confirmed Last Taken Type Insulin NPH/Regular [NovoLIN 70/30] 12 unit SUB-Q BIDDIAB #1 vial 05/07/1809/1609/13/18 Rx ED Physical Exam - General Limitations: No Limitations - Other Other exam information: General: No limitations, patient is alert in no acute distress Head exam: Atraumatic, normocephalic Eyes exam: Normal appearance, pupils equal reactive to light, extraocular movements intact ENT: Moist mucous membrane Neck exam: Normal inspection, full range of motion, no meningismus nontender Respiratory exam: Clear to auscultation bilateral, no wheezes, rales, crackles Cardiovascular: Tachycardic regular rhythm Abdomen: Soft, nondistended, generalized abdominal tenderness with possible rebound. Tenderness greatest in the upper abdomen. No guarding. Normal bowel sounds. Extremity: Full range of motion normal inspection no deformity Back: Normal Inspection, full range of motion, no tenderness Neurologic: Alert, oriented x3, cranial nerves intact, no motor or sensory d eficit Psychiatric: normal affect, normal mood Skin: Warm, dry, intact ED Course Vital Signs 09/16/18 09/16/18 09/16/18 08:57 11:05 12:15 Temperature 98.7 F Pulse Rate 121 H 88 Respiratory 24 18 15 Rate Blood Pressure 109/74 Blood Pressure 135/82 [Left] O2 Sat by Pulse 99 96 Oximetry ED Medical Decision Making - Lab Data Result diagrams: 09/16/18 09:30 09/16/18 09:30 Lab Results 09/16/18 09/16/18 09/16/18 Range/Units 09:00 09:30 09:30 WBC 4.1 L (4.5-11.0) K/mm3 RBC 4.51 (3.65-5.03) M/mm3 Hgb 12.3 (10.1-14.3) gm/dl Hct 37.9 (30.3-42.9) % MCV 84 (79-97) fl MCH 27 L (28-32) pg MCHC 32 (30-34) % RDW 14.8 (13.2-15.2) % Plt Count 124 L (140-440) K/mm3 Lymph % (Auto) 13.4 (13.4-35.0) % [place] % (Auto) 6.2 (0.0-7.3) % Eos % (Auto) 0.5 (0.0-4.3) % Baso % (Auto) 1.2 (0.0-1.8) % Lymph # 0.6 L (1.2-5.4) K/mm3 [place] # 0.3 (0.0-0.8) K/mm3 Eos # 0.0 (0.0-0.4) K/mm3 Baso # 0.0 (0.0-0.1) K/mm3 Seg Neutrophils % 78.7 H (40.0-70.0) % Seg Neutrophils # 3.2 (1.8-7.7) K/mm3 Sodium 136 L (137-145) mmol/L Potassium 3.6 (3.6-5.0) mmol/L Chloride 90.3 L (98-107) mmol/L Carbon Dioxide 22 (22-30) mmol/L Anion Gap 27 mmol/L BUN 4 L (7-17) mg/dL Creatinine 0.4 L (0.7-1.2) mg/dL Estimated GFR > 60 ml/min BUN/Creatinine Ratio 10 % Glucose 337 H (65-100) mg/dL POC Glucose 294 H (70-105) Calcium 8.0 L (8.4-10.2) mg/dL Total Bilirubin 1.00 (0.1-1.2) mg/dL AST 46 H (5-40) units/L ALT 13 (7-56) units/L Alkaline Phosphatase 122 (35-129) units/L Total Protein 7.5 (6.3-8.2) g/dL Albumin 3.3 L (3.9-5) g/dL Albumin/Globulin Ratio 0.8 % Lipase 84 H (13-60) units/L 09/16/ Range/Units 12:22 WBC (4.5-11.0) K/mm3 RBC (3.65-5.03) M/mm3 Hgb (10.1-14.3) gm/dl Hct (30.3-42.9) % MCV (79-97) fl MCH (28-32) pg MCHC (30-34) % RDW (13.2-15.2) % Plt Count (140-440) K/mm3 Lymph % (Auto) (13.4-35.0) % [place] % (Auto) (0.0-7.3) % Eos % (Auto) (0.0-4.3) % Baso % (Auto) (0.0-1.8) % Lymph # (1.2-5.4) K/mm3 [place] # (0.0-0.8) K/mm3 Eos # (0.0-0.4) K/mm3 Baso # (0.0-0.1) K/mm3 Seg Neutrophils % (40.0-70.0) % Seg Neutrophils # (1.8-7.7) K/mm3 Sodium (137-145) mmol/L Potassium (3.6-5.0) mmol/L Chloride (98-107) mmol/L Carbon Dioxide (22-30) mmol/L Anion Gap mmol/L BUN (7-17) mg/dL Creatinine (0.7-1.2) mg/dL Estimated GFR ml/min BUN/Creatinine Ratio % Glucose (65-100) mg/dL POC Glucose 259 H (70-105) Calcium (8.4-10.2) mg/dL Total Bilirubin (0.1-1.2) mg/dL AST (5-40) units/L ALT (7-56) units/L Alkaline Phosphatase (35-129) units/L Total Protein (6.3-8.2) g/dL Albumin (3.9-5) g/dL Albumin/Globulin Ratio % Lipase (13-60) units/L - Radiology Data Radiology results: report reviewed CT ABDOMEN PELVIS WITH CONTRAST: HISTORY: Abdominal pain, nausea and vomiting, alcohol abuse, pancreatitis. COMPARISON: 06/28/18. TECHNIQUE: Helical CT in 1.25mm intervals following IV contrast. Sagittal and coronal reconstructions. FINDINGS: Lung bases: Normal. Liver: There is moderate diffuse fatty infiltration throughout the liver. No obvious surface nodularity or mass. Biliary system: Normal. Pancreas: The pancreas is mildly atrophic with mild surrounding fat stranding. Multiple pseudocysts are identified surrounding the pancreatic bed. At least 2 irregular pseudocysts are identified. A pseudocyst in the lesser sac measures up to 11 x 5 cm in diameter. A pseudocyst adjacent to the splenic hilum measures 5.2 x 3.4 cm. There appear to be a few smaller pseudocyst posterior to the spleen measuring less than 2-3 cm. Spleen: Mild splenomegaly measures 13.2 cm. Kidneys/ureters/bladder: Normal. Adrenal glands: Normal. Aorta: There are moderate diffuse calcifications in the distal aorta. No evidence for stenosis, aneurysm or dissection. Intestines: No oral contrast was administered. There is no evidence for obstruction or focal inflammation. Appendix: Normal. Pelvic viscera: Normal. Ascites: Small perihepatic, perisplenic and pelvic ascites is identified. Adenopathy: None. Musculoskeletal: Mild thoracolumbar spondylosis. No fracture or suspicious bony lesion. IMPRESSION: There are multiple pancreatic pseudocysts as described above. Mild inflammatory changes surrounding the pancreas probably represent acute pancreatitis. Fatty infiltration of the liver. Mild splenomegaly. Small ascites. - Medical Decision Making In ED patient received medication symptomatically for pain and nausea. IVF initiated. CIWA protocol ordered. CT suggestive of acute pancreatitis with pseudocyst. Patient's hyperglycemia without signs of DKA. Insulin ordered. Will be admitted to the hospitalist treatment. Still awaiting urine collection - Differential Diagnosis pancreatitis, gastritis, ascites, alcohol withdrawal, dehydration Critical Care Time: No Critical care attestation.: If time is entered above; I have spent that time in minutes in the direct care of this critically ill patient, excluding procedure time. ED Disposition Clinical Impression: Acute pancreatitis, Diabetes mellitus with hyperglycemia, Alcohol abuse, Noncompliance with medication regimen, Thrombocytopenia Disposition: OP ADMIT IP TO THIS HOSP Is pt being admited?: Yes Condition: Stable Referrals: JULITA VERA MD [Primary Care Provider] - 3-5 Days Time of Disposition: 12:20 (Dr Miller/hosp)
--- NOTE | 2018-09-16 12:13 | Cat Scan Report ---
CT ABDOMEN PELVIS WITH CONTRAST: HISTORY: Abdominal pain, nausea and vomiting, alcohol abuse, pancreatitis. COMPARISON: 06/28/18. TECHNIQUE: Helical CT in 1.25mm intervals following IV contrast. Sagittal and coronal reconstructions. FINDINGS: Lung bases: Normal. Liver: There is moderate diffuse fatty infiltration throughout the liver. No obvious surface nodularity or mass. Biliary system: Normal. Pancreas: The pancreas is mildly atrophic with mild surrounding fat stranding. Multiple pseudocysts are identified surrounding the pancreatic bed. At least 2 irregular pseudocysts are identified. A pseudocyst in the lesser sac measures up to 11 x 5 cm in diameter. A pseudocyst adjacent to the splenic hilum measures 5.2 x 3.4 cm. There appear to be a few smaller pseudocyst posterior to the spleen measuring less than 2-3 cm. Spleen: Mild splenomegaly measures 13.2 cm. Kidneys/ureters/bladder: Normal. Adrenal glands: Normal. Aorta: There are moderate diffuse calcifications in the distal aorta. No evidence for stenosis, aneurysm or dissection. Intestines: No oral contrast was administered. There is no evidence for obstruction or focal inflammation. Appendix: Normal. Pelvic viscera: Normal. Ascites: Small perihepatic, perisplenic and pelvic ascites is identified. Adenopathy: None. Musculoskeletal: Mild thoracolumbar spondylosis. No fracture or suspicious bony lesion. IMPRESSION: There are multiple pancreatic pseudocysts as described above. Mild inflammatory changes surrounding the pancreas probably represent acute pancreatitis. Fatty infiltration of the liver. Mild splenomegaly. Small ascites.
[2018-09-16] MEDS ORDERED: ATIVAN IV PRN ×2 (12:17)
--- NOTE | 2018-09-16 12:27 | History and Physical Report ---
History of Present Illness History of present illness: 58-year-old female presents to the ER with complaint of lower abdominal swelling, reports that she has "fluid in my belly." She believes that she has tense ascites. She reports accompanying shortness of breath, generalized weakness. Patient reports a mechanical fall a few days ago, where she landed on her face. She denies midline neck pain, severe chest pain, has acute on chronic shortness of breath, and denies focal extremity weakness, numbness. Her abdominal swelling is constant, does not radiate anywhere, and typically decreases with paracentesis.History of Alcoholism present She has chronic bruising, but denies hematemesis and bright red blood per rectum. As far as she knows, she has not had a formal workup or evaluation for her ascites. Gradual Location: abdomen Consistency: constant Improves with: other Worsens with: none Associated Symptoms: loss of appetite, malaise, rash, shortness of breath, weakness. denies: confusion, chest pain, cough, diaphoresis, fever/chills, headaches, nausea/vomiting, seizure, syncope Past Medical History Hx Hypertension: Yes Hx Diabetes: Yes ([place] DM) Hx Liver Disease: Yes Hx Psychiatric Treatment: Yes (depression / insomnia) Hx COPD: Yes Additional medical history: pancreatitis. gallstones Surgical History Past Surgical History?: Yes Additional Surgical History: tubal ligation Social History Smoking Status: Current Every Day Smoker Substance Use Type: Alcohol 58-year-old female with a past medical history of recurrent pancreatitis, alcohol abuse, gallstones, pancreatic pseudocyst, diabetes, COPD, hypertension, depression, anxiety, ascites, a previous tubal ligation presents to the hospital complains of abdominal pain, nausea, vomiting, and by mouth intolerance to 3 days. She complains of constant epigastric abdominal pain that that is rated 10/10 and intensity and worse with palpation. Similar pain in the past with pancreatitis episodes. Patient admits to continued daily alcohol use of with last intake yesterday. She denies history of alcohol withdrawal seizures or tremors. Patient denies melena, hematochezia, hematemesis, fever, or dysuria. She complains of chronic diarrhea that is unchanged. Patient also ran out of her insulin 2 days ago and has been noncompliant. Severity scale (0 -10) Medications and Allergies Allergies Allergy/AdvReac Type Severity Reaction Status Date / Time No Known Allergies Allergy Verified 09/16/18 09:12 Home Medications Medication Instructions Recorded Confirmed Last Taken Type Insulin NPH/Regular [NovoLIN 70/30] 12 unit SUB-Q BIDDIAB #1 vial 05/07/18 09/16/18 09/13/18 Rx Active Meds: Active Medications Lorazepam (Ativan) 2 mg IV Q1HR PRN PRN Reason: CIWA-Ar 8-15 Lorazepam (Ativan) 4 mg IV Q1HR PRN PRN Reason: CIWA-Ar 16-25 Exam - Constitutional Vitals: Temp Pulse Resp BP Pulse Ox 98.7 F 121 H 18 109/74 99 09/16/18 08:57 09/16/18 08:57 09/16/18 11:05 09/16/18 08:57 09/16/18 08:57 Results - Labs CBC & Chem 7: 09/16/18 09:30 09/16/18 09:30 Labs: Abnormal lab results 09/16/18 09/16/18 09/16/18 Range/Units 09:00 09:30 09:30 WBC 4.1 L (4.5-11.0) K/mm3 MCH 27 L (28-32) pg Plt Count 124 L (140-440) K/mm3 Lymph # 0.6 L (1.2-5.4) K/mm3 Seg Neutrophils % 78.7 H (40.0-70.0) % Sodium 136 L (137-145) mmol/L Chloride 90.3 L (98-107) mmol/L BUN 4 L (7-17) mg/dL Creatinine 0.4 L (0.7-1.2) mg/dL Glucose 337 H (65-100) mg/dL POC Glucose 294 H (70-105) Calcium 8.0 L (8.4-10.2) mg/dL AST 46 H (5-40) units/L Albumin 3.3 L (3.9-5) g/dL Lipase 84 H (13-60) units/L 09/16/18 Range/Units 12:22 WBC (4.5-11.0) K/mm3 MCH (28-32) pg Plt Count (140-440) K/mm3 Lymph # (1.2-5.4) K/mm3 Seg Neutrophils % (40.0-70.0) % Sodium (137-145) mmol/L Chloride (98-107) mmol/L BUN (7-17) mg/dL Creatinine (0.7-1.2) mg/dL Glucose (65-100) mg/dL POC Glucose 259 H (70-105) Calcium (8.4-10.2) mg/dL AST (5-40) units/L Albumin (3.9-5) g/dL Lipase (13-60) units/L
[2018-09-16] MEDS ORDERED: HumuLIN R ONE (12:37)
[2018-09-16 13:15] LABS: Bacteria,Urine 1+ /HPF (Negative); Bilirubin,Urine NEG (Negative); Blood,Urine SM (Negative); Color,Urine Yellow (Yellow); Mucus,Urine FEW /HPF; Protein,Urine <15 mg/dL mg/dL (Negative)
[2018-09-16] MEDS ORDERED: REGLAN IV ONE (13:39)
[2018-09-16 16:27] VITALS: BP 144/89
== END 2018-09-16 16:48 | disposition admitted as inpatient to this hospital (09) ==
LOC: ED 08:50
DX: K85.90 Acute pancreatitis without necrosis or infection, unspecified (principal); E11.65 Type 2 diabetes mellitus with hyperglycemia; D69.6 Thrombocytopenia, unspecified; F10.129 Alcohol abuse with intoxication, unspecified; I10 Essential (primary) hypertension; J44.9 Chronic obstructive pulmonary disease, unspecified; F17.200 Nicotine dependence, unspecified, uncomplicated; F32.9 Major depressive disorder, single episode, unspecified; Z79.4 Long term (current) use of insulin
CPT/HCPCS: 36415; 74177; 80053; 81001; 82962; 83690; 85025; 93005; 93010; 96365; 96366; 96375; 96376; 99284; G0480; J1170; J2060; J2405; J2765; J3411; J7030; Q9967; 80320; J1815

== ENCOUNTER 2018-09-16 14:45 | Inpatient (IN) | payer BC, OTHER ==
[2018-09-16] MEDS ORDERED: ALUM-MAG HYDROX-SIMETH 200-200-20MG/5ML PO PRN (15:01)
--- NOTE | 2018-09-16 15:34 | History and Physical Report ---
History of Present Illness Chief complaint: I want to get help with my drinking History of present illness: 58 YO Female with ETOH Dependence, HTN, DM, Nicotine Dependence, Depression, Insomnia, COPD presents to ED for evaluation. Pt states that she has experienced abdominal pain/cramping, nausea, tremors, agitation, poor concentration, insomnia, weakness, sweating, restlessness over the past 2 days. Pt acknowledges daily alcohol use, but has been trying to decrease her alcohol use over the past 1 week. Pt seen and evaluated and found to have ETOH Dependence with Withdrawl. Pt admitted to [facility] for Medical Stabilization. Past History Past Medical History: diabetes, hypertension Past Surgical History: Other (tubal ligation) Social history: , smoking Family history: hypertension Medications and Allergies Allergies Allergy/AdvReac Type Severity Reaction Status Date / Time No Known Allergies Allergy Verified 09/16/18 09:12 Home Medications Medication Instructions Recorded Confirmed Last Taken Type Insulin NPH/Regular [NovoLIN 70/30] 12 unit SUB-Q BIDDIAB #1 vial 05/07/18 09/16/18 09/13/18 Rx Active Meds: Active Medications Al Hydrox/Mg Hydrox/Simethicone (Alum-Mag Hydrox-Simeth [id number]/5ml) 30 ml PO Q6H PRN PRN Reason: Dyspepsia Chlordiazepoxide HCl (Librium) 50 mg PO Q6HR [facility] Stop: 09/17/18 12:01 Folic Acid (Folvite) 1 mg PO QDAY [facility] Insulin Human Isoph/Insulin Regular (Humulin 70/30) 12 unit SUB-Q BIDDIAB [facility] Lorazepam (Ativan) 1 mg PO Q4HR [facility] Stop: 09/17/18 14:01 Multivitamins (Theragran Tab) 1 each PO QDAY [facility] Ondansetron HCl (Zofran) 4 mg IV Q6H PRN PRN Reason: Moderat/Severe Nausea/Vomiting Thiamine HCl (Vitamin B-1) 100 mg PO QDAY [facility] Review of Systems Constitutional: no weight loss, no weight gain, no fever, no chills Ears, nose, mouth and throat: no ear pain, no ear discharge, no tinnitis, no decreased hearing, no nose pain Breasts: no change in shape, no swelling, no mass Cardiovascular: no chest pain, no orthopnea, no palpitations, no rapid/irregular heart beat, no edema, no syncope, no lightheadedness Respiratory: no cough, no cough with sputum, no excessive sputum, no hemoptysis Gastrointestinal: no abdominal pain, no nausea, no vomiting, no diarrhea, no constipation Genitourinary Female: no dysmenorrhea, no pelvic pain, no flank pain, no menorrhagia, no dysuria, no urgency Rectal: no pain, no incontinence, no bleeding Musculoskeletal: no neck stiffness, no neck pain, no shooting arm pain, no arm numbness/tingling Integumentary: no rash, no pruritis, no redness, no sores, no wounds Neurological: no paralysis, no weakness, no parathesias, no numbness, no tingling, no seizures, no syncope Psychiatric: anxiety, change in sleep habits, insomnia, difficulties concentrating, confusion, irritability, mood swings, no memory loss, no sleep disturbances, no hypersomnia, no change in appetite, no change in libido Endocrine: no cold intolerance, no heat intolerance, no polyphagia, no excessive thirst, no polydipsia, no polyuria Hematologic/Lymphatic: no easy bruising, no easy bleeding, no lymphadenopathy Allergic/Immunologic: no urticaria, no persistent infections, no anaphylaxis Exam - Constitutional General appearance: Present: mild distress, well-nourished - EENT Eyes: Present: PERRL ENT: hearing intact, clear oral mucosa - Neck Neck: Present: supple, normal ROM - Respiratory Respiratory effort: normal Respiratory: bilateral: CTA - Cardiovascular Heart Sounds: Present: S1 & S2. Absent: rub, click - Extremities Extremities: pulses symmetrical, No edema Peripheral Pulses: within normal limits - Abdominal General gastrointestinal: Present: soft, non-tender, non-distended, normal bowel sounds Female genitourinary: Present: normal - Integumentary Integumentary: Present: clear, warm, dry - Musculoskeletal Musculoskeletal: gait normal, strength equal bilaterally - Psychiatric Psychiatric: appropriate mood/affect, intact judgment & insight, agitated - Neurologic Neurologic: CNII-XII intact, moves all extremities Assessment and Plan - Patient Problems (1) Alcohol dependence with withdrawal Status: Acute Qualifiers: Complication of substance-induced condition: with perceptual disturbance Qualified Code(s): F10.232 - Alcohol dependence with withdrawal with perceptual disturbance Plan to address problem: IVF resuscitation therapy, librium taper, banana bag, thiamine, folic acid, multivitamin, anti emetic therapy, supportive care. (2) Nicotine dependence unspecified, with withdrawal Status: Acute Qualifiers: Nicotine product type: cigarettes Qualified Code(s): F17.213 - Nicotine dependence, cigarettes, with withdrawal Plan to address problem: smoking cessation counseling, supportive care. (3) Diabetes Status: Acute Plan to address problem: ADA diet, insulin, accu check (4) HTN (hypertension) Status: Acute Qualifiers: Hypertension type: essential hypertension Qualified Code(s): I10 - Essential (primary) hypertension Plan to address problem: Monitor bp q shift, supportive care. (5) DVT prophylaxis Status: Acute Plan to address problem: SCD to BLE while in bed
[2018-09-16] MEDS: LIBRIUM PO SCH (18:41)
[2018-09-16] MEDS: ATIVAN PO SCH ×3 (18:41→21:15)
[2018-09-16] MEDS: ZOFRAN IV PRN (18:46)
[2018-09-16] MEDS ORDERED: PERCOCET 5/325 PO ONE (20:18)
[2018-09-17] MEDS: LIBRIUM PO SCH ×3 (01:00→13:00)
[2018-09-17] MEDS: ATIVAN PO SCH ×4 (01:24→13:56)
[2018-09-17] MEDS: ZOFRAN IV PRN ×4 (01:32→22:00)
[2018-09-17] MEDS: TYLENOL PO PRN ×3 (08:11→22:00)
[2018-09-17] MEDS: THERAGRAN Tab PO SCH (10:04)
[2018-09-17] MEDS: FOLVITE PO SCH (10:04)
[2018-09-17] MEDS: VITAMIN B-1 PO SCH (10:04)
--- NOTE | 2018-09-17 11:23 | Progress Note ---
Assessment and Plan Assessment and plan: Alcohol dependence with withdrawal. Continue IV fluids, Librium taper, banana bag, thiamine, folic acid and multi-vitamin. Cont. CIWA protocol Nicotine dependence. Smoking cessation counseling. Diabetes mellitus type 2. Continue Accu-Cheks and sliding scale insulin and ADA diet. Hypertension. Continue home antihypertensive medications. History Interval history: No new issues overnight. Nurse reports patient is asking for Dilaudid. Hospitalist Physical - Constitutional Vitals: Temp Pulse Resp BP Pulse Ox 98.2 F 94 H 20 152/89 94 09/17/18 07:29 09/17/18 07:29 09/17/18 09:11 09/17/18 07:29 09/17/18 08:30 General appearance: Present: mild distress, well-nourished - EENT Eyes: Present: PERRL, EOM intact ENT: hearing intact, clear oral mucosa, dentition normal - Neck Neck: Present: supple, normal ROM - Respiratory Respiratory effort: normal Respiratory: bilateral: CTA - Cardiovascular Rhythm: regular Heart Sounds: Present: S1 & S2. Absent: gallop, rub - Extremities Extremities: no ischemia, No edema, Full ROM - Abdominal General gastrointestinal: soft, non-tender, non-distended, normal bowel sounds - Integumentary Integumentary: Present: clear, warm, dry - Neurologic Neurologic: CNII-XII intact, moves all extremities Results - Labs Labs: Laboratory Last Values POC Glucose 254 (70-105) H 09/17/18 07:06
[2018-09-17] MEDS: HumaLOG SUB-Q SCH ×3 (13:55→22:01)
[2018-09-17] MEDS: ULTRAM PO PRN (15:48)
[2018-09-18] MEDS: ULTRAM PO PRN ×3 (01:56→15:32)
[2018-09-18] MEDS: TYLENOL PO PRN ×2 (05:21→17:50)
[2018-09-18] MEDS: ZOFRAN IV PRN ×3 (05:21→15:30)
[2018-09-18] MEDS: HumaLOG SUB-Q SCH ×4 (08:25→22:16)
[2018-09-18] MEDS: THERAGRAN Tab PO SCH (09:50)
[2018-09-18] MEDS: FOLVITE PO SCH (09:50)
[2018-09-18] MEDS: VITAMIN B-1 PO SCH (09:51)
--- NOTE | 2018-09-18 12:07 | Progress Note ---
Assessment and Plan Assessment and plan: Alcohol dependence with withdrawal. Continue IV fluids, Librium taper, banana bag, thiamine, folic acid and multi-vitamin. Cont. CIWA protocol Nicotine dependence. Smoking cessation counseling. Diabetes mellitus type 2. Continue Accu-Cheks and sliding scale insulin and ADA diet. Hypertension. Continue home antihypertensive medications. History Interval history: No new issues overnight. Nurse reports patient is asking for Dilaudid. Hospitalist Physical - Constitutional Vitals: Temp Pulse Resp BP Pulse Ox 98.0 F 89 18 122/81 92 09/18/18 11:35 09/18/18 11:35 09/18/18 11:35 09/18/18 11:35 09/18/18 11:35 General appearance: Present: mild distress, well-nourished - EENT Eyes: Present: PERRL, EOM intact ENT: hearing intact, clear oral mucosa, dentition normal - Neck Neck: Present: supple, normal ROM - Respiratory Respiratory effort: normal Respiratory: bilateral: CTA - Cardiovascular Rhythm: regular Heart Sounds: Present: S1 & S2. Absent: gallop, rub - Extremities Extremities: no ischemia, No edema, Full ROM - Abdominal General gastrointestinal: soft, non-tender, non-distended, normal bowel sounds - Integumentary Integumentary: Present: clear, warm, dry - Neurologic Neurologic: CNII-XII intact, moves all extremities Results - Labs Labs: Laboratory Last Values POC Glucose 162 (70-105) H 09/18/18 11:38
[2018-09-18 14:36] LABS: Basophils % (Auto) 0.5 % (0.0-1.8); Hematocrit 35.4 % (30.3-42.9); Hemoglobin 11.5 gm/dl (10.1-14.3); Lymphocytes # (Auto) 0.7 K/mm3 (1.2-5.4); Lymphocytes % (Auto) 18.2 % (13.4-35.0); Mean Corpuscular HGB Conc 33 % (30-34); Mean Corpuscular Volume 84 fl (79-97); Monocytes # (Auto) 0.3 K/mm3 (0.0-0.8); Monocytes % (Auto) 8.4 % (0.0-7.3); Platelet Count 83 K/mm3 (140-440); Red Blood Count 4.21 M/mm3 (3.65-5.03); Red Cell Distribution Width 15.2 % (13.2-15.2)
[2018-09-18 14:42] LABS: BUN/Creatinine Ratio 14; Blood Urea Nitrogen 7 mg/dL (7-17); Calcium 8.4 mg/dL (8.4-10.2); Hemolysis Index 0
[2018-09-18] MEDS: K-DUR PO SCH ×2 (15:31→19:48)
[2018-09-18] MEDS: PERCOCET 5/325 PO PRN (19:43)
[2018-09-18] MEDS: HABITROL TD SCH (20:06)
[2018-09-19] MEDS: ZOFRAN IV PRN ×4 (00:32→21:47)
[2018-09-19 06:00] LABS: BUN/Creatinine Ratio 23; Blood Urea Nitrogen 9 mg/dL (7-17); Calcium 8.3 mg/dL (8.4-10.2); Hemolysis Index 4
[2018-09-19] MEDS: TYLENOL PO PRN (06:04)
[2018-09-19] MEDS: PERCOCET 5/325 PO PRN ×2 (07:42→14:42)
[2018-09-19] MEDS: HumaLOG SUB-Q SCH ×4 (07:49→21:48)
[2018-09-19] MEDS: FOLVITE PO SCH (10:06)
[2018-09-19] MEDS: THERAGRAN Tab PO SCH (10:06)
[2018-09-19] MEDS: VITAMIN B-1 PO SCH (10:06)
[2018-09-19] MEDS: HABITROL TD SCH (10:07)
--- NOTE | 2018-09-19 10:23 | Progress Note ---
Assessment and Plan Assessment and plan: Alcohol dependence with withdrawal. Continue IV fluids, Librium taper, banana bag, thiamine, folic acid and multi-vitamin. Cont. [facility] protocol Nicotine dependence. Smoking cessation counseling. Diabetes mellitus type 2. Continue Accu-Cheks and sliding scale insulin and ADA diet. Hypertension. Continue home antihypertensive medications. Thrombocytopenia. Etiology likely secondary to liver disease from EtOH abuse. Hypokalemia. Replete potassium as needed. History Interval history: No new issues overnight. Hospitalist Physical - Constitutional Vitals: Temp Pulse Resp BP Pulse Ox 97.9 F 91 H 18 107/71 96 09/19/18 07:49 09/19/18 07:50 09/19/18 07:49 09/19/18 07:49 09/19/18 07:50 General appearance: Present: mild distress, well-nourished - EENT Eyes: Present: PERRL, EOM intact ENT: hearing intact, clear oral mucosa, dentition normal - Neck Neck: Present: supple, normal ROM - Respiratory Respiratory effort: normal Respiratory: bilateral: CTA - Cardiovascular Rhythm: regular Heart Sounds: Present: S1 & S2. Absent: gallop, rub - Extremities Extremities: no ischemia, No edema, Full ROM - Abdominal General gastrointestinal: soft, non-tender, non-distended, normal bowel sounds - Integumentary Integumentary: Present: clear, warm, dry - Neurologic Neurologic: CNII-XII intact, moves all extremities Results - Labs CBC & Chem 7: 09/18/18 13:47 09/19/18 05:29 Labs: Laboratory Last Values WBC 3.9 K/mm3 (4.5-11.0) L 09/18/18 13:47 RBC 4.21 M/mm3 (3.65-5.03) 09/18/18 13:47 Hgb 11.5 gm/dl (10.1-14.3) 09/18/18 13:47 Hct 35.4 % (30.3-42.9) 09/18/18 13:47 MCV 84 fl (79-97) 09/18/18 13:47 MCH 27 pg (28-32) L 09/18/18 13:47 MCHC 33 % (30-34) 09/18/18 13:47 RDW 15.2 % (13.2-15.2) 09/18/18 13:47 Plt Count 83 K/mm3 (140-440) L 09/18/18 13:47 Lymph % (Auto) 18.2 % (13.4-35.0) 09/18/18 13:47 [place] % (Auto) 8.4 % (0.0-7.3) H 09/18/18 13:47 Eos % (Auto) 1.0 % (0.0-4.3) 09/18/18 13:47 Baso % (Auto) 0.5 % (0.0-1.8) 09/18/18 13:47 Lymph # 0.7 K/mm3 (1.2-5.4) L 09/18/18 13:47 [place] # 0.3 K/mm3 (0.0-0.8) 09/18/18 13:47 Eos # 0.0 K/mm3 (0.0-0.4) 09/18/18 13:47 Baso # 0.0 K/mm3 (0.0-0.1) 09/18/18 13:47 Seg Neutrophils % 71.9 % (40.0-70.0) H 09/18/18 13:47 Seg Neutrophils # 2.8 K/mm3 (1.8-7.7) 09/18/18 13:47 Sodium 134 mmol/L (137-145) L 09/19/18 05:29 Potassium 3.4 mmol/L (3.6-5.0) L D 09/19/18 05:29 Chloride 98.4 mmol/L (98-107) 09/19/18 05:29 Carbon Dioxide 27 mmol/L (22-30) 09/19/18 05:29 Anion Gap 12 mmol/L 09/19/18 05:29 BUN 9 mg/dL (7-17) 09/19/18 05:29 Creatinine 0.4 mg/dL (0.7-1.2) L 09/19/18 05:29 Estimated GFR > 60 ml/min 09/19/18 05:29 BUN/Creatinine Ratio 23 % 09/19/18 05:29 Glucose 136 mg/dL (65-100) H 09/19/18 05:29 POC Glucose 137 (70-105) H 09/19/18 07:51 Calcium 8.3 mg/dL (8.4-10.2) L 09/19/18 05:29
[2018-09-19] MEDS ORDERED: LIBRIUM PO SCH (12:00)
[2018-09-19] MEDS: ATIVAN PO SCH ×2 (12:16→17:33)
[2018-09-19] MEDS ORDERED: LIBRIUM PO PRN (12:21)
[2018-09-19] MEDS: VITAMIN B-1 100 MG, FOLVITE 1 MG, INFUVITE 10 ML in NACL 0.9% 1000 ML 1,000 ML IV SCH (16:25)
[2018-09-20] MEDS: ATIVAN PO SCH ×4 (00:12→20:03)
[2018-09-20] MEDS: ZOFRAN IV PRN ×3 (06:12→20:03)
[2018-09-20] MEDS: HumaLOG SUB-Q SCH ×4 (08:27→22:19)
[2018-09-20] MEDS: THERAGRAN Tab PO SCH ×2 (08:28→10:00)
[2018-09-20] MEDS: VITAMIN B-1 PO SCH ×2 (08:28→10:00)
[2018-09-20] MEDS: FOLVITE PO SCH ×2 (08:28→10:00)
[2018-09-20] MEDS: HABITROL TD SCH ×2 (08:28→10:00)
[2018-09-20] MEDS: LIBRIUM PO SCH ×2 (13:15→20:03)
[2018-09-20] MEDS: VITAMIN B-1 100 MG, FOLVITE 1 MG, INFUVITE 10 ML in NACL 0.9% 1000 ML 1,000 ML IV SCH (13:15)
[2018-09-20] MEDS: PERCOCET 5/325 PO PRN (14:44)
--- NOTE | 2018-09-20 15:19 | Progress Note ---
Assessment and Plan Assessment and plan: Alcohol dependence Patient admitted to medical stabilization unit Follow up protocol Abdominal pain WBC normal, no fever Ascitis by exam Chronic liver disease. may consult GI may need paracentesis Thrombocytopenia Hypokalemia Diabetes mellitus type 2 Fingerstick glucose q ac and hs Hypertension BP elevated Full code status History Interval history: Patient here for Alcohol dependence She has history of chronic liver disease. Now complains of abdominal pain Hospitalist Physical - Physical exam Narrative exam: GEN: Not in acute distress, lying in bed HEENT: Normocephalic, atraumatic, Neck: supple, No JVD Lungs: Clear to auscultation bilaterally, no wheeze Heart:S1 and S2 regular, no murmurs, rubs or gallop, Abd:soft, mild diffuse tenderness, distended with ascitis, distended veins, normal bowel sounds Ext: No edema, no clubbing or cyanosis Neuro: Awake,alert, oriented x 3, No focal signs Psych:Normal mood - Constitutional Vitals: Temp Pulse Resp BP Pulse Ox 98.0 F 97 H 20 126/80 90 09/20/18 12:45 09/20/18 07:25 09/20/18 12:45 09/20/18 12:45 09/20/18 07:25 Results - Labs CBC & Chem 7: 09/21/18 06:43 09/21/18 06:42 Labs: Laboratory Last Values WBC 3.9 K/mm3 (4.5-11.0) L 09/18/18 13:47 RBC 4.21 M/mm3 (3.65-5.03) 09/18/18 13:47 Hgb 11.5 gm/dl (10.1-14.3) 09/18/18 13:47 Hct 35.4 % (30.3-42.9) 09/18/18 13:47 MCV 84 fl (79-97) 09/18/18 13:47 MCH 27 pg (28-32) L 09/18/18 13:47 MCHC 33 % (30-34) 09/18/18 13:47 RDW 15.2 % (13.2-15.2) 09/18/18 13:47 Plt Count 83 K/mm3 (140-440) L 09/18/18 13:47 Lymph % (Auto) 18.2 % (13.4-35.0) 09/18/18 13:47 [place] % (Auto) 8.4 % (0.0-7.3) H 09/18/18 13:47 Eos % (Auto) 1.0 % (0.0-4.3) 09/18/18 13:47 Baso % (Auto) 0.5 % (0.0-1.8) 09/18/18 13:47 Lymph # 0.7 K/mm3 (1.2-5.4) L 09/18/18 13:47 [place] # 0.3 K/mm3 (0.0-0.8) 09/18/18 13:47 Eos # 0.0 K/mm3 (0.0-0.4) 09/18/18 13:47 Baso # 0.0 K/mm3 (0.0-0.1) 09/18/18 13:47 Seg Neutrophils % 71.9 % (40.0-70.0) H 09/18/18 13:47 Seg Neutrophils # 2.8 K/mm3 (1.8-7.7) 09/18/18 13:47 Sodium 134 mmol/L (137-145) L 09/19/18 05:29 Potassium 3.4 mmol/L (3.6-5.0) L D 09/19/18 05:29 Chloride 98.4 mmol/L (98-107) 09/19/18 05:29 Carbon Dioxide 27 mmol/L (22-30) 09/19/18 05:29 Anion Gap 12 mmol/L 09/19/18 05:29 BUN 9 mg/dL (7-17) 09/19/18 05:29 Creatinine 0.4 mg/dL (0.7-1.2) L 09/19/18 05:29 Estimated GFR > 60 ml/min 09/19/18 05:29 BUN/Creatinine Ratio 23 % 09/19/18 05:29 Glucose 136 mg/dL (65-100) H 09/19/18 05:29 POC Glucose 110 (70-105) H 09/20/18 11:13 Calcium 8.3 mg/dL (8.4-10.2) L 09/19/18 05:29
[2018-09-20] MEDS: ULTRAM PO PRN ×2 (17:52→21:35)
[2018-09-21] MEDS: LIBRIUM PO SCH (03:39)
[2018-09-21] MEDS: ZOFRAN IV PRN ×4 (03:39→23:52)
[2018-09-21] MEDS: ATIVAN PO SCH (03:39)
[2018-09-21 07:00] LABS: Hematocrit 31.5 % (30.3-42.9); Hemoglobin 10.4 gm/dl (10.1-14.3); Mean Corpuscular HGB Conc 33 % (30-34); Mean Corpuscular Volume 86 fl (79-97); Red Blood Count 3.68 M/mm3 (3.65-5.03); Red Cell Distribution Width 15.9 % (13.2-15.2)
[2018-09-21 07:08] LABS: Platelet Count 92 K/mm3 (140-440)
[2018-09-21 07:27] LABS: Alanine Aminotransferase 10 units/L (7-56); Albumin 2.6 g/dL (3.9-5); BUN/Creatinine Ratio 13; Blood Urea Nitrogen 5 mg/dL (7-17); Calcium 7.9 mg/dL (8.4-10.2); Hemolysis Index 10
[2018-09-21] MEDS: HumaLOG SUB-Q SCH ×4 (07:30→22:42)
[2018-09-21] MEDS: K-DUR PO SCH ×2 (09:15→14:04)
[2018-09-21] MEDS: HABITROL TD SCH (09:15)
[2018-09-21] MEDS: KCL 10MEQ/100ML 10 MEQ/100 ML BAG IV SCH ×2 (09:15→11:27)
[2018-09-21] MEDS: THERAGRAN Tab PO SCH (09:16)
[2018-09-21] MEDS: VITAMIN B-1 PO SCH (09:16)
[2018-09-21] MEDS: FOLVITE PO SCH (09:16)
--- NOTE | 2018-09-21 12:07 | Gastroenterology Consultation ---
Addendum entered and electronically signed by LUIZA LOVE MD 09/21/18 15:12: pt seen and examined, chart reviewed, consult below reviewed - pt h/ etoh abuse now with liver disease and previously known pancreatic pseudocyst - pt has been seen by our service in past and not followed up as outpt - pt reports abdominal pain stable and denies GI complaints at this time vss p.e.: nad abd: soft - pt h/o etoh abuse with ascites - no specific FGI complaints at this time - management as outlined below w/ Aldactone - no need paracenthesis at this time - will follow Addendum entered and electronically signed by LORAINE OROPEZA NP 09/21/18 15:06: electrolyte management per primary team Original Note: History of Present Illness - Reason for Consult Consult date: 09/21/18 abdominal pain/liver disease Requesting physician: LUIS BAILEY - History of Present Illness Patient is a 58 w/o female with PMH of ETOH abuse, HTN, DM, nicotine dependence, depression/insomnia, gallstones, chronic liver disease, pancreatitis w/ pseudocyst, COPD, and non-compliance who was admitted to [facility] for ETOH wi thdrawal/medical stabilization. GI has been consulted for abd pain/liver disease. Patient is well known to our service from multiple previous hospitalizations with last consult on 06/28/2018 for ascites requiring LVP (no evidence of SBP or malignancy) thought to be 2/2 possible cirrhosis vs pancreati c ascites. This afternoon patient was resting in bed w/o acute distress. Noted to be A&O. Reports generalized abd discomfort/distention. Denies fever, CP, SOB, N/V, jaundice, signs of bleeding, or LGI symptoms. Last drink of alcohol was last (prior was drinking a pint of liquor daily). Past History Past Medical History: other (as per HPI) Past Surgical History: Other (tubal ligation) Social history: smoking, alcohol abuse Family history: CAD, cancer (breast), hypertension Medications and Allergies Allergies Allergy/AdvReac Type Severity Reaction Status Date / Time No Known Allergies Allergy Verified 09/16/18 09:12 Home Medications Medication Instructions Recorded Confirmed Last Taken Type Insulin NPH/Regular [NovoLIN 70/30] 12 unit SUB-Q BIDDIAB #1 vial 0909/16/18 09/13/18 Rx Active Meds: Active Medications Acetaminophen (Tylenol) 650 mg PO Q4H PRN PRN Reason: Pain, Mild (1-3) Last Admin: 09/19/18 06:04 Dose: 650 mg Documented by: Al Hydrox/Mg Hydrox/Simethicone (Alum-Mag Hydrox-Simeth [id number]/5ml) 30 ml PO Q6H PRN PRN Reason: Dyspepsia Folic Acid (Folvite) 1 mg PO QDAY [facility] Last Admin: 09/21/18 09:16 Dose: 1 mg Documented by: Insulin Human Isoph/Insulin Regular (Humulin 70/30) 12 unit SUB-Q BIDDIAB [facility] Last Admin: 09/21/18 09:15 Dose: 12 unit Documented by: Insulin Human Lispro (Humalog) 0 unit SUB-Q ACHS [facility]; Protocol Last Admin: 09/21/18 07:30 Dose: Not Given Documented by: Multivitamins (Theragran Tab) 1 each PO QDAY [facility] Last Admin: 09/21/18 09:16 Dose: 1 each Documented by: Nicotine (Habitrol) 14 mg TD QDAY [facility] Last Admin: 09/21/18 09:15 Dose: 14 mg Documented by: Ondansetron HCl (Zofran) 4 mg IV Q6H PRN PRN Reason: Moderat/Severe Nausea/Vomiting Last Admin: 09/21/18 10:31 Dose: 4 mg Documented by: Oxycodone/Acetaminophen (Percocet 5/325) 1 tab PO Q6H PRN PRN Reason: Pain , Severe (7-10) Last Admin: 09/20/18 14:44 Dose: 1 tab Documented by: Potassium Chloride (K-Dur) 40 meq PO Q4H [facility] Stop: 09/21/18 13:01 Last Admin: 09/21/18 09:15 Dose: 40 meq Documented by: Thiamine HCl (Vitamin B-1) 100 mg PO QDAY [facility] Last Admin: 09/21/18 09:16 Dose: 100 mg Documented by: Tramadol HCl (Ultram) 50 mg PO BID PRN PRN Reason: Pain , Severe (7-10) Last Admin: 09/20/18 21:35 Dose: 50 mg Documented by: medications reviewed/updated as required Review of Systems - Review of Systems All systems: negative Gastrointestinal: abdominal pain Exam - Constitutional Vital Signs: Temp Pulse Resp BP Pulse Ox 97.9 F 83 18 84/47 91 09/21/18 07:30 09/21/18 07:30 09/21/18 07:30 09/21/18 07:30 09/21/18 07:30 General appearance: no acute distress - Respiratory Respiratory: bilateral: diminished - Cardiovascular Rhythm: regular Heart Sounds: Present: S1 & S2 - Gastrointestinal General gastrointestinal: Present: soft, tender (slight generalized TTP), distended (mild (ascites)), normal bowel sounds - Neurologic Neurological: alert and oriented x3 - Labs CBC & Chem 7: 09/21/18 06:43 09/21/18 06:42 Lab Results: Laboratory Results - last 24 hr 09/20/18 09/20/18 09/21/18 16:47 21:48 06:42 WBC RBC Hgb Hct MCV MCH MCHC RDW Plt Count Sodium 137 Potassium 2.9 L* Chloride 101.0 Carbon Dioxide 24 Anion Gap 15 BUN 5 L Creatinine 0.4 L Estimated GFR > 60 BUN/Creatinine Ratio 13 Glucose 144 H POC Glucose 145 H 161 H Calcium 7.9 L Magnesium Total Bilirubin 1.50 H AST 36 ALT 10 Alkaline Phosphatase 85 Total Protein 6.0 L Albumin 2.6 L Albumin/Globulin Ratio 0.8 Lipase 7 L 09/21/18 09/21/18 09/21/18 06:42 06:43 07:34 WBC 3.6 L RBC 3.68 Hgb 10.4 Hct 31.5 MCV 86 MCH 28 MCHC 33 RDW 15.9 H Plt Count 92 L Sodium Potassium Chloride Carbon Dioxide Anion Gap BUN Creatinine Estimated GFR BUN/Creatinine Ratio Glucose POC Glucose 134 H Calcium Magnesium 1.30 L Total Bilirubin AST ALT Alkaline Phosphatase Total Protein Albumin Albumin/Globulin Ratio Lipase 09/21/18 11:36 WBC RBC Hgb Hct MCV MCH MCHC RDW Plt Count Sodium Potassium Chloride Carbon Dioxide Anion Gap BUN Creatinine Estimated GFR BUN/Creatinine Ratio Glucose POC Glucose 154 H Calcium Magnesium Total Bilirubin AST ALT Alkaline Phosphatase Total Protein Albumin Albumin/Globulin Ratio Lipase Assessment and Plan 1.abdominal pain 2.liver disease 3.ETOH abuse 4.H/o pancreatitis with pseudocyst 5.ascites -afebrile -WBC 3.6, H/H 10.4/31.5-no active signs of bleeding -lipase 7 -[place] 1.50, AST 36, ALT 10, alk phos 85-stable -plt 92 -CT 09/16/18 showed diffuse fatty infiltration throughout liver, pancreatitis, pancreatic pseudocysts, mild splenomegaly, and small ascites (multiple previous scans; reviewed) -paracentesis 06/29/18- no evidence of SBP or malignancy -etiology unclear-suspect either portal htn related (cirrhosis) vs pancreatic ascites given history -start on aldactone 50mg daily -low sodium diet -continue to trend labs (INR in am) and supportive care -alcohol cessation discussed/encouraged with patient (monitor for withdrawal symptoms) -will follow
[2018-09-21] MEDS: ULTRAM PO PRN ×2 (12:12→23:51)
[2018-09-21] MEDS ORDERED: MAGNESIUM SULFATE 4GM/100ML 4 GM/100 ML BAG IV ONE (12:31)
[2018-09-21] MEDS: ALDACTONE PO SCH (16:57)
--- NOTE | 2018-09-21 17:23 | Progress Note ---
Assessment and Plan Assessment and plan: Alcohol dependence Patient admitted to medical stabilization unit Follow up protocol Abdominal pain WBC normal, no fever Chronic liver disease. Consulted GI Thrombocytopenia Hypokalemia Diabetes mellitus type 2 Fingerstick glucose q ac and hs Hypertension BP elevated Full code status History Interval history: Patient here for Alcohol dependence She has history of chronic liver disease. Now complains of abdominal pain Hospitalist Physical - Physical exam Narrative exam: GEN: Not in acute distress, lying in bed HEENT: Normocephalic, atraumatic, Neck: supple, No JVD Lungs: Clear to auscultation bilaterally, no wheeze Heart:S1 and S2 regular, no murmurs, rubs or gallop, Abd:soft, mild diffuse tenderness, distended with ascitis, distended veins, normal bowel sounds Ext: No edema, no clubbing or cyanosis Neuro: Awake,alert, oriented x 3, No focal signs Psych:Normal mood - Constitutional Vitals: Temp Pulse Resp BP Pulse Ox 98.7 F 82 18 116/77 90 09/21/18 11:31 09/21/18 11:31 09/21/18 11:31 09/21/18 11:31 09/21/18 11:31 Results - Labs CBC & Chem 7: 09/22/18 04:47 09/22/18 04:47 Labs: Laboratory Last Values WBC 3.6 K/mm3 (4.5-11.0) L 09/21/18 06:43 RBC 3.68 M/mm3 (3.65-5.03) 09/21/18 06:43 Hgb 10.4 gm/dl (10.1-14.3) 09/21/18 06:43 Hct 31.5 % (30.3-42.9) 09/21/18 06:43 MCV 86 fl (79-97) 09/21/18 06:43 MCH 28 pg (28-32) 09/21/18 06:43 MCHC 33 % (30-34) 09/21/18 06:43 RDW 15.9 % (13.2-15.2) H 09/21/18 06:43 Plt Count 92 K/mm3 (140-440) L 09/21/18 06:43 Lymph % (Auto) 18.2 % (13.4-35.0) 09/18/18 13:47 [place] % (Auto) 8.4 % (0.0-7.3) H 09/18/18 13:47 Eos % (Auto) 1.0 % (0.0-4.3) 09/18/18 13:47 Baso % (Auto) 0.5 % (0.0-1.8) 09/18/18 13:47 Lymph # 0.7 K/mm3 (1.2-5.4) L 09/18/18 13:47 [place] # 0.3 K/mm3 (0.0-0.8) 09/18/18 13:47 Eos # 0.0 K/mm3 (0.0-0.4) 09/18/18 13:47 Baso # 0.0 K/mm3 (0.0-0.1) 09/18/18 13:47 Seg Neutrophils % 71.9 % (40.0-70.0) H 09/18/18 13:47 Seg Neutrophils # 2.8 K/mm3 (1.8-7.7) 09/18/18 13:47 Sodium 137 mmol/L (137-145) 09/21/18 06:42 Potassium 4.1 mmol/L (3.6-5.0) D 09/21/18 16:31 Chloride 101.0 mmol/L (98-107) 09/21/18 06:42 Carbon Dioxide 24 mmol/L (22-30) 09/21/18 06:42 Anion Gap 15 mmol/L 09/21/18 06:42 BUN 5 mg/dL (7-17) L 09/21/18 06:42 Creatinine 0.4 mg/dL (0.7-1.2) L 09/21/18 06:42 Estimated GFR > 60 ml/min 09/21/18 06:42 BUN/Creatinine Ratio 13 % 09/21/18 06:42 Glucose 144 mg/dL (65-100) H 09/21/18 06:42 POC Glucose 128 (70-105) H 09/21/18 16:16 Calcium 7.9 mg/dL (8.4-10.2) L 09/21/18 06:42 Magnesium 2.00 mg/dL (1.7-2.3) 09/21/18 16:31 Total Bilirubin 1.50 mg/dL (0.1-1.2) H 09/21/18 06:42 AST 36 units/L (5-40) 09/21/18 06:42 ALT 10 units/L (7-56) 09/21/18 06:42 Alkaline Phosphatase 85 units/L (35-129) 09/21/18 06:42 Total Protein 6.0 g/dL (6.3-8.2) L 09/21/18 06:42 Albumin 2.6 g/dL (3.9-5) L 09/21/18 06:42 Albumin/Globulin Ratio 0.8 % 09/21/18 06:42 Lipase 7 units/L (13-60) L 09/21/18 06:42
[2018-09-22 05:11] LABS: Basophils % (Auto) 0.5 % (0.0-1.8); Eosinophils % (Auto) 1.5 % (0.0-4.3); Hematocrit 32.4 % (30.3-42.9); Hemoglobin 10.5 gm/dl (10.1-14.3); Lymphocytes # (Auto) 0.7 K/mm3 (1.2-5.4); Mean Corpuscular HGB Conc 32 % (30-34); Mean Corpuscular Volume 86 fl (79-97); Monocytes # (Auto) 0.4 K/mm3 (0.0-0.8); Platelet Count 102 K/mm3 (140-440); Red Blood Count 3.76 M/mm3 (3.65-5.03); Red Cell Distribution Width 16.3 % (13.2-15.2)
[2018-09-22 05:19] LABS: INR 1.51 (0.87-1.13)
[2018-09-22 05:28] LABS: Alanine Aminotransferase 11 units/L (7-56); Albumin 2.7 g/dL (3.9-5); BUN/Creatinine Ratio 13; Blood Urea Nitrogen 5 mg/dL (7-17); Calcium 7.9 mg/dL (8.4-10.2); Hemolysis Index 20
[2018-09-22] MEDS: HumaLOG SUB-Q SCH ×2 (07:30→12:01)
[2018-09-22 08:06] VITALS: BP 111/73
[2018-09-22] MEDS: VITAMIN B-1 PO SCH (09:03)
[2018-09-22] MEDS: ZOFRAN IV PRN (09:04)
[2018-09-22] MEDS: HABITROL TD SCH (09:04)
[2018-09-22] MEDS: ULTRAM PO PRN (09:04)
[2018-09-22] MEDS: THERAGRAN Tab PO SCH (09:05)
[2018-09-22] MEDS: FOLVITE PO SCH (09:05)
[2018-09-22] MEDS: ALDACTONE PO SCH (09:05)
--- NOTE | 2018-09-22 11:44 | Gastroenterology Progress Note ---
Addendum entered and electronically signed by LUIZA LOVE MD 09/22/18 15:35: - management as outlined below - will sign off, call if needed Original Note: Assessment and Plan 1.abdominal pain 2.liver disease 3.ETOH abuse 4.H/o pancreatitis with pseudocyst 5.ascites -afebrile -WBC 3.2, H/H WNL-no active signs of bleeding -lipase 7 -LFTs stable -plt 102, INR 1.51 -CT 09/16/18 showed diffuse fatty infiltration throughout liver, pancreatitis, pancreatic pseudocysts, mild splenomegaly, and small ascites (multiple previous scans; reviewed) -paracentesis 06/29/18- no evidence of SBP or malignancy -etiology unclear-suspect either portal htn related (cirrhosis) vs pancreatic ascites given history -clinically, patient reports feeling better with abd pain/distention improve. No N/V or signs of bleeding. Tolerating diet. -no recommendations for paracentesis at this time -continue aldactone -low sodium diet -continue supportive care -alcohol cessation discussed/encouraged with patient (monitor for withdrawal symptoms) -patient okay to be d/c per GI standpoint with f/u in clinic for further management -will sign off, please call if needed Subjective Date of service: 09/22/18 Principal diagnosis: abd pain, liver disease Interval history: Patient sitting up in bed this am w/o acute distress. Reports feeling better with abd pain improved. No N/V. Tolerating diet. Objective - Constitutional Vitals: Temp Pulse Resp BP Pulse Ox 98.3 F 82 16 111/73 98 09/22/18 07:48 09/22/18 09:05 09/22/18 07:48 09/22/18 09:05 09/22/18 07:48 General appearance: no acute distress - Respiratory Respiratory: bilateral: diminished - Cardiovascular Rhythm: regular Heart Sounds: Present: S1 & S2 - Gastrointestinal General gastrointestinal: Present: soft, non-tender, distended (slight;improved), normal bowel sounds - Neurologic Neurological: alert and oriented x3 - Labs CBC & Chem 7: 09/22/18 04:47 09/22/18 04:47 Labs: Laboratory Results - last 24 hr 09/21/18 09/21/18 09/21/18 11:36 16:16 16:31 WBC RBC Hgb Hct MCV MCH MCHC RDW Plt Count Lymph % (Auto) [place] % (Auto) Eos % (Auto) Baso % (Auto) Lymph # [place] # Eos # Baso # Seg Neutrophils % Seg Neutrophils # PT INR Sodium Potassium 4.1 D Chloride Carbon Dioxide Anion Gap BUN Creatinine Estimated GFR BUN/Creatinine Ratio Glucose POC Glucose 154 H 128 H Calcium Magnesium 2.00 Total Bilirubin AST ALT Alkaline Phosphatase Total Protein Albumin Albumin/Globulin Ratio 09/21/18 09/22/18 09/22/18 21:53 04:47 04:47 WBC 3.2 L RBC 3.76 Hgb 10.5 Hct 32.4 MCV 86 MCH 28 MCHC 32 RDW 16.3 H Plt Count 102 L Lymph % (Auto) 23.0 [place] % (Auto) 13.0 H Eos % (Auto) 1.5 Baso % (Auto) 0.5 Lymph # 0.7 L [place] # 0.4 Eos # 0.0 Baso # 0.0 Seg Neutrophils % 62.0 Seg Neutrophils # 2.0 PT 18.6 H INR 1.51 H Sodium Potassium Chloride Carbon Dioxide Anion Gap BUN Creatinine Estimated GFR BUN/Creatinine Ratio Glucose POC Glucose 78 Calcium Magnesium Total Bilirubin AST ALT Alkaline Phosphatase Total Protein Albumin Albumin/Globulin Ratio 09/22/18 09/22/18 09/22/18 04:47 07:50 11:35 WBC RBC Hgb Hct MCV MCH MCHC RDW Plt Count Lymph % (Auto) [place] % (Auto) Eos % (Auto) Baso % (Auto) Lymph # [place] # Eos # Baso # Seg Neutrophils % Seg Neutrophils # PT INR Sodium 137 Potassium 4.1 Chloride 101.8 Carbon Dioxide 23 Anion Gap 16 BUN 5 L Creatinine 0.4 L Estimated GFR > 60 BUN/Creatinine Ratio 13 Glucose 133 H POC Glucose 134 H 201 H Calcium 7.9 L Magnesium Total Bilirubin 1.60 H AST 40 ALT 11 Alkaline Phosphatase 89 Total Protein 5.8 L Albumin 2.7 L Albumin/Globulin Ratio 0.9
--- NOTE | 2018-09-22 12:55 | Discharge Summary ---
Providers - Providers Date of Admission: 09/16/18 16:58 Date of discharge: 09/22/18 Attending physician: ULIS BAILEY 09/21/18 07:47 Consult to Physician [CONS] Routine Comment: AGUILAR Consulting Provider: LUIZA SMITH Physician Instructions: PATIENT WAS SEEN BY LORAINE ROACH. Reason For Exam: Abd pain, liver disease Primary care physician: JULITA VERA Hospitalization Condition: Fair Hospital course: Patient is 58 yo with alcohol dependence, hypertension, diabetes, Nicotine Dependence, Depression, Insomnia, COPD presents to ED for evaluation. Pt states that she has experienced abdominal pain/cramping, nausea, tremors, agitation, poor concentration, insomnia, weakness, sweating, restlessness for few days.. Pt acknowledges daily alcohol use, but has been trying to decrease her alcohol use over the past 1 week. Pt seen and evaluated and found to have ETOH Dependence with Withdrawl. and she was admitted to [facility] for Medical Stabilization. She was put on Librium, multivitamins. GI Physician was consulted because of abdominal pain but stated paracentesis not recommended and will follow as an outpatient. She improved and was subsequently discharged on 09/22/2018. Total time spent on discharge, 32 mins Disposition: DC-01 TO HOME OR SELFCARE - Discharge Diagnoses (1) Acute metabolic encephalopathy Status: Acute (2) Abdominal pain Status: Acute Qualifiers: Abdominal location: generalized Qualified Code(s): R10.84 - Generalized abdominal pain (3) Alcoholic cirrhosis of liver with ascites Status: Acute (4) Chronic liver disease Status: Acute (5) Alcohol dependence with withdrawal Status: Acute Qualifiers: Complication of substance-induced condition: with perceptual disturbance Qualified Code(s): F10.232 - Alcohol dependence with withdrawal with perceptual disturbance (6) Diabetes Status: Acute (7) COPD (chronic obstructive pulmonary disease) Status: Chronic Qualifiers: COPD type: unspecified COPD Qualified Code(s): J44.9 - Chronic obstructive pulmonary disease, unspecified (8) Malnutrition Status: Chronic Qualifiers: Malnutrition type: protein-calorie malnutrition Protein-calorie malnutrition severity: moderate Qualified Code(s): E44.0 - Moderate protein- calorie malnutrition (9) HTN (hypertension) Status: Acute Core Measure Documentation - Palliative Care Palliative Care/ Comfort Measures: Not Applicable - Core Measures Any of the following diagnoses?: none Exam - Constitutional Vitals: Temp Pulse Resp BP Pulse Ox 98.3 F 82 16 111/73 98 09/22/18 07:48 09/22/18 09:05 09/22/18 07:48 09/22/18 09:05 09/22/18 07:48 Plan Activity: advance as tolerated Diet: low fat, low cholesterol, low salt, diabetic Additional Instructions: 1.Follow up with PCP in 1 week. 2.Follow up with Dr. Chey Smith in 1 week. Follow up with: JULITA VERA MD [Primary Care Provider] - 7 Days Prescriptions: Folic Acid [Folvite] 1 mg PO QDAY #30 tablet Insulin NPH/Regular [NovoLIN 70/30] 12 unit SUB-Q BIDDIAB #1 vial Multivitamin Tab [Multiple Vitamin TAB (Theragran)] 1 each PO QDAY #30 tablet Spironolactone [Aldactone] 50 mg PO QDAY #30 tablet Thiamine [Vitamin B-1] 100 mg PO QDAY #30 tablet
== END 2018-09-22 15:50 | disposition home or self-care (01) | DRG 432 ==
LOC: UNDOADMIN 14:45 → 3A 14:45 → MSU 16:58
PROVIDERS: ADMIT Internal Medicine; ATTEND Internal Medicine
DX: K70.31 Alcoholic cirrhosis of liver with ascites (principal); G93.41 Metabolic encephalopathy; F10.232 Alcohol dependence with withdrawal with perceptual disturbance; F17.213 Nicotine dependence, cigarettes, with withdrawal; K76.6 Portal hypertension; Y90.0 Blood alcohol level of less than 20 mg/100 ml; E11.9 Type 2 diabetes mellitus without complications; I10 Essential (primary) hypertension; D69.6 Thrombocytopenia, unspecified; E87.6 Hypokalemia; F32.9 Major depressive disorder, single episode, unspecified; K76.9 Liver disease, unspecified; J44.9 Chronic obstructive pulmonary disease, unspecified; Z82.49 Family history of ischemic heart disease and other diseases of the circulatory system; Z98.51 Tubal ligation status; Z79.4 Long term (current) use of insulin; Z80.9 Family history of malignant neoplasm, unspecified; Z71.6 Tobacco abuse counseling; Z71.41 Alcohol abuse counseling and surveillance of alcoholic
CPT/HCPCS: 36415; 80048; 80053; 82962; 83690; 83735; 84132; 85025; 85027; 85610; 99406; G0378; J1815; J2405; J3411; J3475; J3480; J7030

== ENCOUNTER 2018-10-21 14:48 | Inpatient (IN) | payer OTHER ==
[2018-10-21] MEDS ORDERED: NACL 0.9% 500 ML 500 ML IV ONE (15:39)
[2018-10-21] MEDS ORDERED: TYLENOL PO STA (15:39)
[2018-10-21 16:02] LABS: Basophils # (Auto) 0.1 K/mm3 (0.0-0.1); Eosinophils % (Auto) 0.4 % (0.0-4.3); Hematocrit 32.7 % (30.3-42.9); Hemoglobin 11.1 gm/dl (10.1-14.3); Lymphocytes % (Auto) 13.1 % (13.4-35.0); Mean Corpuscular HGB Conc 34 % (30-34); Mean Corpuscular Volume 90 fl (79-97); Monocytes # (Auto) 0.6 K/mm3 (0.0-0.8); Monocytes % (Auto) 8.7 % (0.0-7.3); Platelet Count 179 K/mm3 (140-440); Red Blood Count 3.65 M/mm3 (3.65-5.03); Red Cell Distribution Width 18.7 % (13.2-15.2)
[2018-10-21 16:13] LABS: INR 1.6 (0.87-1.13)
[2018-10-21 16:17] LABS: Bilirubin,Urine MOD (Negative); Blood,Urine NEG (Negative); Color,Urine Amber (Yellow); Mucus,Urine 1+ /HPF; WBC,Urine < 1.0 /HPF (0.0-6.0)
[2018-10-21 16:18] LABS: Alanine Aminotransferase 8 units/L (7-56); Albumin 2.3 g/dL (3.9-5); BUN/Creatinine Ratio 20; Blood Urea Nitrogen 10 mg/dL (7-17); Hemolysis Index 4
[2018-10-21 16:43] LABS: Ictotest,Urine Positive (Negative)
[2018-10-21] MEDS ORDERED: K-DUR PO ONE (16:44)
[2018-10-21] MEDS ORDERED: MAGNESIUM SULFATE 2GM/50ML 2 GM/50 ML BAG IV ONE (16:44)
[2018-10-21] MEDS ORDERED: ROCEPHIN/NS 1 GM/50 ML 1 GM/50 ML BAG IV ONE (17:20)
[2018-10-21] MEDS ORDERED: DILAUDID IV ONE (17:20)
--- NOTE | 2018-10-21 17:21 | Emergency Department Report ---
ED General Adult HPI - General Chief complaint: Back Pain/Injury Stated complaint: DIZZINESS/BACK PAIN/N/V Time Seen by Provider: 10/21/18 16:39 Source: patient, RN notes reviewed, old records reviewed Mode of arrival: Ambulatory Limitations: No Limitations - History of Present Illness Initial comments: This is a 58-year-old female. I have evaluated this patient in the past. For past medical history includes alcohol abuse, liver disease, previously known pancreatic pseudocyst, ascites, presents to the emergency room today with a complaint of abdominal distention, pain, back pain, reported dysuria, malaise, fatigue, recent mechanical fall, lower back pain, all of which are constant, does not radiate anywhere, worse with palpation, decreased with rest. -: Gradual, week(s) Location: back, abdomen, left, right, upper extremity, lower extremity Radiation: neck Severity scale (0 -10): 0 Quality: aching Consistency: intermittent Improves with: rest Worsens with: movement - Related Data Previous Rx's Medication Instructions Recorded Last Taken Type Folic Acid [Folvite] 1 mg PO QDAY #30 tablet 09/22/18 Unknown Rx Insulin NPH/Regular [NovoLIN 70/30] 12 unit SUB-Q BIDDIAB #1 vial 09/22/18 Un known Rx Multivitamin Tab [Multiple Vitamin 1 each PO QDAY #30 tablet 09/22/18 Unknown Rx TAB (Theragran)] Spironolactone [Aldactone] 50 mg PO QDAY #30 tablet 09/22/18 Unknown Rx Thiamine [Vitamin B-1] 100 mg PO QDAY #30 tablet 09/22/18 Unknown Rx Allergies Allergy/AdvReac Type Severity Reaction Status Date / Time No Known Allergies Allergy Verified 09/16/18 09:12 ED Review of Systems ROS: Stated complaint: DIZZINESS/BACK PAIN/N/V Other details as noted in HPI Constitutional: malaise, weakness ENT: denies: epistaxis Respiratory: shortness of breath Cardiovascular: denies: chest pain Gastrointestinal: abdominal pain. denies: vomiting Genitourinary: urgency Musculoskeletal: back pain Skin: denies: lesions Neurological: weakness Psychiatric: anxiety ED Past Medical Hx - Past Medical History Previous Medical History?: Yes Hx Hypertension: Yes Hx Congestive Heart Failure: No Hx Diabetes: Yes Hx Liver Disease: Yes Hx Psychiatric Treatment: Yes (depression / insomnia) Hx Asthma: No Hx COPD: Yes Hx HIV: No Additional medical history: pancreatitis. gallstones. Ascites. Alcohol abuse - Surgical History Past Surgical History?: Yes Additional Surgical History: tubal ligation - Social History Smoking Status: Current Every Day Smoker Substance Use Type: Alcohol - Medications Home Medications: Home Medications Medication Instructions Recorded Confirmed Last Taken Type Folic Acid [Folvite] 1 mg PO QDAY #30 tablet 09/22/18 Unknown Rx Insulin NPH/Regular [NovoLIN 70/30] 12 unit SUB-Q BIDDIAB #1 vial 09/22/18 Unknown Rx Multivitamin Tab [Multiple Vitamin 1 each PO QDAY #30 tablet 09/22/18 Unknown Rx TAB (Theragran)] Spironolactone [Aldactone] 50 mg PO QDAY #30 tablet 09/22/18 Unknown Rx Thiamine [Vitamin B-1] 100 mg PO QDAY #30 tablet 09/22/18 Unknown Rx ED Physical Exam - General Limitations: No Limitations General appearance: alert, anxious, obese - Head Head exam: Present: atraumatic, normocephalic - Eye Eye exam: Present: normal appearance, EOMI. Absent: nystagmus - ENT ENT exam: Present: normal exam, normal orophraynx, mucous membranes moist, normal external ear exam - Neck Neck exam: Present: normal inspection, full ROM. Absent: tenderness, meningismus - Respiratory Respiratory exam: Present: normal lung sounds bilaterally. Absent: respiratory distress - Cardiovascular Cardiovascular Exam: Present: normal rhythm, tachycardia, normal heart sounds. Absent: systolic murmur, diastolic murmur, rubs, gallop - GI/Abdominal GI/Abdominal exam: Present: soft, distended, tenderness. Absent: guarding, rebound, rigid - Extremities Exam Extremities exam: Present: normal inspection, full ROM, pedal edema, other (2+ pulses noted in the bilateral upper, lower extremities. Compartments soft. No long bony tenderness. The pelvis is stable.). Absent: calf tenderness - Back Exam Back exam: Present: normal inspection, full ROM, CVA tenderness (R). Absent: tenderness, paraspinal tenderness, vertebral tenderness - Neurological Exam Neurological exam: Present: alert, oriented X3, CN II-XII intact, other (Extraocular movements intact. Tongue midline. No facial droop. Facial sensation intact to light touch in the V1, V2, V3 distribution bilaterally. 5 and 5 strength in 4 extremities.. Sensation is intact to light touch in 4 extremities.). Absent: motor sensory deficit - Psychiatric Psychiatric exam: Present: anxious - Skin Skin exam: Present: warm, dry, intact, normal color. Absent: rash ED Course Vital Signs 10/21/18 10/21/18 10/21/18 15:07 15:36 16:30 Temperature 97.8 F 100.1 F H Pulse Rate 117 H 106 H 96 H Respiratory 22 14 16 Rate Blood Pressure 115/76 Blood Pressure 108/72 113/72 [Right] O2 Sat by Pulse 100 100 Oximetry 10/21/18 17:30 Temperature 99.2 F Pulse Rate 94 H Respiratory 15 Rate Blood Pressure Blood Pressure 103/65 [Right] O2 Sat by Pulse 96 Oximetry ED Medical Decision Making - Lab Data Result diagrams: 10/21/18 15:46 10/21/18 15:46 Vital Signs 10/21/18 10/21/18 10/21/18 15:07 15:36 16:30 Temperature 97.8 F 100.1 F H Pulse Rate 117 H 106 H 96 H Respiratory 22 14 16 Rate Blood Pressure 115/76 Blood Pressure 108/72 113/72 [Right] O2 Sat by Pulse 100 100 Oximetry 10/21/18 17:30 Temperature 99.2 F Pulse Rate 94 H Respiratory 15 Rate Blood Pressure Blood Pressure 103/65 [Right] O2 Sat by Pulse 96 Oximetry Lab Results 10/21/18 10/21/18 10/21/18 Range/Units 15:44 15:46 15:46 WBC 7.4 (4.5-11.0) K/mm3 RBC 3.65 (3.65-5.03) M/mm3 Hgb 11.1 (10.1-14.3) gm/dl Hct 32.7 (30.3-42.9) % MCV 90 (79-97) fl MCH 30 (28-32) pg MCHC 34 (30-34) % RDW 18.7 H (13.2-15.2) % Plt Count 179 (140-440) K/mm3 Lymph % (Auto) 13.1 L (13.4-35.0) % H[place]ett % (Auto) 8.7 H (0.0-7.3) % Eos % (Auto) 0.4 (0.0-4.3) % Baso % (Auto) 1.0 (0.0-1.8) % Lymph # 1.0 L (1.2-5.4) K/mm3 Harnett # 0.6 (0.0-0.8) K/mm3 Eos # 0.0 (0.0-0.4) K/mm3 Baso # 0.1 (0.0-0.1) K/mm3 Seg Neutrophils % 76.8 H (40.0-70.0) % Seg Neutrophils # 5.7 (1.8-7.7) K/mm3 PT 20.1 H (12.2-14.9) Sec. INR 1.60 H (0.87-1.13) APTT (24.2-36.6) Sec. VBG pH (7.320-7.420) Sodium (137-145) mmol/L Potassium (3.6-5.0) mmol/L Chloride (98-107) mmol/L Carbon Dioxide (22-30) mmol/L Anion Gap mmol/L BUN (7-17) mg/dL Creatinine (0.7-1.2) mg/dL Estimated GFR ml/min BUN/Creatinine Ratio % Glucose (65-100) mg/dL Lactic Acid (0.7-2.0) mmol/L Calcium (8.4-10.2) mg/dL Magnesium (1.7-2.3) mg/dL Total Bilirubin (0.1-1.2) mg/dL AST (5-40) units/L ALT (7-56) units/L Alkaline Phosphatase (35-129) units/L Ammonia (25-60) umol/L Total Protein (6.3-8.2) g/dL Albumin (3.9-5) g/dL Albumin/Globulin Ratio % Lipase (13-60) units/L Urine Color Sarah (Yellow) Urine Turbidity Clear (Clear) Urine pH 5.0 (5.0-7.0) Ur Specific [place] 1.040 H (1.003-1.030) Urine Protein 30 mg/dl (Negative) mg/dL Urine Glucose (UA) Neg (Negative) mg/dL Urine Ketones Neg (Negative) mg/dL Urine Blood Neg (Negative) Urine Nitrite Neg (Negative) Urine Bilirubin Mod (Negative) Urine Ictotest Positive (Negative) Urine Urobilinogen 4.0 (<2.0) mg/dL Ur Leukocyte Esterase Neg (Negative) Urine WBC (Auto) < 1.0 (0.0-6.0) /HPF Urine RBC (Auto) 1.0 (0.0-6.0) /HPF U Epithel Cells (Auto) 1.0 (0-13.0) /HPF Urine Mucus 1+ /HPF 10/21/18 10/21/18 10/21/18 Range/Units 15:46 15:46 15:46 WBC (4.5-11.0) K/mm3 RBC (3.65-5.03) M/mm3 Hgb (10.1-14.3) gm/dl Hct (30.3-42.9) % MCV (79-97) fl MCH (28-32) pg MCHC (30-34) % RDW (13.2-15.2) % Plt Count (140-440) K/mm3 Lymph % (Auto) (13.4-35.0) % Harnett % (Auto) (0.0-7.3) % Eos % (Auto) (0.0-4.3) % Baso % (Auto) (0.0-1.8) % Lymph # (1.2-5.4) K/mm3 H[place]ett # (0.0-0.8) K/mm3 Eos # (0.0-0.4) K/mm3 Baso # (0.0-0.1) K/mm3 Seg Neutrophils % (40.0-70.0) % Seg Neutrophils # (1.8-7.7) K/mm3 PT (12.2-14.9) Sec. INR (0.87-1.13) APTT (24.2-36.6) Sec. VBG pH 7.488 H (7.320-7.420) Sodium 135 L (137-145) mmol/L Potassium 2.9 L* (3.6-5.0) mmol/L Chloride 101.6 (98-107) mmol/L Carbon Dioxide 20 L (22-30) mmol/L Anion Gap 16 mmol/L BUN 10 (7-17) mg/dL Creatinine 0.5 L (0.7-1.2) mg/dL Estimated GFR > 60 ml/min BUN/Creatinine Ratio 20 % Glucose 114 H (65-100) mg/dL Lactic Acid 2.10 H* (0.7-2.0) mmol/L Calcium 8.0 L (8.4-10.2) mg/dL Magnesium (1.7-2.3) mg/dL Total Bilirubin 1.50 H (0.1-1.2) mg/dL AST 19 (5-40) units/L ALT 8 (7-56) units/L Alkaline Phosphatase 78 (35-129) units/L Ammonia (25-60) umol/L Total Protein 6.2 L (6.3-8.2) g/dL Albumin 2.3 L (3.9-5) g/dL Albumin/Globulin Ratio 0.6 % Lipase (13-60) units/L Urine Color (Yellow) Urine Turbidity (Clear) Urine pH (5.0-7.0) Ur Specific [place] (1.003-1.030) Urine Protein (Negative) mg/dL Urine Glucose (UA) (Negative) mg/dL Urine Ketones (Negative) mg/dL Urine Blood (Negative) Urine Nitrite (Negative) Urine Bilirubin (Negative) Urine Ictotest (Negative) Urine Urobilinogen (<2.0) mg/dL Ur Leukocyte Esterase (Negative) Urine WBC (Auto) (0.0-6.0) /HPF Urine RBC (Auto) (0.0-6.0) /HPF U Epithel Cells (Auto) (0-13.0) /HPF Urine Mucus /HPF 10/21/18 10/21/18 10/21/18 Range/Units 15:53 15:58 16:34 WBC (4.5-11.0) K/mm3 RBC (3.65-5.03) M/mm3 Hgb (10.1-14.3) gm/dl Hct (30.3-42.9) % MCV (79-97) fl MCH (28-32) pg MCHC (30-34) % RDW (13.2-15.2) % Plt Count (140-440) K/mm3 Lymph % (Auto) (13.4-35.0) % Harnett % (Auto) (0.0-7.3) % Eos % (Auto) (0.0-4.3) % Baso % (Auto) (0.0-1.8) % Lymph # (1.2-5.4) K/mm3 H[place]ett # (0.0-0.8) K/mm3 Eos # (0.0-0.4) K/mm3 Baso # (0.0-0.1) K/mm3 Seg Neutrophils % (40.0-70.0) % Seg Neutrophils # (1.8-7.7) K/mm3 PT (12.2-14.9) Sec. INR (0.87-1.13) APTT 32.9 (24.2-36.6) Sec. VBG pH (7.320-7.420) Sodium (137-145) mmol/L Potassium (3.6-5.0) mmol/L Chloride (98-107) mmol/L Carbon Dioxide (22-30) mmol/L Anion Gap mmol/L BUN (7-17) mg/dL Creatinine (0.7-1.2) mg/dL Estimated GFR ml/min BUN/Creatinine Ratio % Glucose (65-100) mg/dL Lactic Acid 1.60 (0.7-2.0) mmol/L Calcium (8.4-10.2) mg/dL Magnesium (1.7-2.3) mg/dL Total Bilirubin (0.1-1.2) mg/dL AST (5-40) units/L ALT (7-56) units/L Alkaline Phosphatase (35-129) units/L Ammonia 54.0 (25-60) umol/L Total Protein (6.3-8.2) g/dL Albumin (3.9-5) g/dL Albumin/Globulin Ratio % Lipase (13-60) units/L Urine Color (Yellow) Urine Turbidity (Clear) Urine pH (5.0-7.0) Ur Specific [place] (1.003-1.030) Urine Protein (Negative) mg/dL Urine Glucose (UA) (Negative) mg/dL Urine Ketones (Negative) mg/dL Urine Blood (Negative) Urine Nitrite (Negative) Urine Bilirubin (Negative) Urine Ictotest (Negative) Urine Urobilinogen (<2.0) mg/dL Ur Leukocyte Esterase (Negative) Urine WBC (Auto) (0.0-6.0) /HPF Urine RBC (Auto) (0.0-6.0) /HPF U Epithel Cells (Auto) (0-13.0) /HPF Urine Mucus /HPF 10/21/18 Range/Units 16:49 WBC (4.5-11.0) K/mm3 RBC (3.65-5.03) M/mm3 Hgb (10.1-14.3) gm/dl Hct (30.3-42.9) % MCV (79-97) fl MCH (28-32) pg MCHC (30-34) % RDW (13.2-15.2) % Plt Count (140-440) K/mm3 Lymph % (Auto) (13.4-35.0) % [place] % (Auto) (0.0-7.3) % Eos % (Auto) (0.0-4.3) % Baso % (Auto) (0.0-1.8) % Lymph # (1.2-5.4) K/mm3 [place] # (0.0-0.8) K/mm3 Eos # (0.0-0.4) K/mm3 Baso # (0.0-0.1) K/mm3 Seg Neutrophils % (40.0-70.0) % Seg Neutrophils # (1.8-7.7) K/mm3 PT (12.2-14.9) Sec. INR (0.87-1.13) APTT (24.2-36.6) Sec. VBG pH (7.320-7.420) Sodium (137-145) mmol/L Potassium (3.6-5.0) mmol/L Chloride (98-107) mmol/L Carbon Dioxide (22-30) mmol/L Anion Gap mmol/L BUN (7-17) mg/dL Creatinine (0.7-1.2) mg/dL Estimated GFR ml/min BUN/Creatinine Ratio % Glucose (65-100) mg/dL Lactic Acid (0.7-2.0) mmol/L Calcium (8.4-10.2) mg/dL Magnesium 1.60 L (1.7-2.3) mg/dL Total Bilirubin (0.1-1.2) mg/dL AST (5-40) units/L ALT (7-56) units/L Alkaline Phosphatase (35-129) units/L Ammonia (25-60) umol/L Total Protein (6.3-8.2) g/dL Albumin (3.9-5) g/dL Albumin/Globulin Ratio % Lipase 6 L (13-60) units/L Urine Color (Yellow) Urine Turbidity (Clear) Urine pH (5.0-7.0) Ur Specific [place] (1.003-1.030) Urine Protein (Negative) mg/dL Urine Glucose (UA) (Negative) mg/dL Urine Ketones (Negative) mg/dL Urine Blood (Negative) Urine Nitrite (Negative) Urine Bilirubin (Negative) Urine Ictotest (Negative) Urine Urobilinogen (<2.0) mg/dL Ur Leukocyte Esterase (Negative) Urine WBC (Auto) (0.0-6.0) /HPF Urine RBC (Auto) (0.0-6.0) /HPF U Epithel Cells (Auto) (0-13.0) /HPF Urine Mucus /HPF - EKG Data -: EKG Interpreted by Ga EKG shows normal: sinus rhythm Rate: normal - EKG Data 10/21/18 19:09 Sinus tachycardia, 110 bpm, normal axis, QTC prolonged, low voltage, motion artifact, not consistent with ST elevation myocardial infarction, unchanged from prior EKG from August 2018, premature ventricular contractions have resolved. - Radiology Data Radiology results: report reviewed, image reviewed X-ray the chest shows small pleural effusion. Noncontrast CT scan of the brain is negative for acute disease. CT scan of abdomen and pelvis shows worsening ascites. Otherwise, no other acute disease. - Medical Decision Making Differential diagnosis, including without limited to: Pneumonia, urinary tract infection, tense ascites, bacterial peritonitis Assessment and plan: 58-year-old female with tense ascites, low-grade temperature, not tentatively a fever, mostly having symptomatic ascites. Has not presented with spontaneous bacterial peritonitis in the past. Has also endorsed back pain and urinary symptoms. We will cover the patient empirically with ceftriaxone. We will treat her symptoms. We will replete her electrolytes. Lactic acidosis improving. Patient will be admitted to the medical service for urgent paracentesis. Patient saturating well, does not have crackles or rales, and currently, does not require emergent large volume therapeutic paracentesis currently. Critical Care Time: Yes Critical care time in (mins) excluding proc time.: 35 Critical care attestation.: If time is entered above; I have spent that time in minutes in the direct care of this critically ill patient, excluding procedure time. ED Disposition Clinical Impression: Hypokalemia, Abdominal pain, Ascites, Chronic liver disease, Hypomagnesemia Disposition: OP ADMIT IP TO THIS HOSP Is pt being admited?: Yes Condition: Fair Referrals: LUIS BAILEY MD [Primary Care Provider] - 3-5 Days
[2018-10-21] MEDS: KCL 10MEQ/100ML 10 MEQ/100 ML BAG IV SCH ×3 (17:55→22:12)
--- NOTE | 2018-10-21 17:59 | Cat Scan Report ---
PROCEDURE: CT HEAD/BRAIN WO CON TECHNIQUE: Computerized tomography of the head was performed without contrast material. CT DOSE LENGTH PRODUCT: 920.48 mGycm HISTORY: Dizziness COMPARISONS: None . FINDINGS: There is no evidence of an acute intracranial process, intracranial hemorrhage or mass effect. Ventricular size is concordant with the degree of atrophy. There is atherosclerotic vascular calcification of the internal carotid arteries bilaterally at the s kull base. The visualized portions of the orbits, paranasal and mastoid sinuses are unremarkable. The bony structures are notable for a small focus of groundglass change in the right occipital bone t hat measures approximately 1 cm in size. Possible small focus of accessory change or fibrous dysplasi a. IMPRESSION: 1. No evidence of an acute intracranial process, intracranial hemorrhage or mass effect. If there is a clinical suspicion of an acute intracranial process, MRI brain may be helpful. 2. Atherosclerotic vascular calcification. 3. Possible small focus of pagetoid change or fibrous dysplasia right occipital bone. This document is electronically signed by Bianka Bullard MD., October 21 2018 05:56:40 PM ET
--- NOTE | 2018-10-21 18:33 | XRay Report ---
PROCEDURE: XR CHEST 1V AP TECHNIQUE: Chest radiograph single view. HISTORY: possible Sepsis COMPARISONS: None . FINDINGS: There is blunting of left costophrenic angle suggestive of a left pleural fluid collection. There is no evidence of focal infiltrate or pneumothorax. The cardiac silhouette is normal size. The thoracic aorta is tortuous with atherosclerotic vascular calcification. The bony structures are unremarkable. IMPRESSION: 1. Evidence of a small left pleural fluid collection. This may be reactive in nature secondary to the intra-abdominal inflammatory process demonstrated on the CT also performed today. 2. No other evidence of an acute pulmonary process. This document is electronically signed by Bianka Bullard MD., October 21 2018 06:31:24 PM ET
--- NOTE | 2018-10-21 18:40 | Cat Scan Report ---
PROCEDURE: CT ABDOMEN PELVIS WO CON TECHNIQUE: Computerized axial tomography of the abdomen and pelvis was performed without intravenous contrast. This study is performed without intravascular contrast material and its sensitivity for ab dominal and pelvic pathology, including neoplasms, inflammation, abscess, free fluid, thrombosis, art erial dissection and infarction, is reduced compared with a contrast enhanced study. HISTORY: Abdominal Pain and swelling COMPARISONS: None . FINDINGS: Visualization of fine detail is somewhat limited by artifact created by low-dose technique and lack o f IV contrast. There is atelectasis in the left lung base. The liver is enlarged similar in appearance to the previous study. The spleen is enlarged similar in appearance to the previous study. The kidneys and adrenal glands ar e unremarkable. The gallbladder is moderately distended and possibly contains a small calcified gallstone. Visualization of detail the pancreas is significantly limited. Again noted are areas of decreased den sity with surrounding phlegmonous change anterior to the body of the pancreas, anterior to Gerotas fa scia and medial and posterior to the spleen as were demonstrated on the previous study. These are mos t suggestive of pseudocysts. There is a collection anterior to the body of the pancreas which measures approximately 5.7 cm and th e maximal axial dimension compared with approximately 6 cm on the previous study. There is a large collection anterior to Gerotas fascia that measures approximately 5.8 cm and the max imal axial dimension compared with the previous study measurement of 4.9 cm. This collection has a so mewhat tubular component that extends medial and posterior to the posterior aspect of the spleen and appears to be increased in size. There is a large amount of free fluid in the abdomen and pelvis that has increased in degree in the i nterval. The Hounsfield units are most consistent with uncomplicated fluid. There is no evidence of pneumoperitoneum. The bowel is normal caliber. There is colonic diverticulosis without definite radiographic evidence of diverticulitis. The abdominal aorta is normal caliber. There is no definite evidence of intra-abdominal adenopathy. The urinary bladder is decompressed which limits evaluation. The uterus and adnexa are unremarkable. The bony structures are unremarkable. IMPRESSION: 1. Appearance of pancreatic pseudocysts one of which has decreased in size in the interval and anothe r which has increased in size in the interval. 2. Interval increase in degree of ascites. The above findings were discussed with Dr Newberry at 6:37 PM October 21, 2018. 3. Hepatomegaly and splenomegaly. 4. Colonic diverticulosis. This document is electronically signed by Bianka Bullard MD., October 21 2018 06:38:14 PM ET
[2018-10-21] MEDS ORDERED: NACL 0.9% 250ML 250 ML ONE (18:41)
[2018-10-21] MEDS ORDERED: NACL 0.9% 250ML 250 ML IV ONE (18:49)
[2018-10-21] MEDS ORDERED: KCL 10MEQ/100ML 10 MEQ/100 ML BAG IV ONE (19:49)
[2018-10-21] MEDS: DILAUDID IV PRN (22:09)
[2018-10-22] MEDS ORDERED: PERCOCET 5/325 PO PRN (00:15)
[2018-10-22] MEDS ORDERED: TYLENOL PO PRN (00:15)
[2018-10-22] MEDS ORDERED: ZOFRAN IV PRN (00:15)
[2018-10-22] MEDS ORDERED: SODIUM CHLORIDE FLUSH SYRINGE 10 ML IV PRN (00:15)
[2018-10-22] MEDS ORDERED: VANCOMYCIN PHARMACY TO DOSE IV SCH (01:00)
[2018-10-22] MEDS: KCL 10MEQ/100ML 10 MEQ/100 ML BAG IV SCH ×3 (01:11→14:03)
[2018-10-22] MEDS ORDERED: VANCOMYCIN 1,500 MG in NACL 0.9% 500 ML 500 ML IV ONE (02:00)
[2018-10-22] MEDS: DILAUDID IV PRN ×5 (05:13→20:11)
--- NOTE | 2018-10-22 07:06 | Event Note ---
Date: 10/21/18 See dictated H/p in reports Severe Ascites Needs Paracentesis
[2018-10-22] MEDS ORDERED: K-DUR PO NR (08:00)
[2018-10-22] MEDS: HumaLOG SUB-Q SCH ×4 (08:36→21:43)
--- NOTE | 2018-10-22 08:43 | History and Physical Report ---
CHIEF COMPLAINT: 1. Low back pain. 2. Severe abdominal distention. HISTORY OF PRESENT ILLNESS: A 58-year-old female with history of alcohol abuse, cirrhosis, pancreatic pseudocyst and ascites, comes in for severe abdominal distention and back pain. Abdominal distention is worse and having shortness of breath. Back pain is secondary to the abdominal distention. No fever or chills. PAST MEDICAL HISTORY: Significant for insulin-dependent diabetes, ascites, and cirrhosis. CURRENT MEDICATIONS: Insulin 12 units b.i.d. in the form of Novolin 70/30, spironolactone 50 mg once a day. PAST SURGICAL HISTORY: Tubal ligation. SOCIAL HISTORY: Smokes about a half a pack a day. FAMILY HISTORY: Hypertension. REVIEW OF SYSTEMS: Significant for severe distention of the abdomen and shortness of breath and lower back pain. Otherwise, review of systems is negative. No fever or chills. PHYSICAL EXAMINATION: GENERAL: Elderly female, cooperative during examination. VITAL SIGNS: Blood pressure is 126/79, temperature is 100.2, pulse is 94, respirations 29, sats 98%. HEENT: Unremarkable. Pupils equal and reactive. NECK: Supple, no lymphadenopathy, no thyromegaly. LUNGS: Clear to auscultation and percussion. Good air entry. CARDIOVASCULAR: S1, S2 heard. No gallop, no murmur, no rub. Apical impulse in left fifth intercostal space and midclavicular line. ABDOMEN: Soft and benign. No hepatosplenomegaly. No guarding, no rigidity. Abdomen is severely distended. Fluid thrill present. EXTREMITIES: Good pedal pulses. CENTRAL NERVOUS SYSTEM: Alert and oriented x 4. SKIN: Normal. LABORATORY DATA: Significant for white count of 7400, H and H are 11.1 and 32.7, platelet count of 179,000. Potassium is low at 2.9. Lactic acid is 2.1, albumin is 2.3. Urine is negative. Abdominal CT shows pancreatic pseudocyst, which is decreased in size; severe ascites, hepatomegaly and splenomegaly, colonic diverticulosis. ASSESSMENT AND PLAN: 1. Severe ascites. The patient needs emergent paracentesis. Fluid to be sent for cultures and cell count. 2. Hypokalemia, supplemented. 3. Insulin-dependent diabetes. Continue coverage. 4. Low-grade fever. The patient is being covered empirically with vancomycin and ceftriaxone. 5. Deep venous thrombosis prophylaxis, Lovenox 30 mg subcutaneous daily. JOB# [id number] VSM/NTS MTDD
[2018-10-22] MEDS: PEPCID PO SCH ×2 (09:25→22:01)
[2018-10-22] MEDS: VITAMIN B-1 PO SCH (09:25)
[2018-10-22] MEDS: ALDACTONE PO SCH (09:25)
[2018-10-22] MEDS: SODIUM CHLORIDE FLUSH SYRINGE 10 ML IV SCH ×3 (09:25→22:01)
[2018-10-22] MEDS: FOLVITE PO SCH (09:25)
[2018-10-22] MEDS: THERAGRAN Tab PO SCH (09:25)
--- NOTE | 2018-10-22 11:04 | Gastroenterology Consultation ---
History of Present Illness - Reason for Consult Consult date: 10/22/18 Ascites Requesting physician: MAGGIE ESTRADA - History of Present Illness Ms Mendoza is a 58 yo wf with h/o alcohol abuse, cirrhosis, recurrent pancreatitis (from alcohol, with likely chronic pancreatitis) who presents with worsening abd distention/ascites and back pain. Pt also found to have low grade fever on admission. She reports her last alcohol intake was 15 days ago. She was consuming up to 1/2 pint per day until quitting 15 days ago. She was on aldactone, but has had re-development of ascites for the past 1 week. She denies mental status changes, jaundice, or gi bleeding. Past History Past Medical History: diabetes, other (cirrhosis, pancreatitis) Past Surgical History: No surgical history Social history: alcohol abuse Family history: no significant family history Medications and Allergies Allergies Allergy/AdvReac Type Severity Reaction Status Date / Time No Known Allergies Allergy Verified 09/16/18 09:12 Home Medications Medication Instructions Recorded Confirmed Last Taken Type Folic Acid [Folvite] 1 mg PO QDAY #30 tablet 09/22/18 Unknown Rx Insulin NPH/Regular [NovoLIN 70/30] 12 unit SUB-Q BIDDIAB #1 vial 09/22/18 Unknown Rx Multivitamin Tab [Multiple Vitamin 1 each PO QDAY #30 tablet 09/22/18 Unknown Rx TAB (Theragran)] Spironolactone [Aldactone] 50 mg PO QDAY #30 tablet 09/22/18 Unknown Rx Thiamine [Vitamin B-1] 100 mg PO QDAY #30 tablet 09/22/18 Unknown Rx Active Meds: Active Medications Acetaminophen (Tylenol) 650 mg PO Q4H PRN PRN Reason: Pain MILD(1-3)/Fever >100.5/ALEXANDER Famotidine (Pepcid) 10 mg PO BID [facility] Last Admin: 10/22/18 09:25 Dose: 10 mg Documented by: Folic Acid (Folvite) 1 mg PO QDAY [facility] Last Admin: 10/22/18 09:25 Dose: 1 mg Documented by: Hydromorphone HCl (Dilaudid) 0.5 mg IV Q3H PRN PRN Reason: Pain , Severe (7-10) Last Admin: 10/22/18 08:44 Dose: 0.5 mg Documented by: Vancomycin HCl 1,250 mg/ (Sodium Chloride) 275 mls @ 166.667 mls/hr IV Q12H [facility] Potassium Chloride (Kcl 10meq/100ml) 10 meq in 100 mls @ 100 mls/hr IV Q1H [facility] Stop: 10/22/18 11:59 Ceftriaxone Sodium (Rocephin/Ns 2 Gm/100 Ml) 2 gm in 100 mls @ 200 mls/hr IV Q24HR [facility]; Protocol Insulin Human Isoph/Insulin Regular (Humulin 70/30) 12 unit SUB-Q BIDDIAB [facility] Last Admin: 10/22/18 08:35 Dose: 12 unit Documented by: Insulin Human Lispro (Humalog) 0 unit SUB-Q ACHS [facility]; Protocol Last Admin: 10/22/18 08:36 Dose: Not Given Documented by: Multivitamins (Theragran Tab) 1 each PO QDAY [facility] Last Admin: 10/22/18 09:25 Dose: 1 each Documented by: Ondansetron HCl (Zofran) 4 mg IV Q8H PRN PRN Reason: Nausea And Vomiting Oxycodone/Acetaminophen (Percocet 5/325) 1 tab PO Q6H PRN PRN Reason: Pain, Moderate (4-6) Last Admin: 10/22/18 01:30 Dose: 1 tab Documented by: Potassium Chloride (K-Dur) 40 meq PO ONCE NR Stop: 10/22/18 12:00 Last Admin: 10/22/18 08:35 Dose: 40 meq Documented by: Sodium Chloride (Sodium Chloride Flush Syringe 10 Ml) 10 ml IV BID [facility] Last Admin: 10/22/18 09:25 Dose: 10 ml Documented by: Sodium Chloride (Sodium Chloride Flush Syringe 10 Ml) 10 ml IV PRN PRN PRN Reason: LINE FLUSH Spironolactone (Aldactone) 50 mg PO QDAY [facility] Last Admin: 10/22/18 09:25 Dose: 50 mg Documented by: Thiamine HCl (Vitamin B-1) 100 mg PO QDAY [facility] Last Admin: 10/22/18 09:25 Dose: 100 mg Documented by: Review of Systems - Review of Systems All systems: negative (per HPI) Exam - Constitutional Vital Signs: Temp Pulse Resp BP Pulse Ox 98.0 F 91 H 16 91/61 95 10/22/18 06:15 10/22/18 06:15 10/22/18 06:15 10/22/18 06:15 10/22/18 06:15 General appearance: no acute distress - EENT Eyes: PERRL, EOM intact - Respiratory Respiratory effort: normal Respiratory: bilateral: CTA - Cardiovascular Rhythm: regular Heart Sounds: Present: S1 & S2 Extremities: No edema - Gastrointestinal General gastrointestinal: Present: other (mod distention/ascites, mild ttp, +bs) - Neurologic Neurological: alert and oriented x3 - Psychiatric Psychiatric: appropriate mood/affect - Labs CBC & Chem 7: 10/21/18 15:46 10/21/18 15:46 Lab Results: Laboratory Results - last 24 hr 10/21/18 10/21/18 10/21/18 15:44 15:46 15:46 WBC 7.4 RBC 3.65 Hgb 11.1 Hct 32.7 MCV 90 MCH 30 MCHC 34 RDW 18.7 H Plt Count 179 Lymph % (Auto) 13.1 L [place] % (Auto) 8.7 H Eos % (Auto) 0.4 Baso % (Auto) 1.0 Lymph # 1.0 L [place] # 0.6 Eos # 0.0 Baso # 0.1 Seg Neutrophils % 76.8 H Seg Neutrophils # 5.7 PT 20.1 H INR 1.60 H APTT VBG pH Sodium Potassium Chloride Carbon Dioxide Anion Gap BUN Creatinine Estimated GFR BUN/Creatinine Ratio Glucose POC Glucose Hemoglobin A1c Lactic Acid Calcium Magnesium Total Bilirubin AST ALT Alkaline Phosphatase Ammonia Total Protein Albumin Albumin/Globulin Ratio Lipase Urine Color Sarah Urine Turbidity Clear Urine pH 5.0 Ur Specific [place] 1.040 H Urine Protein 30 mg/dl Urine Glucose (UA) Neg Urine Ketones Neg Urine Blood Neg Urine Nitrite Neg Urine Bilirubin Mod Urine Ictotest Positive Urine Urobilinogen 4.0 Ur Leukocyte Esterase Neg Urine WBC (Auto) < 1.0 Urine RBC (Auto) 1.0 U Epithel Cells (Auto) 1.0 Urine Mucus 1+ 10/21/18 10/21/18 10/21/18 15:46 15:46 15:46 WBC RBC Hgb Hct MCV MCH MCHC RDW Plt Count Lymph % (Auto) [place] % (Auto) Eos % (Auto) Baso % (Auto) Lymph # [place] # Eos # Baso # Seg Neutrophils % Seg Neutrophils # PT INR APTT VBG pH 7.488 H Sodium 135 L Potassium 2.9 L* Chloride 101.6 Carbon Dioxide 20 L Anion Gap 16 BUN 10 Creatinine 0.5 L Estimated GFR > 60 BUN/Creatinine Ratio 20 Glucose 114 H POC Glucose Hemoglobin A1c Lactic Acid 2.10 H* Calcium 8.0 L Magnesium Total Bilirubin 1.50 H AST 19 ALT 8 Alkaline Phosphatase 78 Ammonia Total Protein 6.2 L Albumin 2.3 L Albumin/Globulin Ratio 0.6 Lipase Urine Color Urine Turbidity Urine pH Ur Specific [place] Urine Protein Urine Glucose (UA) Urine Ketones Urine Blood Urine Nitrite Urine Bilirubin Urine Ictotest Urine Urobilinogen Ur Leukocyte Esterase Urine WBC (Auto) Urine RBC (Auto) U Epithel Cells (Auto) Urine Mucus 10/21/18 10/21/18 10/21/18 15:53 15:58 16:34 WBC RBC Hgb Hct MCV MCH MCHC RDW Plt Count Lymph % (Auto) [place] % (Auto) Eos % (Auto) Baso % (Auto) Lymph # [place] # Eos # Baso # Seg Neutrophils % Seg Neutrophils # PT INR APTT 32.9 VBG pH Sodium Potassium Chloride Carbon Dioxide Anion Gap BUN Creatinine Estimated GFR BUN/Creatinine Ratio Glucose POC Glucose Hemoglobin A1c Lactic Acid 1.60 Calcium Magnesium Total Bilirubin AST ALT Alkaline Phosphatase Ammonia 54.0 Total Protein Albumin Albumin/Globulin Ratio Lipase Urine Color Urine Turbidity Urine pH Ur Specific [place] Urine Protein Urine Glucose (UA) Urine Ketones Urine Blood Urine Nitrite Urine Bilirubin Urine Ictotest Urine Urobilinogen Ur Leukocyte Esterase Urine WBC (Auto) Urine RBC (Auto) U Epithel Cells (Auto) Urine Mucus 10/21/18 10/21/18 10/22/18 16:49 18:44 00:30 WBC RBC Hgb Hct MCV MCH MCHC RDW Plt Count Lymph % (Auto) [place] % (Auto) Eos % (Auto) Baso % (Auto) Lymph # [place] # Eos # Baso # Seg Neutrophils % Seg Neutrophils # PT INR APTT VBG pH Sodium Potassium Chloride Carbon Dioxide Anion Gap BUN Creatinine Estimated GFR BUN/Creatinine Ratio Glucose POC Glucose Hemoglobin A1c 6.4 H Lactic Acid 1.70 Calcium Magnesium 1.60 L Total Bilirubin AST ALT Alkaline Phosphatase Ammonia Total Protein Albumin Albumin/Globulin Ratio Lipase 6 L Urine Color Urine Turbidity Urine pH Ur Specific [place] Urine Protein Urine Glucose (UA) Urine Ketones Urine Blood Urine Nitrite Urine Bilirubin Urine Ictotest Urine Urobilinogen Ur Leukocyte Esterase Urine WBC (Auto) Urine RBC (Auto) U Epithel Cells (Auto) Urine Mucus 10/22/18 08:17 WBC RBC Hgb Hct MCV MCH MCHC RDW Plt Count Lymph % (Auto) [place] % (Auto) Eos % (Auto) Baso % (Auto) Lymph # [place] # Eos # Baso # Seg Neutrophils % Seg Neutrophils # PT INR APTT VBG pH Sodium Potassium Chloride Carbon Dioxide Anion Gap BUN Creatinine Estimated GFR BUN/Creatinine Ratio Glucose POC Glucose 124 H Hemoglobin A1c Lactic Acid Calcium Magnesium Total Bilirubin AST ALT Alkaline Phosphatase Ammonia Total Protein Albumin Albumin/Globulin Ratio Lipase Urine Color Urine Turbidity Urine pH Ur Specific [place] Urine Protein Urine Glucose (UA) Urine Ketones Urine Blood Urine Nitrite Urine Bilirubin Urine Ictotest Urine Urobilinogen Ur Leukocyte Esterase Urine WBC (Auto) Urine RBC (Auto) U Epithel Cells (Auto) Urine Mucus - Imaging CT Scan: report reviewed Assessment and Plan 1. Ascites - therapeutic/diagnostic paracentesis pending; consider increasing aldactone dose (hypokalemia on admission). needs to be on low sodium diet. rule out sbp 2. Cirrhosis - complicated by ascites; no h/o encephalopathy or GI bleeding; will need eventual variceal screening which can be done as outpatient 3. History of acute pancreatitis 2/2 alcohol - ct with pseudocysts; suspect pt has chronic pancreatitis at this point given recurrent episodes from alcohol 4. Low grade fever/sepsis - on empiric abx, r/o SBP (diagnostic studies at time of paracentesis) 5. History of alcohol abuse - counseled on cessation and recommended AA
[2018-10-22] MEDS: ROCEPHIN/NS 2 GM/100 ML 2 GM/100 ML BAG IV SCH (11:43)
[2018-10-22 13:10] LABS: BUN/Creatinine Ratio 16; Blood Urea Nitrogen 8 mg/dL (7-17); Calcium 7.9 mg/dL (8.4-10.2); Hemolysis Index 11
--- NOTE | 2018-10-22 13:47 | Progress Note ---
Assessment and Plan Assessment and plan: Severe sepsis evidenced by HR>90, RR>20, Lactic acid of 2.1 on presentation -Probably secondary to SBP versus UTI -On IV Rocephin -Urine culture positive for gram-negative greg -Blood cultures pending -Ascitic fluid analysis pending Chronic liver disease with recurrent ascites -On diuretic -Paracentesis pending -GI following Hypokalemia/Hypomagnesemia -Improved status post repletion, will monitor Hyponatremia -On fluid restriction, will monitor sodium level Severe protein calorie malnutrition -Dietitian consulted History of alcohol abuse -Patient admits to being alcohol free for 15 days -On alcohol withdrawal prophylaxis DVT prophylaxis with SCD due to high risk for bleed Hospitalist Physical - Constitutional Vitals: Temp Pulse Resp BP Pulse Ox 99.1 F 98 H 18 119/74 96 10/22/18 12:13 10/22/18 12:13 10/22/18 12:13 10/22/18 12:13 10/22/18 12:13 Results - Labs CBC & Chem 7: 10/21/18 15:46 10/22/18 12:15 Labs: Laboratory Last Values WBC 7.4 K/mm3 (4.5-11.0) 10/21/18 15:46 RBC 3.65 M/mm3 (3.65-5.03) 10/21/18 15:46 Hgb 11.1 gm/dl (10.1-14.3) 10/21/18 15:46 Hct 32.7 % (30.3-42.9) 10/21/18 15:46 MCV 90 fl (79-97) 10/21/18 15:46 MCH 30 pg (28-32) 10/21/18 15:46 MCHC 34 % (30-34) 10/21/18 15:46 RDW 18.7 % (13.2-15.2) H 10/21/18 15:46 Plt Count 179 K/mm3 (140-440) 10/21/18 15:46 Lymph % (Auto) 13.1 % (13.4-35.0) L 10/21/18 15:46 [place] % (Auto) 8.7 % (0.0-7.3) H 10/21/18 15:46 Eos % (Auto) 0.4 % (0.0-4.3) 10/21/18 15:46 Baso % (Auto) 1.0 % (0.0-1.8) 10/21/18 15:46 Lymph # 1.0 K/mm3 (1.2-5.4) L 10/21/18 15:46 [place] # 0.6 K/mm3 (0.0-0.8) 10/21/18 15:46 Eos # 0.0 K/mm3 (0.0-0.4) 10/21/18 15:46 Baso # 0.1 K/mm3 (0.0-0.1) 10/21/18 15:46 Seg Neutrophils % 76.8 % (40.0-70.0) H 10/21/18 15:46 Seg Neutrophils # 5.7 K/mm3 (1.8-7.7) 10/21/18 15:46 PT 20.1 Sec. (12.2-14.9) H 10/21/18 15:46 INR 1.60 (0.87-1.13) H 10/21/18 15:46 APTT 32.9 Sec. (24.2-36.6) 10/21/18 15:53 VBG pH 7.488 (7.320-7.420) H 10/21/18 15:46 Sodium 132 mmol/L (137-145) L 10/22/18 12:15 Potassium 3.6 mmol/L (3.6-5.0) D 10/22/18 12:15 Chloride 99.4 mmol/L (98-107) 10/22/18 12:15 Carbon Dioxide 21 mmol/L (22-30) L 10/22/18 12:15 Anion Gap 15 mmol/L 10/22/18 12:15 BUN 8 mg/dL (7-17) 10/22/18 12:15 Creatinine 0.5 mg/dL (0.7-1.2) L 10/22/18 12:15 Estimated GFR > 60 ml/min 10/22/18 12:15 BUN/Creatinine Ratio 16 % 10/22/18 12:15 Glucose 107 mg/dL (65-100) H 10/22/18 12:15 POC Glucose 115 (70-105) H 10/22/18 11:51 Hemoglobin A1c 6.4 % (4-6) H 10/22/18 00:30 Lactic Acid 1.70 mmol/L (0.7-2.0) 10/21/18 18:44 Calcium 7.9 mg/dL (8.4-10.2) L 10/22/18 12:15 Magnesium 1.70 mg/dL (1.7-2.3) 10/22/18 12:15 Total Bilirubin 1.50 mg/dL (0.1-1.2) H 10/21/18 15:46 AST 19 units/L (5-40) 10/21/18 15:46 ALT 8 units/L (7-56) 10/21/18 15:46 Alkaline Phosphatase 78 units/L (35-129) 10/21/18 15:46 Ammonia 54.0 umol/L (25-60) 10/21/18 15:58 Total Protein 6.2 g/dL (6.3-8.2) L 10/21/18 15:46 Albumin 2.3 g/dL (3.9-5) L 10/21/18 15:46 Albumin/Globulin Ratio 0.6 % 10/21/18 15:46 Lipase 6 units/L (13-60) L 10/21/18 16:49 Urine Color Sarah (Yellow) 10/21/18 15:44 Urine Turbidity Clear (Clear) 10/21/18 15:44 Urine pH 5.0 (5.0-7.0) 10/21/18 15:44 Ur Specific [place] 1.040 (1.003-1.030) H 10/21/18 15:44 Urine Protein 30 mg/dl mg/dL (Negative) 10/21/18 15:44 Urine Glucose (UA) Neg mg/dL (Negative) 10/21/18 15:44 Urine Ketones Neg mg/dL (Negative) 10/21/18 15:44 Urine Blood Neg (Negative) 10/21/18 15:44 Urine Nitrite Neg (Negative) 10/21/18 15:44 Urine Bilirubin Mod (Negative) 10/21/18 15:44 Urine Ictotest Positive (Negative) 10/21/18 15:44 Urine Urobilinogen 4.0 mg/dL (<2.0) 10/21/18 15:44 Ur Leukocyte Esterase Neg (Negative) 10/21/18 15:44 Urine WBC (Auto) < 1.0 /HPF (0.0-6.0) 10/21/18 15:44 Urine RBC (Auto) 1.0 /HPF (0.0-6.0) 10/21/18 15:44 U Epithel Cells (Auto) 1.0 /HPF (0-13.0) 10/21/18 15:44 Urine Mucus 1+ /HPF 10/21/18 15:44
[2018-10-22] MEDS ORDERED: ATIVAN IV PRN (13:55)
[2018-10-22] MEDS ORDERED: VANCOMYCIN 1,250 MG in NACL 0.9% 250ML 250 ML IV SCH (16:00)
[2018-10-23] MEDS: DILAUDID IV PRN ×7 (00:01→21:30)
[2018-10-23] MEDS: SODIUM CHLORIDE FLUSH SYRINGE 10 ML IV SCH ×3 (00:03→21:31)
[2018-10-23 07:22] LABS: Hemoglobin 10.3 gm/dl (10.1-14.3); Mean Corpuscular HGB Conc 33 % (30-34); Mean Corpuscular Volume 90 fl (79-97); Platelet Count 161 K/mm3 (140-440); Red Blood Count 3.44 M/mm3 (3.65-5.03); Red Cell Distribution Width 18.3 % (13.2-15.2)
[2018-10-23 07:47] LABS: Alanine Aminotransferase 7 units/L (7-56); Albumin 2.3 g/dL (3.9-5); BUN/Creatinine Ratio 18; Blood Urea Nitrogen 7 mg/dL (7-17); Calcium 7.7 mg/dL (8.4-10.2); Hemolysis Index 5
[2018-10-23] MEDS: HumaLOG SUB-Q SCH ×4 (07:59→21:32)
[2018-10-23] MEDS: ALDACTONE PO SCH (09:01)
[2018-10-23] MEDS: VITAMIN B-1 PO SCH (09:01)
[2018-10-23] MEDS: FOLVITE PO SCH (09:01)
[2018-10-23] MEDS: THERAGRAN Tab PO SCH (09:01)
[2018-10-23] MEDS: PEPCID PO SCH ×2 (09:01→21:30)
[2018-10-23] MEDS: ROCEPHIN/NS 2 GM/100 ML 2 GM/100 ML BAG IV SCH (09:04)
[2018-10-23 09:28] LABS: Band Neutrophils # (Manual) 0.4 K/mm3; Basophils % (Manual) 0 % (0.0-1.8); Eosinophils % (Manual) 0 % (0.0-4.3); RBC Morphology Normal; Total Cells Counted 100
--- NOTE | 2018-10-23 13:12 | Gastroenterology Progress Note ---
Assessment and Plan - Patient Problems (1) Ascites Current Visit: Yes Status: Acute Qualifiers: (2) Alcoholic cirrhosis of liver with ascites Current Visit: Yes Status: Acute Plan to address problem: EtOh cessation king She will need to follow up as outpatient continue Diuretics with close monitoring of renal function, diagnostic and therapeutic paracentesis (3) Alcoholic cirrhosis of liver with ascites Current Visit: Yes Status: Acute (4) Abdominal pain Current Visit: Yes Status: Acute Qualifiers: Abdominal location: generalized Qualified Code(s): R10.84 - Generalized abdominal pain Plan to address problem: Concerned may be related to SBP, continue Abx and monitor closely, and f/u paracentesis results Try to minimize opiate pain meds given underlying cirrhosis as will increase risk of side effects such as encephalopathy Subjective Interval history: patient still complaining of severe diffuse abdominal pain, duration 1 week, persistent and constant, worse with palpation and better somewhat with pain meds, radiation to back. Paracentesis not yet performed, but patient is on abx Objective - Constitutional Vitals: Temp Pulse Resp BP Pulse Ox 99.5 F 98 H 20 116/70 95 10/23/18 06:40 10/23/18 06:40 10/23/18 06:40 10/23/18 09:01 10/23/18 06:40 General appearance: other (uncomfortable) - Respiratory Respiratory: bilateral: CTA - Cardiovascular Rhythm: regular - Gastrointestinal General gastrointestinal: Present: tender, distended, other - Labs CBC & Chem 7: 10/23/18 06:35 10/23/18 06:35 Labs: Laboratory Results - last 24 hr 10/22/18 10/22/18 10/22/18 12:15 16:21 20:49 WBC RBC Hgb Hct MCV MCH MCHC RDW Plt Count [place] % (Auto) Add Manual Diff Total Counted Seg Neuts % (Manual) Band Neutrophils % Lymphocytes % (Manual) Reactive Lymphs % (Man) Monocytes % (Manual) Eosinophils % (Manual) Basophils % (Manual) Metamyelocytes % Myelocytes % Promyelocytes % Blast Cells % Nucleated RBC % Seg Neutrophils # Man Band Neutrophils # Lymphocytes # (Manual) Abs React Lymphs (Man) Monocytes # (Manual) Eosinophils # (Manual) Basophils # (Manual) Metamyelocytes # Myelocytes # Promyelocytes # Blast Cells # WBC Morphology Hypersegmented Neuts Hyposegmented Neuts Hypogranular Neuts Smudge Cells Toxic Granulation Toxic Vacuolation Dohle Bodies Pelger-Huet Anomaly Cesar Rods Platelet Estimate Clumped Platelets Plt Clumps, EDTA Large Platelets Giant Platelets Platelet Satelliting Plt Morphology Comment RBC Morphology Dimorphic RBCs Polychromasia Hypochromasia Poikilocytosis Anisocytosis Microcytosis Macrocytosis Spherocytes Pappenheimer Bodies Sickle Cells Target Cells Tear Drop Cells Ovalocytes Helmet Cells Watson-Leonidas Bodies [place] Rings Danielle Cells Bite Cells Crenated Cell Elliptocytes Acanthocytes (Spur) Rouleaux Hemoglobin C Crystals Schistocytes Malaria parasites Swapnil Bodies Hem Pathologist Commnt Sodium 132 L Potassium 3.6 D Chloride 99.4 Carbon Dioxide 21 L Anion Gap 15 BUN 8 Creatinine 0.5 L Estimated GFR > 60 BUN/Creatinine Ratio 16 Glucose 107 H POC Glucose 126 H 83 Calcium 7.9 L Magnesium 1.70 Total Bilirubin AST ALT Alkaline Phosphatase Total Protein Albumin Albumin/Globulin Ratio 10/23/18 10/23/18 10/23/18 06:35 06:35 07:59 WBC 4.0 L RBC 3.44 L Hgb 10.3 Hct 31.0 MCV 90 MCH 30 MCHC 33 RDW 18.3 H Plt Count 161 [place] % (Auto) Signals Collector/Analyst Add Manual Diff Complete Total Counted 100 Seg Neuts % (Manual) 68.0 Band Neutrophils % 9.0 Lymphocytes % (Manual) 16.0 Reactive Lymphs % (Man) 0 Monocytes % (Manual) 7.0 Eosinophils % (Manual) 0 Basophils % (Manual) 0 Metamyelocytes % 0 Myelocytes % 0 Promyelocytes % 0 Blast Cells % 0 Nucleated RBC % Not Reportable Seg Neutrophils # Man 2.7 Band Neutrophils # 0.4 Lymphocytes # (Manual) 0.6 L Abs React Lymphs (Man) 0.0 Monocytes # (Manual) 0.3 Eosinophils # (Manual) 0.0 Basophils # (Manual) 0.0 Metamyelocytes # 0.0 Myelocytes # 0.0 Promyelocytes # 0.0 Blast Cells # 0.0 WBC Morphology Not Reportable Hypersegmented Neuts Not Reportable Hyposegmented Neuts Not Reportable Hypogranular Neuts Not Reportable Smudge Cells Not Reportable Toxic Granulation Not Reportable Toxic Vacuolation Not Reportable Dohle Bodies Not Reportable Pelger-Huet Anomaly Not Reportable Cesar Rods Not Reportable Platelet Estimate Not Reportable Clumped Platelets Not Reportable Plt Clumps, EDTA Not Reportable Large Platelets Not Reportable Giant Platelets Not Reportable Platelet Satelliting Not Reportable Plt Morphology Comment Not Reportable RBC Morphology Normal Dimorphic RBCs Not Reportable Polychromasia Not Reportable Hypochromasia Not Reportable Poikilocytosis Not Reportable Anisocytosis Not Reportable Microcytosis Not Reportable Macrocytosis Not Reportable Spherocytes Not Reportable Pappenheimer Bodies Not Reportable Sickle Cells Not Reportable Target Cells Not Reportable Tear Drop Cells Not Reportable Ovalocytes Not Reportable Helmet Cells Not Reportable Watson-Leonidas Bodies Not Reportable [place] Rings Not Reportable [place] Cells Not Reportable Bite Cells Not Reportable Crenated Cell Not Reportable Elliptocytes Not Reportable Acanthocytes (Spur) Not Reportable Rouleaux Not Reportable Hemoglobin C Crystals Not Reportable Schistocytes Not Reportable Malaria parasites Not Reportable Swapnil Bodies Not Reportable Hem Pathologist Commnt No Sodium 130 L Potassium 3.9 Chloride 97.8 L Carbon Dioxide 18 L Anion Gap 18 BUN 7 Creatinine 0.4 L Estimated GFR > 60 BUN/Creatinine Ratio 18 Glucose 113 H POC Glucose 114 H Calcium 7.7 L Magnesium Total Bilirubin 0.90 AST 22 ALT 7 Alkaline Phosphatase 78 Total Protein 6.1 L Albumin 2.3 L Albumin/Globulin Ratio 0.6 10/23/18 11:32 WBC RBC Hgb Hct MCV MCH MCHC RDW Plt Count [place] % (Auto) Add Manual Diff Total Counted Seg Neuts % (Manual) Band Neutrophils % Lymphocytes % (Manual) Reactive Lymphs % (Man) Monocytes % (Manual) Eosinophils % (Manual) Basophils % (Manual) Metamyelocytes % Myelocytes % Promyelocytes % Blast Cells % Nucleated RBC % Seg Neutrophils # Man Band Neutrophils # Lymphocytes # (Manual) Abs React Lymphs (Man) Monocytes # (Manual) Eosinophils # (Manual) Basophils # (Manual) Metamyelocytes # Myelocytes # Promyelocytes # Blast Cells # WBC Morphology Hypersegmented Neuts Hyposegmented Neuts Hypogranular Neuts Smudge Cells Toxic Granulation Toxic Vacuolation Dohle Bodies Pelger-Huet Anomaly Cesar Rods Platelet Estimate Clumped Platelets Plt Clumps, EDTA Large Platelets Giant Platelets Platelet Satelliting Plt Morphology Comment RBC Morphology Dimorphic RBCs Polychromasia Hypochromasia Poikilocytosis Anisocytosis Microcytosis Macrocytosis Spherocytes Pappenheimer Bodies Sickle Cells Target Cells Tear Drop Cells Ovalocytes Helmet Cells Watson-Leonidas Bodies [place] Rings Danielle Cells Bite Cells Crenated Cell Elliptocytes Acanthocytes (Spur) Rouleaux Hemoglobin C Crystals Schistocytes Malaria parasites Swapnil Bodies Hem Pathologist Commnt Sodium Potassium Chloride Carbon Dioxide Anion Gap BUN Creatinine Estimated GFR BUN/Creatinine Ratio Glucose POC Glucose 120 H Calcium Magnesium Total Bilirubin AST ALT Alkaline Phosphatase Total Protein Albumin Albumin/Globulin Ratio
--- NOTE | 2018-10-23 13:30 | Progress Note ---
Assessment and Plan Assessment and plan: Severe sepsis, probably secondary to SBP versus UTI -On IV Rocephin -Urine culture positive for Klebsiella pneumoniae -Blood cultures pending -Ascitic fluid analysis pending Chronic liver disease with recurrent ascites -On diuretic -Paracentesis pending -GI following Hypokalemia/Hypomagnesemia -Improved status post repletion, will monitor Hyponatremia -On fluid restriction, will monitor sodium level Severe protein calorie malnutrition -Dietitian consulted History of alcohol abuse -Patient admits to being alcohol free for 15 days -On alcohol withdrawal prophylaxis DVT prophylaxis with SCD due to high risk for bleed Disp: d/c planning after the paracentesis History Interval history: Pt has no new complaints. Her abdominal pain is better controlled Hospitalist Physical - Constitutional Vitals: Temp Pulse Resp BP Pulse Ox 99.5 F 98 H 20 116/70 95 10/23/18 06:40 10/23/18 06:40 10/23/18 06:40 10/23/18 09:01 10/23/18 06:40 General appearance: Present: no acute distress - EENT Eyes: Present: PERRL, EOM intact ENT: hearing intact, clear oral mucosa - Neck Neck: Present: supple - Respiratory Respiratory effort: normal Respiratory: bilateral: CTA - Cardiovascular Rhythm: regular Heart Sounds: Present: S1 & S2 - Extremities Extremities: No edema - Abdominal General gastrointestinal: tender, distended (with ascites), other (firm on palpation) - Neurologic Neurologic: CNII-XII intact Results - Labs CBC & Chem 7: 10/23/18 06:35 10/23/18 06:35 Labs: Laboratory Last Values WBC 4.0 K/mm3 (4.5-11.0) L 10/23/18 06:35 RBC 3.44 M/mm3 (3.65-5.03) L 10/23/18 06:35 Hgb 10.3 gm/dl (10.1-14.3) 10/23/18 06:35 Hct 31.0 % (30.3-42.9) 10/23/18 06:35 MCV 90 fl (79-97) 10/23/18 06:35 MCH 30 pg (28-32) 10/23/18 06:35 MCHC 33 % (30-34) 10/23/18 06:35 RDW 18.3 % (13.2-15.2) H 10/23/18 06:35 Plt Count 161 K/mm3 (140-440) 10/23/18 06:35 Lymph % (Auto) 13.1 % (13.4-35.0) L 10/21/18 15:46 [place] % (Auto) Hypoid Gear Tester 10/23/18 06:35 Eos % (Auto) 0.4 % (0.0-4.3) 10/21/18 15:46 Baso % (Auto) 1.0 % (0.0-1.8) 10/21/18 15:46 Lymph # 1.0 K/mm3 (1.2-5.4) L 10/21/18 15:46 [place] # 0.6 K/mm3 (0.0-0.8) 10/21/18 15:46 Eos # 0.0 K/mm3 (0.0-0.4) 10/21/18 15:46 Baso # 0.1 K/mm3 (0.0-0.1) 10/21/18 15:46 Add Manual Diff Complete 10/23/18 06:35 Total Counted 100 10/23/18 06:35 Seg Neutrophils % 76.8 % (40.0-70.0) H 10/21/18 15:46 Seg Neuts % (Manual) 68.0 % (40.0-70.0) 10/23/18 06:35 Band Neutrophils % 9.0 % 10/23/18 06:35 Lymphocytes % (Manual) 16.0 % (13.4-35.0) 10/23/18 06:35 Reactive Lymphs % (Man) 0 % 10/23/18 06:35 Monocytes % (Manual) 7.0 % (0.0-7.3) 10/23/18 06:35 Eosinophils % (Manual) 0 % (0.0-4.3) 10/23/18 06:35 Basophils % (Manual) 0 % (0.0-1.8) 10/23/18 06:35 Metamyelocytes % 0 % 10/23/18 06:35 Myelocytes % 0 % 10/23/18 06:35 Promyelocytes % 0 % 10/23/18 06:35 Blast Cells % 0 % 10/23/18 06:35 Nucleated RBC % Not Reportable 10/23/18 06:35 Seg Neutrophils # 5.7 K/mm3 (1.8-7.7) 10/21/18 15:46 Seg Neutrophils # Man 2.7 K/mm3 (1.8-7.7) 10/23/18 06:35 Band Neutrophils # 0.4 K/mm3 10/23/18 06:35 Lymphocytes # (Manual) 0.6 K/mm3 (1.2-5.4) L 10/23/18 06:35 Abs React Lymphs (Man) 0.0 K/mm3 10/23/18 06:35 Monocytes # (Manual) 0.3 K/mm3 (0.0-0.8) 10/23/18 06:35 Eosinophils # (Manual) 0.0 K/mm3 (0.0-0.4) 10/23/18 06:35 Basophils # (Manual) 0.0 K/mm3 (0.0-0.1) 10/23/18 06:35 Metamyelocytes # 0.0 K/mm3 10/23/18 06:35 Myelocytes # 0.0 K/mm3 10/23/18 06:35 Promyelocytes # 0.0 K/mm3 10/23/18 06:35 Blast Cells # 0.0 K/mm3 10/23/18 06:35 WBC Morphology Not Reportable 10/23/18 06:35 Hypersegmented Neuts Not Reportable 10/23/18 06:35 Hyposegmented Neuts Not Reportable 10/23/18 06:35 Hypogranular Neuts Not Reportable 10/23/18 06:35 Smudge Cells Not Reportable 10/23/18 06:35 Toxic Granulation Not Reportable 10/23/18 06:35 Toxic Vacuolation Not Reportable 10/23/18 06:35 Dohle Bodies Not Reportable 10/23/18 06:35 Pelger-Huet Anomaly Not Reportable 10/23/18 06:35 Cesar Rods Not Reportable 10/23/18 06:35 Platelet Estimate Not Reportable 10/23/18 06:35 Clumped Platelets Not Reportable 10/23/18 06:35 Plt Clumps, EDTA Not Reportable 10/23/18 06:35 Large Platelets Not Reportable 10/23/18 06:35 Giant Platelets Not Reportable 10/23/18 06:35 Platelet Satelliting Not Reportable 10/23/18 06:35 Plt Morphology Comment Not Reportable 10/23/18 06:35 RBC Morphology Normal 10/23/18 06:35 Dimorphic RBCs Not Reportable 10/23/18 06:35 Polychromasia Not Reportable 10/23/18 06:35 Hypochromasia Not Reportable 10/23/18 06:35 Poikilocytosis Not Reportable 10/23/18 06:35 Anisocytosis Not Reportable 10/23/18 06:35 Microcytosis Not Reportable 10/23/18 06:35 Macrocytosis Not Reportable 10/23/18 06:35 Spherocytes Not Reportable 10/23/18 06:35 Pappenheimer Bodies Not Reportable 10/23/18 06:35 Sickle Cells Not Reportable 10/23/18 06:35 Target Cells Not Reportable 10/23/18 06:35 Tear Drop Cells Not Reportable 10/23/18 06:35 Ovalocytes Not Reportable 10/23/18 06:35 Helmet Cells Not Reportable 10/23/18 06:35 Watson-[place] Bodies Not Reportable 10/23/18 06:35 [place] Rings Not Reportable 10/23/18 06:35 [place] Cells Not Reportable 10/23/18 06:35 Bite Cells Not Reportable 10/23/18 06:35 Crenated Cell Not Reportable 10/23/18 06:35 Elliptocytes Not Reportable 10/23/18 06:35 Acanthocytes (Spur) Not Reportable 10/23/18 06:35 Rouleaux Not Reportable 10/23/18 06:35 Hemoglobin C Crystals Not Reportable 10/23/18 06:35 Schistocytes Not Reportable 10/23/18 06:35 Malaria parasites Not Reportable 10/23/18 06:35 Swapnil Bodies Not Reportable 10/23/18 06:35 Hem Pathologist Commnt No 10/23/18 06:35 PT 20.1 Sec. (12.2-14.9) H 10/21/18 15:46 INR 1.60 (0.87-1.13) H 10/21/18 15:46 APTT 32.9 Sec. (24.2-36.6) 10/21/18 15:53 VBG pH 7.488 (7.320-7.420) H 10/21/18 15:46 Sodium 130 mmol/L (137-145) L 10/23/18 06:35 Potassium 3.9 mmol/L (3.6-5.0) 10/23/18 06:35 Chloride 97.8 mmol/L (98-107) L 10/23/18 06:35 Carbon Dioxide 18 mmol/L (22-30) L 10/23/18 06:35 Anion Gap 18 mmol/L 10/23/18 06:35 BUN 7 mg/dL (7-17) 10/23/18 06:35 Creatinine 0.4 mg/dL (0.7-1.2) L 10/23/18 06:35 Estimated GFR > 60 ml/min 10/23/18 06:35 BUN/Creatinine Ratio 18 % 10/23/18 06:35 Glucose 113 mg/dL (65-100) H 10/23/18 06:35 POC Glucose 120 (70-105) H 10/23/18 11:32 Hemoglobin A1c 6.4 % (4-6) H 10/22/18 00:30 Lactic Acid 1.70 mmol/L (0.7-2.0) 10/21/18 18:44 Calcium 7.7 mg/dL (8.4-10.2) L 10/23/18 06:35 Magnesium 1.70 mg/dL (1.7-2.3) 10/22/18 12:15 Total Bilirubin 0.90 mg/dL (0.1-1.2) 10/23/18 06:35 AST 22 units/L (5-40) 10/23/18 06:35 ALT 7 units/L (7-56) 10/23/18 06:35 Alkaline Phosphatase 78 units/L (35-129) 10/23/18 06:35 Ammonia 54.0 umol/L (25-60) 10/21/18 15:58 Total Protein 6.1 g/dL (6.3-8.2) L 10/23/18 06:35 Albumin 2.3 g/dL (3.9-5) L 10/23/18 06:35 Albumin/Globulin Ratio 0.6 % 10/23/18 06:35 Lipase 6 units/L (13-60) L 10/21/18 16:49 Urine Color Sarah (Yellow) 10/21/18 15:44 Urine Turbidity Clear (Clear) 10/21/18 15:44 Urine pH 5.0 (5.0-7.0) 10/21/18 15:44 Ur Specific [place] 1.040 (1.003-1.030) H 10/21/18 15:44 Urine Protein 30 mg/dl mg/dL (Negative) 10/21/18 15:44 Urine Glucose (UA) Neg mg/dL (Negative) 10/21/18 15:44 Urine Ketones Neg mg/dL (Negative) 10/21/18 15:44 Urine Blood Neg (Negative) 10/21/18 15:44 Urine Nitrite Neg (Negative) 10/21/18 15:44 Urine Bilirubin Mod (Negative) 10/21/18 15:44 Urine Ictotest Positive (Negative) 10/21/18 15:44 Urine Urobilinogen 4.0 mg/dL (<2.0) 10/21/18 15:44 Ur Leukocyte Esterase Neg (Negative) 10/21/18 15:44 Urine WBC (Auto) < 1.0 /HPF (0.0-6.0) 10/21/18 15:44 Urine RBC (Auto) 1.0 /HPF (0.0-6.0) 10/21/18 15:44 U Epithel Cells (Auto) 1.0 /HPF (0-13.0) 10/21/18 15:44 Urine Mucus 1+ /HPF 10/21/18 15:44
[2018-10-23] MEDS ORDERED: ALDACTONE PO ONE (14:00)
[2018-10-23] MEDS: LASIX PO SCH (15:37)
[2018-10-23] MEDS: ROXICODONE PO PRN (19:58)
[2018-10-24] MEDS: DILAUDID IV PRN ×6 (00:38→21:27)
[2018-10-24 07:13] LABS: BUN/Creatinine Ratio 15; Blood Urea Nitrogen 6 mg/dL (7-17); Hemolysis Index 6
[2018-10-24] MEDS: HumaLOG SUB-Q SCH ×4 (08:09→22:53)
[2018-10-24] MEDS ORDERED: XYLOCAINE 1% 20 mL ONE (08:28)
--- NOTE | 2018-10-24 08:51 | Procedure Note ---
Date of procedure: 10/24/18 Pre-op diagnosis: ascites Post-op diagnosis: same Procedure: US paracentesis Findings: small to medium ascites Anesthesia: local Surgeon: DANNI AMBROCIO Estimated blood loss: none Pathology: list (120cc) Specimen disposition: to lab Condition: stable Disposition: floor
--- NOTE | 2018-10-24 09:15 | Ultrasound Report ---
ULTRASOUND PARACENTESIS HISTORY: Ascites. DESCRIPTION OF PROCEDURE: A time out was performed. Informed consent was obtained. Sterile technique was utilized. Using ultrasound guidance, a 5 [place] centesis needle was advanced into the peritoneal space. There was spontaneous return of clear yellow fluid. 2.5 L of fluid was drained. 120 cc of fluid was sent to laboratory for analysis. No complications. IMPRESSION: Successful ultrasound-guided paracentesis.
[2018-10-24] MEDS: FOLVITE PO SCH (09:57)
[2018-10-24] MEDS: ALDACTONE PO SCH (09:57)
[2018-10-24] MEDS: PEPCID PO SCH ×2 (09:57→21:28)
[2018-10-24] MEDS: LASIX PO SCH (09:57)
[2018-10-24] MEDS: VITAMIN B-1 PO SCH (09:57)
[2018-10-24] MEDS: THERAGRAN Tab PO SCH (09:58)
[2018-10-24] MEDS: ROCEPHIN/NS 2 GM/100 ML 2 GM/100 ML BAG IV SCH (09:58)
[2018-10-24] MEDS: SODIUM CHLORIDE FLUSH SYRINGE 10 ML IV SCH ×2 (10:29→21:28)
[2018-10-24] MEDS: ROXICODONE PO PRN (10:29)
--- NOTE | 2018-10-24 11:15 | Gastroenterology Progress Note ---
<LORAINE OROPEZA - Last Filed: 10/24/18 12:16> Assessment and Plan 1.ascites 2.abdomina pain 3.H/o cirrhosis 2/2 ETOH abuse 4.H/o pancreatitis with pseudocyst -afebrile -WBC 4.0, H/H WNL-no active signs of bleeding -LFTs and INR stable compared to previous -CT 10/21/2018- showed pancreatic pseudocysts in sized compared to prior scan, along with ascites, hepatomegaly, splenomegaly, and colonic diverticulosis -paracentesis 06/29/18- no evidence of SBP or malignancy -etiology-alcoholic cirrhosis of liver with ascites -clinically, patient reports feeling better this am s/p paracentesis (fluid results pending to r/o SBP) with abd distention/pain improved. No N/V or signs of bleeding. No encephalopathy noted upon exam. -continue diuretics ( lasix 40 and aldactone 100 daily) and empiric antibiotics -LVP PRN -low sodium diet -limit narcotics (will increase risk of side effects such as encephalopathy) -continue supportive care -alcohol cessation discussed/encouraged with patient -will follow Subjective Date of service: 10/24/18 Principal diagnosis: ascites Interval history: Patient sitting on the side of the bed this am w/o acute distress. Reports feeling better with abd distention/pain improved s/p paracentesis this am. No N/V or signs of bleeding. Objective - Constitutional Vitals: Temp Pulse Resp BP Pulse Ox 98.8 F 92 H 24 114/67 96 10/24/18 05:04 10/24/18 05:04 10/24/18 05:04 10/24/18 05:04 10/24/18 05:04 General appearance: no acute distress - Respiratory Respiratory: bilateral: diminished - Cardiovascular Rhythm: regular Heart Sounds: Present: S1 & S2 - Gastrointestinal General gastrointestinal: Present: soft, non-tender, distended (slightly), normal bowel sounds - Neurologic Neurological: alert and oriented x3 - Labs CBC & Chem 7: 10/23/18 06:35 10/24/18 05:56 Labs: Laboratory Results - last 24 hr 10/23/18 10/23/18 10/23/18 11:32 16:00 21:05 Sodium Potassium Chloride Carbon Dioxide Anion Gap BUN Creatinine Estimated GFR BUN/Creatinine Ratio Glucose POC Glucose 120 H 172 H 85 Calcium Fluid Type Fluid Color Fluid Appearance Fluid WBC Fluid RBC 10/24/18 10/24/18 10/24/18 05:56 08:01 09:15 Sodium 127 L Potassium 3.8 Chloride 94.3 L Carbon Dioxide 19 L Anion Gap 18 BUN 6 L Creatinine 0.4 L Estimated GFR > 60 BUN/Creatinine Ratio 15 Glucose 115 H POC Glucose 122 H Calcium 8.0 L Fluid Type Paracentesis Fluid Color Yellow Fluid Appearance Hazy Fluid WBC 125 Fluid RBC 48 <CARLOS DYE - Last Filed: 10/24/18 13:13> Assessment and Plan Patient seen and examined, agree with advanced practitioner's assessment/plan: Still with abd pain that is moderate, diffuse, improving s/p para, no SBP on para though on Abx so sensitivity decreased Plan: complete 7 day course Abx, low sodium diet, continue current diuretics. From GI standpoint no need to fluid restrict and no requirement for tele monitoring. - Patient Problems (1) Ascites Current Visit: Yes Status: Acute Qualifiers: (2) Alcoholic cirrhosis of liver with ascites Current Visit: Yes Status: Acute (3) Alcoholic cirrhosis of liver with ascites Current Visit: Yes Status: Acute (4) Abdominal pain Current Visit: Yes Status: Acute Qualifiers: Abdominal location: generalized Qualified Code(s): R10.84 - Generalized abdominal pain Objective - Constitutional Vitals: Temp Pulse Resp BP Pulse Ox 98.8 F 88 20 103/73 93 10/24/18 12:30 10/24/18 12:30 10/24/18 12:30 10/24/18 12:30 10/24/18 12:30 - Labs CBC & Chem 7: 10/23/18 06:35 10/24/18 05:56 Labs: Laboratory Results - last 24 hr 10/23/18 10/23/18 10/24/18 16:00 21:05 05:56 Sodium 127 L Potassium 3.8 Chloride 94.3 L Carbon Dioxide 19 L Anion Gap 18 BUN 6 L Creatinine 0.4 L Estimated GFR > 60 BUN/Creatinine Ratio 15 Glucose 115 H POC Glucose 172 H 85 Calcium 8.0 L Fluid Type Fluid Color Fluid Appearance Fluid WBC Fluid RBC Fluid Seg Neutrophils Fluid Lymphocytes Fluid Monocytes 10/24/18 10/24/18 08:01 09:15 Sodium Potassium Chloride Carbon Dioxide Anion Gap BUN Creatinine Estimated GFR BUN/Creatinine Ratio Glucose POC Glucose 122 H Calcium Fluid Type Paracentesis Fluid Color Yellow Fluid Appearance Hazy Fluid WBC 125 Fluid RBC 48 Fluid Seg Neutrophils 25.0 Fluid Lymphocytes 44.0 Fluid Monocytes 31.0
[2018-10-24 11:48] LABS: Total Cells Counted 100 /mm3
--- NOTE | 2018-10-24 17:24 | Progress Note ---
Assessment and Plan Assessment and plan: Ms Mendoza is a 58 yo wf with h/o alcohol abuse, cirrhosis, recurrent pancreatitis (from alcohol, with likely chronic pancreatitis) who presents with worsening abd distention/ascites and back pain. Pt also found to have low grade fever on admission. She reports her last alcohol intake was 15 days ago. She was consuming up to 1/2 pint per day until quitting 15 days ago. She was on aldactone, but has had re-development of ascites for the past 1 week. She denies mental status changes, jaundice, or gi bleeding. Patient proceeded for paracentesis today Severe sepsis, probably secondary to SBP versus UTI -On IV Rocephin -Urine culture positive for Klebsiella pneumoniae -Blood cultures pending -Ascitic fluid analysis pending Chronic liver disease with recurrent ascites -On diuretic -Paracentesis done -GI following ETOH related Cirrhosis with decompensation -Monitor. -Recommended [id number] screening -Discussed cessation 15mins of counselling. pt verbalized understanding. Hypokalemia/Hypomagnesemia -Improved status post repletion, will monitor Hyponatremia -On fluid restriction, will monitor sodium level Pancreatitis with pseudocyst -PER HX -STABLE Severe protein calorie malnutrition -Dietitian consulted History of alcohol abuse -Patient admits to being alcohol free for 15 days -On alcohol withdrawal prophylaxis DVT prophylaxis with SCD due to high risk for bleed Disp: d/c IN AM IF STABLE AND IF NO FURTHER NEED FOR REPEAT STUDY History Interval history: Patient seen and examined today post paracentesis. Denies any new complaints except pain from the site. still with bloated abdomen. Hospitalist Physical - Physical exam Narrative exam: General appearance: Present: no acute distress - EENT Eyes: Present: PERRL, EOM intact ENT: hearing intact, clear oral mucosa - Neck Neck: Present: supple - Respiratory Respiratory effort: normal Respiratory: bilateral: CTA - Cardiovascular Rhythm: regular Heart Sounds: Present: S1 & S2 - Extremities Extremities: No edema - Abdominal General gastrointestinal: tender, distended (with ascites), other (soft on pa lpation, tender on site) - Neurologic Neurologic: CNII-XII intact - Constitutional Vitals: Temp Pulse Resp BP Pulse Ox 98.6 F 83 20 104/72 97 10/24/18 15:59 10/24/18 15:59 10/24/18 15:59 10/24/18 15:59 10/24/18 15:59 General appearance: Present: no acute distress Results - Labs CBC & Chem 7: 10/23/18 06:35 10/24/18 05:56 Labs: Laboratory Last Values WBC 4.0 K/mm3 (4.5-11.0) L 10/23/18 06:35 RBC 3.44 M/mm3 (3.65-5.03) L 10/23/18 06:35 Hgb 10.3 gm/dl (10.1-14.3) 10/23/18 06:35 Hct 31.0 % (30.3-42.9) 10/23/18 06:35 MCV 90 fl (79-97) 10/23/18 06:35 MCH 30 pg (28-32) 10/23/18 06:35 MCHC 33 % (30-34) 10/23/18 06:35 RDW 18.3 % (13.2-15.2) H 10/23/18 06:35 Plt Count 161 K/mm3 (140-440) 10/23/18 06:35 Lymph % (Auto) 13.1 % (13.4-35.0) L 10/21/18 15:46 [place] % (Auto) Processor Grain 10/23/18 06:35 Eos % (Auto) 0.4 % (0.0-4.3) 10/21/18 15:46 Baso % (Auto) 1.0 % (0.0-1.8) 10/21/18 15:46 Lymph # 1.0 K/mm3 (1.2-5.4) L 10/21/18 15:46 [place] # 0.6 K/mm3 (0.0-0.8) 10/21/18 15:46 Eos # 0.0 K/mm3 (0.0-0.4) 10/21/18 15:46 Baso # 0.1 K/mm3 (0.0-0.1) 10/21/18 15:46 Add Manual Diff Complete 10/23/18 06:35 Total Counted 100 10/23/18 06:35 Seg Neutrophils % 76.8 % (40.0-70.0) H 10/21/18 15:46 Seg Neuts % (Manual) 68.0 % (40.0-70.0) 10/23/18 06:35 Band Neutrophils % 9.0 % 10/23/18 06:35 Lymphocytes % (Manual) 16.0 % (13.4-35.0) 10/23/18 06:35 Reactive Lymphs % (Man) 0 % 10/23/18 06:35 Monocytes % (Manual) 7.0 % (0.0-7.3) 10/23/18 06:35 Eosinophils % (Manual) 0 % (0.0-4.3) 10/23/18 06:35 Basophils % (Manual) 0 % (0.0-1.8) 10/23/18 06:35 Metamyelocytes % 0 % 10/23/18 06:35 Myelocytes % 0 % 10/23/18 06:35 Promyelocytes % 0 % 10/23/18 06:35 Blast Cells % 0 % 10/23/18 06:35 Nucleated RBC % Not Reportable 10/23/18 06:35 Seg Neutrophils # 5.7 K/mm3 (1.8-7.7) 10/21/18 15:46 Seg Neutrophils # Man 2.7 K/mm3 (1.8-7.7) 10/23/18 06:35 Band Neutrophils # 0.4 K/mm3 10/23/18 06:35 Lymphocytes # (Manual) 0.6 K/mm3 (1.2-5.4) L 10/23/18 06:35 Abs React Lymphs (Man) 0.0 K/mm3 10/23/18 06:35 Monocytes # (Manual) 0.3 K/mm3 (0.0-0.8) 10/23/18 06:35 Eosinophils # (Manual) 0.0 K/mm3 (0.0-0.4) 10/23/18 06:35 Basophils # (Manual) 0.0 K/mm3 (0.0-0.1) 10/23/18 06:35 Metamyelocytes # 0.0 K/mm3 10/23/18 06:35 Myelocytes # 0.0 K/mm3 10/23/18 06:35 Promyelocytes # 0.0 K/mm3 10/23/18 06:35 Blast Cells # 0.0 K/mm3 10/23/18 06:35 WBC Morphology Not Reportable 10/23/18 06:35 Hypersegmented Neuts Not Reportable 10/23/18 06:35 Hyposegmented Neuts Not Reportable 10/23/18 06:35 Hypogranular Neuts Not Reportable 10/23/18 06:35 Smudge Cells Not Reportable 10/23/18 06:35 Toxic Granulation Not Reportable 10/23/18 06:35 Toxic Vacuolation Not Reportable 10/23/18 06:35 Dohle Bodies Not Reportable 10/23/18 06:35 Pelger-Huet Anomaly Not Reportable 10/23/18 06:35 Cesar Rods Not Reportable 10/23/18 06:35 Platelet Estimate Not Reportable 10/23/18 06:35 Clumped Platelets Not Reportable 10/23/18 06:35 Plt Clumps, EDTA Not Reportable 10/23/18 06:35 Large Platelets Not Reportable 10/23/18 06:35 Giant Platelets Not Reportable 10/23/18 06:35 Platelet Satelliting Not Reportable 10/23/18 06:35 Plt Morphology Comment Not Reportable 10/23/18 06:35 RBC Morphology Normal 10/23/18 06:35 Dimorphic RBCs Not Reportable 10/23/18 06:35 Polychromasia Not Reportable 10/23/18 06:35 Hypochromasia Not Reportable 10/23/18 06:35 Poikilocytosis Not Reportable 10/23/18 06:35 Anisocytosis Not Reportable 10/23/18 06:35 Microcytosis Not Reportable 10/23/18 06:35 Macrocytosis Not Reportable 10/23/18 06:35 Spherocytes Not Reportable 10/23/18 06:35 Pappenheimer Bodies Not Reportable 10/23/18 06:35 Sickle Cells Not Reportable 10/23/18 06:35 Target Cells Not Reportable 10/23/18 06:35 Tear Drop Cells Not Reportable 10/23/18 06:35 Ovalocytes Not Reportable 10/23/18 06:35 Helmet Cells Not Reportable 10/23/18 06:35 [place] Bodies Not Reportable 10/23/18 06:35 [place] Rings Not Reportable 10/23/18 06:35 [place] Cells Not Reportable 10/23/18 06:35 Bite Cells Not Reportable 10/23/18 06:35 Crenated Cell Not Reportable 10/23/18 06:35 Elliptocytes Not Reportable 10/23/18 06:35 Acanthocytes (Spur) Not Reportable 10/23/18 06:35 Rouleaux Not Reportable 10/23/18 06:35 Hemoglobin C Crystals Not Reportable 10/23/18 06:35 Schistocytes Not Reportable 10/23/18 06:35 Malaria parasites Not Reportable 10/23/18 06:35 Swapnil Bodies Not Reportable 10/23/18 06:35 Hem Pathologist Commnt No 10/23/18 06:35 PT 20.1 Sec. (12.2-14.9) H 10/21/18 15:46 INR 1.60 (0.87-1.13) H 10/21/18 15:46 APTT 32.9 Sec. (24.2-36.6) 10/21/18 15:53 VBG pH 7.488 (7.320-7.420) H 10/21/18 15:46 Sodium 127 mmol/L (137-145) L 10/24/18 05:56 Potassium 3.8 mmol/L (3.6-5.0) 10/24/18 05:56 Chloride 94.3 mmol/L (98-107) L 10/24/18 05:56 Carbon Dioxide 19 mmol/L (22-30) L 10/24/18 05:56 Anion Gap 18 mmol/L 10/24/18 05:56 BUN 6 mg/dL (7-17) L 10/24/18 05:56 Creatinine 0.4 mg/dL (0.7-1.2) L 10/24/18 05:56 Estimated GFR > 60 ml/min 10/24/18 05:56 BUN/Creatinine Ratio 15 % 10/24/18 05:56 Glucose 115 mg/dL (65-100) H 10/24/18 05:56 POC Glucose 112 (70-105) H 10/24/18 16:00 Hemoglobin A1c 6.4 % (4-6) H 10/22/18 00:30 Lactic Acid 1.70 mmol/L (0.7-2.0) 10/21/18 18:44 Calcium 8.0 mg/dL (8.4-10.2) L 10/24/18 05:56 Magnesium 1.70 mg/dL (1.7-2.3) 10/22/18 12:15 Total Bilirubin 0.90 mg/dL (0.1-1.2) 10/23/18 06:35 AST 22 units/L (5-40) 10/23/18 06:35 ALT 7 units/L (7-56) 10/23/18 06:35 Alkaline Phosphatase 78 units/L (35-129) 10/23/18 06:35 Ammonia 54.0 umol/L (25-60) 10/21/18 15:58 Total Protein 6.1 g/dL (6.3-8.2) L 10/23/18 06:35 Albumin 2.3 g/dL (3.9-5) L 10/23/18 06:35 Albumin/Globulin Ratio 0.6 % 10/23/18 06:35 Lipase 6 units/L (13-60) L 10/21/18 16:49 Urine Color Sarah (Yellow) 10/21/18 15:44 Urine Turbidity Clear (Clear) 10/21/18 15:44 Urine pH 5.0 (5.0-7.0) 10/21/18 15:44 Ur Specific [place] 1.040 (1.003-1.030) H 10/21/18 15:44 Urine Protein 30 mg/dl mg/dL (Negative) 10/21/18 15:44 Urine Glucose (UA) Neg mg/dL (Negative) 10/21/18 15:44 Urine Ketones Neg mg/dL (Negative) 10/21/18 15:44 Urine Blood Neg (Negative) 10/21/18 15:44 Urine Nitrite Neg (Negative) 10/21/18 15:44 Urine Bilirubin Mod (Negative) 10/21/18 15:44 Urine Ictotest Positive (Negative) 10/21/18 15:44 Urine Urobilinogen 4.0 mg/dL (<2.0) 10/21/18 15:44 Ur Leukocyte Esterase Neg (Negative) 10/21/18 15:44 Urine WBC (Auto) < 1.0 /HPF (0.0-6.0) 10/21/18 15:44 Urine RBC (Auto) 1.0 /HPF (0.0-6.0) 10/21/18 15:44 U Epithel Cells (Auto) 1.0 /HPF (0-13.0) 10/21/18 15:44 Urine Mucus 1+ /HPF 10/21/18 15:44 Fluid Type Paracentesis 10/24/18 09:15 Fluid Color Yellow 10/24/18 09:15 Fluid Appearance Hazy 10/24/18 09:15 Fluid WBC 125 /mm3 10/24/18 09:15 Fluid RBC 48 /mm3 10/24/18 09:15 Fluid Seg Neutrophils 25.0 % 10/24/18 09:15 Fluid Lymphocytes 44.0 % 10/24/18 09:15 Fluid Monocytes 31.0 % 10/24/18 09:15 Nutrition/Malnutrition Assess - Dietary Evaluation Nutrition/Malnutrition Findings: Nutrition Notes Start: 10/24/18 16:51 Freq: Status: Active Protocol: Document 10/24/18 16:51 RM (Rec: 10/24/18 16:59 RM [id number]) Nutrition Notes Need for Assessment generated from: MD Order Initial or Follow up Assessment Other Pertinent Diagnosis Ascites, Alcohol abuse, Cirrhosis, pancreatic psedocyst Current Diet Cardiac/Consistent CHO Labs/Tests Reviewed Pertinent Medications Reviewed Height 5 ft 4 in Weight 80 kg [place] Body Weight (kg) 54.54 BMI 30.2 Subjective/Other Information Consulted for malnutrition. Pt stated that [employer] her appetite was poor and that she was not eating X 2-3 weeks. Pt stated that her appetite is so so now and that she eats 1 /3 of her meals. Declined regular Ensure Enlive. Admitted to diarrhea and sometimes N/V. Percent of energy/protein needs met: 37%/35% Burn Absent Trauma Absent #1 Nutrition Diagnosis Malnutrition Etiology alcohol abuse, ascites, cirrhosis As Evidenced by Signs and Symptoms pt statement that [employer] she was not eating X 2-3 weeks, ascites Is patient on ventilator? No Is Patient Ambulatory and/or Out of Bed Yes REE-([facility]. [facility]-ambulatory/OOB) [ [id number] [id number]] Calculation Used for Recommendations [facility] Additional Notes Protein Needs: 80-107g (1.2-1. 6g/kg, adjBW) Fluid Needs: 1 ml/kcal Nutrition Intervention Change Diet Order: Continue current Add Supplement/Snack (indicate name/kcal Ensure Clear Mixed guevara 1 /protein ) daily Provides kCal: 240 Provides Protein (gm) 8 Goal #1 Meet at least 75% of calorie and protein needs via PO and ONS intakes Anticipated Discharge Needs: Cardiac/Consistent CHO diet Follow-Up By: 10/26/18 Additional Comments Follow for PO and ONS intakes
[2018-10-25] MEDS: DILAUDID IV PRN ×4 (00:30→23:35)
[2018-10-25] MEDS: ROXICODONE PO PRN ×5 (03:01→21:01)
[2018-10-25] MEDS: HumaLOG SUB-Q SCH ×4 (07:30→23:38)
[2018-10-25] MEDS: ROCEPHIN/NS 2 GM/100 ML 2 GM/100 ML BAG IV SCH (09:44)
[2018-10-25] MEDS: PEPCID PO SCH ×2 (09:44→21:03)
[2018-10-25] MEDS: FOLVITE PO SCH (09:45)
[2018-10-25] MEDS: VITAMIN B-1 PO SCH (09:46)
[2018-10-25] MEDS: LASIX PO SCH (09:47)
[2018-10-25] MEDS: ALDACTONE PO SCH ×2 (09:48→12:36)
[2018-10-25] MEDS: SODIUM CHLORIDE FLUSH SYRINGE 10 ML IV SCH ×2 (09:48→23:38)
[2018-10-25] MEDS ORDERED: DILAUDID IV PRN (10:26)
--- NOTE | 2018-10-25 10:43 | Progress Note ---
Assessment and Plan Assessment and plan: Ms Mendoza is a 58 yo wf with h/o alcohol abuse, cirrhosis, recurrent pancreatitis (from alcohol, with likely chronic pancreatitis) who presents with worsening abd distention/ascites and back pain. Pt also found to have low grade fever on admission. She reports her last alcohol intake was 15 days ago. She was consuming up to 1/2 pint per day until quitting 15 days ago. She was on aldactone, but has had re-development of ascites for the past 1 week. She denies mental status changes, jaundice, or gi bleeding. Patient proceeded for paracentesis today Severe sepsis,secondary at acute cystitis -continue abx, change to PO levaquin -Urine culture positive for Klebsiella pneumoniae -Blood cultures pending -Ascitic fluid analysis pending Chronic liver disease with recurrent ascites -On diuretic -Paracentesis done, will attempt repeat today -GI following ETOH related Cirrhosis with decompensation -Monitor. -Recommended [id number] screening -Discussed cessation 15mins of counselling. pt verbalized understanding. Hypokalemia/Hypomagnesemia -Improved status post repletion, will monitor Hyponatremia -On fluid restriction, will monitor sodium level Pancreatitis with pseudocyst -PER HX -STABLE Severe protein calorie malnutrition -Dietitian consulted History of alcohol abuse -Patient admits to being alcohol free for 15 days -On alcohol withdrawal prophylaxis DVT prophylaxis with SCD due to high risk for bleed Encourage ambulation. Disp: d/c IN AM IF STABLE AND IF NO FURTHER NEED FOR REPEAT STUDY History Interval history: Patient seen and examined, still with complaints of abdominal and chronic back pain which she rates it 5/10. No sign of withdrawal. Hospitalist Physical - Physical exam Narrative exam: General appearance: Present: no acute distress - EENT Eyes: Present: PERRL, EOM intact ENT: hearing intact, clear oral mucosa - Neck Neck: Present: supple - Respiratory Respiratory effort: normal Respiratory: bilateral: CTA - Cardiovascular Rhythm: regular Heart Sounds: Present: S1 & S2 - Extremities Extremities: No edema - Abdominal General gastrointestinal: tender, distended (with ascites), other (soft on palpation, tender on site) - Neurologic Neurologic: CNII-XII intact - Constitutional Vitals: Temp Pulse Resp BP Pulse Ox 99.1 F 91 H 18 100/59 92 10/25/18 05:56 10/25/18 09:48 10/25/18 06:58 10/25/18 09:48 10/25/18 05:56 General appearance: Present: no acute distress Results - Labs CBC & Chem 7: 10/23/18 06:35 10/24/18 05:56 Labs: Laboratory Last Values WBC 4.0 K/mm3 (4.5-11.0) L 10/23/18 06:35 RBC 3.44 M/mm3 (3.65-5.03) L 10/23/18 06:35 Hgb 10.3 gm/dl (10.1-14.3) 10/23/18 06:35 Hct 31.0 % (30.3-42.9) 10/23/18 06:35 MCV 90 fl (79-97) 10/23/18 06:35 MCH 30 pg (28-32) 10/23/18 06:35 MCHC 33 % (30-34) 10/23/18 06:35 RDW 18.3 % (13.2-15.2) H 10/23/18 06:35 Plt Count 161 K/mm3 (140-440) 10/23/18 06:35 Lymph % (Auto) 13.1 % (13.4-35.0) L 10/21/18 15:46 [place] % (Auto) Promotions Manager 10/23/18 06:35 Eos % (Auto) 0.4 % (0.0-4.3) 10/21/18 15:46 Baso % (Auto) 1.0 % (0.0-1.8) 10/21/18 15:46 Lymph # 1.0 K/mm3 (1.2-5.4) L 10/21/18 15:46 [place] # 0.6 K/mm3 (0.0-0.8) 10/21/18 15:46 Eos # 0.0 K/mm3 (0.0-0.4) 10/21/18 15:46 Baso # 0.1 K/mm3 (0.0-0.1) 10/21/18 15:46 Add Manual Diff Complete 10/23/18 06:35 Total Counted 100 10/23/18 06:35 Seg Neutrophils % 76.8 % (40.0-70.0) H 10/21/18 15:46 Seg Neuts % (Manual) 68.0 % (40.0-70.0) 10/23/18 06:35 Band Neutrophils % 9.0 % 10/23/18 06:35 Lymphocytes % (Manual) 16.0 % (13.4-35.0) 10/23/18 06:35 Reactive Lymphs % (Man) 0 % 10/23/18 06:35 Monocytes % (Manual) 7.0 % (0.0-7.3) 10/23/18 06:35 Eosinophils % (Manual) 0 % (0.0-4.3) 10/23/18 06:35 Basophils % (Manual) 0 % (0.0-1.8) 10/23/18 06:35 Metamyelocytes % 0 % 10/23/18 06:35 Myelocytes % 0 % 10/23/18 06:35 Promyelocytes % 0 % 10/23/18 06:35 Blast Cells % 0 % 10/23/18 06:35 Nucleated RBC % Not Reportable 10/23/18 06:35 Seg Neutrophils # 5.7 K/mm3 (1.8-7.7) 10/21/18 15:46 Seg Neutrophils # Man 2.7 K/mm3 (1.8-7.7) 10/23/18 06:35 Band Neutrophils # 0.4 K/mm3 10/23/18 06:35 Lymphocytes # (Manual) 0.6 K/mm3 (1.2-5.4) L 10/23/18 06:35 Abs React Lymphs (Man) 0.0 K/mm3 10/23/18 06:35 Monocytes # (Manual) 0.3 K/mm3 (0.0-0.8) 10/23/18 06:35 Eosinophils # (Manual) 0.0 K/mm3 (0.0-0.4) 10/23/18 06:35 Basophils # (Manual) 0.0 K/mm3 (0.0-0.1) 10/23/18 06:35 Metamyelocytes # 0.0 K/mm3 10/23/18 06:35 Myelocytes # 0.0 K/mm3 10/23/18 06:35 Promyelocytes # 0.0 K/mm3 10/23/18 06:35 Blast Cells # 0.0 K/mm3 10/23/18 06:35 WBC Morphology Not Reportable 10/23/18 06:35 Hypersegmented Neuts Not Reportable 10/23/18 06:35 Hyposegmented Neuts Not Reportable 10/23/18 06:35 Hypogranular Neuts Not Reportable 10/23/18 06:35 Smudge Cells Not Reportable 10/23/18 06:35 Toxic Granulation Not Reportable 10/23/18 06:35 Toxic Vacuolation Not Reportable 10/23/18 06:35 Dohle Bodies Not Reportable 10/23/18 06:35 Pelger-Huet Anomaly Not Reportable 10/23/18 06:35 Cesar Rods Not Reportable 10/23/18 06:35 Platelet Estimate Not Reportable 10/23/18 06:35 Clumped Platelets Not Reportable 10/23/18 06:35 Plt Clumps, EDTA Not Reportable 10/23/18 06:35 Large Platelets Not Reportable 10/23/18 06:35 Giant Platelets Not Reportable 10/23/18 06:35 Platelet Satelliting Not Reportable 10/23/18 06:35 Plt Morphology Comment Not Reportable 10/23/18 06:35 RBC Morphology Normal 10/23/18 06:35 Dimorphic RBCs Not Reportable 10/23/18 06:35 Polychromasia Not Reportable 10/23/18 06:35 Hypochromasia Not Reportable 10/23/18 06:35 Poikilocytosis Not Reportable 10/23/18 06:35 Anisocytosis Not Reportable 10/23/18 06:35 Microcytosis Not Reportable 10/23/18 06:35 Macrocytosis Not Reportable 10/23/18 06:35 Spherocytes Not Reportable 10/23/18 06:35 Pappenheimer Bodies Not Reportable 10/23/18 06:35 Sickle Cells Not Reportable 10/23/18 06:35 Target Cells Not Reportable 10/23/18 06:35 Tear Drop Cells Not Reportable 10/23/18 06:35 Ovalocytes Not Reportable 10/23/18 06:35 Helmet Cells Not Reportable 10/23/18 06:35 [place] Bodies Not Reportable 10/23/18 06:35 Willard Rings Not Reportable 10/23/18 06:35 Danielle Cells Not Reportable 10/23/18 06:35 Bite Cells Not Reportable 10/23/18 06:35 Crenated Cell Not Reportable 10/23/18 06:35 Elliptocytes Not Reportable 10/23/18 06:35 Acanthocytes (Spur) Not Reportable 10/23/18 06:35 Rouleaux Not Reportable 10/23/18 06:35 Hemoglobin C Crystals Not Reportable 10/23/18 06:35 Schistocytes Not Reportable 10/23/18 06:35 Malaria parasites Not Reportable 10/23/18 06:35 Swapnil Bodies Not Reportable 10/23/18 06:35 Hem Pathologist Commnt No 10/23/18 06:35 PT 20.1 Sec. (12.2-14.9) H 10/21/18 15:46 INR 1.60 (0.87-1.13) H 10/21/18 15:46 APTT 32.9 Sec. (24.2-36.6) 10/21/18 15:53 VBG pH 7.488 (7.320-7.420) H 10/21/18 15:46 Sodium 127 mmol/L (137-145) L 10/24/18 05:56 Potassium 3.8 mmol/L (3.6-5.0) 10/24/18 05:56 Chloride 94.3 mmol/L (98-107) L 10/24/18 05:56 Carbon Dioxide 19 mmol/L (22-30) L 10/24/18 05:56 Anion Gap 18 mmol/L 10/24/18 05:56 BUN 6 mg/dL (7-17) L 10/24/18 05:56 Creatinine 0.4 mg/dL (0.7-1.2) L 10/24/18 05:56 Estimated GFR > 60 ml/min 10/24/18 05:56 BUN/Creatinine Ratio 15 % 10/24/18 05:56 Glucose 115 mg/dL (65-100) H 10/24/18 05:56 POC Glucose 118 (70-105) H 10/25/18 08:53 Hemoglobin A1c 6.4 % (4-6) H 10/22/18 00:30 Lactic Acid 1.70 mmol/L (0.7-2.0) 10/21/18 18:44 Calcium 8.0 mg/dL (8.4-10.2) L 10/24/18 05:56 Magnesium 1.70 mg/dL (1.7-2.3) 10/22/18 12:15 Total Bilirubin 0.90 mg/dL (0.1-1.2) 10/23/18 06:35 AST 22 units/L (5-40) 10/23/18 06:35 ALT 7 units/L (7-56) 10/23/18 06:35 Alkaline Phosphatase 78 units/L (35-129) 10/23/18 06:35 Ammonia 54.0 umol/L (25-60) 10/21/18 15:58 Total Protein 6.1 g/dL (6.3-8.2) L 10/23/18 06:35 Albumin 2.3 g/dL (3.9-5) L 10/23/18 06:35 Albumin/Globulin Ratio 0.6 % 10/23/18 06:35 Lipase 6 units/L (13-60) L 10/21/18 16:49 Urine Color Sarah (Yellow) 10/21/18 15:44 Urine Turbidity Clear (Clear) 10/21/18 15:44 Urine pH 5.0 (5.0-7.0) 10/21/18 15:44 Ur Specific [place] 1.040 (1.003-1.030) H 10/21/18 15:44 Urine Protein 30 mg/dl mg/dL (Negative) 10/21/18 15:44 Urine Glucose (UA) Neg mg/dL (Negative) 10/21/18 15:44 Urine Ketones Neg mg/dL (Negative) 10/21/18 15:44 Urine Blood Neg (Negative) 10/21/18 15:44 Urine Nitrite Neg (Negative) 10/21/18 15:44 Urine Bilirubin Mod (Negative) 10/21/18 15:44 Urine Ictotest Positive (Negative) 10/21/18 15:44 Urine Urobilinogen 4.0 mg/dL (<2.0) 10/21/18 15:44 Ur Leukocyte Esterase Neg (Negative) 10/21/18 15:44 Urine WBC (Auto) < 1.0 /HPF (0.0-6.0) 10/21/18 15:44 Urine RBC (Auto) 1.0 /HPF (0.0-6.0) 10/21/18 15:44 U Epithel Cells (Auto) 1.0 /HPF (0-13.0) 10/21/18 15:44 Urine Mucus 1+ /HPF 10/21/18 15:44 Fluid Type Paracentesis 10/24/18 09:15 Fluid Color Yellow 10/24/18 09:15 Fluid Appearance Hazy 10/24/18 09:15 Fluid WBC 125 /mm3 10/24/18 09:15 Fluid RBC 48 /mm3 10/24/18 09:15 Fluid Seg Neutrophils 25.0 % 10/24/18 09:15 Fluid Lymphocytes 44.0 % 10/24/18 09:15 Fluid Monocytes 31.0 % 10/24/18 09:15 Nutrition/Malnutrition Assess - Dietary Evaluation Nutrition/Malnutrition Findings: Nutrition Notes Start: 10/24/18 16:51 Freq: Status: Active Protocol: Document 10/24/18 16:51 RM (Rec: 10/24/18 16:59 RM [id number]) Nutrition Notes Need for Assessment generated from: MD Order Initial or Follow up Assessment Other Pertinent Diagnosis Ascites, Alcohol abuse, Cirrhosis, pancreatic psedocyst Current Diet Cardiac/Consistent CHO Labs/Tests Reviewed Pertinent Medications Reviewed Height 5 ft 4 in Weight 80 kg [place] Body Weight (kg) 54.54 BMI 30.2 Subjective/Other Information Consulted for malnutrition. 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 Pt stated that her appetite is so so now and that she eats 1 /3 of her meals. Declined regular Ensure Enlive. Admitted to diarrhea and sometimes N/V. Percent of energy/protein needs met: 37%/35% Burn Absent Trauma Absent #1 Nutrition Diagnosis Malnutrition Etiology alcohol abuse, ascites, cirrhosis As Evidenced by Signs and Symptoms pt statement that LANE ATTENDANT she was not eating X 2-3 weeks, ascites Is patient on ventilator? No Is Patient Ambulatory and/or Out of Bed Yes [facility] [ 1761.500 [id number]] Calculation [facility]ations [facility] Additional Notes Protein Needs: 80-107g (1.2-1. 6g/kg, adjBW) Fluid Needs: 1 ml/kcal Nutrition Intervention Change Diet Order: Continue current Add Supplement/Snack (indicate name/kcal Ensure Clear Mixed guevara 1 /protein ) daily Provides kCal: 240 Provides Protein (gm) 8 Goal #1 Meet at least 75% of calorie and protein needs via PO and ONS intakes Anticipated Discharge Needs: Cardiac/Consistent CHO diet Follow-Up By: 10/26/18 Additional Comments Follow for PO and ONS intakes
--- NOTE | 2018-10-25 10:45 | Gastroenterology Progress Note ---
<LORAINE OROPEZA - Last Filed: 10/25/18 10:45> Assessment and Plan 1.ascites 2.abdomina pain 3.H/o cirrhosis 2/2 ETOH abuse 4.H/o pancreatitis with pseudocyst -temp 99.1 -WBC 4.0, H/H WNL-no active signs of bleeding -LFTs and INR stable compared to previous -CT 10/21/2018- showed pancreatic pseudocysts in sized compared to prior scan, along with ascites, hepatomegaly, splenomegaly, and colonic diverticulosis -paracentesis 06/29/18- no evidence of SBP or malignancy -s/p paracentesis yesterday (10/24) with removal of 2.5L- fluid with no evidence of SBP -etiology-alcoholic cirrhosis of liver with ascites -clinically, patient reports continue diffuse abd pain/discomfort with increasse in abd distention. No N/V or signs of bleeding. No encephalopathy noted upon exam. -increase dose of diuretics to lasix 60 and aldactone 150 -continue empiric antibiotics x 7 days -LVP PRN- repeat pending for today -low sodium diet (no fluid restriction per GI standpoint) -limit narcotics (will increase risk of side effects such as encephalopathy) -continue to trend labs and supportive care -alcohol cessation discussed/encouraged with patient -will follow Subjective Date of service: 10/25/18 Principal diagnosis: ascites Interval history: No acute distress. Reports continue diffuse abdominal pain and increase in abdominal distention. No N/V or signs of bleeding. Objective - Constitutional Vitals: Temp Pulse Resp BP Pulse Ox 99.1 F 91 H 18 100/59 92 10/25/18 05:56 10/25/18 09:48 10/25/18 06:58 10/25/18 09:48 10/25/18 05:56 General appearance: no acute distress - Respiratory Respiratory: bilateral: diminished - Cardiovascular Rhythm: regular Heart Sounds: Present: S1 & S2 - Gastrointestinal General gastrointestinal: Present: soft, distended (ascites), normal bowel sounds - Labs CBC & Chem 7: 10/23/18 06:35 10/24/18 05:56 Labs: Laboratory Results - last 24 hr 10/24/18 10/24/18 10/24/18 09:15 12:31 16:00 POC Glucose 148 H 112 H Fluid Type Paracentesis Fluid Color Yellow Fluid Appearance Hazy Fluid WBC 125 Fluid RBC 48 Fluid Seg Neutrophils 25.0 Fluid Lymphocytes 44.0 Fluid Monocytes 31.0 10/24/18 10/25/18 21:51 08:53 POC Glucose 114 H 118 H Fluid Type Fluid Color Fluid Appearance Fluid WBC Fluid RBC Fluid Seg Neutrophils Fluid Lymphocytes Fluid Monocytes <CARLOS DYE - Last Filed: 10/25/18 13:04> Assessment and Plan Patient seen and examined, note reviewed, and I agree with the advanced practitioner's plan and assessment with the following additions: Still with abd pain but decrease in ascites. Complete the antibiotics (total 7 days), PRN pain meds, EtOh cessation education. Her pain is chronic and suspect functional in origin. - Patient Problems (1) Ascites Current Visit: Yes Status: Acute Qualifiers: (2) Alcoholic cirrhosis of liver with ascites Current Visit: Yes Status: Acute (3) Alcoholic cirrhosis of liver with ascites Current Visit: Yes Status: Acute (4) Abdominal pain Current Visit: Yes Status: Acute Qualifiers: Abdominal location: generalized Qualified Code(s): R10.84 - Generalized abdominal pain Objective - Constitutional Vitals: Temp Pulse Resp BP Pulse Ox 98.3 F 79 18 110/58 93 10/25/18 11:03 10/25/18 11:03 10/25/18 11:03 10/25/18 12:36 10/25/18 11:03 - Labs CBC & Chem 7: 10/23/18 06:35 10/24/18 05:56 Labs: Laboratory Results - last 24 hr 10/24/18 10/24/18 10/24/18 12:31 16:00 21:51 POC Glucose 148 H 112 H 114 H 10/25/18 10/25/18 08:53 11:05 POC Glucose 118 H 119 H
[2018-10-25] MEDS ORDERED: LASIX PO SCH (11:00)
[2018-10-25] MEDS: THERAGRAN Tab PO SCH (12:32)
--- NOTE | 2018-10-25 13:36 | Ultrasound Report ---
ULTRASOUND ABDOMEN LIMITED: TECHNIQUE: Transabdominal ultrasound with color Doppler interrogation. HISTORY: Repeat therapeutic paracentesis. FINDINGS: The 4 quadrants of the abdomen were scanned. Trace ascites is noted. No collection large enough for paracentesis. IMPRESSION: Trace ascites.
[2018-10-25] MEDS ORDERED: LASIX PO ONE (14:00)
[2018-10-26 07:24] LABS: Alanine Aminotransferase 9 units/L (7-56); Albumin 2.4 g/dL (3.9-5); BUN/Creatinine Ratio 10; Blood Urea Nitrogen 4 mg/dL (7-17); Calcium 8.1 mg/dL (8.4-10.2); Hemolysis Index 3
[2018-10-26 07:48] LABS: INR 1.58 (0.87-1.13)
[2018-10-26] MEDS: DILAUDID IV PRN (08:27)
[2018-10-26] MEDS: HumaLOG SUB-Q SCH ×2 (08:33→13:50)
[2018-10-26] MEDS ORDERED: K-DUR PO ONE (08:50)
--- NOTE | 2018-10-26 09:01 | Discharge Summary ---
Providers - Providers Date of Admission: 10/21/18 19:12 Attending physician: YASMANY TRENT MD 10/22/18 00:15 Consult to Physician [CONS] Routine Comment: Consulting Provider: PETER PINZON Physician Instructions: Reason For Exam: ascites 10/22/18 13:49 Consult to Dietitian/Nutrition [CONS] Routine Physician Instructions: Reason For Exam: Reason for Consult: Malnutrition Primary care physician: LUIS BAILEY Hospitalization Reason for admission: decompensated liver cirrhosis Condition: Stable Hospital course: Ms Mendoza is a 58 yo wf with h/o alcohol abuse, cirrhosis, recurrent pancreatitis (from alcohol, with likely chronic pancreatitis) who presents with worsening abd distention/ascites and back pain. Pt also found to have low grade fever on admission. She reports her last alcohol intake was 15 days ago. She was consuming up to 1/2 pint per day until quitting 15 days ago. She was on aldactone, but has had re-development of ascites for the past 1 week. She denies mental status changes, jaundice, or gi bleeding. Patient proceeded for paracentesis electrolyte correction was done and GI adjusted dose for lasix and aldactone. Fluid analysis did not support SBP patient was treated for Acute cystitis Extensive counselling was provided on cessation of alcohol and referral to rehab programs given patient is strongly encouraged to have [id number] ultrasound for HCC screening and she verbalized understanding She is also to follow with GI and her PCP and have monitoring of electrolytes. Severe sepsis,secondary at acute cystitis Chronic liver disease with recurrent ascites ETOH related Cirrhosis with decompensation Hypokalemia/Hypomagnesemia Hyponatremia-resolved Pancreatitis with pseudocyst Severe protein calorie malnutrition Alcohol abuse Disposition: [id number] HOME [facility] Time spent for discharge: 35 mins Core Measure Documentation - Palliative Care Palliative Care/ Comfort Measures: Not Applicable - Core Measures Any of the following diagnoses?: none Exam - Physical Exam Narrative exam: General appearance: Present: no acute distress - EENT Eyes: Present: PERRL, EOM intact ENT: hearing intact, clear oral mucosa - Neck Neck: Present: supple - Respiratory Respiratory effort: normal Respiratory: bilateral: CTA - Cardiovascular Rhythm: regular Heart Sounds: Present: S1 & S2 - Extremities Extremities: No edema - Abdominal General gastrointestinal: tender, distended (with ascites), other (soft on palpation, tender on site) - Neurologic Neurologic: CNII-XII intact - Constitutional Vitals: Temp Pulse Resp BP Pulse Ox 98.5 F 82 18 84/54 96 10/26/18 06:11 10/26/18 07:15 10/26/18 06:11 10/26/18 06:11 10/25/18 23:52 Plan Activity: advance as tolerated, fall precautions Diet: low fat, low salt Special Instructions: record daily weights, record daily BP diary, record blood sugar diary, smoking cessation, other (cessation of Alcohol intake is a must) Additional Instructions: must have repeat potassium level with PCP in 1 week Follow up with: PETER PINZON MD [Staff Physician] - [address] [facility] [Outside] - 7 Days [facility] [Outside] - 7 Days Forms: Work/School Release Form Prescriptions: Spironolactone [Aldactone] 150 mg PO QDAY #90 tablet Folic Acid [Folvite] 1 mg PO QDAY #30 tablet Potassium Chloride [K-Dur] 20 meq PO QDAY #14 tablet Furosemide [Lasix] 60 mg PO QDAY #90 tablet levoFLOXacin [Levaquin TAB] 500 mg PO Q24HR #2 tablet Famotidine [Pepcid] 10 mg PO BID #60 tablet oxyCODONE [Roxicodone TAB] 10 mg PO Q4H PRN #14 tablet PRN Reason: Pain, Moderate (4-6)
[2018-10-26 09:26] LABS: Basophils # (Auto) 0.1 K/mm3 (0.0-0.1); Eosinophils # (Auto) 0.1 K/mm3 (0.0-0.4); Hematocrit 29.8 % (30.3-42.9); Lymphocytes % (Auto) 17.8 % (13.4-35.0); Mean Corpuscular HGB Conc 34 % (30-34); Mean Corpuscular Volume 87 fl (79-97); Monocytes # (Auto) 0.8 K/mm3 (0.0-0.8); Monocytes % (Auto) 13.7 % (0.0-7.3); Platelet Count 198 K/mm3 (140-440); Red Blood Count 3.43 M/mm3 (3.65-5.03); Red Cell Distribution Width 17.7 % (13.2-15.2)
[2018-10-26] MEDS ORDERED: LEVAQUIN PO SCH (10:00)
[2018-10-26] MEDS ORDERED: LASIX PO SCH (10:00)
--- NOTE | 2018-10-26 10:10 | Gastroenterology Progress Note ---
<LORAINE OROPEZA - Last Filed: 10/26/18 10:10> Assessment and Plan 1.ascites 2.abdomina pain 3.H/o cirrhosis 2/2 ETOH abuse 4.H/o pancreatitis with pseudocyst -afebrile -WBC and H/H WNL-no active signs of bleeding -LFTs and INR stable compared to previous -CT 10/21/2018- showed pancreatic pseudocysts in sized compared to prior scan, along with ascites, hepatomegaly, splenomegaly, and colonic diverticulosis -paracentesis 06/29/18- no evidence of SBP or malignancy -s/p paracentesis 10/24/18 with removal of 2.5L- fluid with no evidence of SBP (repeat LVP attempted yesterday but cancelled due to only trace ascites) -etiology-alcoholic cirrhosis of liver with ascites -clinically, patient is stable with continue mild diffuse abd discomfort which is chronic. No N/v or signs of bleeding. No encephalopathy on exam. Tolerating diet. -continue diuretics -continue empiric antibiotics x 7 days -LVP PRN -low sodium diet (no fluid restriction per GI standpoint) -limit narcotics (will increase risk of side effects such as encephalopathy) -continue to trend labs and supportive care -alcohol cessation discussed/encouraged with patient -electrolyte management per primary team -patient is okay to be d/c per GI standpoint on current medications with f/u in clinic in ~2 weeks for further management -will sign off, please call if needed Subjective Date of service: 10/26/18 Principal diagnosis: ascites Interval history: No acute distress. Reports some mild continued diffuse abd discomfort (chronic). No N/V or signs of bleeding. Tolerating diet. Objective - Constitutional Vitals: Temp Pulse Resp BP Pulse Ox 98.5 F 82 18 84/54 96 10/26/18 06:11 10/26/18 07:15 10/26/18 06:11 10/26/18 06:11 10/25/18 23:52 General appearance: no acute distress - Respiratory Respiratory: bilateral: diminished - Cardiovascular Rhythm: regular Heart Sounds: Present: S1 & S2 - Gastrointestinal General gastrointestinal: Present: soft, tender (slight generalized TTP), distended (mildly), normal bowel sounds - Neurologic Neurological: alert and oriented x3 - Labs CBC & Chem 7: 10/26/18 05:30 10/26/18 05:30 Labs: Laboratory Results - last 24 hr 10/25/18 10/25/18 10/25/18 11:05 16:23 21:33 WBC RBC Hgb Hct MCV MCH MCHC RDW Plt Count Lymph % (Auto) [place] % (Auto) Eos % (Auto) Baso % (Auto) Lymph # Nelson # Eos # Baso # Seg Neutrophils % Seg Neutrophils # PT INR Sodium Potassium Chloride Carbon Dioxide Anion Gap BUN Creatinine Estimated GFR BUN/Creatinine Ratio Glucose POC Glucose 119 H 120 H 97 Calcium Total Bilirubin AST ALT Alkaline Phosphatase Total Protein Albumin Albumin/Globulin Ratio 10/26/18 10/26/18 10/26/18 05:30 05:30 05:30 WBC 5.6 RBC 3.43 L Hgb 10.0 L Hct 29.8 L MCV 87 MCH 29 MCHC 34 RDW 17.7 H Plt Count 198 Lymph % (Auto) 17.8 [place] % (Auto) 13.7 H Eos % (Auto) 1.0 Baso % (Auto) 1.0 Lymph # 1.0 L Nelson # 0.8 Eos # 0.1 Baso # 0.1 Seg Neutrophils % 66.5 Seg Neutrophils # 3.7 PT 19.9 H INR 1.58 H Sodium 133 L Potassium 2.9 L* D Chloride 94.5 L Carbon Dioxide 26 D Anion Gap 15 BUN 4 L Creatinine 0.4 L Estimated GFR > 60 BUN/Creatinine Ratio 10 Glucose 86 POC Glucose Calcium 8.1 L Total Bilirubin 0.90 AST 29 ALT 9 Alkaline Phosphatase 61 Total Protein 6.0 L Albumin 2.4 L Albumin/Globulin Ratio 0.7 10/26/18 07:38 WBC RBC Hgb Hct MCV MCH MCHC RDW Plt Count Lymph % (Auto) [place] % (Auto) Eos % (Auto) Baso % (Auto) Lymph # Nelson # Eos # Baso # Seg Neutrophils % Seg Neutrophils # PT INR Sodium Potassium Chloride Carbon Dioxide Anion Gap BUN Creatinine Estimated GFR BUN/Creatinine Ratio Glucose POC Glucose 87 Calcium Total Bilirubin AST ALT Alkaline Phosphatase Total Protein Albumin Albumin/Globulin Ratio <CARLOS DYE - Last Filed: 10/26/18 17:42> Assessment and Plan Patient seen and examined, agree with advanced practitioner's eval, assessment, and plan with addition noted below: she reports abdominal pain is improving and abd soft, she can be discharged from GI standpoint with GI clinic follow up - Patient Problems (1) Ascites Current Visit: Yes Status: Acute Qualifiers: (2) Alcoholic cirrhosis of liver with ascites Current Visit: Yes Status: Acute (3) Alcoholic cirrhosis of liver with ascites Current Visit: Yes Status: Acute (4) Abdominal pain Current Visit: Yes Status: Acute Qualifiers: Abdominal location: generalized Qualified Code(s): R10.84 - Generalized abdominal pain Objective - Constitutional Vitals: Temp Pulse Resp BP Pulse Ox 99.1 F 89 20 105/71 94 10/26/18 11:55 10/26/18 11:55 10/26/18 11:55 10/26/18 11:55 10/26/18 11:55 - Labs CBC & Chem 7: 10/26/18 05:30 10/26/18 13:16 Labs: Laboratory Results - last 24 hr 10/25/18 10/26/18 10/26/18 21:33 05:30 05:30 WBC 5.6 RBC 3.43 L Hgb 10.0 L Hct 29.8 L MCV 87 MCH 29 MCHC 34 RDW 17.7 H Plt Count 198 Lymph % (Auto) 17.8 [place] % (Auto) 13.7 H Eos % (Auto) 1.0 Baso % (Auto) 1.0 Lymph # 1.0 L Nelson # 0.8 Eos # 0.1 Baso # 0.1 Seg Neutrophils % 66.5 Seg Neutrophils # 3.7 PT INR Sodium 133 L Potassium 2.9 L* D Chloride 94.5 L Carbon Dioxide 26 D Anion Gap 15 BUN 4 L Creatinine 0.4 L Estimated GFR > 60 BUN/Creatinine Ratio 10 Glucose 86 POC Glucose 97 Calcium 8.1 L Total Bilirubin 0.90 AST 29 ALT 9 Alkaline Phosphatase 61 Total Protein 6.0 L Albumin 2.4 L Albumin/Globulin Ratio 0.7 10/26/18 10/26/18 10/26/18 05:30 07:38 12:01 WBC RBC Hgb Hct MCV MCH MCHC RDW Plt Count Lymph % (Auto) [place] % (Auto) Eos % (Auto) Baso % (Auto) Lymph # [place] # Eos # Baso # Seg Neutrophils % Seg Neutrophils # PT 19.9 H INR 1.58 H Sodium Potassium Chloride Carbon Dioxide Anion Gap BUN Creatinine Estimated GFR BUN/Creatinine Ratio Glucose POC Glucose 87 156 H Calcium Total Bilirubin AST ALT Alkaline Phosphatase Total Protein Albumin Albumin/Globulin Ratio 10/26/18 13:16 WBC RBC Hgb Hct MCV MCH MCHC RDW Plt Count Lymph % (Auto) [place] % (Auto) Eos % (Auto) Baso % (Auto) Lymph # [place] # Eos # Baso # Seg Neutrophils % Seg Neutrophils # PT INR Sodium Potassium 4.0 D Chloride Carbon Dioxide Anion Gap BUN Creatinine Estimated GFR BUN/Creatinine Ratio Glucose POC Glucose Calcium Total Bilirubin AST ALT Alkaline Phosphatase Total Protein Albumin Albumin/Globulin Ratio
[2018-10-26] MEDS: KCL 10MEQ/100ML 10 MEQ/100 ML BAG IV SCH ×4 (10:19→14:45)
[2018-10-26] MEDS: PEPCID PO SCH (10:20)
[2018-10-26] MEDS: VITAMIN B-1 PO SCH (10:20)
[2018-10-26] MEDS: THERAGRAN Tab PO SCH (10:20)
[2018-10-26] MEDS: FOLVITE PO SCH (10:21)
[2018-10-26] MEDS: ALDACTONE PO SCH (10:21)
[2018-10-26] MEDS: ROXICODONE PO PRN (13:34)
[2018-10-26 18:13] VITALS: BP 86/57
[2018-10-27 13:31] LABS: LDH,Body Fluid 62; Total Protein,Body Fluid < 3.0 (15.0-45.0)
[2018-10-27 13:32] LABS: Amylase,Body Fluid < 10
== END 2018-10-26 19:00 | disposition home health service (06) | DRG 871 ==
LOC: ED 14:48 → 3A 19:12
PROVIDERS: ADMIT Internal Medicine; ATTEND Internal Medicine
PROC: 0W9G3ZZ Drainage of Peritoneal Cavity, Percutaneous Approach (ICD-10-PCS; principal; 2018-10-24)
DX: A41.9 Sepsis, unspecified organism (principal); E43 Unspecified severe protein-calorie malnutrition; K85.90 Acute pancreatitis without necrosis or infection, unspecified; E87.1 Hypo-osmolality and hyponatremia; K86.3 Pseudocyst of pancreas; N30.00 Acute cystitis without hematuria; K86.1 Other chronic pancreatitis; R65.20 Severe sepsis without septic shock; E87.6 Hypokalemia; E83.42 Hypomagnesemia; I10 Essential (primary) hypertension; E11.9 Type 2 diabetes mellitus without complications; F32.9 Major depressive disorder, single episode, unspecified; J44.9 Chronic obstructive pulmonary disease, unspecified; F17.210 Nicotine dependence, cigarettes, uncomplicated; K70.31 Alcoholic cirrhosis of liver with ascites; K57.30 Diverticulosis of large intestine without perforation or abscess without bleeding; Z68.31 Body mass index [BMI] 31.0-31.9, adult; F10.10 Alcohol abuse, uncomplicated; Z98.51 Tubal ligation status; R16.2 Hepatomegaly with splenomegaly, not elsewhere classified; Z79.4 Long term (current) use of insulin
CPT/HCPCS: 36415; 49083; 70450; 71045; 74176; 76705; 80048; 80053; 81001; 82140; 82150; 82805; 82947; 82962; 83036; 83605; 83690; 83735; 84132; 84160; 85007; 85025; 85610; 85730; 87040; 87076; 87086; 87186; 88112; 88305; 89051; 93005; 93010; G0378; J0696; J1170; J1815; J3370; J3475; J3480; J7040; J7050

== ENCOUNTER 2018-11-27 12:01 | Inpatient (IN) | payer OTHER ==
--- NOTE | 2018-11-27 12:11 | Emergency Department Report ---
Blank Doc - Documentation Documentation: 58 y/o female with pmh of ETOH abuse, liver disease, chronic pancreatitis, and gallbladder disease presents to ED c/o reemergence of abdominal swelling and sob. had to have paracnetesis last month and thinks she needs again. Plan labs and possible US / paracentesis.
[2018-11-27 12:32] LABS: Basophils # (Auto) 0.1 K/mm3 (0.0-0.1); Basophils % (Auto) 1.2 % (0.0-1.8); Eosinophils % (Auto) 0.4 % (0.0-4.3); Hematocrit 33.6 % (30.3-42.9); Hemoglobin 11.2 gm/dl (10.1-14.3); Lymphocytes % (Auto) 13.5 % (13.4-35.0); Mean Corpuscular HGB Conc 34 % (30-34); Mean Corpuscular Volume 90 fl (79-97); Monocytes # (Auto) 0.7 K/mm3 (0.0-0.8); Monocytes % (Auto) 9.9 % (0.0-7.3); Platelet Count 205 K/mm3 (140-440); Red Blood Count 3.75 M/mm3 (3.65-5.03)
[2018-11-27 12:42] LABS: INR 1.47 (0.87-1.13)
[2018-11-27 12:45] LABS: Alanine Aminotransferase 6 units/L (7-56); Albumin 2.5 g/dL (3.9-5); BUN/Creatinine Ratio 6; Blood Urea Nitrogen 3 mg/dL (7-17); Calcium 7.9 mg/dL (8.4-10.2); Hemolysis Index 2
--- NOTE | 2018-11-27 13:14 | XRay Report ---
PROCEDURE: XR CHEST ROUTINE 2V TECHNIQUE: 2 view chest HISTORY: Dyspnea COMPARISONS: Chest x-ray October 21, 2018 FINDINGS: Trachea midline. Heart size normal. Atherosclerotic calcification aorta No pneumothorax. Minimal left basilar airspace disease. Little change from prior study. Blunting left costophrenic sulcus decreased. Right lung clear. No pneumothorax IMPRESSION: Minimal left basilar airspace disease. Lungs otherwise clear. This document is electronically signed by Jone Hamilton MD., November 27 2018 01:12:17 PM ET
--- NOTE | 2018-11-27 13:24 | Emergency Department Report ---
ED General Adult HPI - General Chief complaint: Dyspnea/Respdistress Stated complaint: ABD SWELLING/PAIN/VOMITING Time Seen by Provider: 11/27/18 12:09 Source: patient Mode of arrival: Ambulatory Limitations: No Limitations - History of Present Illness Initial comments: This is a 58-year-old female who has been treated at this facility for decompensated hepatic failure in the past. She states that her has hepatitis C but she has never been treated. She relates her cirrhosis to alcohol consumption and pancreatitis. She is not abusing alcohol lately. She was admitted here in October and did not see a physician since. She subsequently ran out of her diuretic which I assume was furosemide. I do not think she made any effort to seek medical care up until today when she presents with shortness of breath. She immediately states the only medicine that helps me is "Dilaudid". She denies taking daily opioids. She denies recent fever or c hills. She states that her belly is chronically painful. Indeed, she has tenderness ascites. She denies any prior diagnosis of malignancy. She was treated here with therapeutic paracentesis and October. As per previous discharge summary 11/08: Hospitalization Reason for admission: decompensated liver cirrhosis Condition: Stable Hospital course: Ms Mendoza is a 58 yo wf with h/o alcohol abuse, cirrhosis, recurrent pancreatitis (from alcohol, with likely chronic pancreatitis) who presents with worsening abd distention/ascites and back pain. Pt also found to have low grade fever on admission. She reports her last alcohol intake was 15 days ago. She was consuming up to 1/2 pint per day until quitting 15 days ago. She was on aldactone, but has had re-development of ascites for the past 1 week. She denies mental status changes, jaundice, or gi bleeding. Patient proceeded for paracentesis electrolyte correction was done and GI adjusted dose for lasix and aldactone. Fluid analysis did not support SBP patient was treated for Acute cystitis Extensive counselling was provided on cessation of alcohol and referral to rehab programs given patient is strongly encouraged to have [id number] ultrasound for HCC screening and she verbalized understanding She is also to follow with GI and her PCP and have monitoring of electrolytes. Severe sepsis,secondary at acute cystitis Chronic liver disease with recurrent ascites ETOH related Cirrhosis with decompensation Hypokalemia/Hypomagnesemia Hyponatremia-resolved Pancreatitis with pseudocyst Severe protein calorie malnutrition Alcohol abuse -: week(s) Location: abdomen Severity scale (0 -10): 0 Associated Symptoms: denies other symptoms - Related Data Previous Rx's Medication Instructions Recorded Last Taken Type Insulin NPH/Regular [NovoLIN 70/30] 12 unit SUB-Q BIDDIAB #1 vial 09/22/18 10/20/18 Rx Multivitamin Tab [Multiple Vitamin 1 each PO QDAY #30 tablet 09/22/18 10/21/18 Rx TAB (Theragran)] Thiamine [Vitamin B-1] 100 mg PO QDAY #30 tablet 09/22/18 10/21/18 Rx Famotidine [Pepcid] 10 mg PO BID #60 tablet 10/26/18 Unknown Rx Folic Acid [Folvite] 1 mg PO QDAY #30 tablet 10/26/18 Unknown Rx Furosemide [Lasix] 60 mg PO QDAY #90 tablet 10/26/18 Unknown Rx Potassium Chloride [K-Dur] 20 meq PO QDAY #14 tablet 10/26/18 Unknown Rx Spironolactone [Aldactone] 150 mg PO QDAY #90 tablet 10/26/18 Unknown Rx levoFLOXacin [Levaquin TAB] 500 mg PO Q24HR #2 tablet 10/26/18 Unknown Rx oxyCODONE [Roxicodone TAB] 10 mg PO Q4H PRN #14 tablet 10/26/18 Unknown Rx Allergies Allergy/AdvReac Type Severity Reaction Status Date / Time No Known Allergies Allergy Verified 09/16/18 09:12 ED Review of Systems ROS: Stated complaint: ABD SWELLING/PAIN/VOMITING Other details as noted in HPI Constitutional: denies: chills, fever Eyes: denies: eye pain, eye discharge, vision change ENT: denies: ear pain, throat pain Respiratory: shortness of breath. denies: cough, wheezing Cardiovascular: denies: chest pain, palpitations Endocrine: no symptoms reported Gastrointestinal: abdominal pain. denies: nausea, diarrhea Genitourinary: denies: urgency, dysuria, discharge Musculoskeletal: denies: back pain, joint swelling, arthralgia Skin: denies: rash, lesions Neurological: denies: headache, weakness, paresthesias Psychiatric: denies: anxiety, depression Hematological/Lymphatic: denies: easy bleeding, easy bruising ED Past Medical Hx - Past Medical History Hx Hypertension: Yes Hx Congestive Heart Failure: No Hx Diabetes: Yes Hx Liver Disease: Yes Hx Psychiatric Treatment: Yes (depression / insomnia) Hx Asthma: No Hx COPD: Yes Hx HIV: No Additional medical history: pancreatitis. gallstones. Ascites. Alcohol abuse - Surgical History Additional Surgical History: tubal ligation - Social History Smoking Status: Current Every Day Smoker Substance Use Type: None - Medications Home Medications: Home Medications Medication Instructions Recorded Confirmed Last Taken Type Insulin NPH/Regular [NovoLIN 70/30] 12 unit SUB-Q BIDDIAB #1 vial 09/22/18 10/23/18 10/20/18 Rx Multivitamin Tab [Multiple Vitamin 1 each PO QDAY #30 tablet 09/22/18 10/23/18 10/21/18 Rx TAB (Theragran)] Thiamine [Vitamin B-1] 100 mg PO QDAY #30 tablet 09/22/18 10/23/18 10/21/18 Rx Famotidine [Pepcid] 10 mg PO BID #60 tablet 10/26/18 Unknown Rx Folic Acid [Folvite] 1 mg PO QDAY #30 tablet 10/26/18 Unknown Rx Furosemide [Lasix] 60 mg PO QDAY #90 tablet 10/26/18 Unknown Rx Potassium Chloride [K-Dur] 20 meq PO QDAY #14 tablet 10/26/18 Unknown Rx Spironolactone [Aldactone] 150 mg PO QDAY #90 tablet 10/26/18 Unknown Rx levoFLOXacin [Levaquin TAB] 500 mg PO Q24HR #2 tablet 10/26/18 Unknown Rx oxyCODONE [Roxicodone TAB] 10 mg PO Q4H PRN #14 tablet 10/26/18 Unknown Rx ED Physical Exam - General Limitations: No Limitations General appearance: alert, in no apparent distress - Head Head exam: Present: atraumatic, normocephalic - Eye Eye exam: Present: normal appearance - ENT ENT exam: Present: mucous membranes moist - Neck Neck exam: Present: normal inspection. Absent: tenderness, meningismus - Respiratory Respiratory exam: Present: normal lung sounds bilaterally. Absent: respiratory distress - Cardiovascular Cardiovascular Exam: Present: regular rate, normal rhythm. Absent: systolic murmur, diastolic murmur, rubs, gallop - GI/Abdominal GI/Abdominal exam: Present: soft, distended, tenderness (tenderness over the liver which appears to be quite enlarged), normal bowel sounds, organomegaly, other (tense ascites). Absent: guarding, rebound, rigid - Extremities Exam Extremities exam: Present: normal inspection - Back Exam Back exam: Present: normal inspection - Neurological Exam Neurological exam: Present: alert, oriented X3, CN II-XII intact. Absent: motor sensory deficit - Psychiatric Psychiatric exam: Present: anxious, flat affect - Skin Skin exam: Present: warm, dry, intact, normal color. Absent: rash ED Course Vital Signs 11/27/18 11/27/18 11/27/18 12:09 13:04 13:12 Temperature 98.2 F 98 F Pulse Rate 125 H 110 H Respiratory 22 27 H Rate Blood Pressure 112/76 Blood Pressure 114/76 [Left] O2 Sat by Pulse 95 97 97 Oximetry 11/27/18 11/27/18 11/27/18 13:13 13:16 13:30 Temperature Pulse Rate 109 H 108 H Respiratory 27 H 20 20 Rate Blood Pressure 114/76 122/84 Blood Pressure [Left] O2 Sat by Pulse 97 97 94 Oximetry - Reevaluation(s) Reevaluation #1: I'm going to reimage this patient's abdomen. Prior CT in October showed pancreatic pseudocyst and ascites. I think will be ample to run a noncontrast CT of the circumstances. 11/27/18 13:46 ED Medical Decision Making - Lab Data Result diagrams: 11/27/18 12:15 11/27/18 12:15 Laboratory Results - last 24 hr 11/27/18 11/27/18 11/27/18 12:15 12:15 12:15 WBC 7.4 RBC 3.75 Hgb 11.2 Hct 33.6 MCV 90 MCH 30 MCHC 34 RDW 15.0 Plt Count 205 Lymph % (Auto) 13.5 [place] % (Auto) 9.9 H Eos % (Auto) 0.4 Baso % (Auto) 1.2 Lymph # 1.0 L [place] # 0.7 Eos # 0.0 Baso # 0.1 Seg Neutrophils % 75.0 H Seg Neutrophils # 5.6 PT 18.8 H INR 1.47 H Sodium 136 L Potassium 3.3 L Chloride 104.7 Carbon Dioxide 18 L Anion Gap 17 BUN 3 L Creatinine 0.5 L Estimated GFR > 60 BUN/Creatinine Ratio 6 Glucose 165 H Calcium 7.9 L Total Bilirubin 0.40 AST 23 ALT 6 L Alkaline Phosphatase 139 H Total Protein 6.3 Albumin 2.5 L Albumin/Globulin Ratio 0.7 Lipase 7 L - EKG Data -: EKG Interpreted by Me EKG shows normal: sinus rhythm, axis, intervals, QRS complexes, ST-T waves Rate: normal - EKG Data Interpretation: no acute changes, other (atrial ectopy) - Radiology Data interpreted by me: Chest x-ray shows either pleural thickening or fluid at the left base. I do not think this is an infectious process. See radiology report. Critical care attestation.: If time is entered above; I have spent that time in minutes in the direct care of this critically ill patient, excluding procedure time. ED Disposition Clinical Impression: Hypokalemia Ascites Qualifiers: Ascites type: due to alcoholic cirrhosis Qualified Code(s): K70.31 - Alcoholic cirrhosis of liver with ascites Dyspnea Qualifiers: Dyspnea type: unspecified Qualified Code(s): R06.00 - Dyspnea, unspecified Abdominal pain Qualifiers: Abdominal location: generalized Qualified Code(s): R10.84 - Generalized abdominal pain Disposition: DC-09 OP ADMIT IP TO THIS HOSP Is pt being admited?: Yes Does the pt Need Aspirin: No Condition: Stable Time of Disposition: 13:46
[2018-11-27] MEDS ORDERED: DILAUDID IV ONE (13:34)
[2018-11-27] MEDS ORDERED: ZOFRAN IV ONE (13:34)
[2018-11-27] MEDS ORDERED: BENADRYL IV ONE (13:34)
[2018-11-27] MEDS ORDERED: K-DUR PO ONE (13:37)
--- NOTE | 2018-11-27 13:43 | History and Physical Report ---
History of Present Illness Chief complaint: Im bloated, and its hard to breathe History of present illness: 58 YO Female with ETOH Dependence, HTN, DM, Nicotine Dependence, Depression, Insomnia, COPD, ETOH Pancreatitis/with Pseudocyst, ESLD complicated by Cirrhosis and Ascites presents to ED for evaluation. Pt states that she has experienced shortness of breath over the past 4 days as well as abdominal distention with worsening symptoms over the same time frame. Pt acknowledges medication noncompliance over the past 1 week. Pt states that she ran out of her medication. Pt denies fever, chills, CP, Palpitations, trauma, BRBPR, Falls, Confusion, Dizziness, productive cough, Abdominal pain, NVD, hematemesis, or re cent ill contacts. Pt transported to [facility] ED via private vehicle. Pt seen and evaluated in ED and found to have ESLD, Ascites, as well as enlarging pancreatic pseudocyst. IR consulted in ED, Surgery consulted in ED. Prior admission on 10/21/18 reviewed. All listed medication reconciled at time of admission. Past History Past Medical History: COPD, hypertension, other (ESLD) Past Surgical History: Other (tubal ligation) Social history: , smoking, alcohol abuse Family history: hypertension Medications and Allergies Allergies Allergy/AdvReac Type Severity Reaction Status Date / Time No Known Allergies Allergy Verified 09/16/18 09:12 Home Medications Medication Instructions Recorded Confirmed Last Taken Type Insulin NPH/Regular [NovoLIN 70/30] 12 unit SUB-Q BIDDIAB #1 vial 09/22/1811/0810/20/18 Rx Multivitamin Tab [Multiple Vitamin 1 each PO QDAY #30 tablet 09/22/18 10/23/18 0 10/21/18 Rx TAB (Theragran)] Thiamine [Vitamin B-1] 100 mg PO QDAY #30 tablet 09/22/18 10/23/18 10/21/18 Rx Famotidine [Pepcid] 10 mg PO BID #60 tablet 10/26/18 Unknown Rx Folic Acid [Folvite] 1 mg PO QDAY #30 tablet 10/26/18 Unknown Rx Furosemide [Lasix] 60 mg PO QDAY #90 tablet 10/26/18 Unknown Rx Potassium Chloride [K-Dur] 20 meq PO QDAY #14 tablet 10/26/18 Unknown Rx Spironolactone [Aldactone] 150 mg PO QDAY #90 tablet 10/26/18 Unknown Rx levoFLOXacin [Levaquin TAB] 500 mg PO Q24HR #2 tablet 10/26/18 Unknown Rx oxyCODONE [Roxicodone TAB] 10 mg PO Q4H PRN #14 tablet 10/26/18 Unknown Rx Review of Systems Constitutional: weight gain, no weight loss, no fever, no chills, no sweats Ears, nose, mouth and throat: no ear pain, no ear discharge, no tinnitis, no decreased hearing, no nose pain, no nasal congestion Breasts: no change in shape, no swelling, no mass Cardiovascular: shortness of breath, no chest pain, no orthopnea, no palpitations, no rapid/irregular heart beat Respiratory: no cough, no cough with sputum, no excessive sputum, no hemoptysis Gastrointestinal: other (distention), no abdominal pain, no nausea, no vomiting, no diarrhea Genitourinary Female: no pelvic pain, no flank pain, no menorrhagia, no dysuria, no urinary frequency, no urgency Rectal: no pain, no incontinence, no bleeding Musculoskeletal: no neck stiffness, no neck pain, no shooting arm pain, no arm numbness/tingling, no low back pain, no shooting leg pain Integumentary: no rash, no pruritis, no redness, no sores, no wounds Neurological: no transient paralysis, no paralysis, no weakness, no parathesias, no numbness, no tingling Psychiatric: no anxiety, no memory loss, no change in sleep habits, no sleep disturbances, no insomnia, no hypersomnia, no change in appetite Endocrine: no cold intolerance, no heat intolerance, no polyphagia, no excessive thirst, no polydipsia, no polyuria Hematologic/Lymphatic: no easy bruising, no lymphadenopathy, no lymphedema Allergic/Immunologic: no urticaria, no allergic rhinitis, no wheezing, no persistent infections, no anaphylaxis, no angioedema Exam - Constitutional Vitals: Temp Pulse Resp BP Pulse Ox 98 F 108 H 20 122/84 94 11/27/18 13:12 11/27/18 13:30 11/27/18 13:30 11/27/18 13:30 11/27/18 13:30 General appearance: Present: mild distress - EENT Eyes: Present: PERRL ENT: hearing intact, clear oral mucosa - Neck Neck: Present: supple, normal ROM - Respiratory Respiratory effort: normal Respiratory: bilateral: diminished - Cardiovascular Heart Sounds: Present: S1 & S2. Absent: rub, click - Extremities Extremities: pulses symmetrical Extremity abnormal: edema Peripheral Pulses: within normal limits - Abdominal General gastrointestinal: Present: soft, non-tender, distended, normal bowel sounds. Absent: hepatomegaly, splenomegaly, mass, hernia Female genitourinary: Present: normal - Integumentary Integumentary: Present: clear, warm, dry - Musculoskeletal Musculoskeletal: gait normal, strength equal bilaterally - Psychiatric Psychiatric: appropriate mood/affect, intact judgment & insight - Neurologic Neurologic: CNII-XII intact, moves all extremities Results - Labs CBC & Chem 7: 11/27/18 12:15 11/27/18 12:15 Labs: Abnormal lab results 11/27/18 11/27/18 11/27/18 Range/Units 12:15 12:15 12:15 [place] % (Auto) 9.9 H (0.0-7.3) % Lymph # 1.0 L (1.2-5.4) K/mm3 Seg Neutrophils % 75.0 H (40.0-70.0) % PT 18.8 H (12.2-14.9) Sec. INR 1.47 H (0.87-1.13) Sodium 136 L (137-145) mmol/L Potassium 3.3 L (3.6-5.0) mmol/L Carbon Dioxide 18 L (22-30) mmol/L BUN 3 L (7-17) mg/dL Creatinine 0.5 L (0.7-1.2) mg/dL Glucose 165 H (65-100) mg/dL Calcium 7.9 L (8.4-10.2) mg/dL ALT 6 L (7-56) units/L Alkaline Phosphatase 139 H (35-129) units/L Albumin 2.5 L (3.9-5) g/dL Lipase 7 L (13-60) units/L Assessment and Plan - Patient Problems (1) Pancreatic pseudocyst Current Visit: Yes Status: Acute Plan to address problem: IR consulted for possible drainage, Surgery consulted, CT ABdomen/Pelvis, pain control, supportive care, NPO after midnight. (2) Cirrhosis Current Visit: Yes Status: Acute Qualifiers: Ascites presence: with ascites Plan to address problem: Chronic: supportive care, ammonia level, neuro checks, monitor uop q shift, strict I/O, daily weight, CMP (3) Ascites Current Visit: Yes Status: Acute Plan to address problem: IR consulted for therapeutic paracentesis (4) Acidosis Current Visit: Yes Status: Acute (5) Acute liver failure without hepatic coma Current Visit: Yes Status: Acute Plan to address problem: LFT, CT Abdomen pelvis, strict I/O, daily weight, monitor uop q shift, monitor fluid balance, am BMP, Ammonia level, neuro checks, seizure precautions. (6) DVT prophylaxis Current Visit: No Status: Acute Plan to address problem: SCD to BLE while in bed, Pt is ambulatory.
[2018-11-27] MEDS ORDERED: PERCOCET 5/325 PO PRN (13:48)
[2018-11-27] MEDS ORDERED: SODIUM CHLORIDE FLUSH SYRINGE 10 ML IV PRN (13:48)
[2018-11-27] MEDS ORDERED: PROVENTIL IH PRN (13:48)
[2018-11-27 14:35] LABS: Bilirubin,Urine NEG (Negative); Blood,Urine NEG (Negative); Color,Urine Amber (Yellow); Mucus,Urine 3+ /HPF
[2018-11-27 14:46] LABS: Amphetamine Screen,Urine PRESUMPTIVE NEGATIVE; Benzodiazepines Screen,Urine PRESUMPTIVE NEGATIVE; Cannabinoid Screen,Urine PRESUMPTIVE NEGATIVE; Cocaine Screen,Urine PRESUMPTIVE NEGATIVE; Methadone Screen,Urine PRESUMPTIVE NEGATIVE; Opiate Screen,Urine PRESUMPTIVE NEGATIVE
--- NOTE | 2018-11-27 14:47 | Cat Scan Report ---
PROCEDURE: CT ABDOMEN PELVIS WO CON TECHNIQUE: Computerized axial tomography of the abdomen and pelvis was performed without intravenous contrast. This study is performed without intravascular contrast material and its sensitivity for ab dominal and pelvic pathology, including neoplasms, inflammation, abscess, free fluid, thrombosis, art erial dissection and infarction, is reduced compared with a contrast enhanced study. HISTORY: abd pain COMPARISONS: 10/21/2018 . FINDINGS: Visualized lower thorax: Layering left pleural effusion. Liver: Liver measures 19.7 cm craniocaudal. Spleen: Stable enlargement of the spleen. Gallbladder and biliary system: Gallbladder is present. Pancreas: Cystic mass abutting the anterior pancreas is increased in size, now measuring up to 9.6 c m. This is also increased in density compared to the prior study and may be hemorrhagic. Adrenals: Normal. Kidneys: Normal. GI tract: No bowel obstruction or inflammation sigmoid diverticulosis . Lymph nodes and mesentery: Normal. Vasculature: Aortic atherosclerotic calcification. Bladder: Normal. Reproductive organs: Grossly unremarkable. Peritoneum: Large volume of low-density free fluid is compatible with ascites. Musculoskeletal structures: Degenerative changes of the lower lumbar spine. Other: None. IMPRESSION: Previously seen pancreatic pseudocyst has increased in size and density, suggesting intracystic hemor rhage. Large amount of ascites is again visualized . This document is electronically signed by So Friend MD., November 27 2018 02:45:18 PM ET
[2018-11-27] MEDS ORDERED: LEVAQUIN 500MG/100ML 500 MG/100 ML BAG IV ONE (16:47)
[2018-11-27] MEDS: LEVAQUIN 500MG/100ML 500 MG/100 ML BAG IV SCH (17:15)
[2018-11-27] MEDS ORDERED: DILAUDID ONE (17:30)
[2018-11-27] MEDS: DILAUDID IV PRN ×2 (17:31→23:05)
[2018-11-27] MEDS: ROXICODONE PO PRN (21:03)
[2018-11-27] MEDS: SODIUM CHLORIDE FLUSH SYRINGE 10 ML IV SCH (21:04)
[2018-11-27] MEDS: PEPCID PO SCH (21:04)
[2018-11-28] MEDS: DILAUDID IV PRN (02:11)
[2018-11-28] MEDS: ROXICODONE PO PRN ×4 (05:26→18:40)
[2018-11-28 06:28] LABS: Alanine Aminotransferase 7 units/L (7-56); Albumin 2.3 g/dL (3.9-5); BUN/Creatinine Ratio 10; Blood Urea Nitrogen 4 mg/dL (7-17); Calcium 7.8 mg/dL (8.4-10.2); Hemolysis Index 7
[2018-11-28] MEDS: THERAGRAN Tab PO SCH (09:56)
[2018-11-28] MEDS: ALDACTONE PO SCH (09:56)
[2018-11-28] MEDS: LASIX PO SCH (09:56)
[2018-11-28] MEDS: VITAMIN B-1 PO SCH (09:57)
[2018-11-28] MEDS: K-DUR PO SCH (09:57)
[2018-11-28] MEDS: PEPCID PO SCH ×2 (09:57→22:08)
[2018-11-28] MEDS: SODIUM CHLORIDE FLUSH SYRINGE 10 ML IV SCH ×2 (09:58→22:08)
[2018-11-28] MEDS: FOLVITE PO SCH (10:00)
--- NOTE | 2018-11-28 10:29 | Progress Note ---
Assessment and Plan Assessment and plan: --Large ascites; scheduled for paracentesis Continue supportive care --- Cirrhosis liver; Continue current management, GI evaluation if needed --Pancreatic pseudocyst with possible hemorrhage; Surgery consultation, continue current management Consider GI evaluation if needed --Type 2 diabetes mellitus; Accu-Chek sliding scale coverage and ADA diet and insulin as needed, check A1c --DVT prophylaxis ;SCDs --Full CODE STATUS Monitor the patient closely and adjust the management as needed History Interval history: Patient seen and examined medical records reviewed Admitted with worsening ascites and abdominal pain Schedule for abdominal paracentesis Patient alert and awake in mild distress Vital signs noted Hospitalist Physical - Constitutional Vitals: Temp Pulse Resp BP Pulse Ox 98.6 F 84 16 107/65 96 11/27/18 23:42 11/28/18 06:02 11/27/18 23:42 11/27/18 23:42 11/28/18 06:02 General appearance: Present: mild distress, well-nourished, obese - EENT Eyes: Present: PERRL, EOM intact - Neck Neck: Present: supple, normal ROM - Respiratory Respiratory effort: normal Respiratory: bilateral: diminished, rales, negative: rhonchi, wheezing - Cardiovascular Rhythm: regular Heart Sounds: Present: S1 & S2 - Extremities Extremities: no ischemia Extremity abnormal: edema - Abdominal General gastrointestinal: soft, non-tender, distended, normal bowel sounds, other (large ascites) - Integumentary Integumentary: Present: clear, warm - Psychiatric Psychiatric: appropriate mood/affect, cooperative - Neurologic Neurologic: moves all extremities Results - Labs CBC & Chem 7: 11/27/18 12:15 11/28/18 05:00 Labs: Laboratory Last Values WBC 7.4 K/mm3 (4.5-11.0) 11/27/18 12:15 RBC 3.75 M/mm3 (3.65-5.03) 11/27/18 12:15 Hgb 11.2 gm/dl (10.1-14.3) 11/27/18 12:15 Hct 33.6 % (30.3-42.9) 11/27/18 12:15 MCV 90 fl (79-97) 11/27/18 12:15 MCH 30 pg (28-32) 11/27/18 12:15 MCHC 34 % (30-34) 11/27/18 12:15 RDW 15.0 % (13.2-15.2) 11/27/18 12:15 Plt Count 205 K/mm3 (140-440) 11/27/18 12:15 Lymph % (Auto) 13.5 % (13.4-35.0) 11/27/18 12:15 [place] % (Auto) 9.9 % (0.0-7.3) H 11/27/18 12:15 Eos % (Auto) 0.4 % (0.0-4.3) 11/27/18 12:15 Baso % (Auto) 1.2 % (0.0-1.8) 11/27/18 12:15 Lymph # 1.0 K/mm3 (1.2-5.4) L 11/27/18 12:15 [place] # 0.7 K/mm3 (0.0-0.8) 11/27/18 12:15 Eos # 0.0 K/mm3 (0.0-0.4) 11/27/18 12:15 Baso # 0.1 K/mm3 (0.0-0.1) 11/27/18 12:15 Seg Neutrophils % 75.0 % (40.0-70.0) H 11/27/18 12:15 Seg Neutrophils # 5.6 K/mm3 (1.8-7.7) 11/27/18 12:15 PT 18.8 Sec. (12.2-14.9) H 11/27/18 12:15 INR 1.47 (0.87-1.13) H 11/27/18 12:15 APTT 53.7 Sec. (24.2-36.6) H 11/27/18 12:15 Sodium 134 mmol/L (137-145) L 11/28/18 05:00 Potassium 3.4 mmol/L (3.6-5.0) L 11/28/18 05:00 Chloride 99.9 mmol/L (98-107) 11/28/18 05:00 Carbon Dioxide 23 mmol/L (22-30) 11/28/18 05:00 Anion Gap 15 mmol/L 11/28/18 05:00 BUN 4 mg/dL (7-17) L 11/28/18 05:00 Creatinine 0.4 mg/dL (0.7-1.2) L 11/28/18 05:00 Estimated GFR > 60 ml/min 11/28/18 05:00 BUN/Creatinine Ratio 10 % 11/28/18 05:00 Glucose 136 mg/dL (65-100) H 11/28/18 05:00 POC Glucose 109 (70-105) H 11/28/18 08:16 Calcium 7.8 mg/dL (8.4-10.2) L 11/28/18 05:00 Magnesium 1.60 mg/dL (1.7-2.3) L 11/27/18 12:15 Total Bilirubin 0.70 mg/dL (0.1-1.2) 11/28/18 05:00 AST 19 units/L (5-40) 11/28/18 05:00 ALT 7 units/L (7-56) 11/28/18 05:00 Alkaline Phosphatase 85 units/L (35-129) 11/28/18 05:00 Ammonia 87.0 umol/L (25-60) H 11/27/18 13:44 NT-Pro-B Natriuret Pep 133.6 pg/mL (0-900) 11/27/18 12:15 Total Protein 5.5 g/dL (6.3-8.2) L 11/28/18 05:00 Albumin 2.3 g/dL (3.9-5) L 11/28/18 05:00 Albumin/Globulin Ratio 0.7 % 11/28/18 05:00 Lipase 7 units/L (13-60) L 11/27/18 12:15 Urine Color Sarah (Yellow) 11/27/18 14:23 Urine Turbidity Clear (Clear) 11/27/18 14:23 Urine pH 5.0 (5.0-7.0) 11/27/18 14:23 Ur Specific Lorane 1.033 (1.003-1.030) H 11/27/18 14:23 Urine Protein 30 mg/dl mg/dL (Negative) 11/27/18 14:23 Urine Glucose (UA) 50 mg/dL (Negative) 11/27/18 14:23 Urine Ketones Tr mg/dL (Negative) 11/27/18 14:23 Urine Blood Neg (Negative) 11/27/18 14:23 Urine Nitrite Neg (Negative) 11/27/18 14:23 Urine Bilirubin Neg (Negative) 11/27/18 14:23 Urine Urobilinogen 2.0 mg/dL (<2.0) 11/27/18 14:23 Ur Leukocyte Esterase Neg (Negative) 11/27/18 14:23 Urine WBC (Auto) 2.0 /HPF (0.0-6.0) 11/27/18 14:23 Urine RBC (Auto) 1.0 /HPF (0.0-6.0) 11/27/18 14:23 U Epithel Cells (Auto) 17.0 /HPF (0-13.0) H 11/27/18 14:23 Urine Mucus 3+ /HPF 11/27/18 14:23 Urine Opiates Screen Presumptive negative 11/27/18 14:23 Urine Methadone Screen Presumptive negative 11/27/18 14:23 Ur Barbiturates Screen Presumptive negative 11/27/18 14:23 Ur Phencyclidine Scrn Presumptive negative 11/27/18 14:23 Ur Amphetamines Screen Presumptive negative 11/27/18 14:23 U Benzodiazepines Scrn Presumptive negative 11/27/18 14:23 Urine Cocaine Screen Presumptive negative 11/27/18 14:23 U Marijuana (THC) Screen Presumptive negative 11/27/18 14:23 Drugs of Abuse Note Disclamer 11/27/18 14:23 Active Medications - Current Medications Current Medications: Generic Name Dose Route Start Last Admin Trade Name Freq PRN Reason Stop Dose Admin Albuterol 2.5 mg 11/27/18 13:48 Proventil IH Q4HRT PRN Shortness Of Breath Famotidine 10 mg 11/27/18 22:00 11/28/18 09:57 Pepcid PO 10 mg BID GRZEGORZ Administration Folic Acid 1 mg 11/28/18 10:00 Folvite PO QDAY GRZEGORZ Furosemide 60 mg 11/28/18 10:00 11/28/18 09:56 Lasix PO 60 mg QDAY GRZEGORZ Administration Hydromorphone HCl 0.25 mg 11/27/18 13:48 11/28/18 02:11 Dilaudid IV 0.25 mg Q3H PRN Administration Pain, Moderate (4-6) Levofloxacin/Dextrose 500 mg in 100 mls @ 100 mls/hr 11/27/18 17:00 11/27/18 18:15 Levaquin 500mg/100ml IV Infused Q24H GRZEGORZ Infusion Protocol Insulin Human Isoph/Insulin Regular 12 unit 11/27/18 17:00 11/28/18 08:00 Humulin 70/30 SUB-Q 12 unit BIDDIAB GRZEGORZ Administration Multivitamins 1 each 11/28/18 10:00 11/28/18 09:56 Theragran Tab PO 1 each QDAY GRZEGORZ Administration Ondansetron HCl 4 mg 11/27/18 13:48 Zofran IV Q8H PRN Nausea And Vomiting Oxycodone HCl 10 mg 11/27/18 15:36 11/28/18 10:01 Roxicodone PO 10 mg Q4H PRN Administration Pain, Moderate (4-6) Potassium Chloride 20 meq 11/28/18 10:00 11/28/18 09:57 K-Dur PO 20 meq QDAY GRZEGORZ Administration Potassium Chloride 20 meq 11/28/18 10:24 K-Dur PO 11/28/18 10:25 ONCE ONE Sodium Chloride 10 ml 11/27/18 22:00 11/28/18 09:58 Sodium Chloride Flush Syringe 10 Ml IV 10 ml BID GRZEGORZ Administration Sodium Chloride 10 ml 11/27/18 13:48 Sodium Chloride Flush Syringe 10 Ml IV PRN PRN LINE FLUSH Spironolactone 150 mg 11/28/18 10:00 11/28/18 09:56 Aldactone PO 150 mg QDAY GRZEGORZ Administration Thiamine HCl 100 mg 11/28/18 10:00 11/28/18 09:57 Vitamin B-1 PO 100 mg QDAY GRZEGORZ Administration
[2018-11-28] MEDS ORDERED: K-DUR PO ONE (11:00)
[2018-11-28] MEDS ORDERED: XYLOCAINE 1% 20 mL ONE (11:57)
[2018-11-28] MEDS: ZOFRAN IV PRN ×2 (12:57→22:08)
--- NOTE | 2018-11-28 13:25 | Ultrasound Report ---
Ultrasound guided paracentesis: Ascites. Imaging of the abdomen demonstrated a moderate volume of peritoneal fluid. An optimum site was identified in the right lower quadrant. The skin was cleansed and draped. 1% lidocaine used for local anesthesia. A small skin stella a 5 [place] [employer] catheter was successfully placed into the fluid pocket. 4.5 L of clear fluid was successfully removed without complication.
--- NOTE | 2018-11-28 13:28 | Procedure Note ---
Date of procedure: 11/28/18 Pre-op diagnosis: ascites Post-op diagnosis: same Procedure: paracentesis Findings: clear fluid Anesthesia: local Surgeon: DIVINE LAY Estimated blood loss: none Pathology: none Condition: stable Disposition: floor
[2018-11-28] MEDS: LEVAQUIN 500MG/100ML 500 MG/100 ML BAG IV SCH (17:04)
--- NOTE | 2018-11-28 18:10 | Consultation ---
History of Present Illness Consult date: 11/28/18 Reason for consult: abdominal pain Chief complaint: abdominal pain - History of present illness History of present illness: 58 yo F with hx of liver cirrhosis, chronic pancreatitis secondary to etoh prese nts to ER with c/o diffuse abdominal pain for several days. Nonradiating. She attributes the pain to fluid in abdomen. Her last paracentesis was 1 month ago. She has not had etoh for 56 days. She is s/p paracentesis today and states her abdominal pain is completely resolved. She is tolerating a regular diet. No f/c, cp, sob, n/v, c/d. She is having bowel function. Past History Past Medical History: COPD, hypertension, other (ESLD) Past Surgical History: Other (tubal ligation) Social history: , smoking, alcohol abuse Family history: hypertension Medications and Allergies Allergies Allergy/AdvReac Type Severity Reaction Status Date / Time No Known Allergies Allergy Verified 09/16/18 09:12 Home Medications Medication Instructions Recorded Confirmed Last Taken Type Insulin NPH/Regular [NovoLIN 70/30] 12 unit SUB-Q BIDDIAB #1 vial 09/22/18 10/23/18 10/20/18 Rx Multivitamin Tab [Multiple Vitamin 1 each PO QDAY #30 tablet 09/22/18 10/23/18 10/21/18 Rx TAB (Theragran)] Thiamine [Vitamin B-1] 100 mg PO QDAY #30 tablet 09/22/18 10/23/18 10/21/18 Rx Famotidine [Pepcid] 10 mg PO BID #60 tablet 10/26/18 Unknown Rx Folic Acid [Folvite] 1 mg PO QDAY #30 tablet 10/26/18 Unknown Rx Furosemide [Lasix] 60 mg PO QDAY #90 tablet 10/26/18 Unknown Rx Potassium Chloride [K-Dur] 20 meq PO QDAY #14 tablet 10/26/18 Unknown Rx Spironolactone [Aldactone] 150 mg PO QDAY #90 tablet 10/26/18 Unknown Rx levoFLOXacin [Levaquin TAB] 500 mg PO Q24HR #2 tablet 10/26/18 Unknown Rx oxyCODONE [Roxicodone TAB] 10 mg PO Q4H PRN #14 tablet 10/26/18 Unknown Rx Active Meds: Active Medications Albuterol (Proventil) 2.5 mg IH Q4HRT PRN PRN Reason: Shortness Of Breath Famotidine (Pepcid) 10 mg PO BID [facility] Last Admin: 11/28/18 09:57 Dose: 10 mg Documented by: Folic Acid (Folvite) 1 mg PO QDAY [facility] Last Admin: 11/28/18 10:00 Dose: 1 mg Documented by: Furosemide (Lasix) 60 mg PO QDAY [facility] Last Admin: 11/28/18 09:56 Dose: 60 mg Documented by: Hydromorphone HCl (Dilaudid) 0.25 mg IV Q3H PRN PRN Reason: Pain, Moderate (4-6) Last Admin: 11/28/18 02:11 Dose: 0.25 mg Documented by: Levofloxacin/Dextrose (Levaquin 500mg/100ml) 500 mg in 100 mls @ 100 mls/hr IV Q24H [facility]; Protocol Last Admin: 11/28/18 17:04 Dose: 100 mls/hr Documented by: Insulin Human Isoph/Insulin Regular (Humulin 70/30) 12 unit SUB-Q BIDDIAB [facility] Last Admin: 11/28/18 17:05 Dose: 12 unit Documented by: Multivitamins (Theragran Tab) 1 each PO QDAY [facility] Last Admin: 11/28/18 09:56 Dose: 1 each Documented by: Ondansetron HCl (Zofran) 4 mg IV Q8H PRN PRN Reason: Nausea And Vomiting Last Admin: 11/28/18 12:57 Dose: 4 mg Documented by: Oxycodone HCl (Roxicodone) 10 mg PO Q4H PRN PRN Reason: Pain, Moderate (4-6) Last Admin: 11/28/18 14:02 Dose: 10 mg Documented by: Potassium Chloride (K-Dur) 20 meq PO QDAY [facility] Last Admin: 11/28/18 09:57 Dose: 20 meq Documented by: Sodium Chloride (Sodium Chloride Flush Syringe 10 Ml) 10 ml IV BID [facility] Last Admin: 11/28/18 09:58 Dose: 10 ml Documented by: Sodium Chloride (Sodium Chloride Flush Syringe 10 Ml) 10 ml IV PRN PRN PRN Reason: LINE FLUSH Spironolactone (Aldactone) 150 mg PO QDAY [facility] Last Admin: 11/28/18 09:56 Dose: 150 mg Documented by: Thiamine HCl (Vitamin B-1) 100 mg PO QDAY GRZEGORZ Last Admin: 11/28/18 09:57 Dose: 100 mg Documented by: Review of Systems All systems: negative (10 pt ROS performed and negative except for that listed in HPI) Exam Vital Signs Temp Pulse Resp BP Pulse Ox 98.2 F 125 H 22 112/76 95 11/27/18 12:09 11/27/18 12:09 11/27/18 12:09 11/27/18 12:09 11/27/18 12:09 Narrative exam: Gen: AAOx3. NAD ENT: no scleral icterus or conjunctival pallor CV: s1, s2+ resp; even and unlabored Abd: soft, mildly distended, NT. no r/r/g Ext: no c/c/e Results - Labs 11/27/18 12:15 11/28/18 05:00 Abnormal lab results 11/28/18 11/28/18 11/28/18 Range/Units 05:00 08:16 16:44 Sodium 134 L (137-145) mmol/L Potassium 3.4 L (3.6-5.0) mmol/L BUN 4 L (7-17) mg/dL Creatinine 0.4 L (0.7-1.2) mg/dL Glucose 136 H (65-100) mg/dL POC Glucose 109 H 154 H (70-105) Calcium 7.8 L (8.4-10.2) mg/dL Total Protein 5.5 L (6.3-8.2) g/dL Albumin 2.3 L (3.9-5) g/dL Diabetes panel 11/28/18 Range/Units 05:00 Sodium 134 L (137-145) mmol/L Potassium 3.4 L (3.6-5.0) mmol/L Chloride 99.9 (98-107) mmol/L Carbon Dioxide 23 (22-30) mmol/L BUN 4 L (7-17) mg/dL Creatinine 0.4 L (0.7-1.2) mg/dL Glucose 136 H (65-100) mg/dL Calcium 7.8 L (8.4-10.2) mg/dL AST 19 (5-40) units/L ALT 7 (7-56) units/L Alkaline Phosphatase 85 (35-129) units/L Total Protein 5.5 L (6.3-8.2) g/dL Albumin 2.3 L (3.9-5) g/dL Calcium panel 11/28/18 Range/Units 05:00 Calcium 7.8 L (8.4-10.2) mg/dL Albumin 2.3 L (3.9-5) g/dL Pituitary panel 11/28/18 Range/Units 05:00 Sodium 134 L (137-145) mmol/L Potassium 3.4 L (3.6-5.0) mmol/L Chloride 99.9 (98-107) mmol/L Carbon Dioxide 23 (22-30) mmol/L BUN 4 L (7-17) mg/dL Creatinine 0.4 L (0.7-1.2) mg/dL Glucose 136 H (65-100) mg/dL Calcium 7.8 L (8.4-10.2) mg/dL Adrenal panel 11/28/18 Range/Units 05:00 Sodium 134 L (137-145) mmol/L Potassium 3.4 L (3.6-5.0) mmol/L Chloride 99.9 (98-107) mmol/L Carbon Dioxide 23 (22-30) mmol/L BUN 4 L (7-17) mg/dL Creatinine 0.4 L (0.7-1.2) mg/dL Glucose 136 H (65-100) mg/dL Calcium 7.8 L (8.4-10.2) mg/dL Total Bilirubin 0.70 (0.1-1.2) mg/dL AST 19 (5-40) units/L ALT 7 (7-56) units/L Alkaline Phosphatase 85 (35-129) units/L Total Protein 5.5 L (6.3-8.2) g/dL Albumin 2.3 L (3.9-5) g/dL - Imaging CT scan - abdomen: report reviewed, image reviewed CT scan - pelvis: report reviewed, image reviewed Assessment and Plan 58 yo F with 1. ascites 2. liver cirrhosis - etoh induced 3. chronic pancreatitis - etoh induced 4. pancreatic pseudocyst MELD - 11 Child Dill - B Plan: 1. s/p paracentesis with resolution of abdominal pain 2. reg diet 3. Patient has large pancreatic pseudocyst however is asymptomatic. Radiologist reports possible hemorrhagic component to cyst. Hb stable, very unlikely active hemorrhage. No urgent intervention needed at this time. Patient needs follow up with gastroenterology. If she becomes symptomatic from pseudocyst, she may be a candidate for endoscopic intervention. Will s/o Thank you, please call with questions.
[2018-11-29] MEDS: DILAUDID IV PRN (02:12)
[2018-11-29 06:07] VITALS: BP 90/60
[2018-11-29] MEDS: LASIX PO SCH ×2 (09:37→12:16)
[2018-11-29] MEDS: ALDACTONE PO SCH (09:37)
[2018-11-29] MEDS: THERAGRAN Tab PO SCH (09:38)
[2018-11-29] MEDS: VITAMIN B-1 PO SCH (09:38)
[2018-11-29] MEDS: K-DUR PO SCH (09:39)
[2018-11-29] MEDS: FOLVITE PO SCH (09:39)
[2018-11-29] MEDS: PEPCID PO SCH (09:39)
[2018-11-29] MEDS: SODIUM CHLORIDE FLUSH SYRINGE 10 ML IV SCH (09:46)
--- NOTE | 2018-11-29 12:18 | Discharge Summary ---
Providers - Providers Date of Admission: 11/27/18 13:48 Date of discharge: 11/29/18 Attending physician: BHARAT FREEMAN 11/27/18 16:35 Consult to Physician [CONS] Routine Comment: IR consulted DR PAN NOTIFIED [id number] Consulting Provider: CHANELL PAN Physician Instructions: Reason For Exam: pancreatic Pseudocyst 11/28/18 08:00 Consult to Interventional Radiology [CONS] Routine Consulting Provider: CARLOS VELAZQUEZ Reason For Exam: Paracentesis,therapeutic, Pancreatic Pseudocyst Place consult to:: IR Notified:: Y Phone number called:: [phone] Was contact made?: No Time called:: 16:00 Comment:: LEFT MESSAGE ON DR GREEN PHONE 1600 Hospitalization Reason for admission: worsening shortness of breath/worsening ascites Condition: Stable Pertinent studies: Chest x-ray A CT abdomen and pelvis Procedures: Ultrasound-guided paracentesis, removal of 4.5 L of peritoneal fluid Hospital course: 58-year-old female patient with significant past medical history of cirrhosis versus large ascites COPD ongoing tobacco use hypertension, multiple episodes of large volume parac entesis, was admitted through emergency room with worsening shortness of breath and worsening ascites, Patient was seen and evaluated and admitted to the hospital, evaluated by interventional radiologist, underwent paracentesis and removal of 4.5 L of peritoneal fluid Patient tolerated the procedure felt, Today patient is comfortable in no new complaints vital signs stable Physical examination unremarkable, Hemodynamically and clinically stable for discharge She's also had pseudopancreatic cyst with questionable hemorrhage, evaluated by surgery No surgical intervention, advised to follow with GI for further evaluation and management upon discharge Discharge diagnoses; --Large ascites; scheduled for paracentesis Continue supportive care --Cirrhosis liver; Continue current management, GI evaluation if needed --Pancreatic pseudocyst with possible hemorrhage; Surgery consultation, continue current management Consider GI evaluation if needed --Mild hyponatremia; GraduALLY IMPROVING --Type 2 diabetes mellitus; Accu-Chek sliding scale coverage and ADA diet and insulin as needed, check A1c --DVT prophylaxis ;SCDs Disposition: - TO HOME OR SELFCARE Time spent for discharge: 32 min Core Measure Documentation - Palliative Care Palliative Care/ Comfort Measures: Not Applicable - Core Measures Any of the following diagnoses?: none Exam - Constitutional Vitals: Temp Pulse Resp BP Pulse Ox 98.2 F 75 24 90/60 97 11/29/18 05:46 11/29/18 05:46 11/29/18 05:46 11/29/18 05:46 11/29/18 05:46 General appearance: Present: no acute distress, well-nourished - EENT Eyes: Present: PERRL, EOM intact - Neck Neck: Present: supple, normal ROM - Respiratory Respiratory effort: normal Respiratory: bilateral: diminished, negative: rales, rhonchi, wheezing - Cardiovascular Rhythm: regular Heart Sounds: Present: S1 & S2 - Extremities Extremities: no ischemia Extremity abnormal: edema - Abdominal General gastrointestinal: Present: soft, non-tender, non-distended, normal bowel sounds, other (ascitis) - Integumentary Integumentary: Present: clear, warm - Musculoskeletal Musculoskeletal: strength equal bilaterally - Psychiatric Psychiatric: appropriate mood/affect, cooperative - Neurologic Neurologic: CNII-XII intact, moves all extremities Plan Activity: no restrictions Diet: diabetic Special Instructions: smoking cessation Additional Instructions: Advised to follow private etiologist as scheduled. 1 day work excuse on 11/30/2018, may return to work 12/01/2018 if tolerated Follow up with: KIET CHU [Other] - 7 Days Forms: Work/School Release Form Prescriptions: Ondansetron [Zofran Odt] 4 mg PO Q8HR #30 miki
== END 2018-11-29 14:25 | disposition home or self-care (01) | DRG 432 ==
LOC: ED 12:01 → 3A 13:48
PROVIDERS: ADMIT Internal Medicine; ATTEND Internal Medicine
PROC: 0W9G3ZZ Drainage of Peritoneal Cavity, Percutaneous Approach (ICD-10-PCS; principal; 2018-11-27)
DX: K70.31 Alcoholic cirrhosis of liver with ascites (principal); K72.00 Acute and subacute hepatic failure without coma; E87.1 Hypo-osmolality and hyponatremia; K86.3 Pseudocyst of pancreas; K86.0 Alcohol-induced chronic pancreatitis; F10.20 Alcohol dependence, uncomplicated; Y90.0 Blood alcohol level of less than 20 mg/100 ml; I10 Essential (primary) hypertension; E11.9 Type 2 diabetes mellitus without complications; F32.9 Major depressive disorder, single episode, unspecified; F17.200 Nicotine dependence, unspecified, uncomplicated; J44.9 Chronic obstructive pulmonary disease, unspecified; Z82.49 Family history of ischemic heart disease and other diseases of the circulatory system; Z98.51 Tubal ligation status; Z79.4 Long term (current) use of insulin; Z79.899 Other long term (current) drug therapy
CPT/HCPCS: 36415; 49083; 71046; 74176; 80053; 80307; 81001; 82140; 82962; 83690; 83735; 83880; 85025; 85610; 85730; 87116; 93005; 93010; 96374; 96375; 99285; 99406; G0378; J1170; J1200; J1815; J1956; J2405